=== PATIENT | female | born 1945 | race Caucasian/White ===

== ENCOUNTER 2016-06-04 12:48 | Inpatient (IN) | payer MEDICARE, BC ==
[2016-06-03 22:00] VITALS: BMI 32.2
[~2016-06-04] VITALS: Ht 157.5 cm; Wt 79.8 kg
[~2016-06-04 12:48] MED LIST: ALP2OP10 RIGHT EYE; BIMA2.5D RIGHT EYE; BROM3DRO LEFT EYE; CALC500T91 PO; CELE200C PO; DORZ10DR22 BOTH EYES; FENO145T19 PO; GABA-526 PO; METF-388 PO; MULT-542 PO; MURO1282 LEFT EYE; OMEG500C3 PO; OMEP20CA16 PO; OXYB10TA6 PO; RAMI5CAP46 PO; REPA2TAB8 PO; SITA100T8 PO
[2016-06-04 15:30] VITALS: BP 122/58; PULSE 89; RESP 18
[2016-06-04] MEDS ORDERED: ACETAMINOPHEN 325 MG TAB PO PRN ×2 (17:42→18:00)
[2016-06-04] MEDS ORDERED: GLUCAGON 1 MG INJ IM PRN (17:42)
[2016-06-04] MEDS ORDERED: BISACODYL 10 MG SUPP PR PRN (17:42)
[2016-06-04] MEDS ORDERED: GLUCOSE GEL 15 GRAM TUBE BUCCAL PRN (17:42)
[2016-06-04] MEDS ORDERED: MAGNESIUM HYDROXIDE 30ML CUP PO PRN ×2 (17:42→18:00)
[2016-06-04] MEDS ORDERED: morphine 2 MG INJ IV PRN (17:42)
[2016-06-04] MEDS ORDERED: DEXTROSE 50% 50 ML SYRINGE IV PRN ×2 (17:42)
[2016-06-04] MEDS ORDERED: GLUCOSE GEL 15 GRAM TUBE PO PRN ×2 (17:42)
[2016-06-04] MEDS ORDERED: ONDANSETRON 4 MG INJ IV PRN (17:42)
[2016-06-04] MEDS: CIPROFLOXACIN 500 MG TAB PO SCH (18:10)
[2016-06-04 20:00] VITALS: BP 123/58; PULSE 93; RESP 18
[2016-06-04] MEDS: SENNA TAB PO SCH (20:58)
[2016-06-04] MEDS: DOCUSATE SODIUM 100 MG CAP PO SCH (20:58)
[2016-06-04] MEDS: CALCIUM/VITAMIN D (500/200) TAB PO SCH (20:58)
[2016-06-04] MEDS: DORZOLAMIDE/TIMOLOL 10 ML OPH BOTH EYES SCH (20:58)
[2016-06-04] MEDS: GABAPENTIN 300 MG CAP PO SCH (20:58)
[2016-06-04] MEDS: INSULIN ASPART [NOVOLOG] 3 ML PEN SC SCH (20:58)
[2016-06-04] MEDS: BRIMONIDINE 0.2% 5 ML BTL RIGHT EYE SCH (20:58)
[2016-06-04] MEDS ORDERED: oxyCODONE (CR) 10 MG TAB [oxyCONTIN] PO PRN (23:00)
[2016-06-04] MEDS: HYDROmorphONE 1 MG/ML SYG IV PRN (23:30)
[2016-06-05 00:40] LABS: ADD UMIC YES; URINE BILIRUBIN (Dip) NEGATIVE (NEGATIVE); URINE BLOOD (Dip) TRACE (NEGATIVE); URINE COLOR LT. YELLOW (YELLOW); URINE GLUCOSE (Dip) NEGATIVE (NEGATIVE); URINE KETONES (Dip) NEGATIVE (NEGATIVE); URINE LEUKOCYTE ESTERASE (Dip) 2+ (NEGATIVE); URINE NITRITE (Dip) NEGATIVE (NEGATIVE); URINE TOTAL PROTEIN (Dip) NEGATIVE (NEGATIVE); URINE UROBILINOGEN (Dip) 1.0 E.U./dL (0.1-1.0)
[2016-06-05 01:52] LABS: BACTERIA,URINE FEW; SQUAMOUS EPITHELIAL CELL,UR FEW; URINE RBCS 0-2 /HPF (0)
[2016-06-05] MEDS: ACCUCHECK XX SCH (02:00)
[2016-06-05 02:13] VITALS: Ht 157.5 cm; Wt 79.8 kg
[2016-06-05] MEDS: CIPROFLOXACIN 500 MG TAB PO SCH ×2 (06:40→17:32)
[2016-06-05] MEDS: PANTOPRAZOLE (EC) 40 MG TAB PO SCH (06:40)
[2016-06-05 07:44] LABS: HEMATOCRIT 27.2 % (37.0-47.0); HEMOGLOBIN 8.9 g/dl (12.0-16.0); MEAN CORPUSCULAR HEMOGLOBIN 29.4 pg (29.0-33.0); MEAN CORPUSCULAR HGB CONC 32.8 g/dl (32.0-37.0); MEAN CORPUSCULAR VOLUME 89.3 fl (82.0-101.0); MEAN PLATELET VOLUME 10.6 fl (7.4-10.4); RED BLOOD COUNT 3.04 10^6/ul (4.20-5.40); UNCORRECTED WBC 6.8 10^3/ul (4.8-10.8); WHITE BLOOD COUNT 6.8 10^3/ul (4.8-10.8)
[2016-06-05 07:51] LABS: ALBUMIN 3.4 g/dl (3.3-4.9); POTASSIUM 4.2 mmol/L (3.5-5.1)
[2016-06-05 07:53] LABS: CREATININE 0.77 mg/dl (0.44-1.00)
[2016-06-05 07:54] LABS: ALBUMIN/GLOBULIN RATIO 0.94; BILIRUBIN,INDIRECT 0.6 mg/dl (0-1.1); BILIRUBIN,TOTAL 0.6 mg/dl (0.2-1.3)
[2016-06-05] MEDS: REPAGLINIDE 2 MG TAB PO SCH ×3 (07:57→17:00)
[2016-06-05] MEDS: metFORMIN 500 MG TAB PO SCH (07:58)
[2016-06-05 08:00] VITALS: BP 98/54; PULSE 86; RESP 18
[2016-06-05 08:00] LABS: CONDITION 1; LH ANALYZER COMMENTS 1
[2016-06-05 08:02] LABS: PLATELET COUNT 23 10^3/UL (140-440)
[2016-06-05] MEDS: INSULIN ASPART [NOVOLOG] 3 ML PEN SC SCH ×4 (08:04→20:10)
[2016-06-05] MEDS: morphine 2 MG INJ IV PRN ×2 (08:22→23:51)
[2016-06-05] MEDS: BROMFENAC SODIUM 1.7 ML OPH DROP LEFT EYE SCH (09:00)
[2016-06-05] MEDS: OXYBUTYNIN (XL) 5 MG TAB PO SCH (09:57)
[2016-06-05] MEDS: FLUCONAZOLE 100 MG TAB PO SCH (09:57)
[2016-06-05] MEDS: DOCUSATE SODIUM 100 MG CAP PO SCH ×2 (09:58→20:07)
[2016-06-05] MEDS: FENOFIBRATE 145 MG TAB PO SCH (09:58)
[2016-06-05] MEDS: LISINOPRIL 10 MG TAB PO SCH (09:58)
[2016-06-05] MEDS: CALCIUM/VITAMIN D (500/200) TAB PO SCH ×2 (09:58→20:07)
[2016-06-05] MEDS: GABAPENTIN 300 MG CAP PO SCH ×3 (09:58→20:07)
[2016-06-05] MEDS: LINAGLIPTIN 5 MG TABLET PO SCH (09:59)
[2016-06-05] MEDS: POLYETHYLENE GLYCOL 17 GM PACKET PO SCH (09:59)
[2016-06-05] MEDS: NYSTATIN/TRIAMCINOLONE 15 GM CR TOP SCH ×2 (10:01→20:09)
[2016-06-05] MEDS: BRIMONIDINE 0.2% 5 ML BTL RIGHT EYE SCH ×2 (10:01→20:07)
[2016-06-05] MEDS: DORZOLAMIDE/TIMOLOL 10 ML OPH BOTH EYES SCH ×2 (10:02→20:07)
[2016-06-05 11:09] LABS: LYMPHOCYTES # 1.2 10^3/ul (0.8-2.9); MONOCYTE # 0.7 10^3/ul (0.3-0.9); MYELOCYTES # 0.4; NEUTROPHIL # 3.5 10^3/ul (1.6-7.5); PLATELET ESTIMATE PLT APPEAR DECREASED
[2016-06-05 20:00] VITALS: BP 100/50; PULSE 86; RESP 18
[2016-06-05] MEDS: SENNA TAB PO SCH (20:07)
[2016-06-05] MEDS: INSULIN GLARGINE [LANtus] 3 ML PEN SC SCH (23:16)
--- NOTE | 2016-06-06 00:05 | HP ---
DATE OF ADMISSION: 06/04/2016 PHYSICAL MEDICINE & REHABILITATION HISTORY AND PHYSICA/ POST ADMISSION ASSESSMENT DATE OF VISIT: 06/05/2016 REHABILITATION IMPAIRMENT GROUP: Other orthopedic, with right comminuted patellar fracture and left spiral fracture of the proximal shaft of left humerus. CHIEF COMPLAINT: Impaired mobility, right lower extremity and left upper extremity pain. 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 Imaging done showed a spiral fracture of the proximal shaft of the left humerus, as well as a right comminuted fracture of the right patella. She was seen by orthopedic surgeon, Dr. Reed, who noted fractures were in acceptable alignment and recommended immobilization of the right lower extremity in a long leg brace, as well as immobilization of the left upper extremity in an HSS brace. He recommended weightbearing as tolerated to the bilateral lower extremities and nonweightbearing to the left upper extremity, with braces in place at all times. The patient's course was complicated by acute pain secondary to trauma and fractures, as well as anemia and thrombocytopenia, followed by hematology and did receive transfusions of packed red blood cells and platelets, as well as Epogen. She was also found to have UTI and started on antibiotics. The patient did work with physical and occupational therapies and was noted to have an overall significant decline in functional mobility and self-care ADLs. Currently the patient is requiring minimal assistance for feeding and grooming. She is maximal assistance for bathing, dressing and toileting. She is requiring minimal assistance for gait with a feliz-walker of 5 feet, requiring minimal assistance for bed transfers. Due to the patient's continued medical comorbidities and decline in functionality, she was thought to benefit from acute inpatient rehabilitation. PAST MEDICAL AND SURGICAL HISTORY: As stated in the history of present illness , including history of myelodysplastic syndrome, followed at [facility], with anemia, thrombocytopenia, history of diabetes mellitus type 2 and associated diabetic peripheral neuropathy, history of cataracts, glaucoma, hypertension, hyperlipidemia, overactive bladder, and GERD. Other surgeries have included laminectomy. FAMILY HISTORY: Significant for mother with a history of dementia, diabetes and hypertension. Father of leukemia in his 60s, and brother of colon cancer in his 50s. SOCIAL HISTORY: The patient has a remote smoking history 50 years ago. The patient was previously living with her siblings in a single-story home. Reports a few steps to enter the home and a few steps to enter the garage. She reports that her brother and sister will live with her on discharge. She reports that prior to hospitalization she was completely independent for all functional mobility and self-care ADLs. She was using a cane for ambulation outside of the home. No assistive device within the home. Please see history of present illness for current level of function. CURRENT MEDICATIONS ON ADMISSION: 1. Mycolog applications twice daily. 2. Morphine 2 mg IV every 2 hours as needed. 3. [place] 5/325 mg 1 to 2 tabs every 4 hours as needed for moderate to severe pain. 4. Senna 1 tab oral at bedtime. 5. Tylenol as needed. 6. Milk of Magnesia as needed. 7. Lactulose as needed. 8. Lisinopril 10 mg oral daily. 9. Alphagan eyedrops twice daily to the right eye. 10. Bromfenac 1 drop daily to the left eye. 11. Dorzolamide/Timolol, 1 drop to both eyes twice daily. 12. Zofran as needed. 13. Protonix 40 mg oral daily. 14. Ditropan 10 mg oral daily. 15. Gabapentin 600 mg oral 3 times daily. 16. Metformin 1000 mg oral daily with breakfast. 17. Prandin 2 mg oral before meals. 18. Tradjenta 5 mg oral daily. 19. Tricor 145 mg oral daily. 20. Calcium with vitamin D 1 tablet oral twice daily. 21. Dilaudid 0.5 mg IV every.3 hours as needed 22. MiraLax 17 grams oral daily. 23. Diflucan 100 mg oral daily until 06/10. 24. Epogen 10,000 units Tuesday, Tuesday and Tuesday. 25. Colace 100 mg oral twice daily. 26. Cipro 500 mg oral twice daily. 27. Insulin sliding scale as needed. ALLERGIES: NO KNOWN DRUG ALLERGIES. LABORATORIES AND IMAGING: WBC 6.8, hemoglobin 8.9, hematocrit 27.2, platelets 23. Sodium 137, potassium 4.2, BUN 29, creatinine 0.77, glucose 244, calcium 10. AST 49, ALT 42, alkaline phosphatase 74, albumin 3.4. UA on admission was clear, negative nitrites, has leukocyte esterase, 2 to 5 WBCs, few squamous epithelial cells, few bacteria. Urine culture is pending. REVIEW OF SYSTEMS: CONSTITUTIONAL: Denies chills. Noted to have had a low-grade temperature yesterday afternoon. EYES: Denies pain or discharge. No redness. EARS, NOSE AND THROAT: Denies changes in hearing, no difficulty swallowing. RESPIRATORY: Denies shortness of breath, no cough. CARDIOVASCULAR: Denies chest pain, no palpitations. GENITOURINARY: Denies dysuria, but reports increase in urinary frequency. No hematuria. She is on antibiotics for a UTI. GASTROINTESTINAL: Denies abdominal pain. No nausea or vomiting. Reports moving her bowels. NEUROLOGICAL: Denies any new focal weakness or new paresthesias. MUSCULOSKELETAL: Reports currently 1/10 pain in the left upper extremity and the right lower extremity. SKIN: Noted bruising in the upper and lower extremities as well as left side of her chest and abdomen. PSYCHIATRIC: Denies anxiety or depression. Review of systems is otherwise negative. PHYSICAL EXAMINATION: VITAL SIGNS: Blood pressure is 98/54, heart rate is 86, temperature is 98.7 Fahrenheit, respiratory rate 18, O2 saturation 95% on room air. GENERAL: The patient is awake, alert, no acute distress, well nourished, well developed. HEAD, EYES, EARS, NOSE, THROAT: Normocephalic, atraumatic. Mucous membranes moist. NECK: Supple. Nontender. RESPIRATORY: Diminished bibasilar breath sounds. No wheezing. CARDIOVASCULAR: Regular rate and rhythm. Audible S1, S2. ABDOMEN: Soft, nontender. Bowel sounds present. EXTREMITIES: The left calf is nontender and soft. There is no cyanosis. Right lower extremity immobilizer and left upper extremity HSS brace in place. SKIN: Bruising present in the upper and lower extremities, left side of her chest and abdomen. PSYCHIATRIC: Affect and mood are appropriate. NEUROLOGIC AND MUSCULOSKELETAL EXAMINATION: The patient is awake, alert, in no acute distress. She follows simple commands appropriately. She has good overall strength in the right upper extremity. She is able to move all fingers on the left. Right dorsiflexion and plantar flexion and left lower extremity with antigravity strength Further evaluation is limited due to orthopedic injuries. Sensation is intact to light touch, except decrease in the bilateral feet due to diabetic neuropathy. IMPRESSION: 1. Status post mechanical fall with a right comminuted patellar fracture and a spiral fracture of the proximal shaft of the left humerus, treated non- operatively 2. Impaired mobility, gait, and balance. 3. Impaired self-care ADLs. 4. Acute pain due to trauma and fractures 5. Myelodysplastic syndrome. 6. Anemia. 7. Thrombocytopenia. 8. Diabetes mellitus type 2, with diabetic neuropathy. 9. Hypertension. 10. Hyperlipidemia. 11. Overactive bladder. 12. GERD. 13. Urinary tract infection, present on admission. 14. Glaucoma PLAN: 1. The patient will be admitted for inpatient comprehensive interdisciplinary rehabilitation to address impairments in medical conditions listed above while assessing equipment needs and compensatory strategies with coordinated interdisciplinary services that will include physical and occupational therapies and close monitoring and treatment with 24-hour rehabilitation nursing. This interdisciplinary program will be performed under the direction of a delicatessen goods stock clerk. The patient will receive 3 hours daily of physical and occupational therapies for at least 5 out of the 7 days per week, with rehabilitation nursing and close supervision by a rehabilitation physician. 2. Based on the patient's complex medical issues, as previously detailed, the patient's rehabilitation services cannot be provided at a lesser level. 3. Begin physical therapy for bed mobility, transfers, wheelchair mobility, balance training, gait training with assistive devices. 4. Begin occupational therapies for activities of daily living, functional transfers, patient education, adaptive equipment evaluation. 5. Rehabilitation nursing to provide the patient education regarding current medications as they relate to medical illness, monitor blood sugars, monitor for signs or symptoms of hyper or hypoglycemia, monitor pain, monitor bowel and bladder programs and administer such programs, and continue to reinforce those activities with physical and occupational therapies. 6. Dr. Purvis to follow for management of medical comorbidities. 7. For her history of myelodysplastic syndrome with anemia and thrombocytopenia , she is being followed by hematology. A decline in platelets noted on labs this morning. Nursing has left a message for hematology for further recommendations. No signs or symptoms of bleeding at this time. Will continue to closely monitor. Continue to closely monitor hemoglobin and hematocrit as well, currently stable. 8. For history of hypertension, blood pressure noted to be low this morning, asymptomatic. Defer to general medicine regarding further adjustment of her blood pressure medications. 9. For acute pain due to trauma and fractures, pain currently appears to be controlled. Continue current pain regimen. Will adjust as needed as she mobilizes further with therapies. Continue conservative treatment of the spiral fracture of the proximal shaft of the left humerus and right comminuted fracture of the right patella, per orthopedic doctor, Dr. Reed, with immobilizers to the right lower extremity and left upper extremity at all times. She is weightbearing as tolerated to the bilateral lower extremities and nonweightbearing on the left upper extremity. Will follow up with Dr. Reed in regards to followup x-ray. 10. For overactive bladder, continue current management. Bladder training with nursing staff. Will also check a bladder scan. 11. For urinary tract infection, continue antibiotics per interanl medicine. 12. For diabetes mellitus type 2, continue current treatment, per internal medicine. Continue gabapentin for diabetic neuropathy. 13. For glaucoma, continue eye drops. REHABILITATION GOALS: To improve bed mobility, transfers, wheelchair mobility to a standby assistance level. Improve self-care ADLs at wheelchair level to at least minimal assistance level with adaptive equipment. ESTIMATED LENGTH OF STAY: Approximately 2 weeks. ANTICIPATED DISPOSITION: To home with siblings. Her case will be discussed at the weekly interdisciplinary conference. ADMISSION PROGNOSIS: At the current time this inpatient hospital rehabilitation stay is medically necessary to achieve important health and functional goals. The patient requires frequent physician visits, 24-hour rehabilitation nursing and a coordinated intensive rehabilitation program, as described above, to address complex medical, nursing and rehabilitation needs. The patient has a good prognosis for benefiting from this program and returning to home and community with assistance. REHABILITATION PHYSICIAN POST-ADMISSION ASSESSMENT REVIEW: I have had the opportunity to examine the patient within 24 hours of admission and have reviewed the preadmission assessment and finding consistent with my examination and evaluation of the patient. I confirmed that this patient is appropriate for admission and treatment in this inpatient rehabilitation hospital, needs intense interdisciplinary rehabilitation and is expected to achieve meaningful goals within a reasonable period of time that are consistent with the planned discharge disposition, as noted above. Dictated By: BRIGITTE PUENTE MD, RA/ROGE Conf#: [id number] DID#: [id number] MACO
[2016-06-06] MEDS: ACCUCHECK XX SCH (02:00)
[2016-06-06] MEDS: PANTOPRAZOLE (EC) 40 MG TAB PO SCH (06:57)
[2016-06-06] MEDS: CIPROFLOXACIN 500 MG TAB PO SCH ×2 (06:57→17:31)
[2016-06-06 07:27] LABS: HEMATOCRIT 24.8 % (37.0-47.0); HEMOGLOBIN 8.1 g/dl (12.0-16.0); MEAN CORPUSCULAR HEMOGLOBIN 29.4 pg (29.0-33.0); MEAN CORPUSCULAR HGB CONC 32.9 g/dl (32.0-37.0); MEAN CORPUSCULAR VOLUME 89.5 fl (82.0-101.0); MEAN PLATELET VOLUME 10.6 fl (7.4-10.4); RED BLOOD COUNT 2.77 10^6/ul (4.20-5.40); RED CELL DISTRIBUTION WIDTH 16.6 % (11.5-14.5); UNCORRECTED WBC 8.2 10^3/ul (4.8-10.8); WHITE BLOOD COUNT 8.2 10^3/ul (4.8-10.8)
[2016-06-06 07:38] LABS: CONDITION 1; LH ANALYZER COMMENTS 1; PLATELET COUNT 20 10^3/UL (140-440)
[2016-06-06 08:00] VITALS: BP 114/56; PULSE 76; RESP 18
[2016-06-06] MEDS: LISINOPRIL 10 MG TAB PO SCH (08:20)
[2016-06-06] MEDS: OXYBUTYNIN (XL) 5 MG TAB PO SCH (08:20)
[2016-06-06] MEDS: GABAPENTIN 300 MG CAP PO SCH ×3 (08:21→20:50)
[2016-06-06] MEDS: metFORMIN 500 MG TAB PO SCH (08:21)
[2016-06-06] MEDS: FLUCONAZOLE 100 MG TAB PO SCH (08:21)
[2016-06-06] MEDS: CALCIUM/VITAMIN D (500/200) TAB PO SCH ×2 (08:21→20:50)
[2016-06-06] MEDS: REPAGLINIDE 2 MG TAB PO SCH ×3 (08:21→17:26)
[2016-06-06] MEDS: DOCUSATE SODIUM 100 MG CAP PO SCH ×2 (08:21→20:50)
[2016-06-06] MEDS: LINAGLIPTIN 5 MG TABLET PO SCH (08:21)
[2016-06-06] MEDS: FENOFIBRATE 145 MG TAB PO SCH (08:22)
[2016-06-06] MEDS: DORZOLAMIDE/TIMOLOL 10 ML OPH BOTH EYES SCH ×2 (08:22→20:49)
[2016-06-06] MEDS: POLYETHYLENE GLYCOL 17 GM PACKET PO SCH (08:22)
[2016-06-06] MEDS: BROMFENAC SODIUM 1.7 ML OPH DROP LEFT EYE SCH (08:23)
[2016-06-06] MEDS: BRIMONIDINE 0.2% 5 ML BTL RIGHT EYE SCH ×2 (08:24→20:50)
[2016-06-06] MEDS: INSULIN ASPART [NOVOLOG] 3 ML PEN SC SCH ×4 (08:28→20:50)
[2016-06-06] MEDS: morphine 2 MG INJ IV PRN ×2 (08:55→15:10)
[2016-06-06 09:59] LABS: LYMPHOCYTES # 2.4 10^3/ul (0.8-2.9); MONOCYTE # 0.7 10^3/ul (0.3-0.9); MYELOCYTES # 0.2; NEUTROPHIL # 4.7 10^3/ul (1.6-7.5)
[2016-06-06 10:03] LABS: ANISOCYTOSIS 1+; HYPOCHROMASIA 1+; PLATELET ESTIMATE PLT APPEAR DECREASED; POIKILOCYTOSIS 1+; TARGET CELLS 1+
--- NOTE | 2016-06-06 12:19 | PN ---
Date/Time of Note Date/Time of Note DATE: 06/06/16 TIME: 12:12 Assessment/Plan VTE Prophylaxis VTE Prophylaxis Intervention: other (per internal medicine/hematology) Lines/Catheters Urinary Cath still in place: No Assessment/Plan Assessment/Plan 1. Status post mechanical fall with a right comminuted patellar fracture and a spiral fracture of the proximal shaft of the left humerus, treated non- operatively, with Impaired mobility, gait, balance and self care ADLs. Continue PT/OT. NWB LUE, WBAT RLE with immobilizers in place. Max to total assistance for bed mobility and transfers. 2. Acute pain due to trauma and fractures. Pain controlled, continue prn norco and morphine. 3. Myelodysplastic syndrome with anemia and thrombocytopenia. Plts and hemoglobin/hematocrit downtrending. Continue to monitor. Management per hematology. 4. Diabetes mellitus type 2, with diabetic neuropathy. Continue to monitor blood sugars. Blood sugar control per internal medicine. Neuropathy controlled with gabapentin. 5. Hypertension. Bp controlled, continue current treatment. 6. Hyperlipidemia. 7. Overactive bladder. Continue oxybutynin. Bladder program with nursing staff. 8. GERD. 9. UTI, present on admission. On antibiotics per internal medicine. 10. Constipation. Continue bowel regimen. 11. Glaucoma. Continue eye drops. Subjective 24 Hr Interval Summary Free Text/Dictation Rehab progress note Subjective: Reports mild pain currently LUE and RLE. Reports moving bowels yesterday. ROS: Denies chest pain, no shortness of breath, no abdominal pain, no vomiting, no chills, no headache or dizziness, no new paresthesias. Exam/Review of Systems Vital Signs Vitals Vital Signs Date Time Temp Pulse Resp B/P Pulse Ox O2 Delivery O2 Flow Rate FiO2 06/06/16 08:00 98.0 76 18 114/56 94 Room Air Intake and Output 06/05/16 06/05/16 06/06/16 15:00 23:00 07:00 Intake Total 360 ml 460 ml 500 ml Balance 360 ml 460 ml 500 ml Exam General: Awake, alert, no acute distress CV: Regular rate, s1s2 Lungs: Symmetrical air entry bilaterally, no wheezing Abdomen soft, nontender, +bowel sounds Extremities: LUE and RLE with immobilizers in place. No cyanosis Neuro: No new focal changes. Able to moves all fingers on left. Active R DF/PF. No new sensory changes. Results Result Diagram: 06/06/16 0628 06/05/16 0647 Results 24 hrs Laboratory Tests Test 06/05/16 16:50 06/05/16 20:03 06/06/16 01:26 06/06/16 06:28 Bedside Glucose 139 196 127 Anisocytosis 1+ Band Neutrophils % 3.0 Blood Morphology Comment Hematocrit 24.8 L Hemoglobin 8.1 L Hypochromasia 1+ Lymphocytes # 2.4 Lymphocytes % 29.0 Mean Corpuscular Hemoglobin 29.4 Mean Corpuscular Hemoglobin Concent 32.9 Mean Corpuscular Volume 89.5 Mean Platelet Volume 10.6 H Monocytes # 0.7 Monocytes % 9.0 Myelocytes # 0.2 Myelocytes % 2.0 H Neutrophils # 4.7 Neutrophils % 57.0 Nucleated Red Blood Cells # Nucleated Red Blood Cells % 14.0 H Platelet Count 20 *L Platelet Estimate PLT APPEAR DECREASED Red Blood Count 2.77 L Red Cell Distribution Width 16.6 H Target Cells 1+ White Blood Count 8.2 # Test 06/06/16 07:34 06/06/16 11:32 Bedside Glucose 163 185 Medications Medications Current Medications Senna (Senokot) 1 tab HS PO Last administered on 06/05/16at 20:07; Admin Dose 1 TAB; Start 06/04/16 at 21:00 Acetaminophen (Tylenol Tab) 650 mg Q4H PRN PO PAIN; Start 06/04/16 at 18:00 Magnesium Hydroxide (Milk Of Mag) 30 ml BID PRN PO CONSTIPATION; Start at 18:00 Lactulose (Enulose) 20 gm DAILY PRN PO CONSTIPATION; Start 06/04/16 at 18:00 Lisinopril (Zestril) 10 mg DAILY PO Last administered on 06/06/16at 08:20; Admin Dose 10 MG; Start 06/04/16 at 17:42 Brimonidine Tartrate (Alphagan 0.2%) 1 drop BID RIGHT EYE Last administered on 06/06/16at 08:24; Admin Dose 1 DROP; Start 06/04/16 at 17:42 Bromfenac Sodium (Bromday) 1 drop DAILY LEFT EYE Last administered on at 08:23; Admin Dose 1 DROP; Start 06/04/16 at 17:42 Dorzolamide/ Timolol (Cosopt) 1 drop BID BOTH EYES Last administered on 08:22; Admin Dose 1 DROP; Start 06/04/16 at 17:42 Acetaminophen (Tylenol Tab) 650 mg Q6H PRN PO PAIN AND OR ELEVATED TEMP; Start 06/04/16 at 17:42 Ondansetron HCl (Zofran Inj) 4 mg Q4H PRN IV NAUSEA AND/OR VOMITING; Start at 17:42 Magnesium Hydroxide (Milk Of Mag) 30 ml BID PRN PO CONSTIPATION; Start at 17:42 Pantoprazole (Protonix Tab) 40 mg DAILY@06 PO Last administered on 06/06/16 06:57; Admin Dose 40 MG; Start 06/04/16 at 17:42 Oxybutynin Chloride (Ditropan Xl) 10 mg DAILY PO Last administered on 08:20; Admin Dose 10 MG; Start 06/04/16 at 17:42 Gabapentin (Neurontin) 600 mg TID PO Last administered on 06/06/16 08:21; Admin Dose 600 MG; Start 06/04/16 at 17:42 Linagliptin (Tradjenta) 5 mg DAILY PO Last administered on 06/06/16 08:21; Admin Dose 5 MG; Start 06/04/16 at 17:42 Fenofibrate (Tricor) 145 mg DAILY PO Last administered on 06/06/16 08:22; Admin Dose 145 MG; Start 06/04/16 at 17:42 Calcium/Vitamin D (Oyster Shell/ Vit-D (500/200)) 1 tab BID PO Last administered on 06/06/16 08:21; Admin Dose 1 TAB; Start 06/04/16 at 17:42 Hydromorphone HCl (Dilaudid) 0.5 mg Q3H PRN IV PAIN Last administered on 23:30; Admin Dose 0.5 MG; Start 06/04/16 at 17:42 Polyethylene Glycol (Miralax) 17 gm DAILY PO Last administered on 06/06/16 08 :22; Admin Dose 17 GM; Start 06/04/16 at 17:42 Miscellaneous Information 1 ea NOTE XX ; Start 06/04/16 at 17:42 Glucose (Glutose) 15 gm Q15M PRN PO DECREASED GLUCOSE; Start 06/04/16 at 17:42 Glucose (Glutose) 22.5 gm Q15M PRN PO DECREASED GLUCOSE; Start 06/04/16 at 17: 42 Dextrose (D50w Syringe) 25 ml Q15M PRN IV DECREASED GLUCOSE; Start 06/04/16 at 17:42 Dextrose (D50w Syringe) 50 ml Q15M PRN IV DECREASED GLUCOSE; Start 06/04/16 at 17:42 Glucagon (Glucagen) 1 mg Q15M PRN IM DECREASED GLUCOSE; Start 06/04/16 at 17: 42 Glucose (Glutose) 15 gm Q15M PRN BUCCAL DECREASED GLUCOSE; Start 06/04/16 at 17:42 Fluconazole (Diflucan) 100 mg DAILY PO Last administered on 06/06/16at 08:21; Admin Dose 100 MG; Start 06/04/16 at 17:42; Stop 06/10/16 at 08:59 Epoetin Raul (Epogen (Esrd)) 10,000 units MoWeFr@17 SC ; Start 06/04/16 at 17: 42 Bisacodyl (Dulcolax Supp) 10 mg DAILY PRN [place] CONSTIPATION; Start 06/04/16 at 17:42 Docusate Sodium (Colace) 100 mg BID PO Last administered on 06/06/16at 08:21; Admin Dose 100 MG; Start 06/04/16 at 17:42 Ciprofloxacin (Cipro) 500 mg BID@06,18 PO Last administered on 06/06/16at 06:57 ; Admin Dose 500 MG; Start 06/04/16 at 17:42; Stop 06/09/16 at 19:00 Diagnostic Test (Pha) (Accucheck) 1 ea 02 XX ; Start 06/04/16 at 17:42 Acetaminophen/ Hydrocodone Bitart ([place] (5/325)) 1 tab Q4H PRN PO moderate pain; Start 06/04/16 at 22:00 Acetaminophen/ Hydrocodone Bitart ([place] (5/325)) 2 tab Q4H PRN PO severe pain ; Start 06/04/16 at 22:00 Morphine Sulfate (morphine) 2 mg Q2H PRN IV SEVERE PAIN Last administered on at 08:55; Admin Dose 2 MG; Start 06/05/16 at 03:36 Nystatin/ Triamcinolone Acetonide (Mycolog Cr) 1 applic BID TOP Last administered on 06/05/16at 10:01; Admin Dose 1 APPLIC; Start 06/05/16 at 09:00 ; Stop 06/11/16 at 22:00 Influenza Virus Vaccine (Fluzone) 0.5 ml ONCE ONCE IM* ; Start 06/07/16 at 09: 00; Stop 06/07/16 at 09:01 Insulin Glargine (Lantus) 12 unit HS SC ; Start 06/05/16 at 23:30 BRIGITTE PUENTE Jun 06, 2016 12:19
[2016-06-06] MEDS: NYSTATIN/TRIAMCINOLONE 15 GM CR TOP SCH ×2 (17:27→20:50)
[2016-06-06 20:00] VITALS: BP 105/62; PULSE 91; RESP 20
[2016-06-06] MEDS: SENNA TAB PO SCH (20:50)
[2016-06-06] MEDS: INSULIN GLARGINE [LANtus] 3 ML PEN SC SCH (21:01)
[2016-06-07] MEDS: ACCUCHECK XX SCH (02:00)
[2016-06-07] MEDS: HYDROCODONE/APAP (5/325) TAB PO PRN ×2 (04:24→20:47)
[2016-06-07] MEDS: CIPROFLOXACIN 500 MG TAB PO SCH ×2 (06:23→18:23)
[2016-06-07] MEDS: PANTOPRAZOLE (EC) 40 MG TAB PO SCH (06:23)
[2016-06-07] MEDS: INSULIN ASPART [NOVOLOG] 3 ML PEN SC SCH ×4 (07:35→21:00)
[2016-06-07 08:00] VITALS: BP 103/55; PULSE 74; RESP 16
--- NOTE | 2016-06-07 08:41 | RADRPT ---
PROCEDURE: XR Left Humerus. CLINICAL INDICATION: Left arm pain. TECHNIQUE: AP and lateral views of the left humerus were performed. COMPARISON: 06/01/2016. FINDINGS: As seen previously, there is an acute oblique fracture of the midshaft of the humerus with mild angu lation apex medial. There is no other fracture and there is no dislocation para There is diffuse soft tissue swelling. Articular surfaces are intact. There is no lytic or blastic lesion. There is no radiopaque foreign body. IMPRESSION: 1. Oblique acute fracture of the midshaft of the left humerus with mild angulation apex medial. 2. Otherwise unremarkable study. RPTAT: QQ .Yimi Cornell MD, MD Date Time Electronically viewed and signed by .Yimi Cornell MD, on 06/07/2016 08:41 .R/
[2016-06-07] MEDS: CALCIUM/VITAMIN D (500/200) TAB PO SCH ×2 (08:49→20:30)
[2016-06-07] MEDS: LINAGLIPTIN 5 MG TABLET PO SCH (08:49)
[2016-06-07] MEDS: metFORMIN 500 MG TAB PO SCH (08:49)
[2016-06-07] MEDS: DOCUSATE SODIUM 100 MG CAP PO SCH ×2 (08:49→20:30)
[2016-06-07] MEDS: LISINOPRIL 10 MG TAB PO SCH (08:49)
[2016-06-07] MEDS: OXYBUTYNIN (XL) 5 MG TAB PO SCH (08:49)
[2016-06-07] MEDS: FLUCONAZOLE 100 MG TAB PO SCH (08:49)
[2016-06-07] MEDS: GABAPENTIN 300 MG CAP PO SCH ×3 (08:49→20:33)
[2016-06-07] MEDS: REPAGLINIDE 2 MG TAB PO SCH ×3 (08:49→18:23)
[2016-06-07] MEDS: FENOFIBRATE 145 MG TAB PO SCH (08:49)
[2016-06-07] MEDS: BRIMONIDINE 0.2% 5 ML BTL RIGHT EYE SCH ×2 (08:50→20:31)
[2016-06-07] MEDS: BROMFENAC SODIUM 1.7 ML OPH DROP LEFT EYE SCH (08:50)
[2016-06-07] MEDS: POLYETHYLENE GLYCOL 17 GM PACKET PO SCH (08:50)
[2016-06-07] MEDS: DORZOLAMIDE/TIMOLOL 10 ML OPH BOTH EYES SCH ×2 (08:51→20:30)
[2016-06-07] MEDS: NYSTATIN/TRIAMCINOLONE 15 GM CR TOP SCH ×2 (08:51→20:34)
[2016-06-07] MEDS ORDERED: INFLUENZA VIRUS VACCINE 0.5 ML SYG IM* ONE (09:00)
--- NOTE | 2016-06-07 10:51 | PN ---
Date/Time of Note Date/Time of Note DATE: 06/07/16 TIME: 10:47 Assessment/Plan VTE Prophylaxis VTE Prophylaxis Intervention: other (per internal medicine/hematology) Lines/Catheters Urinary Cath still in place: No Assessment/Plan Assessment/Plan 1. Status post mechanical fall with a right comminuted patellar fracture and a spiral fracture of the proximal shaft of the left humerus, treated non- operatively, with Impaired mobility, gait, balance and self care ADLs. Continue PT/OT. NWB LUE, WBAT RLE with immobilizers in place. Max assistance for lower body dressing, min assist for grooming. 2. Acute pain due to trauma and fractures. Pain controlled, continue prn norco and morphine. 3. Myelodysplastic syndrome with anemia and thrombocytopenia. Management per hematology. Plts and hemoglobin/hematocrit downtrending in last labs, monitor. 4. Diabetes mellitus type 2, with diabetic neuropathy. Blood sugar control per internal medicine, internal medicine adjusting regimen. Neuropathy controlled with gabapentin. 5. Hypertension. BP controlled, continue current treatment. 6. Hyperlipidemia. 7. Overactive bladder with urinary incontinence. Continue oxybutynin. Bladder program with nursing staff. PVR yesterday per nursing staff 60cc. 8. GERD. Continue PPI. 9. UTI, present on admission. On antibiotics per internal medicine. 10. Constipation. Continue bowel regimen. 11. Glaucoma. Continue eye drops. Subjective 24 Hr Interval Summary Free Text/Dictation Rehab progress note Subjective: Reports mild pain currently LUE/RLE at rest, pain worse when working with therapies. ROS: Reports urinary frequency with incontinence, no dysuria, no chills, no abdominal pain, no nausea or vomiting, no chest pain or shortness of breath. Exam/Review of Systems Vital Signs Vitals Vital Signs Date Time Temp Pulse Resp B/P Pulse Ox O2 Delivery O2 Flow Rate FiO2 06/07/16 08:00 98.6 74 16 103/55 96 Room Air Intake and Output 06/06/16 06/06/16 06/07/16 15:00 23:00 07:00 Intake Total 240 ml 400 ml Output Total 400 ml Balance -160 ml 400 ml Exam General: Awake, alert, no acute distress CV: Regular rate, s1s2 Lungs: Clear to auscultation, no wheezing Abdomen soft, nontender, +bowel sounds Extremities: LUE and RLE with immobilizers in place. No cyanosis. No distal edema BLE. Neuro: Able to moves all fingers on left. Active R DF/PF. Results Result Diagram: 06/06/16 0628 06/05/16 0647 Results 24 hrs Laboratory Tests Test 06/06/16 11:32 06/06/16 17:00 06/06/16 20:49 06/07/16 08:05 Bedside Glucose 185 141 153 108 Medications Medications Current Medications Senna (Senokot) 1 tab HS PO Last administered on 06/06/16at 20:50; Admin Dose 1 TAB; Start 06/04/16 at 21:00 Acetaminophen (Tylenol Tab) 650 mg Q4H PRN PO PAIN; Start 06/04/16 at 18:00 Magnesium Hydroxide (Milk Of Mag) 30 ml BID PRN PO CONSTIPATION; Start at 18:00 Lactulose (Enulose) 20 gm DAILY PRN PO CONSTIPATION; Start 06/04/16 at 18:00 Lisinopril (Zestril) 10 mg DAILY PO Last administered on 06/07/16at 08:49; Admin Dose 10 MG; Start 06/04/16 at 17:42 Brimonidine Tartrate (Alphagan 0.2%) 1 drop BID RIGHT EYE Last administered on 06/07/16 08:50; Admin Dose 1 DROP; Start 06/04/16 at 17:42 Bromfenac Sodium (Bromday) 1 drop DAILY LEFT EYE Last administered on 08:50; Admin Dose 1 DROP; Start 06/04/16 at 17:42 Dorzolamide/ Timolol (Cosopt) 1 drop BID BOTH EYES Last administered on at 08:51; Admin Dose 1 DROP; Start 06/04/16 at 17:42 Acetaminophen (Tylenol Tab) 650 mg Q6H PRN PO PAIN AND OR ELEVATED TEMP; Start 06/04/16 at 17:42 Ondansetron HCl (Zofran Inj) 4 mg Q4H PRN IV NAUSEA AND/OR VOMITING; Start at 17:42 Pantoprazole (Protonix Tab) 40 mg DAILY@06 PO Last administered on 06/07/16at 06:23; Admin Dose 40 MG; Start 06/04/16 at 17:42 Oxybutynin Chloride (Ditropan Xl) 10 mg DAILY PO Last administered on 08:49; Admin Dose 10 MG; Start 06/04/16 at 17:42 Gabapentin (Neurontin) 600 mg TID PO Last administered on 06/07/16 08:49; Admin Dose 600 MG; Start 06/04/16 at 17:42 Linagliptin (Tradjenta) 5 mg DAILY PO Last administered on 06/07/16 08:49; Admin Dose 5 MG; Start 06/04/16 at 17:42 Fenofibrate (Tricor) 145 mg DAILY PO Last administered on 06/07/16 08:49; Admin Dose 145 MG; Start 06/04/16 at 17:42 Calcium/Vitamin D (Oyster Shell/ Vit-D (500/200)) 1 tab BID PO Last administered on 06/07/16 08:49; Admin Dose 1 TAB; Start 06/04/16 at 17:42 Hydromorphone HCl (Dilaudid) 0.5 mg Q3H PRN IV PAIN Last administered on 23:30; Admin Dose 0.5 MG; Start 06/04/16 at 17:42 Polyethylene Glycol (Miralax) 17 gm DAILY PO Last administered on 06/07/16 08 :50; Admin Dose 17 GM; Start 06/04/16 at 17:42 Miscellaneous Information 1 ea NOTE XX ; Start 06/04/16 at 17:42 Glucose (Glutose) 15 gm Q15M PRN PO DECREASED GLUCOSE; Start 06/04/16 at 17:42 Glucose (Glutose) 22.5 gm Q15M PRN PO DECREASED GLUCOSE; Start 06/04/16 at 17: 42 Dextrose (D50w Syringe) 25 ml Q15M PRN IV DECREASED GLUCOSE; Start 06/04/16 at 17:42 Dextrose (D50w Syringe) 50 ml Q15M PRN IV DECREASED GLUCOSE; Start 06/04/16 at 17:42 Glucagon (Glucagen) 1 mg Q15M PRN IM DECREASED GLUCOSE; Start 06/04/16 at 17: 42 Glucose (Glutose) 15 gm Q15M PRN BUCCAL DECREASED GLUCOSE; Start 06/04/16 at 17:42 Fluconazole (Diflucan) 100 mg DAILY PO Last administered on 06/07/16 08:49; Admin Dose 100 MG; Start 06/04/16 at 17:42; Stop 06/10/16 at 08:59 Epoetin Raul (Epogen (Esrd)) 10,000 units MoWeFr@17 SC ; Start 06/04/16 at 17: 42 Bisacodyl (Dulcolax Supp) 10 mg DAILY PRN [place] CONSTIPATION; Start 06/04/16 at 17:42 Docusate Sodium (Colace) 100 mg BID PO Last administered on 06/07/16at 08:49; Admin Dose 100 MG; Start 06/04/16 at 17:42 Ciprofloxacin (Cipro) 500 mg BID@06,18 PO Last administered on 06/07/16at 06:23 ; Admin Dose 500 MG; Start 06/04/16 at 17:42; Stop 06/09/16 at 19:00 Diagnostic Test (Pha) (Accucheck) 1 ea 02 XX ; Start 06/04/16 at 17:42 Acetaminophen/ Hydrocodone Bitart ([place] (5/325)) 1 tab Q4H PRN PO moderate pain Last administered on 06/07/16at 04:24; Admin Dose 1 TAB; Start 06/04/16 at 22:00 Acetaminophen/ Hydrocodone Bitart ([place] (5/325)) 2 tab Q4H PRN PO severe pain ; Start 06/04/16 at 22:00 Morphine Sulfate (morphine) 2 mg Q2H PRN IV SEVERE PAIN Last administered on at 15:10; Admin Dose 2 MG; Start 06/05/16 at 03:36 Nystatin/ Triamcinolone Acetonide (Mycolog Cr) 1 applic BID TOP Last administered on 06/07/16at 08:51; Admin Dose 1 APPLIC; Start 06/05/16 at 09:00 ; Stop 06/11/16 at 22:00 Insulin Glargine (Lantus) 12 unit HS SC Last administered on 06/06/16at 21:01; Admin Dose 12 UNIT; Start 06/05/16 at 23:30 BRIGITTE PUENTE Jun 07, 2016 10:51
[2016-06-07] MEDS: EPOETIN 10000 UNITS/1 ML INJ (ESRD) SC SCH (18:24)
[2016-06-07] MEDS: LACTULOSE 30ML CUP PO PRN (18:38)
[2016-06-07 19:30] VITALS: BP 109/52; PULSE 93; RESP 17
[2016-06-07] MEDS: SENNA TAB PO SCH (20:30)
[2016-06-07] MEDS: INSULIN GLARGINE [LANtus] 3 ML PEN SC SCH (20:51)
[2016-06-08] MEDS: ACCUCHECK XX SCH (02:00)
[2016-06-08] MEDS: PANTOPRAZOLE (EC) 40 MG TAB PO SCH (06:31)
[2016-06-08] MEDS: CIPROFLOXACIN 500 MG TAB PO SCH ×2 (06:31→17:14)
[2016-06-08] MEDS: HYDROCODONE/APAP (5/325) TAB PO PRN ×2 (06:32→21:18)
[2016-06-08 07:35] LABS: CREATININE 1.08 mg/dl (0.44-1.00); HEMATOCRIT 24.8 % (37.0-47.0); HEMOGLOBIN 8.3 g/dl (12.0-16.0); MEAN CORPUSCULAR HEMOGLOBIN 29.9 pg (29.0-33.0); MEAN CORPUSCULAR HGB CONC 33.5 g/dl (32.0-37.0); MEAN CORPUSCULAR VOLUME 89.2 fl (82.0-101.0); RED BLOOD COUNT 2.77 10^6/ul (4.20-5.40); RED CELL DISTRIBUTION WIDTH 17.1 % (11.5-14.5); UNCORRECTED WBC 6.1 10^3/ul (4.8-10.8); WHITE BLOOD COUNT 6.1 10^3/ul (4.8-10.8)
[2016-06-08 07:36] LABS: CALCIUM 10.7 mg/dl (8.4-10.2)
[2016-06-08 07:40] LABS: CREATININE 1.18 mg/dl (0.44-1.00)
[2016-06-08 07:46] LABS: CONDITION 1; LH ANALYZER COMMENTS 1; MEAN PLATELET VOLUME 10.1 fl (7.4-10.4)
[2016-06-08 07:47] LABS: PLATELET COUNT 19 10^3/UL (140-440)
[2016-06-08] MEDS: DOCUSATE SODIUM 100 MG CAP PO SCH ×2 (08:24→21:06)
[2016-06-08] MEDS: CALCIUM/VITAMIN D (500/200) TAB PO SCH ×2 (08:29→21:06)
[2016-06-08 08:30] VITALS: BP 99/53; PULSE 80; RESP 18
[2016-06-08] MEDS: metFORMIN 500 MG TAB PO SCH (08:30)
[2016-06-08] MEDS: FENOFIBRATE 145 MG TAB PO SCH (08:30)
[2016-06-08] MEDS: LINAGLIPTIN 5 MG TABLET PO SCH (08:30)
[2016-06-08] MEDS: GABAPENTIN 300 MG CAP PO SCH ×3 (08:30→21:06)
[2016-06-08] MEDS: OXYBUTYNIN (XL) 5 MG TAB PO SCH (08:31)
[2016-06-08] MEDS: BRIMONIDINE 0.2% 5 ML BTL RIGHT EYE SCH ×2 (08:31→21:06)
[2016-06-08] MEDS: FLUCONAZOLE 100 MG TAB PO SCH (08:32)
[2016-06-08] MEDS: REPAGLINIDE 2 MG TAB PO SCH ×3 (08:32→17:14)
[2016-06-08] MEDS: BROMFENAC SODIUM 1.7 ML OPH DROP LEFT EYE SCH (08:34)
[2016-06-08] MEDS: INSULIN ASPART [NOVOLOG] 3 ML PEN SC SCH ×4 (08:35→21:00)
[2016-06-08] MEDS: NYSTATIN/TRIAMCINOLONE 15 GM CR TOP SCH ×2 (08:37→21:07)
[2016-06-08] MEDS: POLYETHYLENE GLYCOL 17 GM PACKET PO SCH (08:41)
[2016-06-08] MEDS: LISINOPRIL 10 MG TAB PO SCH (09:00)
[2016-06-08 10:53] LABS: LYMPHOCYTES # 1.9 10^3/ul (0.8-2.9); NEUTROPHIL # 3.1 10^3/ul (1.6-7.5)
[2016-06-08 10:54] LABS: PLATELET ESTIMATE PLT APPEAR DECREASED
[2016-06-08] MEDS: DORZOLAMIDE/TIMOLOL 10 ML OPH BOTH EYES SCH ×2 (11:33→21:06)
--- NOTE | 2016-06-08 11:59 | CONS ---
Date/Time of Note Date/Time of Note DATE: 06/08/16 TIME: 11:56 Consult Date/Type/Reason Admit Date/Time Jun 04, 2016 at 15:34 Initial Consult Date Subjective Comfortable Objective mod transfer Vital Signs Date Time Temp Pulse Resp B/P Pulse Ox O2 Delivery O2 Flow Rate FiO2 06/08/16 08:30 98.3 80 18 99/53 96 Room Air Intake and Output 06/07/16 06/07/16 06/08/16 15:00 23:00 07:00 Intake Total 480 ml 690 ml 150 ml Output Total 600 ml 800 ml Balance -120 ml -110 ml 150 ml Results/Medications Result Diagram: 06/08/16 0645 06/08/16 0645 Results 24 hrs Laboratory Tests Test 06/07/16 16:44 06/07/16 20:16 06/08/16 06:45 06/08/16 07:44 Bedside Glucose 104 168 166 Anion Gap 16 Band Neutrophils % 2.0 Blood Morphology Comment Blood Urea Nitrogen 52 H Calcium Level 10.7 H Carbon Dioxide Level 25 Chloride Level 102 Creatinine 1.08 H Glucose Level 129 Hematocrit 24.8 L Hemoglobin 8.3 L Lymphocytes # 1.9 Lymphocytes % 31.0 Mean Corpuscular Hemoglobin 29.9 Mean Corpuscular Hemoglobin Concent 33.5 Mean Corpuscular Volume 89.2 Mean Platelet Volume 10.1 Monocytes # 1.0 H Monocytes % 17.0 H Neutrophils # 3.1 Neutrophils % 50.0 Nucleated Red Blood Cells % 14.0 H Platelet Count 19 *L Platelet Estimate PLT APPEAR DECREASED Potassium Level 5.0 Red Blood Count 2.77 L Red Cell Distribution Width 17.1 H Sodium Level 138 White Blood Count 6.1 # Medications Current Medications Senna (Senokot) 1 tab HS PO Last administered on 06/07/16at 20:30; Admin Dose 1 TAB; Start 06/04/16 at 21:00 Acetaminophen (Tylenol Tab) 650 mg Q4H PRN PO PAIN; Start 06/04/16 at 18:00 Magnesium Hydroxide (Milk Of Mag) 30 ml BID PRN PO CONSTIPATION; Start at 18:00 Lactulose (Enulose) 20 gm DAILY PRN PO CONSTIPATION Last administered on at 18:38; Admin Dose 20 GM; Start 06/04/16 at 18:00 Lisinopril (Zestril) 10 mg DAILY PO Last administered on 06/07/16 08:49; Admin Dose 10 MG; Start 06/04/16 at 17:42 Brimonidine Tartrate (Alphagan 0.2%) 1 drop BID RIGHT EYE Last administered on 06/08/16 08:31; Admin Dose 1 DROP; Start 06/04/16 at 17:42 Bromfenac Sodium (Bromday) 1 drop DAILY LEFT EYE Last administered on 08:34; Admin Dose 1 DROP; Start 06/04/16 at 17:42 Dorzolamide/ Timolol (Cosopt) 1 drop BID BOTH EYES Last administered on 11:33; Admin Dose 1 DROP; Start 06/04/16 at 17:42 Acetaminophen (Tylenol Tab) 650 mg Q6H PRN PO PAIN AND OR ELEVATED TEMP; Start 06/04/16 at 17:42 Ondansetron HCl (Zofran Inj) 4 mg Q4H PRN IV NAUSEA AND/OR VOMITING; Start at 17:42 Pantoprazole (Protonix Tab) 40 mg DAILY@06 PO Last administered on 06/08/16 06:31; Admin Dose 40 MG; Start 06/04/16 at 17:42 Oxybutynin Chloride (Ditropan Xl) 10 mg DAILY PO Last administered on 08:31; Admin Dose 10 MG; Start 06/04/16 at 17:42 Gabapentin (Neurontin) 600 mg TID PO Last administered on 06/08/16 08:30; Admin Dose 600 MG; Start 06/04/16 at 17:42 Linagliptin (Tradjenta) 5 mg DAILY PO Last administered on 06/08/16 08:30; Admin Dose 5 MG; Start 06/04/16 at 17:42 Fenofibrate (Tricor) 145 mg DAILY PO Last administered on 06/08/16 08:30; Admin Dose 145 MG; Start 06/04/16 at 17:42 Calcium/Vitamin D (Oyster Shell/ Vit-D (500/200)) 1 tab BID PO Last administered on 06/08/16 08:29; Admin Dose 1 TAB; Start 06/04/16 at 17:42 Hydromorphone HCl (Dilaudid) 0.5 mg Q3H PRN IV PAIN Last administered on at 23:30; Admin Dose 0.5 MG; Start 06/04/16 at 17:42 Polyethylene Glycol (Miralax) 17 gm DAILY PO Last administered on 06/07/16at 08 :50; Admin Dose 17 GM; Start 06/04/16 at 17:42 Miscellaneous Information 1 ea NOTE XX ; Start 06/04/16 at 17:42 Glucose (Glutose) 15 gm Q15M PRN PO DECREASED GLUCOSE; Start 06/04/16 at 17:42 Glucose (Glutose) 22.5 gm Q15M PRN PO DECREASED GLUCOSE; Start 06/04/16 at 17: 42 Dextrose (D50w Syringe) 25 ml Q15M PRN IV DECREASED GLUCOSE; Start 06/04/16 at 17:42 Dextrose (D50w Syringe) 50 ml Q15M PRN IV DECREASED GLUCOSE; Start 06/04/16 at 17:42 Glucagon (Glucagen) 1 mg Q15M PRN IM DECREASED GLUCOSE; Start 06/04/16 at 17: 42 Glucose (Glutose) 15 gm Q15M PRN BUCCAL DECREASED GLUCOSE; Start 06/04/16 at 17:42 Fluconazole (Diflucan) 100 mg DAILY PO Last administered on 06/08/16at 08:32; Admin Dose 100 MG; Start 06/04/16 at 17:42; Stop 06/10/16 at 08:59 Epoetin Raul (Epogen (Esrd)) 10,000 units MoWeFr@17 SC Last administered on at 18:24; Admin Dose 10,000 UNITS; Start 06/04/16 at 17:42 Bisacodyl (Dulcolax Supp) [address] [place] CONSTIPATION; Start 06/04/16 at 17:42 Docusate Sodium (Colace) 100 mg BID PO Last administered on 06/07/16at 20:30; Admin Dose 100 MG; Start 06/04/16 at 17:42 Ciprofloxacin (Cipro) 500 mg BID@06,18 PO Last administered on 06/08/16at 06:31 ; Admin Dose 500 MG; Start 06/04/16 at 17:42; Stop 06/09/16 at 19:00 Diagnostic Test (Pha) (Accucheck) 1 ea 02 XX ; Start 06/04/16 at 17:42 Acetaminophen/ Hydrocodone Bitart ([place] (5/325)) 1 tab Q4H PRN PO moderate pain Last administered on 06/08/16at 06:32; Admin Dose 1 TAB; Start 06/04/16 at 22:00 Acetaminophen/ Hydrocodone Bitart ([place] (5/325)) 2 tab Q4H PRN PO severe pain ; Start 06/04/16 at 22:00 Morphine Sulfate (morphine) 2 mg Q2H PRN IV SEVERE PAIN Last administered on at 15:10; Admin Dose 2 MG; Start 06/05/16 at 03:36 Nystatin/ Triamcinolone Acetonide (Mycolog Cr) 1 applic BID TOP Last administered on 06/08/16at 08:37; Admin Dose 1 APPLIC; Start 06/05/16 at 09:00 ; Stop 06/11/16 at 22:00 Insulin Glargine (Lantus) 12 unit HS SC Last administered on 06/07/16at 20:51; Admin Dose 12 UNIT; Start 06/05/16 at 23:30 Assessment/Plan Additional Assessment/Plan Rehab- MMT with a right comminuted patellar fracture and a spiral fracture of the proximal shaft of the left humerus, treated non-operatively, Continue interdisciplinary rehab Acute pain -adjust meds Myelodysplastic syndrome with anemia and thrombocytopenia. F/B per hematology. Diabetes mellitus type 2, with diabetic neuropathy. Blood sugar control per internal medicine, internal medicine adjusting regimen. Neuropathy controlled with gabapentin. Hypertension. BP controlled, continue current treatment. Hyperlipidemia. Overactive bladder with urinary incontinence. Continue oxybutynin. GERD. Continue PPI. UTI, present on admission. On antibiotics per internal medicine. Glaucoma. Continue eye drops. KRISTAL WOOD MD Jun 08, 2016 11:59
[2016-06-08 15:37] LABS: PROTEIN, TOTAL 6.1 g/dL (6.1-8.1)
[2016-06-08 19:30] VITALS: BP 123/56; PULSE 86; RESP 17
[2016-06-08] MEDS: SENNA TAB PO SCH (21:06)
[2016-06-08] MEDS: INSULIN GLARGINE [LANtus] 3 ML PEN SC SCH (21:16)
[2016-06-09] MEDS: HYDROCODONE/APAP (5/325) TAB PO PRN ×3 (01:53→17:11)
[2016-06-09] MEDS: ACCUCHECK XX SCH (02:00)
[2016-06-09] MEDS: CIPROFLOXACIN 500 MG TAB PO SCH ×2 (06:40→17:31)
[2016-06-09] MEDS: PANTOPRAZOLE (EC) 40 MG TAB PO SCH (06:40)
[2016-06-09 07:30] VITALS: BP 120/57; PULSE 86; RESP 20
[2016-06-09] MEDS: INSULIN ASPART [NOVOLOG] 3 ML PEN SC SCH ×4 (07:32→21:00)
[2016-06-09] MEDS: REPAGLINIDE 2 MG TAB PO SCH ×3 (07:43→17:11)
[2016-06-09] MEDS: metFORMIN 500 MG TAB PO SCH (07:44)
[2016-06-09] MEDS: POLYETHYLENE GLYCOL 17 GM PACKET PO SCH (08:42)
[2016-06-09] MEDS: DORZOLAMIDE/TIMOLOL 10 ML OPH BOTH EYES SCH ×2 (08:43→20:51)
[2016-06-09] MEDS: BRIMONIDINE 0.2% 5 ML BTL RIGHT EYE SCH ×2 (08:43→20:51)
[2016-06-09] MEDS: BROMFENAC SODIUM 1.7 ML OPH DROP LEFT EYE SCH (08:44)
[2016-06-09] MEDS: FLUCONAZOLE 100 MG TAB PO SCH (08:46)
[2016-06-09] MEDS: OXYBUTYNIN (XL) 5 MG TAB PO SCH (08:46)
[2016-06-09] MEDS: GABAPENTIN 300 MG CAP PO SCH ×3 (08:46→20:49)
[2016-06-09] MEDS: FENOFIBRATE 145 MG TAB PO SCH (08:46)
[2016-06-09] MEDS: LINAGLIPTIN 5 MG TABLET PO SCH (08:46)
[2016-06-09] MEDS: DOCUSATE SODIUM 100 MG CAP PO SCH ×2 (08:46→20:50)
[2016-06-09] MEDS: NYSTATIN/TRIAMCINOLONE 15 GM CR TOP SCH ×2 (08:47→21:02)
[2016-06-09] MEDS: CALCIUM/VITAMIN D (500/200) TAB PO SCH ×2 (08:49→20:50)
--- NOTE | 2016-06-09 12:34 | CONS ---
Date/Time of Note Date/Time of Note DATE: 06/09/16 TIME: 12:34 Consult Date/Type/Reason Admit Date/Time Jun 04, 2016 at 15:34 Subjective Progressing Objective Vital Signs Date Time Temp Pulse Resp B/P Pulse Ox O2 Delivery O2 Flow Rate FiO2 06/09/16 07:30 98.4 86 20 120/57 98 Room Air Intake and Output 06/08/16 06/08/16 06/09/16 15:00 23:00 07:00 Intake Total 750 ml 200 ml Output Total 800 ml Balance -50 ml 200 ml . INTERDISCIPLINARY TEAM CONFERENCE BOWEL- Cont BLADDER-Cont SKIN- intact OT- DRESSING-max BATHING-max TOILETING-max PT- BED MOBILITY-max TRANSFERS-max AMBULATION-max 50 feet A/P- Interdisciplinary team conference held today. Please see interdisciplinary sheet. Working toward d.[email or web address] on 06/18 with post discharge follow up of physical therapy, occupational therapy. Results/Medications Result Diagram: 06/08/16 0645 06/08/16 0645 Results 24 hrs Laboratory Tests Test 06/08/16 17:42 06/08/16 20:12 06/09/16 07:31 06/09/16 12:01 Bedside Glucose 137 161 130 143 Medications Current Medications Senna (Senokot) 1 tab HS PO Last administered on 06/08/16at 21:06; Admin Dose 1 TAB; Start 06/04/16 at 21:00 Acetaminophen (Tylenol Tab) 650 mg Q4H PRN PO PAIN; Start 06/04/16 at 18:00 Magnesium Hydroxide (Milk Of Mag) 30 ml BID PRN PO CONSTIPATION; Start at 18:00 Lactulose (Enulose) 20 gm DAILY PRN PO CONSTIPATION Last administered on at 18:38; Admin Dose 20 GM; Start 06/04/16 at 18:00 Brimonidine Tartrate (Alphagan 0.2%) 1 drop BID RIGHT EYE Last administered on 06/09/16at 08:43; Admin Dose 1 DROP; Start 06/04/16 at 17:42 Bromfenac Sodium (Bromday) 1 drop DAILY LEFT EYE Last administered on at 08:44; Admin Dose 1 DROP; Start 06/04/16 at 17:42 Dorzolamide/ Timolol (Cosopt) 1 drop BID BOTH EYES Last administered on 08:43; Admin Dose 1 DROP; Start 06/04/16 at 17:42 Acetaminophen (Tylenol Tab) 650 mg Q6H PRN PO PAIN AND OR ELEVATED TEMP; Start 06/04/16 at 17:42 Ondansetron HCl (Zofran Inj) 4 mg Q4H PRN IV NAUSEA AND/OR VOMITING; Start at 17:42 Pantoprazole (Protonix Tab) 40 mg DAILY@06 PO Last administered on 06/09/16at 06:40; Admin Dose 40 MG; Start 06/04/16 at 17:42 Oxybutynin Chloride (Ditropan Xl) 10 mg DAILY PO Last administered on 08:46; Admin Dose 10 MG; Start 06/04/16 at 17:42 Gabapentin (Neurontin) 600 mg TID PO Last administered on 06/09/16at 12:10; Admin Dose 600 MG; Start 06/04/16 at 17:42 Linagliptin (Tradjenta) 5 mg DAILY PO Last administered on 06/09/16 08:46; Admin Dose 5 MG; Start 06/04/16 at 17:42 Fenofibrate (Tricor) 145 mg DAILY PO Last administered on 06/09/16 08:46; Admin Dose 145 MG; Start 06/04/16 at 17:42 Calcium/Vitamin D (Oyster Shell/ Vit-D (500/200)) 1 tab BID PO Last administered on 06/09/16at 08:49; Admin Dose 1 TAB; Start 06/04/16 at 17:42 Hydromorphone HCl (Dilaudid) 0.5 mg Q3H PRN IV PAIN Last administered on at 23:30; Admin Dose 0.5 MG; Start 06/04/16 at 17:42 Polyethylene Glycol (Miralax) 17 gm DAILY PO Last administered on 06/09/16 08 :42; Admin Dose 17 GM; Start 06/04/16 at 17:42 Miscellaneous Information 1 ea NOTE XX ; Start 06/04/16 at 17:42 Glucose (Glutose) 15 gm Q15M PRN PO DECREASED GLUCOSE; Start 06/04/16 at 17:42 Glucose (Glutose) 22.5 gm Q15M PRN PO DECREASED GLUCOSE; Start 06/04/16 at 17: 42 Dextrose (D50w Syringe) 25 ml Q15M PRN IV DECREASED GLUCOSE; Start 06/04/16 at 17:42 Dextrose (D50w Syringe) 50 ml Q15M PRN IV DECREASED GLUCOSE; Start 06/04/16 at 17:42 Glucagon (Glucagen) 1 mg Q15M PRN IM DECREASED GLUCOSE; Start 06/04/16 at 17: 42 Glucose (Glutose) 15 gm Q15M PRN BUCCAL DECREASED GLUCOSE; Start 06/04/16 at 17:42 Fluconazole (Diflucan) 100 mg DAILY PO Last administered on 06/09/16at 08:46; Admin Dose 100 MG; Start 06/04/16 at 17:42; Stop 06/10/16 at 08:59 Epoetin Raul (Epogen (Esrd)) 10,000 units MoWeFr@17 SC Last administered on at 18:24; Admin Dose 10,000 UNITS; Start 06/04/16 at 17:42 Bisacodyl (Dulcolax Supp) 10 mg DAILY PRN [place] CONSTIPATION; Start 06/04/16 at 17:42 Docusate Sodium (Colace) 100 mg BID PO Last administered on 06/09/16at 08:46; Admin Dose 100 MG; Start 06/04/16 at 17:42 Ciprofloxacin (Cipro) 500 mg BID@06,18 PO Last administered on 06/09/16at 06:40 ; Admin Dose 500 MG; Start 06/04/16 at 17:42; Stop 06/09/16 at 19:00 Diagnostic Test (Pha) (Accucheck) 1 ea 02 XX ; Start 06/04/16 at 17:42 Acetaminophen/ Hydrocodone Bitart ([place] (5/325)) 1 tab Q4H PRN PO moderate pain Last administered on 06/09/16at 07:43; Admin Dose 1 TAB; Start 06/04/16 at 22:00 Acetaminophen/ Hydrocodone Bitart ([place] (5/325)) 2 tab Q4H PRN PO severe pain ; Start 06/04/16 at 22:00 Morphine Sulfate (morphine) 2 mg Q2H PRN IV SEVERE PAIN Last administered on at 15:10; Admin Dose 2 MG; Start 06/05/16 at 03:36 Nystatin/ Triamcinolone Acetonide (Mycolog Cr) 1 applic BID TOP Last administered on 06/09/16at 08:47; Admin Dose 1 APPLIC; Start 06/05/16 at 09:00 ; Stop 06/11/16 at 22:00 Insulin Glargine (Lantus) 12 unit HS SC Last administered on 06/08/16at 21:16; Admin Dose 12 UNIT; Start 06/05/16 at 23:30 KRISTAL WOOD MD Jun 09, 2016 12:34
--- NOTE | 2016-06-09 15:29 | CONS ---
Date/Time of Note Date/Time of Note DATE: 06/09/16 TIME: 15:29 Assessment/Plan Assessment/Plan Chief Complaint/Hosp Course 78 year old woman with a history of hypoproliferative MDS, previously with platelets in the 40-50s for 5-7 years, however recently platelets have been declining to the 20s and Hgb decreased as well, now consistent with intermediate risk MDS. She has been seen by myself and Dr. Juan Do at [facility] [[email or web address]] and is being considered for a clinical trial at [facility] [[email or web address] Patient now admitted for fracture of left humerus and left patella s/p fall at home. Pt has since received 2 units of PRBC's and 2 units of platelets. -Can consider epo to increase hemoglobin, however acutely will transfuse pRBCs or platelet if needed prior to surgery. Will transfuse if Hgb < 8 or plt < 10 -Appreciate orthopedic recs to immobilize the right lower extremity and left upper extremity in an H.S.S. brace. -Continue physical therapy -once patient is discharged she will start therapy for her MDS in our office with Azacitidine Problems: Consultation Date/Type/Reason Admit Date/Time Jun 04, 2016 at 15:34 Type of Consultation: Hematology/Oncology Reason for Consultation MDS 24 HR Interval Summary Free Text/Dictation Patient feels tired but otherwise has no complaints. Exam/Review of Systems Vital Signs Vitals Vital Signs Date Time Temp Pulse Resp B/P Pulse Ox O2 Delivery O2 Flow Rate FiO2 06/09/16 07:30 98.4 86 20 120/57 98 Room Air Intake and Output 06/08/16 06/08/16 06/09/16 15:00 23:00 07:00 Intake Total 750 ml 200 ml Output Total 800 ml Balance -50 ml 200 ml Exam Constitutional: alert, oriented Psych: no complaints Head: normocephalic Eyes: nl conjunctiva Neck: non-tender, supple Respiratory: clear to auscultation Cardiovascular: regular rate and rhythm Gastrointestinal: non-tender Musculoskeletal: other (LUE in brace) Results Result Diagram: 06/08/16 0645 06/08/16 0645 Results 24 hrs Laboratory Tests Test 06/08/16 17:42 06/08/16 20:12 06/09/16 07:31 06/09/16 12:01 Bedside Glucose 137 161 130 143 Medications Medications Current Medications Senna (Senokot) 1 tab HS PO Last administered on 06/08/16 21:06; Admin Dose 1 TAB; Start 06/04/16 at 21:00 Acetaminophen (Tylenol Tab) 650 mg Q4H PRN PO PAIN; Start 06/04/16 at 18:00 Magnesium Hydroxide (Milk Of Mag) 30 ml BID PRN PO CONSTIPATION; Start at 18:00 Lactulose (Enulose) 20 gm DAILY PRN PO CONSTIPATION Last administered on at 18:38; Admin Dose 20 GM; Start 06/04/16 at 18:00 Brimonidine Tartrate ([place]ph[place] 0.2%) 1 drop BID RIGHT EYE Last administered on 06/09/16 08:43; Admin Dose 1 DROP; Start 06/04/16 at 17:42 Bromfenac Sodium (Bromday) 1 drop DAILY LEFT EYE Last administered on 08:44; Admin Dose 1 DROP; Start 06/04/16 at 17:42 Dorzolamide/ Timolol (Cosopt) 1 drop BID BOTH EYES Last administered on 08:43; Admin Dose 1 DROP; Start 06/04/16 at 17:42 Acetaminophen (Tylenol Tab) 650 mg Q6H PRN PO PAIN AND OR ELEVATED TEMP; Start 06/04/16 at 17:42 Ondansetron HCl (Zofran Inj) 4 mg Q4H PRN IV NAUSEA AND/OR VOMITING; Start at 17:42 Pantoprazole (Protonix Tab) 40 mg DAILY@06 PO Last administered on 06/09/16 06:40; Admin Dose 40 MG; Start 06/04/16 at 17:42 Oxybutynin Chloride (Ditropan Xl) 10 mg DAILY PO Last administered on 08:46; Admin Dose 10 MG; Start 06/04/16 at 17:42 Gabapentin (Neurontin) 600 mg TID PO Last administered on 06/09/16 12:10; Admin Dose 600 MG; Start 06/04/16 at 17:42 Linagliptin (Tradjenta) 5 mg DAILY PO Last administered on 06/09/16 08:46; Admin Dose 5 MG; Start 06/04/16 at 17:42 Fenofibrate (Tricor) 145 mg DAILY PO Last administered on 06/09/16 08:46; Admin Dose 145 MG; Start 06/04/16 at 17:42 Calcium/Vitamin D (Oyster Shell/ Vit-D (500/200)) 1 tab BID PO Last administered on 06/09/16at 08:49; Admin Dose 1 TAB; Start 06/04/16 at 17:42 Hydromorphone HCl (Dilaudid) 0.5 mg Q3H PRN IV PAIN Last administered on at 23:30; Admin Dose 0.5 MG; Start 06/04/16 at 17:42 Polyethylene Glycol (Miralax) 17 gm DAILY PO Last administered on 06/09/16at 08 :42; Admin Dose 17 GM; Start 06/04/16 at 17:42 Miscellaneous Information 1 ea NOTE XX ; Start 06/04/16 at 17:42 Glucose (Glutose) 15 gm Q15M PRN PO DECREASED GLUCOSE; Start 06/04/16 at 17:42 Glucose (Glutose) 22.5 gm Q15M PRN PO DECREASED GLUCOSE; Start 06/04/16 at 17: 42 Dextrose (D50w Syringe) 25 ml Q15M PRN IV DECREASED GLUCOSE; Start 06/04/16 at 17:42 Dextrose (D50w Syringe) 50 ml Q15M PRN IV DECREASED GLUCOSE; Start 06/04/16 at 17:42 Glucagon (Glucagen) 1 mg Q15M PRN IM DECREASED GLUCOSE; Start 06/04/16 at 17: 42 Glucose (Glutose) 15 gm Q15M PRN BUCCAL DECREASED GLUCOSE; Start 06/04/16 at 17:42 Fluconazole (Diflucan) 100 mg DAILY PO Last administered on 06/09/16at 08:46; Admin Dose 100 MG; Start 06/04/16 at 17:42; Stop 06/10/16 at 08:59 Epoetin Raul (Epogen (Esrd)) 10,000 units MoWeFr@17 SC Last administered on at 18:24; Admin Dose 10,000 UNITS; Start 06/04/16 at 17:42 Bisacodyl (Dulcolax Supp) 10 mg DAILY PRN [place] CONSTIPATION; Start 06/04/16 at 17:42 Docusate Sodium (Colace) 100 mg BID PO Last administered on 06/09/16at 08:46; Admin Dose 100 MG; Start 06/04/16 at 17:42 Ciprofloxacin (Cipro) 500 mg BID@06,18 PO Last administered on 06/09/16at 06:40 ; Admin Dose 500 MG; Start 06/04/16 at 17:42; Stop 06/09/16 at 19:00 Diagnostic Test (Pha) (Accucheck) 1 ea 02 XX ; Start 06/04/16 at 17:42 Acetaminophen/ Hydrocodone Bitart ([place] (5/325)) 1 tab Q4H PRN PO moderate pain Last administered on 06/09/16at 07:43; Admin Dose 1 TAB; Start 06/04/16 at 22:00 Acetaminophen/ Hydrocodone Bitart ([place] (5/325)) 2 tab Q4H PRN PO severe pain ; Start 06/04/16 at 22:00 Morphine Sulfate (morphine) 2 mg Q2H PRN IV SEVERE PAIN Last administered on at 15:10; Admin Dose 2 MG; Start 06/05/16 at 03:36 Nystatin/ Triamcinolone Acetonide (Mycolog Cr) 1 applic BID TOP Last administered on 06/09/16at 08:47; Admin Dose 1 APPLIC; Start 06/05/16 at 09:00 ; Stop 06/11/16 at 22:00 Insulin Glargine (Lantus) 12 unit HS SC Last administered on 06/08/16at 21:16; Admin Dose 12 UNIT; Start 06/05/16 at 23:30 JANETH WAITE MD Jun 09, 2016 15:29
[2016-06-09] MEDS: EPOETIN 10000 UNITS/1 ML INJ (ESRD) SC SCH (17:15)
[2016-06-09] MEDS: LACTULOSE 30ML CUP PO PRN (17:39)
[2016-06-09 18:13] LABS: ALBUMIN 2.8 g/dL (3.8-4.8)
[2016-06-09 20:05] VITALS: BP 115/58; PULSE 82; RESP 18
[2016-06-09] MEDS: SENNA TAB PO SCH (20:50)
[2016-06-09] MEDS: INSULIN GLARGINE [LANtus] 3 ML PEN SC SCH (20:58)
[2016-06-10] VITALS (8 sets, daily range): BP systolic 116–157; BP diastolic 57–67; PULSE 80–90; RESP 18–20
[2016-06-10] MEDS: ACCUCHECK XX SCH (02:00)
[2016-06-10] MEDS: PANTOPRAZOLE (EC) 40 MG TAB PO SCH (06:43)
[2016-06-10 06:44] LABS: POTASSIUM 4.1 mmol/L (3.5-5.1)
[2016-06-10 06:46] LABS: CREATININE 0.97 mg/dl (0.44-1.00)
[2016-06-10 06:46] LABS: HEMATOCRIT 24.2 % (37.0-47.0); MEAN CORPUSCULAR HEMOGLOBIN 29.6 pg (29.0-33.0); MEAN CORPUSCULAR HGB CONC 33.2 g/dl (32.0-37.0); RED BLOOD COUNT 2.71 10^6/ul (4.20-5.40); RED CELL DISTRIBUTION WIDTH 16.6 % (11.5-14.5); UNCORRECTED WBC 6.9 10^3/ul (4.8-10.8); WHITE BLOOD COUNT 6.9 10^3/ul (4.8-10.8)
[2016-06-10 06:47] LABS: CALCIUM 10.4 mg/dl (8.4-10.2)
[2016-06-10 07:00] LABS: MEAN PLATELET VOLUME 9.7 fl (7.4-10.4); PLATELET COUNT 17 10^3/UL (140-440)
[2016-06-10 07:01] LABS: CONDITION 1; LH ANALYZER COMMENTS 1
[2016-06-10] MEDS: HYDROCODONE/APAP (5/325) TAB PO PRN ×2 (07:37→21:04)
[2016-06-10] MEDS: REPAGLINIDE 2 MG TAB PO SCH ×3 (07:37→17:19)
[2016-06-10] MEDS: DORZOLAMIDE/TIMOLOL 10 ML OPH BOTH EYES SCH ×2 (08:33→21:34)
[2016-06-10] MEDS: BRIMONIDINE 0.2% 5 ML BTL RIGHT EYE SCH ×2 (08:33→21:34)
[2016-06-10] MEDS: GABAPENTIN 300 MG CAP PO SCH ×3 (08:34→21:04)
[2016-06-10] MEDS: LINAGLIPTIN 5 MG TABLET PO SCH (08:34)
[2016-06-10] MEDS: CALCIUM/VITAMIN D (500/200) TAB PO SCH ×2 (08:34→21:04)
[2016-06-10] MEDS: FENOFIBRATE 145 MG TAB PO SCH (08:34)
[2016-06-10] MEDS: metFORMIN 500 MG TAB PO SCH (08:34)
[2016-06-10] MEDS: DOCUSATE SODIUM 100 MG CAP PO SCH ×2 (08:34→21:03)
[2016-06-10] MEDS: OXYBUTYNIN (XL) 5 MG TAB PO SCH (08:34)
[2016-06-10] MEDS: BROMFENAC SODIUM 1.7 ML OPH DROP LEFT EYE SCH (08:35)
[2016-06-10] MEDS: INSULIN ASPART [NOVOLOG] 3 ML PEN SC SCH ×4 (08:37→21:00)
[2016-06-10] MEDS: NYSTATIN/TRIAMCINOLONE 15 GM CR TOP SCH ×2 (09:00→21:37)
[2016-06-10] MEDS: POLYETHYLENE GLYCOL 17 GM PACKET PO SCH (09:00)
[2016-06-10 09:18] LABS: BASOPHIL # 0.1 10^3/ul (0.0-0.1); LYMPHOCYTES # 3.5 10^3/ul (0.8-2.9); MONOCYTE # 0.2 10^3/ul (0.3-0.9); MYELOCYTES # 0.1; PLATELET ESTIMATE PLT APPEAR DECREASED; POLYCHROMASIA OCCASIONAL
--- NOTE | 2016-06-10 12:35 | CONS ---
Date/Time of Note Date/Time of Note DATE: 06/10/16 TIME: 12:34 Consult Date/Type/Reason Admit Date/Time Jun 04, 2016 at 15:34 Type of Consultation: Hematology/Oncology Subjective no new complaints Objective mod assist Vital Signs Date Time Temp Pulse Resp B/P Pulse Ox O2 Delivery O2 Flow Rate FiO2 06/10/16 08:16 98.2 84 20 116/57 96 Room Air Intake and Output 06/09/16 06/09/16 06/10/16 14:59 22:59 06:59 Intake Total 240 ml Output Total 650 ml Balance -410 ml Results/Medications Result Diagram: 06/10/16 0608 06/10/16 0603 Results 24 hrs Laboratory Tests Test 06/09/16 16:52 06/09/16 20:14 06/10/16 06:03 06/10/16 06:08 Bedside Glucose 119 133 Anion Gap 15 Blood Urea Nitrogen 27 #H Calcium Level 10.4 H Carbon Dioxide Level 28 Chloride Level 101 Creatinine 0.97 Glucose Level 114 Potassium Level 4.1 Sodium Level 140 Basophils # 0.1 Basophils % 2.0 Blood Morphology Comment Hematocrit 24.2 L Hemoglobin 8.0 L Lymphocytes # 3.5 H Lymphocytes % 50.0 Mean Corpuscular Hemoglobin 29.6 Mean Corpuscular Hemoglobin Concent 33.2 Mean Corpuscular Volume 89.0 Mean Platelet Volume 9.7 Monocytes # 0.2 L Monocytes % 3.0 Myelocytes # 0.1 Myelocytes % 2.0 H Neutrophils # 3.0 Neutrophils % 43.0 Platelet Count 17 *L Platelet Estimate PLT APPEAR DECREASED Polychromasia OCCASIONAL Red Blood Count 2.71 L Red Cell Distribution Width 16.6 H White Blood Count 6.9 Test 06/10/16 07:35 06/10/16 11:58 Bedside Glucose 207 128 Medications Current Medications Senna (Senokot) 1 tab HS PO Last administered on 06/09/16at 20:50; Admin Dose 1 TAB; Start 06/04/16 at 21:00 Acetaminophen (Tylenol Tab) 650 mg Q4H PRN PO PAIN; Start 06/04/16 at 18:00 Magnesium Hydroxide (Milk Of Mag) 30 ml BID PRN PO CONSTIPATION; Start at 18:00 Lactulose (Enulose) 20 gm DAILY PRN PO CONSTIPATION Last administered on at 17:39; Admin Dose 20 GM; Start 06/04/16 at 18:00 Brimonidine Tartrate (Alphagan 0.2%) 1 drop BID RIGHT EYE Last administered on 06/10/16 08:33; Admin Dose 1 DROP; Start 06/04/16 at 17:42 Bromfenac Sodium (Bromday) 1 drop DAILY LEFT EYE Last administered on 08:35; Admin Dose 1 DROP; Start 06/04/16 at 17:42 Dorzolamide/ Timolol (Cosopt) 1 drop BID BOTH EYES Last administered on 08:33; Admin Dose 1 DROP; Start 06/04/16 at 17:42 Acetaminophen (Tylenol Tab) 650 mg Q6H PRN PO PAIN AND OR ELEVATED TEMP; Start 06/04/16 at 17:42 Ondansetron HCl (Zofran Inj) 4 mg Q4H PRN IV NAUSEA AND/OR VOMITING; Start at 17:42 Pantoprazole (Protonix Tab) 40 mg DAILY@06 PO Last administered on 06/10/16 06:43; Admin Dose 40 MG; Start 06/04/16 at 17:42 Oxybutynin Chloride (Ditropan Xl) 10 mg DAILY PO Last administered on 08:34; Admin Dose 10 MG; Start 06/04/16 at 17:42 Gabapentin (Neurontin) 600 mg TID PO Last administered on 06/10/16 12:30; Admin Dose 600 MG; Start 06/04/16 at 17:42 Linagliptin (Tradjenta) 5 mg DAILY PO Last administered on 06/10/16 08:34; Admin Dose 5 MG; Start 06/04/16 at 17:42 Fenofibrate (Tricor) 145 mg DAILY PO Last administered on 06/10/16 08:34; Admin Dose 145 MG; Start 06/04/16 at 17:42 Calcium/Vitamin D (Oyster Shell/ Vit-D (500/200)) 1 tab BID PO Last administered on 06/10/16 08:34; Admin Dose 1 TAB; Start 06/04/16 at 17:42 Hydromorphone HCl (Dilaudid) 0.5 mg Q3H PRN IV PAIN Last administered on 12/23/ 16at 23:30; Admin Dose 0.5 MG; Start 06/04/16 at 17:42 Polyethylene Glycol (Miralax) 17 gm DAILY PO Last administered on 06/09/16at 08 :42; Admin Dose 17 GM; Start 06/04/16 at 17:42 Miscellaneous Information 1 ea NOTE XX ; Start 06/04/16 at 17:42 Glucose (Glutose) 15 gm Q15M PRN PO DECREASED GLUCOSE; Start 06/04/16 at 17:42 Glucose (Glutose) 22.5 gm Q15M PRN PO DECREASED GLUCOSE; Start 06/04/16 at 17: 42 Dextrose (D50w Syringe) 25 ml Q15M PRN IV DECREASED GLUCOSE; Start 06/04/16 at 17:42 Dextrose (D50w Syringe) 50 ml Q15M PRN IV DECREASED GLUCOSE; Start 06/04/16 at 17:42 Glucagon (Glucagen) 1 mg Q15M PRN IM DECREASED GLUCOSE; Start 06/04/16 at 17: 42 Glucose (Glutose) 15 gm Q15M PRN BUCCAL DECREASED GLUCOSE; Start 06/04/16 at 17:42 Epoetin Raul (Epogen (Esrd)) 10,000 units MoWeFr@17 SC Last administered on at 17:15; Admin Dose 10,000 UNITS; Start 06/04/16 at 17:42 Bisacodyl (Dulcolax Supp) 10 mg DAILY PRN [place] CONSTIPATION Last administered on 06/10/16at 06:44; Admin Dose 10 MG; Start 06/04/16 at 17:42 Docusate Sodium (Colace) 100 mg BID PO Last administered on 06/10/16at 08:34; Admin Dose 100 MG; Start 06/04/16 at 17:42 Diagnostic Test (Pha) (Accucheck) 1 ea 02 XX ; Start 06/04/16 at 17:42 Acetaminophen/ Hydrocodone Bitart ([place] (5/325)) 1 tab Q4H PRN PO moderate pain Last administered on 06/09/16at 17:11; Admin Dose 1 TAB; Start 06/04/16 at 22:00 Acetaminophen/ Hydrocodone Bitart ([place] (5/325)) 2 tab Q4H PRN PO severe pain Last administered on 06/10/16at 07:37; Admin Dose 2 TAB; Start 06/04/16 at 22: 00 Morphine Sulfate (morphine) 2 mg Q2H PRN IV SEVERE PAIN Last administered on at 15:10; Admin Dose 2 MG; Start 06/05/16 at 03:36 Nystatin/ Triamcinolone Acetonide (Mycolog Cr) 1 applic BID TOP Last administered on 06/09/16at 21:02; Admin Dose 1 APPLIC; Start 06/05/16 at 09:00 ; Stop 06/11/16 at 22:00 Insulin Glargine (Lantus) 12 unit HS SC Last administered on 06/09/16at 20:58; Admin Dose 12 UNIT; Start 06/05/16 at 23:30 Assessment/Plan Additional Assessment/Plan Rehab- MMT with a right comminuted patellar fracture and a spiral fracture of the proximal shaft of the left humerus, treated non-operatively, Continue rehab program Acute pain -under good control Myelodysplastic syndrome with anemia and thrombocytopenia. F/B per hematology.; transfusion scheduled for today Diabetes mellitus type 2, with diabetic neuropathy. Blood sugar control per internal medicine, internal medicine adjusting regimen. Neuropathy controlled with gabapentin. Hypertension. BP controlled, continue current treatment. Hyperlipidemia. Overactive bladder with urinary incontinence. Continue oxybutynin. GERD. Continue PPI. UTI, present on admission. On antibiotics per internal medicine. Glaucoma. Continue eye drops. KRISTAL WOOD MD Jun 10, 2016 12:35
--- NOTE | 2016-06-10 12:57 | CONS ---
Date/Time of Note Date/Time of Note DATE: 06/10/16 TIME: 12:56 Assessment/Plan Assessment/Plan Chief Complaint/Hosp Course 78 year old woman with a history of hypoproliferative MDS, previously with platelets in the 40-50s for 5-7 years, however recently platelets have been declining to the 20s and Hgb decreased as well, now consistent with intermediate risk MDS. She has been seen by myself and Dr. Juan Do at [facility] and is being considered for a clinical trial at [facility]. Patient now admitted for fracture of left humerus and left patella s/p fall at home. Pt has since received 2 units of PRBC's and 2 units of platelets. -Can consider epo to increase hemoglobin, however acutely will transfuse pRBCs or platelet if needed prior to surgery. Will transfuse if Hgb < 8 or plt < 10. Will give 1 unit pRBCs today for Hgb 8.0 given patient reports symptomatic anemia. -Appreciate orthopedic recs to immobilize the right lower extremity and left upper extremity in an H.S.S. brace. -Continue physical therapy -once patient is discharged she will start therapy for her MDS in our office with Azacitidine Problems: Consultation Date/Type/Reason Admit Date/Time Jun 04, 2016 at 15:34 Type of Consultation: Hematology/Oncology 24 HR Interval Summary Free Text/Dictation Patient feels fatigued but per nurse, is doing well with PT and walking with a quad cane. Exam/Review of Systems Vital Signs Vitals Vital Signs Date Time Temp Pulse Resp B/P Pulse Ox O2 Delivery O2 Flow Rate FiO2 06/10/16 08:16 98.2 84 20 116/57 96 Room Air Intake and Output 06/09/16 06/09/16 06/10/16 14:59 22:59 06:59 Intake Total 240 ml Output Total 650 ml Balance -410 ml Exam Constitutional: alert, oriented Psych: no complaints Head: normocephalic Eyes: nl conjunctiva Neck: non-tender, supple Respiratory: clear to auscultation Cardiovascular: regular rate and rhythm Gastrointestinal: non-tender Musculoskeletal: other (LUE in brace) Results Result Diagram: 06/10/16 0608 06/10/16 0603 Results 24 hrs Laboratory Tests Test 06/09/16 16:52 06/09/16 20:14 06/10/16 06:03 06/10/16 06:08 Bedside Glucose 119 133 Anion Gap 15 Blood Urea Nitrogen 27 #H Calcium Level 10.4 H Carbon Dioxide Level 28 Chloride Level 101 Creatinine 0.97 Glucose Level 114 Potassium Level 4.1 Sodium Level 140 Basophils # 0.1 Basophils % 2.0 Blood Morphology Comment Hematocrit 24.2 L Hemoglobin 8.0 L Lymphocytes # 3.5 H Lymphocytes % 50.0 Mean Corpuscular Hemoglobin 29.6 Mean Corpuscular Hemoglobin Concent 33.2 Mean Corpuscular Volume 89.0 Mean Platelet Volume 9.7 Monocytes # 0.2 L Monocytes % 3.0 Myelocytes # 0.1 Myelocytes % 2.0 H Neutrophils # 3.0 Neutrophils % 43.0 Platelet Count 17 *L Platelet Estimate PLT APPEAR DECREASED Polychromasia OCCASIONAL Red Blood Count 2.71 L Red Cell Distribution Width 16.6 H White Blood Count 6.9 Test 06/10/16 07:35 06/10/16 11:58 Bedside Glucose 207 128 Medications Medications Current Medications Senna (Senokot) 1 tab HS PO Last administered on 06/09/16at 20:50; Admin Dose 1 TAB; Start 06/04/16 at 21:00 Acetaminophen (Tylenol Tab) 650 mg Q4H PRN PO PAIN; Start 06/04/16 at 18:00 Magnesium Hydroxide (Milk Of Mag) 30 ml BID PRN PO CONSTIPATION; Start at 18:00 Lactulose (Enulose) 20 gm DAILY PRN PO CONSTIPATION Last administered on at 17:39; Admin Dose 20 GM; Start 06/04/16 at 18:00 Brimonidine Tartrate (Alphagan 0.2%) 1 drop BID RIGHT EYE Last administered on 06/10/16 08:33; Admin Dose 1 DROP; Start 06/04/16 at 17:42 Bromfenac Sodium (Bromday) 1 drop DAILY LEFT EYE Last administered on 08:35; Admin Dose 1 DROP; Start 06/04/16 at 17:42 Dorzolamide/ Timolol (Cosopt) 1 drop BID BOTH EYES Last administered on 08:33; Admin Dose 1 DROP; Start 06/04/16 at 17:42 Acetaminophen (Tylenol Tab) 650 mg Q6H PRN PO PAIN AND OR ELEVATED TEMP; Start 06/04/16 at 17:42 Ondansetron HCl (Zofran Inj) 4 mg Q4H PRN IV NAUSEA AND/OR VOMITING; Start at 17:42 Pantoprazole (Protonix Tab) 40 mg DAILY@06 PO Last administered on 06/10/16at 06:43; Admin Dose 40 MG; Start 06/04/16 at 17:42 Oxybutynin Chloride (Ditropan Xl) 10 mg DAILY PO Last administered on at 08:34; Admin Dose 10 MG; Start 06/04/16 at 17:42 Gabapentin (Neurontin) 600 mg TID PO Last administered on 06/10/16at 12:30; Admin Dose 600 MG; Start 06/04/16 at 17:42 Linagliptin (Tradjenta) 5 mg DAILY PO Last administered on 06/10/16 08:34; Admin Dose 5 MG; Start 06/04/16 at 17:42 Fenofibrate (Tricor) 145 mg DAILY PO Last administered on 06/10/16at 08:34; Admin Dose 145 MG; Start 06/04/16 at 17:42 Calcium/Vitamin D (Oyster Shell/ Vit-D (500/200)) 1 tab BID PO Last administered on 06/10/16at 08:34; Admin Dose 1 TAB; Start 06/04/16 at 17:42 Hydromorphone HCl (Dilaudid) 0.5 mg Q3H PRN IV PAIN Last administered on at 23:30; Admin Dose 0.5 MG; Start 06/04/16 at 17:42 Polyethylene Glycol (Miralax) 17 gm DAILY PO Last administered on 06/09/16at 08 :42; Admin Dose 17 GM; Start 06/04/16 at 17:42 Miscellaneous Information 1 ea NOTE XX ; Start 06/04/16 at 17:42 Glucose (Glutose) 15 gm Q15M PRN PO DECREASED GLUCOSE; Start 06/04/16 at 17:42 Glucose (Glutose) 22.5 gm Q15M PRN PO DECREASED GLUCOSE; Start 06/04/16 at 17: 42 Dextrose (D50w Syringe) 25 ml Q15M PRN IV DECREASED GLUCOSE; Start 06/04/16 at 17:42 Dextrose (D50w Syringe) 50 ml Q15M PRN IV DECREASED GLUCOSE; Start 06/04/16 at 17:42 Glucagon (Glucagen) 1 mg Q15M PRN IM DECREASED GLUCOSE; Start 06/04/16 at 17: 42 Glucose (Glutose) 15 gm Q15M PRN BUCCAL DECREASED GLUCOSE; Start 06/04/16 at 17:42 Epoetin Raul (Epogen (Esrd)) 10,000 units MoWeFr@17 SC Last administered on at 17:15; Admin Dose 10,000 UNITS; Start 06/04/16 at 17:42 Bisacodyl (Dulcolax Supp) 10 mg DAILY PRN [place] CONSTIPATION Last administered on 06/10/16 06:44; Admin Dose 10 MG; Start 06/04/16 at 17:42 Docusate Sodium (Colace) 100 mg BID PO Last administered on 06/10/16 08:34; Admin Dose 100 MG; Start 06/04/16 at 17:42 Diagnostic Test (Pha) (Accucheck) 1 ea 02 XX ; Start 06/04/16 at 17:42 Acetaminophen/ Hydrocodone Bitart ([place] (5/325)) 1 tab Q4H PRN PO moderate pain Last administered on 06/09/16at 17:11; Admin Dose 1 TAB; Start 06/04/16 at 22:00 Acetaminophen/ Hydrocodone Bitart ([place] (5/325)) 2 tab Q4H PRN PO severe pain Last administered on 06/10/16 07:37; Admin Dose 2 TAB; Start 06/04/16 at 22: 00 Morphine Sulfate (morphine) 2 mg Q2H PRN IV SEVERE PAIN Last administered on at 15:10; Admin Dose 2 MG; Start 06/05/16 at 03:36 Nystatin/ Triamcinolone Acetonide (Mycolog Cr) 1 applic BID TOP Last administered on 06/09/16 21:02; Admin Dose 1 APPLIC; Start 06/05/16 at 09:00 ; Stop 06/11/16 at 22:00 Insulin Glargine (Lantus) 12 unit HS SC Last administered on 06/09/16at 20:58; Admin Dose 12 UNIT; Start 06/05/16 at 23:30 JANETH WAITE MD Jun 10, 2016 12:57
[2016-06-10] MEDS: SENNA TAB PO SCH (21:03)
[2016-06-10] MEDS: INSULIN GLARGINE [LANtus] 3 ML PEN SC SCH (21:37)
[2016-06-11] MEDS: ACCUCHECK XX SCH (02:00)
[2016-06-11] MEDS: PANTOPRAZOLE (EC) 40 MG TAB PO SCH (06:32)
[2016-06-11 07:17] LABS: HEMATOCRIT 28.4 % (37.0-47.0); HEMOGLOBIN 9.2 g/dl (12.0-16.0); MEAN CORPUSCULAR HEMOGLOBIN 28.7 pg (29.0-33.0); MEAN CORPUSCULAR HGB CONC 32.3 g/dl (32.0-37.0); MEAN CORPUSCULAR VOLUME 88.9 fl (82.0-101.0); RED CELL DISTRIBUTION WIDTH 17.1 % (11.5-14.5); UNCORRECTED WBC 7.9 10^3/ul (4.8-10.8); WHITE BLOOD COUNT 7.9 10^3/ul (4.8-10.8)
[2016-06-11 07:26] LABS: CONDITION 1; LH ANALYZER COMMENTS 1; MEAN PLATELET VOLUME 9.9 fl (7.4-10.4)
[2016-06-11 07:27] LABS: PLATELET COUNT 23 10^3/UL (140-440)
[2016-06-11 07:30] VITALS: BP 115/57; PULSE 70; RESP 18
[2016-06-11] MEDS: INSULIN ASPART [NOVOLOG] 3 ML PEN SC SCH ×4 (07:35→21:00)
[2016-06-11 08:58] LABS: CALCIUM 10.5 mg/dl (8.4-10.2)
[2016-06-11] MEDS: metFORMIN 500 MG TAB PO SCH (09:01)
[2016-06-11] MEDS: REPAGLINIDE 2 MG TAB PO SCH ×3 (09:01→17:29)
[2016-06-11] MEDS: HYDROmorphONE 1 MG/ML SYG IV PRN (09:03)
[2016-06-11] MEDS: CALCIUM/VITAMIN D (500/200) TAB PO SCH ×2 (09:04→21:10)
[2016-06-11] MEDS: GABAPENTIN 300 MG CAP PO SCH ×3 (09:04→21:09)
[2016-06-11] MEDS: OXYBUTYNIN (XL) 5 MG TAB PO SCH (09:04)
[2016-06-11] MEDS: BRIMONIDINE 0.2% 5 ML BTL RIGHT EYE SCH ×2 (09:04→21:09)
[2016-06-11] MEDS: LINAGLIPTIN 5 MG TABLET PO SCH (09:04)
[2016-06-11] MEDS: DORZOLAMIDE/TIMOLOL 10 ML OPH BOTH EYES SCH ×2 (09:04→21:09)
[2016-06-11] MEDS: POLYETHYLENE GLYCOL 17 GM PACKET PO SCH (09:16)
[2016-06-11] MEDS: DOCUSATE SODIUM 100 MG CAP PO SCH ×2 (09:17→21:10)
[2016-06-11] MEDS: BROMFENAC SODIUM 1.7 ML OPH DROP LEFT EYE SCH (09:18)
[2016-06-11] MEDS: NYSTATIN/TRIAMCINOLONE 15 GM CR TOP SCH ×2 (09:19→21:16)
[2016-06-11] MEDS: FENOFIBRATE 145 MG TAB PO SCH (09:27)
[2016-06-11 10:07] LABS: MONOCYTE # 0.6 10^3/ul (0.3-0.9); MYELOCYTES # 0.5; NEUTROPHIL # 3.9 10^3/ul (1.6-7.5); POLYCHROMASIA 1+
[2016-06-11 10:08] LABS: PLATELET ESTIMATE PLT APPEAR DECREASED
--- NOTE | 2016-06-11 11:35 | CONS ---
Date/Time of Note Date/Time of Note DATE: 06/11/16 TIME: 11:34 Consult Date/Type/Reason Admit Date/Time Jun 04, 2016 at 15:34 Type of Consultation: Hematology/Oncology Subjective no new complaints. Wants to taper off pain meds Objective mod assist Vital Signs Date Time Temp Pulse Resp B/P Pulse Ox O2 Delivery O2 Flow Rate FiO2 06/11/16 07:30 98.5 70 18 115/57 95 Room Air Intake and Output 06/10/16 06/10/16 06/11/16 14:59 22:59 06:59 Intake Total 240 ml 660 ml Output Total 400 ml 1000 ml Balance -160 ml -340 ml Results/Medications Result Diagram: 06/11/16 0650 06/10/16 0603 Results 24 hrs Laboratory Tests Test 06/10/16 11:58 06/10/16 17:01 06/10/16 20:42 06/11/16 06:50 Bedside Glucose 128 106 150 Band Neutrophils % 10.0 H Blood Morphology Comment Calcium Level 10.5 H Hematocrit 28.4 L Hemoglobin 9.2 L Lymphocytes # 2.0 Lymphocytes % 25.0 Mean Corpuscular Hemoglobin 28.7 L Mean Corpuscular Hemoglobin Concent 32.3 Mean Corpuscular Volume 88.9 Mean Platelet Volume 9.9 Metamyelocytes # 0.2 Metamyelocytes % 2.0 H Monocytes # 0.6 Monocytes % 8.0 Myelocytes # 0.5 Myelocytes % 6.0 H Neutrophils # 3.9 Neutrophils % 49.0 Parathyroid Hormone (Intact) Platelet Count 23 #*L Platelet Estimate PLT APPEAR DECREASED Polychromasia 1+ Red Blood Count 3.20 L Red Cell Distribution Width 17.1 H White Blood Count 7.9 Test 06/11/16 07:29 Bedside Glucose 133 Medications Current Medications Senna (Senokot) 1 tab HS PO Last administered on 06/10/16at 21:03; Admin Dose 1 TAB; Start 06/04/16 at 21:00 Acetaminophen (Tylenol Tab) 650 mg Q4H PRN PO PAIN; Start 06/04/16 at 18:00 Magnesium Hydroxide (Milk Of Mag) 30 ml BID PRN PO CONSTIPATION; Start at 18:00 Lactulose (Enulose) 20 gm DAILY PRN PO CONSTIPATION Last administered on at 17:39; Admin Dose 20 GM; Start 06/04/16 at 18:00 Brimonidine Tartrate (Alphagan 0.2%) 1 drop BID RIGHT EYE Last administered on 06/11/16 09:04; Admin Dose 1 DROP; Start 06/04/16 at 17:42 Bromfenac Sodium (Bromday) 1 drop DAILY LEFT EYE Last administered on 09:18; Admin Dose 1 DROP; Start 06/04/16 at 17:42 Dorzolamide/ Timolol (Cosopt) 1 drop BID BOTH EYES Last administered on 09:04; Admin Dose 1 DROP; Start 06/04/16 at 17:42 Acetaminophen (Tylenol Tab) 650 mg Q6H PRN PO PAIN AND OR ELEVATED TEMP Last administered on 06/10/16 18:48; Admin Dose 650 MG; Start 06/04/16 at 17:42 Ondansetron HCl (Zofran Inj) 4 mg Q4H PRN IV NAUSEA AND/OR VOMITING; Start at 17:42 Pantoprazole (Protonix Tab) 40 mg DAILY@06 PO Last administered on 06/11/16 06:32; Admin Dose 40 MG; Start 06/04/16 at 17:42 Oxybutynin Chloride (Ditropan Xl) 10 mg DAILY PO Last administered on 09:04; Admin Dose 10 MG; Start 06/04/16 at 17:42 Gabapentin (Neurontin) 600 mg TID PO Last administered on 06/11/16 09:04; Admin Dose 600 MG; Start 06/04/16 at 17:42 Linagliptin (Tradjenta) 5 mg DAILY PO Last administered on 06/11/16 09:04; Admin Dose 5 MG; Start 06/04/16 at 17:42 Fenofibrate (Tricor) 145 mg DAILY PO Last administered on 06/11/16 09:27; Admin Dose 145 MG; Start 06/04/16 at 17:42 Calcium/Vitamin D (Oyster Shell/ Vit-D (500/200)) 1 tab BID PO Last administered on 06/11/16 09:04; Admin Dose 1 TAB; Start 06/04/16 at 17:42 Polyethylene Glycol (Miralax) 17 gm DAILY PO Last administered on 12/30/16at 09 :16; Admin Dose 17 GM; Start 06/04/16 at 17:42 Miscellaneous Information 1 ea NOTE XX ; Start 06/04/16 at 17:42 Glucose (Glutose) 15 gm Q15M PRN PO DECREASED GLUCOSE; Start 06/04/16 at 17:42 Glucose (Glutose) 22.5 gm Q15M PRN PO DECREASED GLUCOSE; Start 06/04/16 at 17: 42 Dextrose (D50w Syringe) 25 ml Q15M PRN IV DECREASED GLUCOSE; Start 06/04/16 at 17:42 Dextrose (D50w Syringe) 50 ml Q15M PRN IV DECREASED GLUCOSE; Start 06/04/16 at 17:42 Glucagon (Glucagen) 1 mg Q15M PRN IM DECREASED GLUCOSE; Start 06/04/16 at 17: 42 Glucose (Glutose) 15 gm Q15M PRN BUCCAL DECREASED GLUCOSE; Start 06/04/16 at 17:42 Epoetin Raul (Epogen (Esrd)) 10,000 units MoWeFr@17 SC Last administered on at 17:15; Admin Dose 10,000 UNITS; Start 06/04/16 at 17:42 Bisacodyl (Dulcolax Supp) 10 mg DAILY PRN [place] CONSTIPATION Last administered on 06/10/16at 06:44; Admin Dose 10 MG; Start 06/04/16 at 17:42 Docusate Sodium (Colace) 100 mg BID PO Last administered on 06/11/16at 09:17; Admin Dose 100 MG; Start 06/04/16 at 17:42 Diagnostic Test (Pha) (Accucheck) 1 ea 02 XX ; Start 06/04/16 at 17:42 Acetaminophen/ Hydrocodone Bitart ([place] (5/325)) 1 tab Q4H PRN PO moderate pain Last administered on 06/10/16at 21:04; Admin Dose 1 TAB; Start 06/04/16 at 22:00 Acetaminophen/ Hydrocodone Bitart ([place] (5/325)) 2 tab Q4H PRN PO severe pain Last administered on 06/10/16at 07:37; Admin Dose 2 TAB; Start 06/04/16 at 22: 00 Nystatin/ Triamcinolone Acetonide (Mycolog Cr) 1 applic BID TOP Last administered on 12/30/16at 09:19; Admin Dose 1 APPLIC; Start 06/05/16 at 09:00 ; Stop 06/11/16 at 22:00 Insulin Glargine (Lantus) 12 unit HS SC Last administered on 06/10/16at 21:37; Admin Dose 12 UNIT; Start 06/05/16 at 23:30 Assessment/Plan Additional Assessment/Plan Rehab- [facility] with a right comminuted patellar fracture and a spiral fracture of the proximal shaft of the left humerus, treated non-operatively, Continue rehab activities Acute pain -under good control, tapering meds per patient request Myelodysplastic syndrome with anemia and thrombocytopenia. F/B per hematology. Diabetes mellitus type 2, with diabetic neuropathy. Blood sugar control per internal medicine, internal medicine adjusting regimen. Neuropathy controlled with gabapentin. Hypertension. BP controlled, continue current treatment. Hyperlipidemia. Overactive bladder with urinary incontinence. Continue oxybutynin. GERD. Continue PPI. s/p UTI, present on admission Glaucoma. Continue eye drops. KRISTAL WOOD MD Jun 11, 2016 11:35
--- NOTE | 2016-06-11 13:21 | CONS ---
Date/Time of Note Date/Time of Note DATE: 06/11/16 TIME: 13:20 Assessment/Plan Assessment/Plan Chief Complaint/Hosp Course 78 year old woman with a history of hypoproliferative MDS, previously with platelets in the 40-50s for 5-7 years, however recently platelets have been declining to the 20s and Hgb decreased as well, now consistent with intermediate risk MDS. She has been seen by myself and Dr. Juan Do at [facility] and is being considered for a clinical trial at [facility]. Patient now admitted for fracture of left humerus and left patella s/p fall at home. Pt has since received 2 units of PRBC's and 2 units of platelets. -Can consider epo to increase hemoglobin, however acutely will transfuse pRBCs or platelet if needed prior to surgery. Will transfuse if Hgb < 8 or plt < 10. s/p 1 unit pRBCs 06/10/16 for Hgb 8.0 given patient reports symptomatic anemia, now improved to Hgb 9.2. Continue to monitor. Epo level sent, if < 500 then would potentially benefit from erythropoeitin. -Appreciate orthopedic recs to immobilize the right lower extremity and left upper extremity in an H.S.S. brace. -Continue physical therapy -once patient is discharged she will start therapy for her MDS in our office with Azacitidine Problems: Consultation Date/Type/Reason Admit Date/Time Jun 04, 2016 at 15:34 Type of Consultation: Hematology/Oncology 24 HR Interval Summary Free Text/Dictation Patient denies fevers or chills, states that she is unsure whether she has more energy than yesterday. Exam/Review of Systems Vital Signs Vitals Vital Signs Date Time Temp Pulse Resp B/P Pulse Ox O2 Delivery O2 Flow Rate FiO2 06/11/16 07:30 98.5 70 18 115/57 95 Room Air Intake and Output 06/10/16 06/10/16 06/11/16 15:00 23:00 07:00 Intake Total 240 ml 300 ml 360 ml Output Total 400 ml 1000 ml Balance -160 ml 300 ml -640 ml Exam Constitutional: alert, oriented Psych: no complaints Head: normocephalic Eyes: nl conjunctiva Neck: non-tender, supple Respiratory: clear to auscultation Cardiovascular: regular rate and rhythm Gastrointestinal: non-tender Musculoskeletal: other (LUE in brace) Results Result Diagram: 06/11/16 0650 06/10/16 0603 Results 24 hrs Laboratory Tests Test 06/10/16 17:01 06/10/16 20:42 06/11/16 06:50 06/11/16 07:29 Bedside Glucose 106 150 133 Band Neutrophils % 10.0 H Blood Morphology Comment Calcium Level 10.5 H Hematocrit 28.4 L Hemoglobin 9.2 L Lymphocytes # 2.0 Lymphocytes % 25.0 Mean Corpuscular Hemoglobin 28.7 L Mean Corpuscular Hemoglobin Concent 32.3 Mean Corpuscular Volume 88.9 Mean Platelet Volume 9.9 Metamyelocytes # 0.2 Metamyelocytes % 2.0 H Monocytes # 0.6 Monocytes % 8.0 Myelocytes # 0.5 Myelocytes % 6.0 H Neutrophils # 3.9 Neutrophils % 49.0 Parathyroid Hormone (Intact) Platelet Count 23 #*L Platelet Estimate PLT APPEAR DECREASED Polychromasia 1+ Red Blood Count 3.20 L Red Cell Distribution Width 17.1 H White Blood Count 7.9 Test 06/11/16 11:58 Bedside Glucose 148 Medications Medications Current Medications Senna (Senokot) 1 tab HS PO Last administered on 06/10/16at 21:03; Admin Dose 1 TAB; Start 06/04/16 at 21:00 Acetaminophen (Tylenol Tab) 650 mg Q4H PRN PO PAIN; Start 06/04/16 at 18:00 Magnesium Hydroxide (Milk Of Mag) 30 ml BID PRN PO CONSTIPATION; Start at 18:00 Lactulose (Enulose) 20 gm DAILY PRN PO CONSTIPATION Last administered on at 17:39; Admin Dose 20 GM; Start 06/04/16 at 18:00 Brimonidine Tartrate (Alphagan 0.2%) 1 drop BID RIGHT EYE Last administered on 06/11/16 09:04; Admin Dose 1 DROP; Start 06/04/16 at 17:42 Bromfenac Sodium (Bromday) 1 drop DAILY LEFT EYE Last administered on 09:18; Admin Dose 1 DROP; Start 06/04/16 at 17:42 Dorzolamide/ Timolol (Cosopt) 1 drop BID BOTH EYES Last administered on 09:04; Admin Dose 1 DROP; Start 06/04/16 at 17:42 Acetaminophen (Tylenol Tab) 650 mg Q6H PRN PO PAIN AND OR ELEVATED TEMP Last administered on 06/10/16at 18:48; Admin Dose 650 MG; Start 06/04/16 at 17:42 Ondansetron HCl (Zofran Inj) 4 mg Q4H PRN IV NAUSEA AND/OR VOMITING; Start at 17:42 Pantoprazole (Protonix Tab) 40 mg DAILY@06 PO Last administered on 06/11/16at 06:32; Admin Dose 40 MG; Start 06/04/16 at 17:42 Oxybutynin Chloride (Ditropan Xl) 10 mg DAILY PO Last administered on 09:04; Admin Dose 10 MG; Start 06/04/16 at 17:42 Gabapentin (Neurontin) 600 mg TID PO Last administered on 06/11/16at 12:11; Admin Dose 600 MG; Start 06/04/16 at 17:42 Linagliptin (Tradjenta) 5 mg DAILY PO Last administered on 06/11/16at 09:04; Admin Dose 5 MG; Start 06/04/16 at 17:42 Fenofibrate (Tricor) 145 mg DAILY PO Last administered on 06/11/16at 09:27; Admin Dose 145 MG; Start 06/04/16 at 17:42 Calcium/Vitamin D (Oyster Shell/ Vit-D (500/200)) 1 tab BID PO Last administered on 06/11/16at 09:04; Admin Dose 1 TAB; Start 06/04/16 at 17:42 Polyethylene Glycol (Miralax) 17 gm DAILY PO Last administered on 06/11/16at 09 :16; Admin Dose 17 GM; Start 06/04/16 at 17:42 Miscellaneous Information 1 ea NOTE XX ; Start 06/04/16 at 17:42 Glucose (Glutose) 15 gm Q15M PRN PO DECREASED GLUCOSE; Start 06/04/16 at 17:42 Glucose (Glutose) 22.5 gm Q15M PRN PO DECREASED GLUCOSE; Start 06/04/16 at 17: 42 Dextrose (D50w Syringe) 25 ml Q15M PRN IV DECREASED GLUCOSE; Start 06/04/16 at 17:42 Dextrose (D50w Syringe) 50 ml Q15M PRN IV DECREASED GLUCOSE; Start 06/04/16 at 17:42 Glucagon (Glucagen) 1 mg Q15M PRN IM DECREASED GLUCOSE; Start 06/04/16 at 17: 42 Glucose (Glutose) 15 gm Q15M PRN BUCCAL DECREASED GLUCOSE; Start 06/04/16 at 17:42 Epoetin Raul (Epogen (Esrd)) 10,000 units MoWeFr@17 SC Last administered on at 17:15; Admin Dose 10,000 UNITS; Start 06/04/16 at 17:42 Bisacodyl (Dulcolax Supp) 10 mg DAILY PRN [place] CONSTIPATION Last administered on 06/10/16 06:44; Admin Dose 10 MG; Start 06/04/16 at 17:42 Docusate Sodium (Colace) 100 mg BID PO Last administered on 06/11/16 09:17; Admin Dose 100 MG; Start 06/04/16 at 17:42 Diagnostic Test (Pha) (Accucheck) 1 ea 02 XX ; Start 06/04/16 at 17:42 Acetaminophen/ Hydrocodone Bitart ([place] (5/325)) 1 tab Q4H PRN PO moderate pain Last administered on 06/10/16at 21:04; Admin Dose 1 TAB; Start 06/04/16 at 22:00 Acetaminophen/ Hydrocodone Bitart ([place] (5/325)) 2 tab Q4H PRN PO severe pain Last administered on 06/10/16at 07:37; Admin Dose 2 TAB; Start 06/04/16 at 22: 00 Nystatin/ Triamcinolone Acetonide (Mycolog Cr) 1 applic BID TOP Last administered on 06/11/16at 09:19; Admin Dose 1 APPLIC; Start 06/05/16 at 09:00 ; Stop 06/11/16 at 22:00 Insulin Glargine (Lantus) 12 unit HS SC Last administered on 06/10/16at 21:37; Admin Dose 12 UNIT; Start 06/05/16 at 23:30 JANETH WAITE MD Jun 11, 2016 13:21
[2016-06-11] MEDS: EPOETIN 10000 UNITS/1 ML INJ (ESRD) SC SCH (17:32)
[2016-06-11 20:00] VITALS: BP 141/62; PULSE 85; RESP 16
[2016-06-11] MEDS: SENNA TAB PO SCH (21:09)
[2016-06-11] MEDS: HYDROCODONE/APAP (5/325) TAB PO PRN (21:09)
[2016-06-11] MEDS: INSULIN GLARGINE [LANtus] 3 ML PEN SC SCH (21:13)
[2016-06-12] MEDS: HYDROCODONE/APAP (5/325) TAB PO PRN (01:36)
[2016-06-12] MEDS: ACCUCHECK XX SCH (02:00)
[2016-06-12] MEDS ORDERED: ACETAMINOPHEN 325 MG TAB PO PRN (04:08)
[2016-06-12] MEDS: PANTOPRAZOLE (EC) 40 MG TAB PO SCH (06:59)
[2016-06-12] MEDS: INSULIN ASPART [NOVOLOG] 3 ML PEN SC SCH ×4 (07:35→21:00)
[2016-06-12 08:00] VITALS: BP 110/56; PULSE 67; RESP 18
[2016-06-12] MEDS: REPAGLINIDE 2 MG TAB PO SCH ×3 (08:52→17:38)
[2016-06-12] MEDS: metFORMIN 500 MG TAB PO SCH (08:53)
[2016-06-12 08:55] LABS: CREATININE 0.78 mg/dl (0.44-1.00)
[2016-06-12] MEDS: BROMFENAC SODIUM 1.7 ML OPH DROP LEFT EYE SCH (09:00)
[2016-06-12] MEDS: CALCIUM/VITAMIN D (500/200) TAB PO SCH ×2 (09:36→20:27)
[2016-06-12] MEDS: LINAGLIPTIN 5 MG TABLET PO SCH (09:36)
[2016-06-12] MEDS: DOCUSATE SODIUM 100 MG CAP PO SCH ×2 (09:36→20:28)
[2016-06-12] MEDS: FENOFIBRATE 145 MG TAB PO SCH (09:37)
[2016-06-12] MEDS: traMADol 50 MG TAB PO PRN ×4 (09:37→20:28)
[2016-06-12] MEDS: GABAPENTIN 300 MG CAP PO SCH ×3 (09:37→20:27)
[2016-06-12] MEDS: OXYBUTYNIN (XL) 5 MG TAB PO SCH (09:38)
[2016-06-12] MEDS: DORZOLAMIDE/TIMOLOL 10 ML OPH BOTH EYES SCH ×2 (09:39→20:33)
[2016-06-12] MEDS: BRIMONIDINE 0.2% 5 ML BTL RIGHT EYE SCH ×2 (09:39→20:43)
[2016-06-12] MEDS: POLYETHYLENE GLYCOL 17 GM PACKET PO SCH (11:07)
--- NOTE | 2016-06-12 11:53 | CONS ---
Date/Time of Note Date/Time of Note DATE: 06/12/16 TIME: 11:52 Consult Date/Type/Reason Admit Date/Time Jun 04, 2016 at 15:34 Type of Consultation: Hematology/Oncology Subjective No new complaints Objective mod assist 100 feet Vital Signs Date Time Temp Pulse Resp B/P Pulse Ox O2 Delivery O2 Flow Rate FiO2 06/12/16 08:00 98.3 67 18 110/56 97 Room Air Intake and Output 06/11/16 06/11/16 06/12/16 14:59 22:59 06:59 Intake Total 360 ml Balance 360 ml Results/Medications Result Diagram: 06/11/16 0650 06/12/16 0733 Results 24 hrs Laboratory Tests Test 06/11/16 11:58 06/11/16 17:18 06/11/16 21:06 06/12/16 07:33 Bedside Glucose 148 93 112 Blood Urea Nitrogen 19 Creatinine 0.78 Test 06/12/16 07:37 Bedside Glucose 119 Medications Current Medications Senna (Senokot) 1 tab HS PO Last administered on 06/11/16at 21:09; Admin Dose 1 TAB; Start 06/04/16 at 21:00 Magnesium Hydroxide (Milk Of Mag) 30 ml BID PRN PO CONSTIPATION; Start at 18:00 Lactulose (Enulose) 20 gm DAILY PRN PO CONSTIPATION Last administered on at 17:39; Admin Dose 20 GM; Start 06/04/16 at 18:00 Brimonidine Tartrate (Alphagan 0.2%) 1 drop BID RIGHT EYE Last administered on 06/12/16at 09:39; Admin Dose 1 DROP; Start 06/04/16 at 17:42 Bromfenac Sodium (Bromday) 1 drop DAILY LEFT EYE Last administered on 09:00; Admin Dose 1 DROP; Start 06/04/16 at 17:42 Dorzolamide/ Timolol (Cosopt) 1 drop BID BOTH EYES Last administered on 09:39; Admin Dose 1 DROP; Start 06/04/16 at 17:42 Acetaminophen (Tylenol Tab) 650 mg Q6H PRN PO PAIN AND OR ELEVATED TEMP Last administered on 06/10/16 18:48; Admin Dose 650 MG; Start 06/04/16 at 17:42 Ondansetron HCl (Zofran Inj) 4 mg Q4H PRN IV NAUSEA AND/OR VOMITING; Start at 17:42 Pantoprazole (Protonix Tab) 40 mg DAILY@06 PO Last administered on 06/12/16at 06:59; Admin Dose 40 MG; Start 06/04/16 at 17:42 Oxybutynin Chloride (Ditropan Xl) 10 mg DAILY PO Last administered on at 09:38; Admin Dose 10 MG; Start 06/04/16 at 17:42 Gabapentin (Neurontin) 600 mg TID PO Last administered on 06/12/16at 09:37; Admin Dose 600 MG; Start 06/04/16 at 17:42 Linagliptin (Tradjenta) 5 mg DAILY PO Last administered on 06/12/16at 09:36; Admin Dose 5 MG; Start 06/04/16 at 17:42 Fenofibrate (Tricor) 145 mg DAILY PO Last administered on 06/12/16at 09:37; Admin Dose 145 MG; Start 06/04/16 at 17:42 Calcium/Vitamin D (Oyster Shell/ Vit-D (500/200)) 1 tab BID PO Last administered on 06/12/16at 09:36; Admin Dose 1 TAB; Start 06/04/16 at 17:42 Polyethylene Glycol (Miralax) 17 gm DAILY PO Last administered on 06/12/16at 11 :07; Admin Dose 17 GM; Start 06/04/16 at 17:42 Miscellaneous Information 1 ea NOTE XX ; Start 06/04/16 at 17:42 Glucose (Glutose) 15 gm Q15M PRN PO DECREASED GLUCOSE; Start 06/04/16 at 17:42 Glucose (Glutose) 22.5 gm Q15M PRN PO DECREASED GLUCOSE; Start 06/04/16 at 17: 42 Dextrose (D50w Syringe) 25 ml Q15M PRN IV DECREASED GLUCOSE; Start 06/04/16 at 17:42 Dextrose (D50w Syringe) 50 ml Q15M PRN IV DECREASED GLUCOSE; Start 06/04/16 at 17:42 Glucagon (Glucagen) 1 mg Q15M PRN IM DECREASED GLUCOSE; Start 06/04/16 at 17: 42 Glucose (Glutose) 15 gm Q15M PRN BUCCAL DECREASED GLUCOSE; Start 06/04/16 at 17:42 Epoetin Raul (Epogen (Esrd)) 10,000 units MoWeFr@17 SC Last administered on at 17:32; Admin Dose 10,000 UNITS; Start 06/04/16 at 17:42 Bisacodyl (Dulcolax Supp) 10 mg DAILY PRN [place] CONSTIPATION Last administered on 06/10/16at 06:44; Admin Dose 10 MG; Start 06/04/16 at 17:42 Docusate Sodium (Colace) 100 mg BID PO Last administered on 06/12/16at 09:36; Admin Dose 100 MG; Start 06/04/16 at 17:42 Diagnostic Test (Pha) (Accucheck) 1 ea 02 XX ; Start 06/04/16 at 17:42 Acetaminophen/ Hydrocodone Bitart ([place] (5/325)) 1 tab Q4H PRN PO moderate pain Last administered on 06/12/16at 01:36; Admin Dose 1 TAB; Start 06/04/16 at 22:00 Acetaminophen/ Hydrocodone Bitart ([place] (5/325)) 2 tab Q4H PRN PO severe pain Last administered on 06/10/16at 07:37; Admin Dose 2 TAB; Start 06/04/16 at 22: 00 Insulin Glargine (Lantus) 12 unit HS SC Last administered on 06/11/16at 21:13; Admin Dose 12 UNIT; Start 06/05/16 at 23:30 Tramadol HCl (Ultram) 50 mg Q4H PRN PO MILD PAIN LEVEL 1-3 Last administered on 06/12/16at 11:04; Admin Dose 50 MG; Start 06/12/16 at 04:07 Acetaminophen (Tylenol Tab) 650 mg Q4H PRN PO MILD PAIN LEVEL 1-3; Start 06/12 at 04:08 Assessment/Plan Additional Assessment/Plan Rehab- MMT with a right comminuted patellar fracture and a spiral fracture of the proximal shaft of the left humerus, treated non-operatively, Continue treatment plan Acute pain -meds adjusted Myelodysplastic syndrome with anemia and thrombocytopenia. F/B per hematology. Diabetes mellitus type 2, with diabetic neuropathy. Blood sugar control per internal medicine, internal medicine adjusting regimen. Neuropathy controlled with gabapentin. Hypertension. BP controlled, continue current treatment. Hyperlipidemia. Overactive bladder with urinary incontinence. Continue oxybutynin. GERD. Continue PPI. s/p UTI, present on admission Glaucoma. Continue eye drops. KRISTAL WOOD MD Jun 12, 2016 11:53
[2016-06-12 20:05] VITALS: BP 137/64; PULSE 89; RESP 19
[2016-06-12] MEDS: SENNA TAB PO SCH (20:28)
[2016-06-12] MEDS: INSULIN GLARGINE [LANtus] 3 ML PEN SC SCH (20:30)
[2016-06-13] MEDS: ACCUCHECK XX SCH (02:00)
[2016-06-13] MEDS: traMADol 50 MG TAB PO PRN ×4 (03:37→20:46)
[2016-06-13] MEDS: PANTOPRAZOLE (EC) 40 MG TAB PO SCH (05:53)
[2016-06-13] MEDS: INSULIN ASPART [NOVOLOG] 3 ML PEN SC SCH ×4 (07:35→21:00)
[2016-06-13 08:00] VITALS: BP 113/53; PULSE 68; RESP 18
[2016-06-13 08:01] VITALS: BP 113/53; RESP 18
[2016-06-13] MEDS: metFORMIN 500 MG TAB PO SCH (08:36)
[2016-06-13] MEDS: OXYBUTYNIN (XL) 5 MG TAB PO SCH (08:38)
[2016-06-13] MEDS: POLYETHYLENE GLYCOL 17 GM PACKET PO SCH (08:38)
[2016-06-13] MEDS: DOCUSATE SODIUM 100 MG CAP PO SCH ×2 (08:39→20:47)
[2016-06-13] MEDS: GABAPENTIN 300 MG CAP PO SCH ×3 (08:39→20:46)
[2016-06-13] MEDS: FENOFIBRATE 145 MG TAB PO SCH (08:39)
[2016-06-13] MEDS: CALCIUM/VITAMIN D (500/200) TAB PO SCH ×2 (08:39→20:47)
[2016-06-13] MEDS: LINAGLIPTIN 5 MG TABLET PO SCH (08:39)
[2016-06-13] MEDS: BROMFENAC SODIUM 1.7 ML OPH DROP LEFT EYE SCH (08:40)
[2016-06-13] MEDS: DORZOLAMIDE/TIMOLOL 10 ML OPH BOTH EYES SCH ×2 (08:40→20:46)
[2016-06-13] MEDS: BRIMONIDINE 0.2% 5 ML BTL RIGHT EYE SCH ×2 (08:40→20:47)
[2016-06-13] MEDS: REPAGLINIDE 2 MG TAB PO SCH ×4 (08:42→17:49)
[2016-06-13 10:56] LABS: HEMATOCRIT 29.5 % (37.0-47.0); HEMOGLOBIN 9.5 g/dl (12.0-16.0); MEAN CORPUSCULAR HEMOGLOBIN 28.7 pg (29.0-33.0); MEAN CORPUSCULAR HGB CONC 32.1 g/dl (32.0-37.0); MEAN CORPUSCULAR VOLUME 89.4 fl (82.0-101.0); RED BLOOD COUNT 3.29 10^6/ul (4.20-5.40); RED CELL DISTRIBUTION WIDTH 17.3 % (11.5-14.5); UNCORRECTED WBC 9.3 10^3/ul (4.8-10.8); WHITE BLOOD COUNT 9.3 10^3/ul (4.8-10.8)
[2016-06-13 11:04] LABS: CONDITION 1; LH ANALYZER COMMENTS 1; MEAN PLATELET VOLUME 9.9 fl (7.4-10.4); PLATELET COUNT 27 10^3/UL (140-440)
[2016-06-13 12:25] LABS: ANISOCYTOSIS 1+; BASOPHIL # 0.1 10^3/ul (0.0-0.1); HYPOCHROMASIA 1+; LYMPHOCYTES # 2.1 10^3/ul (0.8-2.9); MONOCYTE # 0.7 10^3/ul (0.3-0.9); MYELOCYTES # 0.1; NEUTROPHIL # 4.9 10^3/ul (1.6-7.5); PLATELET ESTIMATE PLT APPEAR DECREASED
[2016-06-13 20:14] VITALS: BP 123/81; RESP 18
[2016-06-13] MEDS: SENNA TAB PO SCH (20:47)
[2016-06-13] MEDS: INSULIN GLARGINE [LANtus] 3 ML PEN SC SCH (20:50)
[2016-06-14] MEDS: ACCUCHECK XX SCH (02:00)
[2016-06-14] MEDS: PANTOPRAZOLE (EC) 40 MG TAB PO SCH (05:47)
[2016-06-14] MEDS: INSULIN ASPART [NOVOLOG] 3 ML PEN SC SCH ×4 (07:35→21:00)
[2016-06-14] MEDS: traMADol 50 MG TAB PO PRN ×2 (08:27→23:32)
[2016-06-14] MEDS: REPAGLINIDE 2 MG TAB PO SCH ×2 (08:27→12:38)
[2016-06-14] MEDS: LINAGLIPTIN 5 MG TABLET PO SCH (08:27)
[2016-06-14] MEDS: metFORMIN 500 MG TAB PO SCH (08:27)
[2016-06-14] MEDS: DOCUSATE SODIUM 100 MG CAP PO SCH ×2 (08:27→21:28)
[2016-06-14] MEDS: CALCIUM/VITAMIN D (500/200) TAB PO SCH ×2 (08:27→21:29)
[2016-06-14] MEDS: FENOFIBRATE 145 MG TAB PO SCH (08:27)
[2016-06-14] MEDS: OXYBUTYNIN (XL) 5 MG TAB PO SCH (08:28)
[2016-06-14] MEDS: BROMFENAC SODIUM 1.7 ML OPH DROP LEFT EYE SCH (08:28)
[2016-06-14] MEDS: GABAPENTIN 300 MG CAP PO SCH ×3 (08:28→21:29)
[2016-06-14] MEDS: DORZOLAMIDE/TIMOLOL 10 ML OPH BOTH EYES SCH ×2 (08:28→21:28)
[2016-06-14] MEDS: POLYETHYLENE GLYCOL 17 GM PACKET PO SCH (08:28)
[2016-06-14] MEDS: BRIMONIDINE 0.2% 5 ML BTL RIGHT EYE SCH ×2 (08:28→21:29)
[2016-06-14 08:50] VITALS: BP 155/69; RESP 16
--- NOTE | 2016-06-14 11:31 | CONS ---
Date/Time of Note Date/Time of Note DATE: 06/14/16 TIME: 11:30 Consult Date/Type/Reason Admit Date/Time Jun 04, 2016 at 15:34 Type of Consultation: Hematology/Oncology Subjective Still with pain Objective mod transfer Amb 150 feet Vital Signs Date Time Temp Pulse Resp B/P Pulse Ox O2 Delivery O2 Flow Rate FiO2 06/14/16 08:50 98.1 73 16 155/69 99 06/13/16 08:00 Room Air Intake and Output 06/13/16 06/13/16 06/14/16 14:59 22:59 06:59 Intake Total 720 ml 840 ml 880 ml Output Total 200 ml 350 ml Balance 520 ml 490 ml 880 ml Results/Medications Result Diagram: 06/13/16 0900 06/12/16 0733 Results 24 hrs Laboratory Tests Test 06/13/16 11:49 06/13/16 17:02 06/13/16 20:40 06/14/16 07:24 Bedside Glucose 98 73 129 115 Medications Current Medications Senna (Senokot) 1 tab HS PO Last administered on 06/13/16 20:47; Admin Dose 1 TAB; Start 06/04/16 at 21:00 Magnesium Hydroxide (Milk Of Mag) 30 ml BID PRN PO CONSTIPATION; Start at 18:00 Lactulose (Enulose) 20 gm DAILY PRN PO CONSTIPATION Last administered on at 17:39; Admin Dose 20 GM; Start 06/04/16 at 18:00 Brimonidine Tartrate (Alphagan 0.2%) 1 drop BID RIGHT EYE Last administered on 06/14/16 08:28; Admin Dose 1 DROP; Start 06/04/16 at 17:42 Bromfenac Sodium (Bromday) 1 drop DAILY LEFT EYE Last administered on 06/14/16 08:28; Admin Dose 1 DROP; Start 06/04/16 at 17:42 Dorzolamide/ Timolol (Cosopt) 1 drop BID BOTH EYES Last administered on 08:28; Admin Dose 1 DROP; Start 06/04/16 at 17:42 Acetaminophen (Tylenol Tab) 650 mg Q6H PRN PO PAIN AND OR ELEVATED TEMP Last administered on 06/10/16at 18:48; Admin Dose 650 MG; Start 06/04/16 at 17:42 Ondansetron HCl (Zofran Inj) 4 mg Q4H PRN IV NAUSEA AND/OR VOMITING; Start at 17:42 Pantoprazole (Protonix Tab) 40 mg DAILY@06 PO Last administered on 06/14/16 05: 47; Admin Dose 40 MG; Start 06/04/16 at 17:42 Oxybutynin Chloride (Ditropan Xl) 10 mg DAILY PO Last administered on 06/14/16 08:28; Admin Dose 10 MG; Start 06/04/16 at 17:42 Gabapentin (Neurontin) 600 mg TID PO Last administered on 06/14/16 08:28; Admin Dose 600 MG; Start 06/04/16 at 17:42 Linagliptin (Tradjenta) 5 mg DAILY PO Last administered on 06/14/16 08:27; Admin Dose 5 MG; Start 06/04/16 at 17:42 Fenofibrate (Tricor) 145 mg DAILY PO Last administered on 06/14/16 08:27; Admin Dose 145 MG; Start 06/04/16 at 17:42 Calcium/Vitamin D (Oyster Shell/ Vit-D (500/200)) 1 tab BID PO Last administered on 06/14/16 08:27; Admin Dose 1 TAB; Start 06/04/16 at 17:42 Polyethylene Glycol (Miralax) 17 gm DAILY PO Last administered on 06/14/16 08: 28; Admin Dose 17 GM; Start 06/04/16 at 17:42 Miscellaneous Information 1 ea NOTE XX ; Start 06/04/16 at 17:42 Glucose (Glutose) 15 gm Q15M PRN PO DECREASED GLUCOSE; Start 06/04/16 at 17:42 Glucose (Glutose) 22.5 gm Q15M PRN PO DECREASED GLUCOSE; Start 06/04/16 at 17: 42 Dextrose (D50w Syringe) 25 ml Q15M PRN IV DECREASED GLUCOSE; Start 06/04/16 at 17:42 Dextrose (D50w Syringe) 50 ml Q15M PRN IV DECREASED GLUCOSE; Start 06/04/16 at 17:42 Glucagon (Glucagen) 1 mg Q15M PRN IM DECREASED GLUCOSE; Start 06/04/16 at 17: 42 Glucose (Glutose) 15 gm Q15M PRN BUCCAL DECREASED GLUCOSE; Start 06/04/16 at 17:42 Epoetin Raul (Epogen (Esrd)) 10,000 units MoWeFr@17 SC Last administered on at 17:32; Admin Dose 10,000 UNITS; Start 06/04/16 at 17:42 Bisacodyl (Dulcolax Supp) 10 mg DAILY PRN [place] CONSTIPATION Last administered on 06/10/16at 06:44; Admin Dose 10 MG; Start 06/04/16 at 17:42 Docusate Sodium (Colace) 100 mg BID PO Last administered on 06/14/16 08:27; Admin Dose 100 MG; Start 06/04/16 at 17:42 Diagnostic Test (Pha) (Accucheck) 1 ea 02 XX ; Start 06/04/16 at 17:42 Acetaminophen/ Hydrocodone Bitart ([place] (5/325)) 1 tab Q4H PRN PO moderate pain Last administered on 06/12/16at 01:36; Admin Dose 1 TAB; Start 06/04/16 at 22:00 Acetaminophen/ Hydrocodone Bitart ([place] (5/325)) 2 tab Q4H PRN PO severe pain Last administered on 06/10/16at 07:37; Admin Dose 2 TAB; Start 06/04/16 at 22: 00 Insulin Glargine (Lantus) 12 unit HS SC Last administered on 06/13/16 20:50; Admin Dose 12 UNIT; Start 06/05/16 at 23:30 Tramadol HCl (Ultram) 50 mg Q4H PRN PO MILD PAIN LEVEL 1-3 Last administered on 06/14/16 08:27; Admin Dose 50 MG; Start 06/12/16 at 04:07 Acetaminophen (Tylenol Tab) 650 mg Q4H PRN PO MILD PAIN LEVEL 1-3; Start 06/12 at 04:08 Assessment/Plan Additional Assessment/Plan Rehab- MMT with a right comminuted patellar fracture and a spiral fracture of the proximal shaft of the left humerus, treated non-operatively, Continue rehab activities Acute pain -meds adjusted Myelodysplastic syndrome with anemia and thrombocytopenia. F/B per hematology. Diabetes mellitus type 2, with diabetic neuropathy Neuropathy controlled with gabapentin. Hypertension. BP controlled, continue current treatment. Hyperlipidemia. Overactive bladder with urinary incontinence. Continue oxybutynin. GERD. Continue PPI. s/p UTI, present on admission Glaucoma. Continue eye drops. KRISTAL WOOD MD Jun 14, 2016 11:31
[2016-06-14] MEDS: EPOETIN 10000 UNITS/1 ML INJ (ESRD) SC SCH (17:43)
[2016-06-14] MEDS: REPAGLINIDE 1 MG TAB PO SCH (18:27)
[2016-06-14 19:30] VITALS: BP 134/81; RESP 17
[2016-06-14] MEDS: SENNA TAB PO SCH (21:29)
[2016-06-14] MEDS: INSULIN GLARGINE [LANtus] 3 ML PEN SC SCH (21:43)
[2016-06-15] MEDS: ACCUCHECK XX SCH (01:38)
[2016-06-15] MEDS: PANTOPRAZOLE (EC) 40 MG TAB PO SCH (06:57)
[2016-06-15] MEDS ORDERED: REPAGLINIDE 1 MG TAB PO SCH (07:05)
[2016-06-15 07:30] VITALS: BP 114/58; RESP 18
[2016-06-15] MEDS: REPAGLINIDE 1 MG TAB PO SCH ×3 (07:30→17:24)
[2016-06-15] MEDS: traMADol 50 MG TAB PO PRN ×2 (07:30→19:45)
[2016-06-15] MEDS: INSULIN ASPART [NOVOLOG] 3 ML PEN SC SCH ×4 (07:35→21:00)
[2016-06-15] MEDS: DORZOLAMIDE/TIMOLOL 10 ML OPH BOTH EYES SCH ×2 (08:21→21:20)
[2016-06-15] MEDS: BRIMONIDINE 0.2% 5 ML BTL RIGHT EYE SCH ×2 (08:21→21:22)
[2016-06-15] MEDS: FENOFIBRATE 145 MG TAB PO SCH (08:22)
[2016-06-15] MEDS: OXYBUTYNIN (XL) 5 MG TAB PO SCH (08:22)
[2016-06-15] MEDS: POLYETHYLENE GLYCOL 17 GM PACKET PO SCH (08:22)
[2016-06-15] MEDS: DOCUSATE SODIUM 100 MG CAP PO SCH ×2 (08:22→21:20)
[2016-06-15] MEDS: GABAPENTIN 300 MG CAP PO SCH ×3 (08:22→21:21)
[2016-06-15] MEDS: metFORMIN 500 MG TAB PO SCH (08:23)
[2016-06-15] MEDS: LINAGLIPTIN 5 MG TABLET PO SCH (08:23)
[2016-06-15] MEDS: BROMFENAC SODIUM 1.7 ML OPH DROP LEFT EYE SCH (08:23)
[2016-06-15] MEDS: CALCIUM/VITAMIN D (500/200) TAB PO SCH ×2 (08:23→21:21)
--- NOTE | 2016-06-15 11:12 | CONS ---
Date/Time of Note Date/Time of Note DATE: 06/15/16 TIME: 11:12 Consult Date/Type/Reason Admit Date/Time Jun 04, 2016 at 15:34 Type of Consultation: Hematology/Oncology Subjective Tired Objective Vital Signs Date Time Temp Pulse Resp B/P Pulse Ox O2 Delivery O2 Flow Rate FiO2 06/14/16 19:30 98.7 81 17 134/81 95 06/13/16 08:00 Room Air Intake and Output 06/14/16 06/14/16 06/15/16 14:59 22:59 06:59 Intake Total 240 ml 240 ml 300 ml Output Total 200 ml 400 ml Balance 40 ml -160 ml 300 ml INTERDISCIPLINARY TEAM CONFERENCE BOWEL- Cont BLADDER-Cont SKIN- intact OT- DRESSING-min/max BATHING-min/max TOILETING-mod PT- BED MOBILITY-cga TRANSFERS-cga AMBULATION-cga A/P- Interdisciplinary team conference held today. Please see interdisciplinary sheet. Working toward d.c. on 06/22 with post discharge follow up of physical therapy, occupational therapy. Results/Medications Result Diagram: 06/13/16 0900 06/12/16 0733 Results 24 hrs Laboratory Tests Test 06/14/16 12:05 06/14/16 16:38 06/14/16 21:27 06/15/16 07:19 Bedside Glucose 166 84 120 104 Medications Current Medications Senna (Senokot) 1 tab HS PO Last administered on 06/14/16 21:29; Admin Dose 1 TAB; Start 06/04/16 at 21:00 Magnesium Hydroxide (Milk Of Mag) 30 ml BID PRN PO CONSTIPATION; Start at 18:00 Lactulose (Enulose) 20 gm DAILY PRN PO CONSTIPATION Last administered on at 17:39; Admin Dose 20 GM; Start 06/04/16 at 18:00 Brimonidine Tartrate ([place]ph[place] 0.2%) 1 drop BID RIGHT EYE Last administered on 06/15/16 08:21; Admin Dose 1 DROP; Start 06/04/16 at 17:42 Bromfenac Sodium (Bromday) 1 drop DAILY LEFT EYE Last administered on 06/15/16 08:23; Admin Dose 1 DROP; Start 06/04/16 at 17:42 Dorzolamide/ Timolol (Cosopt) 1 drop BID BOTH EYES Last administered on 08:21; Admin Dose 1 DROP; Start 06/04/16 at 17:42 Acetaminophen (Tylenol Tab) 650 mg Q6H PRN PO PAIN AND OR ELEVATED TEMP Last administered on 06/10/16at 18:48; Admin Dose 650 MG; Start 06/04/16 at 17:42 Ondansetron HCl (Zofran Inj) 4 mg Q4H PRN IV NAUSEA AND/OR VOMITING; Start at 17:42 Pantoprazole (Protonix Tab) 40 mg DAILY@06 PO Last administered on 06/15/16 06: 57; Admin Dose 40 MG; Start 06/04/16 at 17:42 Oxybutynin Chloride (Ditropan Xl) 10 mg DAILY PO Last administered on 06/15/16 08:22; Admin Dose 10 MG; Start 06/04/16 at 17:42 Gabapentin (Neurontin) 600 mg TID PO Last administered on 06/15/16 08:22; Admin Dose 600 MG; Start 06/04/16 at 17:42 Linagliptin (Tradjenta) 5 mg DAILY PO Last administered on 06/15/16 08:23; Admin Dose 5 MG; Start 06/04/16 at 17:42 Fenofibrate (Tricor) 145 mg DAILY PO Last administered on 06/15/16 08:22; Admin Dose 145 MG; Start 06/04/16 at 17:42 Calcium/Vitamin D (Oyster Shell/ Vit-D (500/200)) 1 tab BID PO Last administered on 06/15/16 08:23; Admin Dose 1 TAB; Start 06/04/16 at 17:42 Polyethylene Glycol (Miralax) 17 gm DAILY PO Last administered on 06/15/16 08: 22; Admin Dose 17 GM; Start 06/04/16 at 17:42 Miscellaneous Information 1 ea NOTE XX ; Start 06/04/16 at 17:42 Glucose (Glutose) 15 gm Q15M PRN PO DECREASED GLUCOSE; Start 06/04/16 at 17:42 Glucose (Glutose) 22.5 gm Q15M PRN PO DECREASED GLUCOSE; Start 06/04/16 at 17: 42 Dextrose (D50w Syringe) 25 ml Q15M PRN IV DECREASED GLUCOSE; Start 06/04/16 at 17:42 Dextrose (D50w Syringe) 50 ml Q15M PRN IV DECREASED GLUCOSE; Start 06/04/16 at 17:42 Glucagon (Glucagen) 1 mg Q15M PRN IM DECREASED GLUCOSE; Start 06/04/16 at 17: 42 Glucose (Glutose) 15 gm Q15M PRN BUCCAL DECREASED GLUCOSE; Start 06/04/16 at 17:42 Epoetin Raul (Epogen (Esrd)) 10,000 units MoWeFr@17 SC Last administered on 06/14 17:43; Admin Dose 10,000 UNITS; Start 06/04/16 at 17:42 Bisacodyl (Dulcolax Supp) 10 mg DAILY PRN [place] CONSTIPATION Last administered on 06/10/16 06:44; Admin Dose 10 MG; Start 06/04/16 at 17:42 Docusate Sodium (Colace) 100 mg BID PO Last administered on 06/15/16 08:22; Admin Dose 100 MG; Start 06/04/16 at 17:42 Diagnostic Test (Pha) (Accucheck) 1 ea 02 XX ; Start 06/04/16 at 17:42 Acetaminophen/ Hydrocodone Bitart ([place] (5/325)) 1 tab Q4H PRN PO moderate pain Last administered on 06/12/16at 01:36; Admin Dose 1 TAB; Start 06/04/16 at 22:00 Acetaminophen/ Hydrocodone Bitart ([place] (5/325)) 2 tab Q4H PRN PO severe pain Last administered on 06/10/16 07:37; Admin Dose 2 TAB; Start 06/04/16 at 22: 00 Insulin Glargine (Lantus) 12 unit HS SC Last administered on 06/14/16 21:43; Admin Dose 12 UNIT; Start 06/05/16 at 23:30 Tramadol HCl (Ultram) 50 mg Q4H PRN PO MILD PAIN LEVEL 1-3 Last administered on 06/15/16 07:30; Admin Dose 50 MG; Start 06/12/16 at 04:07 Acetaminophen (Tylenol Tab) 650 mg Q4H PRN PO MILD PAIN LEVEL 1-3; Start 06/12 at 04:08 KRISTAL WOOD MD Jun 15, 2016 11:12
[2016-06-15] MEDS: HYDROCODONE/APAP (5/325) TAB PO PRN ×2 (12:06→22:04)
--- NOTE | 2016-06-15 15:46 | CONS ---
Date/Time of Note Date/Time of Note DATE: 06/15/16 TIME: 15:43 Assessment/Plan Assessment/Plan Chief Complaint/Hosp Course 78 year old woman with a history of hypoproliferative MDS, previously with platelets in the 40-50s for 5-7 years, however recently platelets have been declining to the 20s and Hgb decreased as well, now consistent with intermediate risk MDS. She has been seen by myself and Dr. Juan Do at [facility] and is being considered for a clinical trial at [facility]. Patient now admitted for fracture of left humerus and left patella s/p fall at home. Pt has since received 2 units of PRBC's and 2 units of platelets. -continue Epogen. pt currently on Epo 10,000 units TIW. Will transfuse if Hgb < 8 or plt < 10. s/p 1 unit pRBCs 06/10/16 for Hgb 8.0 given patient reports symptomatic anemia, now improved to Hgb 9.2. -Appreciate orthopedic recs to immobilize the right lower extremity and left upper extremity in an H.S.S. brace. -Continue physical therapy -once patient is discharged she will start therapy for her MDS in our office with Azacitidine Approximately 40 min were spent at patient's bedside and in coordination of her care Problems: Consultation Date/Type/Reason Admit Date/Time Jun 04, 2016 at 15:34 Initial Consult Date Jun Type of Consultation: Hematology/Oncology Reason for Consultation myelodysplastic syndrome Referring Provider: SUKHI RUBIO MD- 24 HR Interval Summary Free Text/Dictation pt continues to work with physical therapy. s/o pain in right arm. received 1 unit of blood transfusion 2 days ago Exam/Review of Systems Vital Signs Vitals Vital Signs Date Time Temp Pulse Resp B/P Pulse Ox O2 Delivery O2 Flow Rate FiO2 06/15/16 07:30 98.6 94 18 114/58 96 06/13/16 08:00 Room Air Intake and Output 06/14/16 06/14/16 06/15/16 15:00 23:00 07:00 Intake Total 240 ml 240 ml 300 ml Output Total 200 ml 400 ml Balance 40 ml -160 ml 300 ml Exam Constitutional: alert, oriented Head: atraumatic, normocephalic Eyes: nl conjunctiva ENMT: nl external ears & nose Neck: non-tender, supple Respiratory: clear to auscultation, normal air movement Cardiovascular: nl pulses, regular rate and rhythm Gastrointestinal: soft Musculoskeletal: muscle weakness, other (brace on right arm and left knee) Extremities: normal pulses Neurological: LOOM FIXER APPRENTICE II-XII intact Results Result Diagram: 06/13/16 0900 06/12/16 0733 Results 24 hrs Laboratory Tests Test 06/14/16 16:38 06/14/16 21:27 06/15/16 07:19 06/15/16 12:01 Bedside Glucose 84 120 104 160 Medications Medications Current Medications Senna (Senokot) 1 tab HS PO Last administered on 06/14/16 21:29; Admin Dose 1 TAB; Start 06/04/16 at 21:00 Magnesium Hydroxide (Milk Of Mag) 30 ml BID PRN PO CONSTIPATION; Start at 18:00 Lactulose (Enulose) 20 gm DAILY PRN PO CONSTIPATION Last administered on at 17:39; Admin Dose 20 GM; Start 06/04/16 at 18:00 Brimonidine Tartrate (Alphagan 0.2%) 1 drop BID RIGHT EYE Last administered on 06/15/16 08:21; Admin Dose 1 DROP; Start 06/04/16 at 17:42 Bromfenac Sodium (Bromday) 1 drop DAILY LEFT EYE Last administered on 06/15/16 08:23; Admin Dose 1 DROP; Start 06/04/16 at 17:42 Dorzolamide/ Timolol (Cosopt) 1 drop BID BOTH EYES Last administered on 08:21; Admin Dose 1 DROP; Start 06/04/16 at 17:42 Acetaminophen (Tylenol Tab) 650 mg Q6H PRN PO PAIN AND OR ELEVATED TEMP Last administered on 06/10/16at 18:48; Admin Dose 650 MG; Start 06/04/16 at 17:42 Ondansetron HCl (Zofran Inj) 4 mg Q4H PRN IV NAUSEA AND/OR VOMITING; Start at 17:42 Pantoprazole (Protonix Tab) 40 mg DAILY@06 PO Last administered on 06/15/16 06: 57; Admin Dose 40 MG; Start 06/04/16 at 17:42 Oxybutynin Chloride (Ditropan Xl) 10 mg DAILY PO Last administered on 06/15/16 08:22; Admin Dose 10 MG; Start 06/04/16 at 17:42 Gabapentin (Neurontin) 600 mg TID PO Last administered on 06/15/16 12:06; Admin Dose 600 MG; Start 06/04/16 at 17:42 Linagliptin (Tradjenta) 5 mg DAILY PO Last administered on 06/15/16 08:23; Admin Dose 5 MG; Start 06/04/16 at 17:42 Fenofibrate (Tricor) 145 mg DAILY PO Last administered on 06/15/16 08:22; Admin Dose 145 MG; Start 06/04/16 at 17:42 Calcium/Vitamin D (Oyster Shell/ Vit-D (500/200)) 1 tab BID PO Last administered on 06/15/16 08:23; Admin Dose 1 TAB; Start 06/04/16 at 17:42 Polyethylene Glycol (Miralax) 17 gm DAILY PO Last administered on 06/15/16 08: 22; Admin Dose 17 GM; Start 06/04/16 at 17:42 Miscellaneous Information 1 ea NOTE XX ; Start 06/04/16 at 17:42 Glucose (Glutose) 15 gm Q15M PRN PO DECREASED GLUCOSE; Start 06/04/16 at 17:42 Glucose (Glutose) 22.5 gm Q15M PRN PO DECREASED GLUCOSE; Start 06/04/16 at 17: 42 Dextrose (D50w Syringe) 25 ml Q15M PRN IV DECREASED GLUCOSE; Start 06/04/16 at 17:42 Dextrose (D50w Syringe) 50 ml Q15M PRN IV DECREASED GLUCOSE; Start 06/04/16 at 17:42 Glucagon (Glucagen) 1 mg Q15M PRN IM DECREASED GLUCOSE; Start 06/04/16 at 17: 42 Glucose (Glutose) 15 gm Q15M PRN BUCCAL DECREASED GLUCOSE; Start 06/04/16 at 17:42 Epoetin Raul (Epogen (Esrd)) 10,000 units MoWeFr@17 SC Last administered on 06/14 17:43; Admin Dose 10,000 UNITS; Start 06/04/16 at 17:42 Bisacodyl (Dulcolax Supp) 10 mg DAILY PRN [place] CONSTIPATION Last administered on 06/10/16at 06:44; Admin Dose 10 MG; Start 06/04/16 at 17:42 Docusate Sodium (Colace) 100 mg BID PO Last administered on 06/15/16 08:22; Admin Dose 100 MG; Start 06/04/16 at 17:42 Diagnostic Test (Pha) (Accucheck) 1 ea 02 XX ; Start 06/04/16 at 17:42 Acetaminophen/ Hydrocodone Bitart ([place] (5/325)) 1 tab Q4H PRN PO moderate pain Last administered on 06/15/16 12:06; Admin Dose 1 TAB; Start 06/04/16 at 22:00 Acetaminophen/ Hydrocodone Bitart ([place] (5/325)) 2 tab Q4H PRN PO severe pain Last administered on 06/10/16at 07:37; Admin Dose 2 TAB; Start 06/04/16 at 22: 00 Insulin Glargine (Lantus) 12 unit HS SC Last administered on 06/14/16 21:43; Admin Dose 12 UNIT; Start 06/05/16 at 23:30 Tramadol HCl (Ultram) 50 mg Q4H PRN PO MILD PAIN LEVEL 1-3 Last administered on 06/15/16 07:30; Admin Dose 50 MG; Start 06/12/16 at 04:07 Acetaminophen (Tylenol Tab) 650 mg Q4H PRN PO MILD PAIN LEVEL 1-3; Start 06/12 at 04:08 ALBERTO JOSEPH M.D. Jun 15, 2016 15:45
[2016-06-15 20:00] VITALS: BP_SYST 122; BP_SYST 126; BP_DIAS 61; BP_DIAS 64; PULSE 80; RESP 18; RESP 19
[2016-06-15 20:07] VITALS: BP 126/61; RESP 19
[2016-06-15] MEDS: SENNA TAB PO SCH ×2 (21:00→22:03)
[2016-06-15] MEDS: INSULIN GLARGINE [LANtus] 3 ML PEN SC SCH (21:25)
[2016-06-16] MEDS: ACCUCHECK XX SCH (02:00)
[2016-06-16 04:17] LABS: ADD UMIC YES; URINE BILIRUBIN (Dip) NEGATIVE (NEGATIVE); URINE BLOOD (Dip) NEGATIVE (NEGATIVE); URINE COLOR LT. YELLOW (YELLOW); URINE GLUCOSE (Dip) NEGATIVE (NEGATIVE); URINE KETONES (Dip) NEGATIVE (NEGATIVE); URINE LEUKOCYTE ESTERASE (Dip) 1+ (NEGATIVE); URINE NITRITE (Dip) NEGATIVE (NEGATIVE); URINE TOTAL PROTEIN (Dip) NEGATIVE (NEGATIVE); URINE UROBILINOGEN (Dip) 0.2 E.U./dL (0.1-1.0)
[2016-06-16 05:06] LABS: SQUAMOUS EPITHELIAL CELL,UR FEW; URINE RBCS 0-2 /HPF (0)
[2016-06-16] MEDS: PANTOPRAZOLE (EC) 40 MG TAB PO SCH (06:41)
[2016-06-16] MEDS: traMADol 50 MG TAB PO PRN ×3 (06:41→19:45)
[2016-06-16 07:08] LABS: HEMATOCRIT 27.4 % (37.0-47.0); HEMOGLOBIN 8.9 g/dl (12.0-16.0); MEAN CORPUSCULAR HEMOGLOBIN 29.2 pg (29.0-33.0); MEAN CORPUSCULAR HGB CONC 32.5 g/dl (32.0-37.0); MEAN CORPUSCULAR VOLUME 89.8 fl (82.0-101.0); RED BLOOD COUNT 3.05 10^6/ul (4.20-5.40); RED CELL DISTRIBUTION WIDTH 17.2 % (11.5-14.5); UNCORRECTED WBC 7.9 10^3/ul (4.8-10.8); WHITE BLOOD COUNT 7.9 10^3/ul (4.8-10.8)
[2016-06-16 07:18] LABS: CONDITION 1; LH ANALYZER COMMENTS 1; MEAN PLATELET VOLUME 8.9 fl (7.4-10.4)
[2016-06-16 07:19] LABS: PLATELET COUNT 16 10^3/UL (140-440)
[2016-06-16 07:21] LABS: POTASSIUM 4.1 mmol/L (3.5-5.1)
[2016-06-16 07:23] LABS: CREATININE 0.87 mg/dl (0.44-1.00)
[2016-06-16 07:24] LABS: CALCIUM 10.2 mg/dl (8.4-10.2)
[2016-06-16 07:30] VITALS: BP 127/58; RESP 18
[2016-06-16] MEDS: INSULIN ASPART [NOVOLOG] 3 ML PEN SC SCH ×4 (07:35→21:00)
[2016-06-16 08:09] VITALS: BP 127/58; PULSE 74; RESP 18
[2016-06-16] MEDS: REPAGLINIDE 1 MG TAB PO SCH ×3 (08:24→17:05)
[2016-06-16] MEDS: metFORMIN 500 MG TAB PO SCH (08:28)
[2016-06-16] MEDS: CALCIUM/VITAMIN D (500/200) TAB PO SCH ×2 (08:29→20:49)
[2016-06-16] MEDS: FENOFIBRATE 145 MG TAB PO SCH (08:29)
[2016-06-16] MEDS: GABAPENTIN 300 MG CAP PO SCH ×3 (08:29→20:49)
[2016-06-16] MEDS: DOCUSATE SODIUM 100 MG CAP PO SCH ×2 (08:30→20:49)
[2016-06-16] MEDS: OXYBUTYNIN (XL) 5 MG TAB PO SCH (08:30)
[2016-06-16] MEDS: LINAGLIPTIN 5 MG TABLET PO SCH (08:30)
[2016-06-16] MEDS: POLYETHYLENE GLYCOL 17 GM PACKET PO SCH (08:31)
[2016-06-16] MEDS: BRIMONIDINE 0.2% 5 ML BTL RIGHT EYE SCH ×2 (08:33→20:50)
[2016-06-16] MEDS: DORZOLAMIDE/TIMOLOL 10 ML OPH BOTH EYES SCH ×2 (08:34→20:50)
[2016-06-16] MEDS: BROMFENAC SODIUM 1.7 ML OPH DROP LEFT EYE SCH (08:35)
[2016-06-16 10:23] LABS: ANISOCYTOSIS 1+; LYMPHOCYTES # 2.2 10^3/ul (0.8-2.9); MONOCYTE # 1.2 10^3/ul (0.3-0.9); NEUTROPHIL # 3.9 10^3/ul (1.6-7.5); PLATELET ESTIMATE PLT APPEAR DECREASED; POLYCHROMASIA OCCASIONAL
--- NOTE | 2016-06-16 11:18 | CONS ---
Date/Time of Note Date/Time of Note DATE: 06/16/16 TIME: 11:16 Consult Date/Type/Reason Admit Date/Time Jun 04, 2016 at 15:34 Type of Consultation: Hematology/Oncology Ordering Provider: SUKHI RUBIO MD- Subjective reporting difficulties with social situation, but reports family will be able to assist upon dc Objective cga transfer and ambulation Vital Signs Date Time Temp Pulse Resp B/P Pulse Ox O2 Delivery O2 Flow Rate FiO2 06/16/16 08:09 97.9 74 18 127/58 96 Room Air Intake and Output 06/15/16 06/15/16 06/16/16 15:00 23:00 07:00 Intake Total 360 ml 1050 ml Output Total 700 ml Balance 360 ml 350 ml Results/Medications Result Diagram: 06/16/16 0609 06/16/16 0609 Results 24 hrs Laboratory Tests Test 06/15/16 12:01 06/15/16 16:43 06/15/16 20:27 06/16/16 03:55 Bedside Glucose 160 79 163 Urine Bilirubin NEGATIVE Urine Clarity CLEAR Urine Color LT. YELLOW Urine Glucose NEGATIVE Urine Hemoglobin NEGATIVE Urine Ketones NEGATIVE Urine Leukocyte Esterase 1+ H Urine Microscopic RBC 0-2 Urine Microscopic WBC 5-10 Urine Nitrite NEGATIVE Urine Specific [place] <=1.005 L Urine Squamous Epithelial Cells FEW Urine Total Protein NEGATIVE Urine Urobilinogen 0.2 E.U./dL Urine pH 6.0 Test 06/16/16 06:09 06/16/16 07:31 Anion Gap 15 Anisocytosis 1+ Band Neutrophils % 8.0 H Blood Morphology Comment Blood Urea Nitrogen 21 H Calcium Level 10.2 Carbon Dioxide Level 28 Chloride Level 102 Creatinine 0.87 Differential Comment MANUAL DIFF Glucose Level 115 Hematocrit 27.4 L Hemoglobin 8.9 L Lymphocytes # 2.2 Lymphocytes % 28.0 Mean Corpuscular Hemoglobin 29.2 Mean Corpuscular Hemoglobin Concent 32.5 Mean Corpuscular Volume 89.8 Mean Platelet Volume 8.9 Monocytes # 1.2 H Monocytes % 15.0 H Neutrophils # 3.9 Neutrophils % 49.0 Nucleated Red Blood Cells % 11.0 H Platelet Count 16 #*L Platelet Estimate PLT APPEAR DECREASED Polychromasia OCCASIONAL Potassium Level 4.1 Red Blood Count 3.05 L Red Cell Distribution Width 17.2 H Sodium Level 141 White Blood Count 7.9 Bedside Glucose 122 Medications Current Medications Senna (Senokot) 1 tab HS PO Last administered on 06/15/16 22:03; Admin Dose 1 TAB; Start 06/04/16 at 21:00 Magnesium Hydroxide (Milk Of Mag) 30 ml BID PRN PO CONSTIPATION; Start at 18:00 Lactulose (Enulose) 20 gm DAILY PRN PO CONSTIPATION Last administered on at 17:39; Admin Dose 20 GM; Start 06/04/16 at 18:00 Brimonidine Tartrate (Alphagan 0.2%) 1 drop BID RIGHT EYE Last administered on 06/16/16 08:33; Admin Dose 1 DROP; Start 06/04/16 at 17:42 Bromfenac Sodium (Bromday) 1 drop DAILY LEFT EYE Last administered on 06/16/16 08:35; Admin Dose 1 DROP; Start 06/04/16 at 17:42 Dorzolamide/ Timolol (Cosopt) 1 drop BID BOTH EYES Last administered on 08:34; Admin Dose 1 DROP; Start 06/04/16 at 17:42 Acetaminophen (Tylenol Tab) 650 mg Q6H PRN PO PAIN AND OR ELEVATED TEMP Last administered on 06/10/16at 18:48; Admin Dose 650 MG; Start 06/04/16 at 17:42 Ondansetron HCl (Zofran Inj) 4 mg Q4H PRN IV NAUSEA AND/OR VOMITING; Start at 17:42 Pantoprazole (Protonix Tab) 40 mg DAILY@06 PO Last administered on 06/16/16 06: 41; Admin Dose 40 MG; Start 06/04/16 at 17:42 Oxybutynin Chloride (Ditropan Xl) 10 mg DAILY PO Last administered on 06/16/16 08:30; Admin Dose 10 MG; Start 06/04/16 at 17:42 Gabapentin (Neurontin) 600 mg TID PO Last administered on 06/16/16 08:29; Admin Dose 600 MG; Start 06/04/16 at 17:42 Linagliptin (Tradjenta) 5 mg DAILY PO Last administered on 06/16/16 08:30; Admin Dose 5 MG; Start 06/04/16 at 17:42 Fenofibrate (Tricor) 145 mg DAILY PO Last administered on 06/16/16 08:29; Admin Dose 145 MG; Start 06/04/16 at 17:42 Calcium/Vitamin D (Oyster Shell/ Vit-D (500/200)) 1 tab BID PO Last administered on 06/16/16 08:29; Admin Dose 1 TAB; Start 06/04/16 at 17:42 Polyethylene Glycol (Miralax) 17 gm DAILY PO Last administered on 06/16/16 08: 31; Admin Dose 17 GM; Start 06/04/16 at 17:42 Miscellaneous Information 1 ea NOTE XX ; Start 06/04/16 at 17:42 Glucose (Glutose) 15 gm Q15M PRN PO DECREASED GLUCOSE; Start 06/04/16 at 17:42 Glucose (Glutose) 22.5 gm Q15M PRN PO DECREASED GLUCOSE; Start 06/04/16 at 17: 42 Dextrose (D50w Syringe) 25 ml Q15M PRN IV DECREASED GLUCOSE; Start 06/04/16 at 17:42 Dextrose (D50w Syringe) 50 ml Q15M PRN IV DECREASED GLUCOSE; Start 06/04/16 at 17:42 Glucagon (Glucagen) 1 mg Q15M PRN IM DECREASED GLUCOSE; Start 06/04/16 at 17: 42 Glucose (Glutose) 15 gm Q15M PRN BUCCAL DECREASED GLUCOSE; Start 06/04/16 at 17:42 Epoetin Raul (Epogen (Esrd)) 10,000 units MoWeFr@17 SC Last administered on 06/14 17:43; Admin Dose 10,000 UNITS; Start 06/04/16 at 17:42 Bisacodyl (Dulcolax Supp) 10 mg DAILY PRN [place] CONSTIPATION Last administered on 06/10/16at 06:44; Admin Dose 10 MG; Start 06/04/16 at 17:42 Docusate Sodium (Colace) 100 mg BID PO Last administered on 06/16/16 08:30; Admin Dose 100 MG; Start 06/04/16 at 17:42 Diagnostic Test (Pha) (Accucheck) 1 ea 02 XX ; Start 06/04/16 at 17:42 Acetaminophen/ Hydrocodone Bitart ([place] (5/325)) 1 tab Q4H PRN PO moderate pain Last administered on 06/15/16 22:04; Admin Dose 1 TAB; Start 06/04/16 at 22:00 Acetaminophen/ Hydrocodone Bitart ([place] (5/325)) 2 tab Q4H PRN PO severe pain Last administered on 06/10/16at 07:37; Admin Dose 2 TAB; Start 06/04/16 at 22: 00 Insulin Glargine (Lantus) 12 unit HS SC Last administered on 06/15/16 21:25; Admin Dose 12 UNIT; Start 06/05/16 at 23:30 Tramadol HCl (Ultram) 50 mg Q4H PRN PO MILD PAIN LEVEL 1-3 Last administered on 06/16/16 06:41; Admin Dose 50 MG; Start 06/12/16 at 04:07 Acetaminophen (Tylenol Tab) 650 mg Q4H PRN PO MILD PAIN LEVEL 1-3; Start 06/12 at 04:08 Assessment/Plan Additional Assessment/Plan Rehab- MMT with a right comminuted patellar fracture and a spiral fracture of the proximal shaft of the left humerus, treated non-operatively, Continue treatment plan Acute pain -patient taking less medications currently Myelodysplastic syndrome with anemia and thrombocytopenia. F/B per hematology. Diabetes mellitus type 2, with diabetic neuropathy Neuropathy controlled with gabapentin. Hypertension. BP controlled, continue current treatment. Hyperlipidemia. Overactive bladder with urinary incontinence. Continue oxybutynin. GERD. Continue PPI. s/p UTI, present on admission Glaucoma. Continue eye drops. KRISTAL WOOD MD Jun 16, 2016 11:18
--- NOTE | 2016-06-16 13:07 | CONS ---
Date/Time of Note Date/Time of Note DATE: 06/16/16 TIME: 13:03 Assessment/Plan Assessment/Plan Chief Complaint/Hosp Course 78 year old woman with a history of hypoproliferative MDS, previously with platelets in the 40-50s for 5-7 years, however recently platelets have been declining to the 20s and Hgb decreased as well, now consistent with intermediate risk MDS. She has been seen by myself and Dr. Juan Do at [facility] and is being considered for a clinical trial at [facility]. Patient now admitted for fracture of left humerus and left patella s/p fall at home. Pt has since received 2 units of PRBC's and 2 units of platelets. -continue Epogen. pt currently on Epo 10,000 units TIW. Will transfuse if Hgb < 8 or plt < 10. s/p 1 unit pRBCs 06/10/16 for Hgb 8.0 given patient reports symptomatic anemia. hg 8.9 and platelets are 16. will no transfuse today -Appreciate orthopedic recs to immobilize the right lower extremity and left upper extremity in an H.S.S. brace. -Continue physical therapy -once patient is discharged she will start therapy for her MDS in our office with Azacitidine Approximately 40 min were spent at patient's bedside and in coordination of her care Problems: Consultation Date/Type/Reason Admit Date/Time Jun 04, 2016 at 15:34 Initial Consult Date Jun Type of Consultation: Hematology/Oncology Reason for Consultation myelodysplastic syndrome Referring Provider: SUKHI RUBIO MD- 24 HR Interval Summary Free Text/Dictation pt continues to work with physical therapy. platelets dropped to 16 but there is no evidence of bleeding Exam/Review of Systems Vital Signs Vitals Vital Signs Date Time Temp Pulse Resp B/P Pulse Ox O2 Delivery O2 Flow Rate FiO2 06/16/16 08:09 97.9 74 18 127/58 96 Room Air Intake and Output 06/15/16 06/15/16 06/16/16 15:00 23:00 07:00 Intake Total 360 ml 1050 ml Output Total 700 ml Balance 360 ml 350 ml Exam Constitutional: alert, oriented Psych: anxiety Head: normocephalic Eyes: nl conjunctiva ENMT: nl external ears & nose Neck: non-tender, supple Respiratory: clear to auscultation, normal air movement Cardiovascular: regular rate and rhythm Gastrointestinal: soft Genitourinary - Female: nl adnexae Musculoskeletal: nl extremities to inspection, other (left arm and right patella in brace) Results Result Diagram: 06/16/16 0609 06/16/16 0609 Results 24 hrs Laboratory Tests Test 06/15/16 16:43 06/15/16 20:27 06/16/16 03:55 06/16/16 06:09 Bedside Glucose 79 163 Urine Bilirubin NEGATIVE Urine Clarity CLEAR Urine Color LT. YELLOW Urine Glucose NEGATIVE Urine Hemoglobin NEGATIVE Urine Ketones NEGATIVE Urine Leukocyte Esterase 1+ H Urine Microscopic RBC 0-2 Urine Microscopic WBC 5-10 Urine Nitrite NEGATIVE Urine Specific [place] <=1.005 L Urine Squamous Epithelial Cells FEW Urine Total Protein NEGATIVE Urine Urobilinogen 0.2 E.U./dL Urine pH 6.0 Anion Gap 15 Anisocytosis 1+ Band Neutrophils % 8.0 H Blood Morphology Comment Blood Urea Nitrogen 21 H Calcium Level 10.2 Carbon Dioxide Level 28 Chloride Level 102 Creatinine 0.87 Differential Comment MANUAL DIFF Glucose Level 115 Hematocrit 27.4 L Hemoglobin 8.9 L Lymphocytes # 2.2 Lymphocytes % 28.0 Mean Corpuscular Hemoglobin 29.2 Mean Corpuscular Hemoglobin Concent 32.5 Mean Corpuscular Volume 89.8 Mean Platelet Volume 8.9 Monocytes # 1.2 H Monocytes % 15.0 H Neutrophils # 3.9 Neutrophils % 49.0 Nucleated Red Blood Cells % 11.0 H Platelet Count 16 #*L Platelet Estimate PLT APPEAR DECREASED Polychromasia OCCASIONAL Potassium Level 4.1 Red Blood Count 3.05 L Red Cell Distribution Width 17.2 H Sodium Level 141 White Blood Count 7.9 Test 06/16/16 07:31 06/16/16 12:02 Bedside Glucose 122 117 Medications Medications Current Medications Senna (Senokot) 1 tab HS PO Last administered on 06/15/16t 22:03; Admin Dose 1 TAB; Start 06/04/16 at 21:00 Magnesium Hydroxide (Milk Of Mag) 30 ml BID PRN PO CONSTIPATION; Start at 18:00 Lactulose (Enulose) 20 gm DAILY PRN PO CONSTIPATION Last administered on at 17:39; Admin Dose 20 GM; Start 06/04/16 at 18:00 Brimonidine Tartrate (Alphagan 0.2%) 1 drop BID RIGHT EYE Last administered on 06/16/16 08:33; Admin Dose 1 DROP; Start 06/04/16 at 17:42 Bromfenac Sodium (Bromday) 1 drop DAILY LEFT EYE Last administered on 06/16/16 08:35; Admin Dose 1 DROP; Start 06/04/16 at 17:42 Dorzolamide/ Timolol (Cosopt) 1 drop BID BOTH EYES Last administered on 08:34; Admin Dose 1 DROP; Start 06/04/16 at 17:42 Acetaminophen (Tylenol Tab) 650 mg Q6H PRN PO PAIN AND OR ELEVATED TEMP Last administered on 06/10/16at 18:48; Admin Dose 650 MG; Start 06/04/16 at 17:42 Ondansetron HCl (Zofran Inj) 4 mg Q4H PRN IV NAUSEA AND/OR VOMITING; Start at 17:42 Pantoprazole (Protonix Tab) 40 mg DAILY@06 PO Last administered on 06/16/16 06: 41; Admin Dose 40 MG; Start 06/04/16 at 17:42 Oxybutynin Chloride (Ditropan Xl) 10 mg DAILY PO Last administered on 06/16/16 08:30; Admin Dose 10 MG; Start 06/04/16 at 17:42 Gabapentin (Neurontin) 600 mg TID PO Last administered on 06/16/16 12:11; Admin Dose 600 MG; Start 06/04/16 at 17:42 Linagliptin (Tradjenta) 5 mg DAILY PO Last administered on 06/16/16 08:30; Admin Dose 5 MG; Start 06/04/16 at 17:42 Fenofibrate (Tricor) 145 mg DAILY PO Last administered on 06/16/16 08:29; Admin Dose 145 MG; Start 06/04/16 at 17:42 Calcium/Vitamin D (Oyster Shell/ Vit-D (500/200)) 1 tab BID PO Last administered on 06/16/16 08:29; Admin Dose 1 TAB; Start 06/04/16 at 17:42 Polyethylene Glycol (Miralax) 17 gm DAILY PO Last administered on 06/16/16 08: 31; Admin Dose 17 GM; Start 06/04/16 at 17:42 Miscellaneous Information 1 ea NOTE XX ; Start 06/04/16 at 17:42 Glucose (Glutose) 15 gm Q15M PRN PO DECREASED GLUCOSE; Start 06/04/16 at 17:42 Glucose (Glutose) 22.5 gm Q15M PRN PO DECREASED GLUCOSE; Start 06/04/16 at 17: 42 Dextrose (D50w Syringe) 25 ml Q15M PRN IV DECREASED GLUCOSE; Start 06/04/16 at 17:42 Dextrose (D50w Syringe) 50 ml Q15M PRN IV DECREASED GLUCOSE; Start 06/04/16 at 17:42 Glucagon (Glucagen) 1 mg Q15M PRN IM DECREASED GLUCOSE; Start 06/04/16 at 17: 42 Glucose (Glutose) 15 gm Q15M PRN BUCCAL DECREASED GLUCOSE; Start 06/04/16 at 17:42 Epoetin Raul (Epogen (Esrd)) 10,000 units MoWeFr@17 SC Last administered on 06/14 17:43; Admin Dose 10,000 UNITS; Start 06/04/16 at 17:42 Bisacodyl (Dulcolax Supp) 10 mg DAILY PRN [place] CONSTIPATION Last administered on 06/10/16at 06:44; Admin Dose 10 MG; Start 06/04/16 at 17:42 Docusate Sodium (Colace) 100 mg BID PO Last administered on 06/16/16 08:30; Admin Dose 100 MG; Start 06/04/16 at 17:42 Diagnostic Test (Pha) (Accucheck) 1 ea 02 XX ; Start 06/04/16 at 17:42 Acetaminophen/ Hydrocodone Bitart ([place] (5/325)) 1 tab Q4H PRN PO moderate pain Last administered on 06/15/16 22:04; Admin Dose 1 TAB; Start 06/04/16 at 22:00 Acetaminophen/ Hydrocodone Bitart ([place] (5/325)) 2 tab Q4H PRN PO severe pain Last administered on 06/10/16at 07:37; Admin Dose 2 TAB; Start 06/04/16 at 22: 00 Insulin Glargine (Lantus) 12 unit HS SC Last administered on 06/15/16 21:25; Admin Dose 12 UNIT; Start 06/05/16 at 23:30 Tramadol HCl (Ultram) 50 mg Q4H PRN PO MILD PAIN LEVEL 1-3 Last administered on 06/16/16 06:41; Admin Dose 50 MG; Start 06/12/16 at 04:07 Acetaminophen (Tylenol Tab) 650 mg Q4H PRN PO MILD PAIN LEVEL 1-3; Start 06/12 at 04:08 ALBERTO JOSEPH M.D. Jun 16, 2016 13:06
[2016-06-16] MEDS: EPOETIN 10000 UNITS/1 ML INJ (ESRD) SC SCH (17:08)
--- NOTE | 2016-06-16 19:41 | CONS ---
DATE OF ADMISSION: 06/04/2016 DATE OF CONSULTATION: 06/16/2016 TYPE OF CONSULTATION: Psychological. REFERRING PHYSICIAN: Prosper Banks MD CONSULTING PSYCHOLOGIST: Darwin Jones, PhD REASON FOR CONSULTATION: This consultation was requested by Dr. Whitney Banks in order to evaluate the cognitive and emotional functioning of this patient related to her present medical condition. HISTORY OF PRESENT ILLNESS: The patient is a 71-year-old female. She has a past medical history that has multiple medical problems. The patient had a fall after tripping inside her home and had significant injuries to her left arm and shoulder. The patient was cleared medically and sent to the acute rehabilitation unit for interdisciplinary rehabilitation. The patient is very motivated to get better and return home. The patient has numerous stressors outside affecting her. The patient presently has been evicted from her mother' s home where they were going to live. The patient has to deal with this and work on all the problems that are surrounding. The patient still has her own home and is prepared to move back into that eventually. The patient does want to return home and does want to return to her previous level of functioning. The patient is motivated to get better. FAMILY/SOCIAL HISTORY: The patient lives with her brother and sister. The patient is presently living in her mother's home which they have been evicted from. The patient does have to leave that home and return to her home and move all her mother's belongings back into her home as well as with her brother and sister. The patient is very stressed about this. MEDICATIONS: The patient is currently not on any psychotropic medications. SUBSTANCE USE: The patient reports that she does not smoke. The patient denies any use of alcohol or other drugs. MENTAL STATUS EXAMINATION: APPEARANCE: The patient was seen sitting in her wheelchair. She is of average height and slightly overweight. The patient has suarez hair, wears glasses. The patient is right-handed. BEHAVIOR: The patient was cooperative during the consultation. The patient did attempt to answer all questions presented to her by the interviewer. MOOD AND AFFECT: The patient's mood appears to be slightly depressed. The patient's affect does appear to be slightly anxious. PERCEPTION: The patient reports no hallucinations or delusions. The patient was alert to person, place, situation and time. MEMORY AND COGNITION: The patient's memory and cognition are basically intact. She had no difficulty recalling recent or remote events. The patient was able to say the name of the hospital. The patient was able to say who the distribution center administrator is, who the governor of the state is, and who the mayor of the city is. The patient was able to spell "world" backwards. Overall, the patient's cognitive functioning appears to be fine. INTELLIGENCE: Intelligence appears to fall in the average range. INSIGHT: Good. THOUGHT CONTENT: The patient is concerned about her present medical condition. The patient is still quite depressed and tearful about the issue about being evicted. The patient also is frustrated about her present medical condition. The patient is motivated to get better so that she can get out of the hospital and deal with all the issues she has to outside the hospital setting. DISCUSSION: The patient can likely benefit from some cognitive/behavioral psychotherapy while she is on the unit. Psychotherapy would help focus on her underlying level of frustration and depression about what was happening to her in regard to her eviction as well as her medical problems. 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 Thank you very much, Dr. Whitney Banks, for referring this individual. Please do not hesitate to call if you have additional questions. Dictated By: DARWIN JONES PHD CRISTI/ROGE Conf#: [id number] DID#: [id number] MTDD
[2016-06-16 20:33] VITALS: BP 131/60; RESP 16
[2016-06-16] MEDS: SENNA TAB PO SCH (20:49)
[2016-06-16] MEDS: INSULIN GLARGINE [LANtus] 3 ML PEN SC SCH (20:52)
[2016-06-17] MEDS: ACCUCHECK XX SCH (02:00)
[2016-06-17] MEDS: PANTOPRAZOLE (EC) 40 MG TAB PO SCH (06:03)
[2016-06-17 07:30] VITALS: BP 128/58; RESP 18
[2016-06-17 08:00] VITALS: BP 128/58; PULSE 70; RESP 16
[2016-06-17] MEDS: FENOFIBRATE 145 MG TAB PO SCH (08:27)
[2016-06-17] MEDS: OXYBUTYNIN (XL) 5 MG TAB PO SCH (08:27)
[2016-06-17] MEDS: CALCIUM/VITAMIN D (500/200) TAB PO SCH ×2 (08:28→21:00)
[2016-06-17] MEDS: LINAGLIPTIN 5 MG TABLET PO SCH (08:28)
[2016-06-17] MEDS: DOCUSATE SODIUM 100 MG CAP PO SCH ×2 (08:28→21:00)
[2016-06-17] MEDS: GABAPENTIN 300 MG CAP PO SCH ×3 (08:28→21:00)
[2016-06-17] MEDS: POLYETHYLENE GLYCOL 17 GM PACKET PO SCH (08:28)
[2016-06-17] MEDS: metFORMIN 500 MG TAB PO SCH (08:28)
[2016-06-17] MEDS: REPAGLINIDE 1 MG TAB PO SCH ×3 (08:28→17:51)
[2016-06-17] MEDS: BROMFENAC SODIUM 1.7 ML OPH DROP LEFT EYE SCH (08:29)
[2016-06-17] MEDS: DORZOLAMIDE/TIMOLOL 10 ML OPH BOTH EYES SCH ×2 (08:29→21:02)
[2016-06-17] MEDS: BRIMONIDINE 0.2% 5 ML BTL RIGHT EYE SCH ×2 (08:29→20:59)
[2016-06-17] MEDS: INSULIN ASPART [NOVOLOG] 3 ML PEN SC SCH ×4 (08:32→21:00)
--- NOTE | 2016-06-17 12:14 | CONS ---
Date/Time of Note Date/Time of Note DATE: 06/17/16 TIME: 12:13 Consult Date/Type/Reason Admit Date/Time Jun 04, 2016 at 15:34 Type of Consultation: Hematology/Oncology Ordering Provider: SUKHI RUBIO MD- Subjective No new complaints Objective pulm-cta amb 150 feet Vital Signs Date Time Temp Pulse Resp B/P Pulse Ox O2 Delivery O2 Flow Rate FiO2 06/17/16 07:30 98.6 70 18 128/58 96 06/16/16 08:09 Room Air Intake and Output 06/16/16 06/16/16 06/17/16 15:00 23:00 07:00 Intake Total 720 ml 360 ml 300 ml Output Total 300 ml 600 ml 1300 ml Balance 420 ml -240 ml -1000 ml Results/Medications Result Diagram: 06/16/16 0609 06/16/16 0609 Results 24 hrs Laboratory Tests Test 06/16/16 16:40 06/16/16 20:02 06/17/16 07:26 06/17/16 07:59 Bedside Glucose 114 140 146 Lab Scanned Report REFERENCE LAB Medications Current Medications Senna (Senokot) 1 tab HS PO Last administered on 06/16/16 20:49; Admin Dose 1 TAB; Start 06/04/16 at 21:00 Magnesium Hydroxide (Milk Of Mag) 30 ml BID PRN PO CONSTIPATION; Start at 18:00 Lactulose (Enulose) 20 gm DAILY PRN PO CONSTIPATION Last administered on at 17:39; Admin Dose 20 GM; Start 06/04/16 at 18:00 Brimonidine Tartrate (Alphagan 0.2%) 1 drop BID RIGHT EYE Last administered on 06/17/16 08:29; Admin Dose 1 DROP; Start 06/04/16 at 17:42 Bromfenac Sodium (Bromday) 1 drop DAILY LEFT EYE Last administered on 06/17/16 08:29; Admin Dose 1 DROP; Start 06/04/16 at 17:42 Dorzolamide/ Timolol (Cosopt) 1 drop BID BOTH EYES Last administered on 08:29; Admin Dose 1 DROP; Start 06/04/16 at 17:42 Acetaminophen (Tylenol Tab) 650 mg Q6H PRN PO PAIN AND OR ELEVATED TEMP Last administered on 06/10/16at 18:48; Admin Dose 650 MG; Start 06/04/16 at 17:42 Ondansetron HCl (Zofran Inj) 4 mg Q4H PRN IV NAUSEA AND/OR VOMITING; Start at 17:42 Pantoprazole (Protonix Tab) 40 mg DAILY@06 PO Last administered on 06/17/16 06: 03; Admin Dose 40 MG; Start 06/04/16 at 17:42 Oxybutynin Chloride (Ditropan Xl) 10 mg DAILY PO Last administered on 06/17/16 08:27; Admin Dose 10 MG; Start 06/04/16 at 17:42 Gabapentin (Neurontin) 600 mg TID PO Last administered on 06/17/16 08:28; Admin Dose 600 MG; Start 06/04/16 at 17:42 Linagliptin (Tradjenta) 5 mg DAILY PO Last administered on 06/17/16 08:28; Admin Dose 5 MG; Start 06/04/16 at 17:42 Fenofibrate (Tricor) 145 mg DAILY PO Last administered on 06/17/16 08:27; Admin Dose 145 MG; Start 06/04/16 at 17:42 Calcium/Vitamin D (Oyster Shell/ Vit-D (500/200)) 1 tab BID PO Last administered on 06/17/16 08:28; Admin Dose 1 TAB; Start 06/04/16 at 17:42 Polyethylene Glycol (Miralax) 17 gm DAILY PO Last administered on 06/17/16 08: 28; Admin Dose 17 GM; Start 06/04/16 at 17:42 Miscellaneous Information 1 ea NOTE XX ; Start 06/04/16 at 17:42 Glucose (Glutose) 15 gm Q15M PRN PO DECREASED GLUCOSE; Start 06/04/16 at 17:42 Glucose (Glutose) 22.5 gm Q15M PRN PO DECREASED GLUCOSE; Start 06/04/16 at 17: 42 Dextrose (D50w Syringe) 25 ml Q15M PRN IV DECREASED GLUCOSE; Start 06/04/16 at 17:42 Dextrose (D50w Syringe) 50 ml Q15M PRN IV DECREASED GLUCOSE; Start 06/04/16 at 17:42 Glucagon (Glucagen) 1 mg Q15M PRN IM DECREASED GLUCOSE; Start 06/04/16 at 17: 42 Glucose (Glutose) 15 gm Q15M PRN BUCCAL DECREASED GLUCOSE; Start 06/04/16 at 17:42 Epoetin Raul (Epogen (Esrd)) 10,000 units MoWeFr@17 SC Last administered on 06/16 17:08; Admin Dose 10,000 UNITS; Start 06/04/16 at 17:42 Bisacodyl (Dulcolax Supp) 10 mg DAILY PRN [place] CONSTIPATION Last administered on 06/10/16at 06:44; Admin Dose 10 MG; Start 06/04/16 at 17:42 Docusate Sodium (Colace) 100 mg BID PO Last administered on 06/17/16 08:28; Admin Dose 100 MG; Start 06/04/16 at 17:42 Diagnostic Test (Pha) (Accucheck) 1 ea 02 XX ; Start 06/04/16 at 17:42 Acetaminophen/ Hydrocodone Bitart ([place] (5/325)) 1 tab Q4H PRN PO moderate pain Last administered on 06/15/16 22:04; Admin Dose 1 TAB; Start 06/04/16 at 22:00 Acetaminophen/ Hydrocodone Bitart ([place] (5/325)) 2 tab Q4H PRN PO severe pain Last administered on 06/10/16at 07:37; Admin Dose 2 TAB; Start 06/04/16 at 22: 00 Insulin Glargine (Lantus) 12 unit HS SC Last administered on 06/16/16 20:52; Admin Dose 12 UNIT; Start 06/05/16 at 23:30 Tramadol HCl (Ultram) 50 mg Q4H PRN PO MILD PAIN LEVEL 1-3 Last administered on 06/16/16 19:45; Admin Dose 50 MG; Start 06/12/16 at 04:07 Acetaminophen (Tylenol Tab) 650 mg Q4H PRN PO MILD PAIN LEVEL 1-3; Start 06/12 at 04:08 Assessment/Plan Additional Assessment/Plan Rehab- MMT with a right comminuted patellar fracture and a spiral fracture of the proximal shaft of the left humerus, treated non-operatively, Steady gains with rehab Acute pain -under good control Myelodysplastic syndrome with anemia and thrombocytopenia. F/B per hematology. Diabetes mellitus type 2, with diabetic neuropathy Neuropathy controlled with gabapentin. Hypertension. BP controlled, continue current treatment. Hyperlipidemia. Overactive bladder with urinary incontinence. Continue oxybutynin. GERD. Continue PPI. s/p UTI Glaucoma. Continue eye drops. KRISTAL WOOD MD Jun 17, 2016 12:14
[2016-06-17] MEDS: traMADol 50 MG TAB PO PRN ×2 (12:31→21:05)
[2016-06-17 20:01] VITALS: BP 131/60; RESP 18
[2016-06-17] MEDS: SENNA TAB PO SCH (21:00)
[2016-06-17] MEDS: INSULIN GLARGINE [LANtus] 3 ML PEN SC SCH (21:12)
[2016-06-18] MEDS: ACCUCHECK XX SCH (02:00)
[2016-06-18] MEDS: traMADol 50 MG TAB PO PRN ×3 (02:12→21:25)
[2016-06-18] MEDS: PANTOPRAZOLE (EC) 40 MG TAB PO SCH (06:16)
[2016-06-18 07:09] LABS: HEMATOCRIT 26.3 % (37.0-47.0); HEMOGLOBIN 8.6 g/dl (12.0-16.0); MEAN CORPUSCULAR HEMOGLOBIN 29.2 pg (29.0-33.0); MEAN CORPUSCULAR HGB CONC 32.7 g/dl (32.0-37.0); MEAN CORPUSCULAR VOLUME 89.3 fl (82.0-101.0); RED BLOOD COUNT 2.95 10^6/ul (4.20-5.40); RED CELL DISTRIBUTION WIDTH 17.4 % (11.5-14.5); UNCORRECTED WBC 6.5 10^3/ul (4.8-10.8); WHITE BLOOD COUNT 6.5 10^3/ul (4.8-10.8)
[2016-06-18 07:33] LABS: CONDITION 1; LH ANALYZER COMMENTS 1; MEAN PLATELET VOLUME 9.2 fl (7.4-10.4); PLATELET COUNT 14 10^3/UL (140-440)
[2016-06-18 07:38] VITALS: BP 100/49; RESP 18
[2016-06-18 08:00] VITALS: BP 137/65; PULSE 71; RESP 18
[2016-06-18] MEDS: REPAGLINIDE 1 MG TAB PO SCH ×3 (08:03→17:28)
[2016-06-18] MEDS: metFORMIN 500 MG TAB PO SCH (08:03)
[2016-06-18] MEDS: INSULIN ASPART [NOVOLOG] 3 ML PEN SC SCH ×4 (08:06→21:00)
[2016-06-18] MEDS: OXYBUTYNIN (XL) 5 MG TAB PO SCH (08:40)
[2016-06-18] MEDS: FENOFIBRATE 145 MG TAB PO SCH (08:40)
[2016-06-18] MEDS: DORZOLAMIDE/TIMOLOL 10 ML OPH BOTH EYES SCH ×2 (08:41→21:18)
[2016-06-18] MEDS: GABAPENTIN 300 MG CAP PO SCH ×3 (08:41→21:19)
[2016-06-18] MEDS: DOCUSATE SODIUM 100 MG CAP PO SCH ×2 (08:41→21:18)
[2016-06-18] MEDS: POLYETHYLENE GLYCOL 17 GM PACKET PO SCH (08:41)
[2016-06-18] MEDS: BROMFENAC SODIUM 1.7 ML OPH DROP LEFT EYE SCH (08:41)
[2016-06-18] MEDS: LINAGLIPTIN 5 MG TABLET PO SCH (08:41)
[2016-06-18] MEDS: CALCIUM/VITAMIN D (500/200) TAB PO SCH ×2 (08:41→21:18)
[2016-06-18] MEDS: BRIMONIDINE 0.2% 5 ML BTL RIGHT EYE SCH ×2 (08:41→21:19)
[2016-06-18 09:38] LABS: LYMPHOCYTES # 1.5 10^3/ul (0.8-2.9); MONOCYTE # 0.8 10^3/ul (0.3-0.9); MYELOCYTES # 0.1; NEUTROPHIL # 3.2 10^3/ul (1.6-7.5)
[2016-06-18 09:39] LABS: PLATELET ESTIMATE PLT APPEAR DECREASED
--- NOTE | 2016-06-18 13:02 | CONS ---
Date/Time of Note Date/Time of Note DATE: 06/18/16 TIME: 13:00 Consult Date/Type/Reason Admit Date/Time Jun 04, 2016 at 15:34 Type of Consultation: Hematology/Oncology Ordering Provider: SUKHI RUBIO MD- Subjective Patient seen with therapy Objective min assist ambulation Vital Signs Date Time Temp Pulse Resp B/P Pulse Ox O2 Delivery O2 Flow Rate FiO2 06/18/16 07:38 97.8 71 18 100/49 96 06/17/16 08:00 Room Air Intake and Output 06/17/16 06/17/16 06/18/16 15:00 23:00 07:00 Intake Total 240 ml 340 ml Output Total 500 ml 400 ml Balance -260 ml -60 ml Results/Medications Result Diagram: 06/18/16 0615 06/16/16 0609 Results 24 hrs Laboratory Tests Test 06/17/16 17:12 06/17/16 21:09 06/18/16 06:15 06/18/16 07:38 Bedside Glucose 91 118 142 Band Neutrophils % 12.0 H Blood Morphology Comment Hematocrit 26.3 L Hemoglobin 8.6 L Lymphocytes # 1.5 Lymphocytes % 23.0 Mean Corpuscular Hemoglobin 29.2 Mean Corpuscular Hemoglobin Concent 32.7 Mean Corpuscular Volume 89.3 Mean Platelet Volume 9.2 Metamyelocytes # 0.1 Metamyelocytes % 2.0 H Monocytes # 0.8 Monocytes % 13.0 H Myelocytes # 0.1 Myelocytes % 1.0 H Neutrophils # 3.2 Neutrophils % 49.0 Platelet Count 14 *L Platelet Estimate PLT APPEAR DECREASED Red Blood Count 2.95 L Red Cell Distribution Width 17.4 H White Blood Count 6.5 Test 06/18/16 12:21 Bedside Glucose 88 Medications Current Medications Senna (Senokot) 1 tab HS PO Last administered on 06/17/16t 21:00; Admin Dose 1 TAB; Start 06/04/16 at 21:00 Magnesium Hydroxide (Milk Of Mag) 30 ml BID PRN PO CONSTIPATION; Start at 18:00 Lactulose (Enulose) 20 gm DAILY PRN PO CONSTIPATION Last administered on at 17:39; Admin Dose 20 GM; Start 06/04/16 at 18:00 Brimonidine Tartrate (Alphagan 0.2%) 1 drop BID RIGHT EYE Last administered on 06/18/16 08:41; Admin Dose 1 DROP; Start 06/04/16 at 17:42 Bromfenac Sodium (Bromday) 1 drop DAILY LEFT EYE Last administered on 06/18/16 08:41; Admin Dose 1 DROP; Start 06/04/16 at 17:42 Dorzolamide/ Timolol (Cosopt) 1 drop BID BOTH EYES Last administered on 08:41; Admin Dose 1 DROP; Start 06/04/16 at 17:42 Acetaminophen (Tylenol Tab) 650 mg Q6H PRN PO PAIN AND OR ELEVATED TEMP Last administered on 06/10/16at 18:48; Admin Dose 650 MG; Start 06/04/16 at 17:42 Ondansetron HCl (Zofran Inj) 4 mg Q4H PRN IV NAUSEA AND/OR VOMITING Last administered on 06/18/16 11:20; Admin Dose 4 MG; Start 06/04/16 at 17:42 Pantoprazole (Protonix Tab) 40 mg DAILY@06 PO Last administered on 06/18/16 06: 16; Admin Dose 40 MG; Start 06/04/16 at 17:42 Oxybutynin Chloride (Ditropan Xl) 10 mg DAILY PO Last administered on 06/18/16 08:40; Admin Dose 10 MG; Start 06/04/16 at 17:42 Gabapentin (Neurontin) 600 mg TID PO Last administered on 06/18/16 12:43; Admin Dose 600 MG; Start 06/04/16 at 17:42 Linagliptin (Tradjenta) 5 mg DAILY PO Last administered on 06/18/16 08:41; Admin Dose 5 MG; Start 06/04/16 at 17:42 Fenofibrate (Tricor) 145 mg DAILY PO Last administered on 06/18/16 08:40; Admin Dose 145 MG; Start 06/04/16 at 17:42 Calcium/Vitamin D (Oyster Shell/ Vit-D (500/200)) 1 tab BID PO Last administered on 06/18/16 08:41; Admin Dose 1 TAB; Start 06/04/16 at 17:42 Polyethylene Glycol (Miralax) 17 gm DAILY PO Last administered on 06/18/16 08: 41; Admin Dose 17 GM; Start 06/04/16 at 17:42 Miscellaneous Information 1 ea NOTE XX ; Start 06/04/16 at 17:42 Glucose (Glutose) 15 gm Q15M PRN PO DECREASED GLUCOSE; Start 06/04/16 at 17:42 Glucose (Glutose) 22.5 gm Q15M PRN PO DECREASED GLUCOSE; Start 06/04/16 at 17: 42 Dextrose (D50w Syringe) 25 ml Q15M PRN IV DECREASED GLUCOSE; Start 06/04/16 at 17:42 Dextrose (D50w Syringe) 50 ml Q15M PRN IV DECREASED GLUCOSE; Start 06/04/16 at 17:42 Glucagon (Glucagen) 1 mg Q15M PRN IM DECREASED GLUCOSE; Start 06/04/16 at 17: 42 Glucose (Glutose) 15 gm Q15M PRN BUCCAL DECREASED GLUCOSE; Start 06/04/16 at 17:42 Epoetin Raul (Epogen (Esrd)) 10,000 units MoWeFr@17 SC Last administered on 06/16 17:08; Admin Dose 10,000 UNITS; Start 06/04/16 at 17:42 Bisacodyl (Dulcolax Supp) 10 mg DAILY PRN [place] CONSTIPATION Last administered on 06/10/16at 06:44; Admin Dose 10 MG; Start 06/04/16 at 17:42 Docusate Sodium (Colace) 100 mg BID PO Last administered on 06/18/16 08:41; Admin Dose 100 MG; Start 06/04/16 at 17:42 Diagnostic Test (Pha) (Accucheck) 1 ea 02 XX ; Start 06/04/16 at 17:42 Acetaminophen/ Hydrocodone Bitart ([place] (5/325)) 1 tab Q4H PRN PO moderate pain Last administered on 06/15/16 22:04; Admin Dose 1 TAB; Start 06/04/16 at 22:00 Acetaminophen/ Hydrocodone Bitart ([place] (5/325)) 2 tab Q4H PRN PO severe pain Last administered on 06/10/16at 07:37; Admin Dose 2 TAB; Start 06/04/16 at 22: 00 Insulin Glargine (Lantus) 12 unit HS SC Last administered on 06/17/16 21:12; Admin Dose 12 UNIT; Start 06/05/16 at 23:30 Tramadol HCl (Ultram) 50 mg Q4H PRN PO MILD PAIN LEVEL 1-3 Last administered on 06/18/16 06:21; Admin Dose 50 MG; Start 06/12/16 at 04:07 Acetaminophen (Tylenol Tab) 650 mg Q4H PRN PO MILD PAIN LEVEL 1-3; Start 06/12 at 04:08 Assessment/Plan Additional Assessment/Plan Rehab- MMT with a right comminuted patellar fracture and a spiral fracture of the proximal shaft of the left humerus, treated non-operatively, Overall improving Acute pain -continue current regime Myelodysplastic syndrome with anemia and thrombocytopenia. F/B per hematology. Diabetes mellitus type 2, with diabetic neuropathy Neuropathy controlled with gabapentin. Hypertension. BP controlled, continue current treatment. Hyperlipidemia. Overactive bladder with urinary incontinence. Continue oxybutynin. GERD. Continue PPI. s/p UTI, present on admission Glaucoma. Continue eye drops. KRISTAL WOOD MD Jun 18, 2016 13:02
--- NOTE | 2016-06-18 14:14 | CONS ---
Date/Time of Note Date/Time of Note DATE: 06/18/16 TIME: 14:12 Assessment/Plan Assessment/Plan Chief Complaint/Hosp Course 78 year old woman with a history of hypoproliferative MDS, previously with platelets in the 40-50s for 5-7 years, however recently platelets have been declining to the 20s and Hgb decreased as well, now consistent with intermediate risk MDS. She has been seen by myself and Dr. Juan Do at [facility] and is being considered for a clinical trial at [facility]. Patient now admitted for fracture of left humerus and left patella s/p fall at home. Pt has since received 2 units of PRBC's and 2 units of platelets. -continue Epogen. pt currently on Epo 10,000 units TIW. Will transfuse if Hgb < 8 or plt < 10. hg 8.6 and platelets are 14. will no transfuse today -Appreciate orthopedic recs to immobilize the right lower extremity and left upper extremity in an H.S.S. brace. -Continue physical therapy -once patient is discharged she will start therapy for her MDS in our office with Azacitidine Approximately 40 min were spent at patient's bedside and in coordination of her care Problems: Consultation Date/Type/Reason Admit Date/Time Jun 04, 2016 at 15:34 Initial Consult Date Jun Type of Consultation: Hematology/Oncology Reason for Consultation myelodysplastic syndrome Referring Provider: SUKHI RUBIO MD- 24 HR Interval Summary Free Text/Dictation no acute overnight events. no bleeding. pt continues to work with physical therapy Exam/Review of Systems Vital Signs Vitals Vital Signs Date Time Temp Pulse Resp B/P Pulse Ox O2 Delivery O2 Flow Rate FiO2 06/18/16 08:00 97.8 71 18 137/65 96 Room Air Intake and Output 06/17/16 06/17/16 06/18/16 15:00 23:00 07:00 Intake Total 240 ml 340 ml Output Total 500 ml 400 ml Balance -260 ml -60 ml Exam Constitutional: alert, oriented Head: atraumatic, normocephalic Eyes: nl conjunctiva ENMT: nl external ears & nose Neck: non-tender, supple Respiratory: clear to auscultation, normal air movement Cardiovascular: nl pulses, regular rate and rhythm Gastrointestinal: soft Genitourinary - Female: nl adnexae Musculoskeletal: nl extremities to inspection, other (left arm in brace, right knee in brace) Results Result Diagram: 06/18/16 0615 06/16/16 0609 Results 24 hrs Laboratory Tests Test 06/17/16 17:12 06/17/16 21:09 06/18/16 06:15 06/18/16 07:38 Bedside Glucose 91 118 142 Band Neutrophils % 12.0 H Blood Morphology Comment Hematocrit 26.3 L Hemoglobin 8.6 L Lymphocytes # 1.5 Lymphocytes % 23.0 Mean Corpuscular Hemoglobin 29.2 Mean Corpuscular Hemoglobin Concent 32.7 Mean Corpuscular Volume 89.3 Mean Platelet Volume 9.2 Metamyelocytes # 0.1 Metamyelocytes % 2.0 H Monocytes # 0.8 Monocytes % 13.0 H Myelocytes # 0.1 Myelocytes % 1.0 H Neutrophils # 3.2 Neutrophils % 49.0 Platelet Count 14 *L Platelet Estimate PLT APPEAR DECREASED Red Blood Count 2.95 L Red Cell Distribution Width 17.4 H White Blood Count 6.5 Test 06/18/16 12:21 Bedside Glucose 88 Medications Medications Current Medications Senna (Senokot) 1 tab HS PO Last administered on 06/17/16 21:00; Admin Dose 1 TAB; Start 06/04/16 at 21:00 Magnesium Hydroxide (Milk Of Mag) 30 ml BID PRN PO CONSTIPATION; Start at 18:00 Lactulose (Enulose) 20 gm DAILY PRN PO CONSTIPATION Last administered on at 17:39; Admin Dose 20 GM; Start 06/04/16 at 18:00 Brimonidine Tartrate (Alphagan 0.2%) 1 drop BID RIGHT EYE Last administered on 06/18/16 08:41; Admin Dose 1 DROP; Start 06/04/16 at 17:42 Bromfenac Sodium (Bromday) 1 drop DAILY LEFT EYE Last administered on 06/18/16 08:41; Admin Dose 1 DROP; Start 06/04/16 at 17:42 Dorzolamide/ Timolol (Cosopt) 1 drop BID BOTH EYES Last administered on 08:41; Admin Dose 1 DROP; Start 06/04/16 at 17:42 Acetaminophen (Tylenol Tab) 650 mg Q6H PRN PO PAIN AND OR ELEVATED TEMP Last administered on 06/10/16at 18:48; Admin Dose 650 MG; Start 06/04/16 at 17:42 Ondansetron HCl (Zofran Inj) 4 mg Q4H PRN IV NAUSEA AND/OR VOMITING Last administered on 06/18/16 11:20; Admin Dose 4 MG; Start 06/04/16 at 17:42 Pantoprazole (Protonix Tab) 40 mg DAILY@06 PO Last administered on 06/18/16 06: 16; Admin Dose 40 MG; Start 06/04/16 at 17:42 Oxybutynin Chloride (Ditropan Xl) 10 mg DAILY PO Last administered on 06/18/16 08:40; Admin Dose 10 MG; Start 06/04/16 at 17:42 Gabapentin (Neurontin) 600 mg TID PO Last administered on 06/18/16 12:43; Admin Dose 600 MG; Start 06/04/16 at 17:42 Linagliptin (Tradjenta) 5 mg DAILY PO Last administered on 06/18/16 08:41; Admin Dose 5 MG; Start 06/04/16 at 17:42 Fenofibrate (Tricor) 145 mg DAILY PO Last administered on 06/18/16 08:40; Admin Dose 145 MG; Start 06/04/16 at 17:42 Calcium/Vitamin D (Oyster Shell/ Vit-D (500/200)) 1 tab BID PO Last administered on 06/18/16 08:41; Admin Dose 1 TAB; Start 06/04/16 at 17:42 Polyethylene Glycol (Miralax) 17 gm DAILY PO Last administered on 06/18/16 08: 41; Admin Dose 17 GM; Start 06/04/16 at 17:42 Miscellaneous Information 1 ea NOTE XX ; Start 06/04/16 at 17:42 Glucose (Glutose) 15 gm Q15M PRN PO DECREASED GLUCOSE; Start 06/04/16 at 17:42 Glucose (Glutose) 22.5 gm Q15M PRN PO DECREASED GLUCOSE; Start 06/04/16 at 17: 42 Dextrose (D50w Syringe) 25 ml Q15M PRN IV DECREASED GLUCOSE; Start 06/04/16 at 17:42 Dextrose (D50w Syringe) 50 ml Q15M PRN IV DECREASED GLUCOSE; Start 06/04/16 at 17:42 Glucagon (Glucagen) 1 mg Q15M PRN IM DECREASED GLUCOSE; Start 06/04/16 at 17: 42 Glucose (Glutose) 15 gm Q15M PRN BUCCAL DECREASED GLUCOSE; Start 06/04/16 at 17:42 Epoetin Raul (Epogen (Esrd)) 10,000 units MoWeFr@17 SC Last administered on 06/16 17:08; Admin Dose 10,000 UNITS; Start 06/04/16 at 17:42 Bisacodyl (Dulcolax Supp) 10 mg DAILY PRN [place] CONSTIPATION Last administered on 06/10/16at 06:44; Admin Dose 10 MG; Start 06/04/16 at 17:42 Docusate Sodium (Colace) 100 mg BID PO Last administered on 06/18/16 08:41; Admin Dose 100 MG; Start 06/04/16 at 17:42 Diagnostic Test (Pha) (Accucheck) 1 ea 02 XX ; Start 06/04/16 at 17:42 Acetaminophen/ Hydrocodone Bitart ([place] (5/325)) 1 tab Q4H PRN PO moderate pain Last administered on 06/15/16 22:04; Admin Dose 1 TAB; Start 06/04/16 at 22:00 Acetaminophen/ Hydrocodone Bitart ([place] (5/325)) 2 tab Q4H PRN PO severe pain Last administered on 06/10/16at 07:37; Admin Dose 2 TAB; Start 06/04/16 at 22: 00 Insulin Glargine (Lantus) 12 unit HS SC Last administered on 06/17/16 21:12; Admin Dose 12 UNIT; Start 06/05/16 at 23:30 Tramadol HCl (Ultram) 50 mg Q4H PRN PO MILD PAIN LEVEL 1-3 Last administered on 06/18/16 06:21; Admin Dose 50 MG; Start 06/12/16 at 04:07 Acetaminophen (Tylenol Tab) 650 mg Q4H PRN PO MILD PAIN LEVEL 1-3; Start 06/12 at 04:08 ALBERTO JOSEPH M.D. Jun 18, 2016 14:14
[2016-06-18] MEDS: EPOETIN 10000 UNITS/1 ML INJ (ESRD) SC SCH (17:30)
[2016-06-18 20:00] VITALS: BP 124/64; PULSE 88; RESP 18
[2016-06-18] MEDS: SENNA TAB PO SCH (21:18)
[2016-06-18] MEDS: INSULIN GLARGINE [LANtus] 3 ML PEN SC SCH (21:22)
[2016-06-18 21:35] VITALS: BP 128/64; RESP 18
[2016-06-19] MEDS: ACCUCHECK XX SCH (02:00)
[2016-06-19] MEDS: traMADol 50 MG TAB PO PRN (02:57)
[2016-06-19] MEDS: PANTOPRAZOLE (EC) 40 MG TAB PO SCH (06:41)
[2016-06-19 07:20] VITALS: BP 110/55; RESP 16
[2016-06-19] MEDS: INSULIN ASPART [NOVOLOG] 3 ML PEN SC SCH ×4 (07:35→20:42)
[2016-06-19 07:40] LABS: HEMATOCRIT 26.1 % (37.0-47.0); HEMOGLOBIN 8.6 g/dl (12.0-16.0); MEAN CORPUSCULAR HEMOGLOBIN 29.4 pg (29.0-33.0); MEAN CORPUSCULAR HGB CONC 32.9 g/dl (32.0-37.0); MEAN CORPUSCULAR VOLUME 89.5 fl (82.0-101.0); MEAN PLATELET VOLUME 9.4 fl (7.4-10.4); RED BLOOD COUNT 2.91 10^6/ul (4.20-5.40); RED CELL DISTRIBUTION WIDTH 17.8 % (11.5-14.5); UNCORRECTED WBC 6.4 10^3/ul (4.8-10.8); WHITE BLOOD COUNT 6.4 10^3/ul (4.8-10.8)
[2016-06-19 07:42] LABS: CONDITION 1; LH ANALYZER COMMENTS 1
[2016-06-19 07:44] LABS: PLATELET COUNT 13 10^3/UL (140-440)
[2016-06-19 08:00] LABS: POTASSIUM 4.2 mmol/L (3.5-5.1)
[2016-06-19 08:02] LABS: CREATININE 0.75 mg/dl (0.44-1.00)
[2016-06-19 08:03] LABS: CALCIUM 10.1 mg/dl (8.4-10.2)
[2016-06-19] MEDS: CALCIUM/VITAMIN D (500/200) TAB PO SCH ×2 (08:25→20:33)
[2016-06-19] MEDS: metFORMIN 500 MG TAB PO SCH (08:25)
[2016-06-19] MEDS: FENOFIBRATE 145 MG TAB PO SCH (08:25)
[2016-06-19] MEDS: POLYETHYLENE GLYCOL 17 GM PACKET PO SCH (08:25)
[2016-06-19] MEDS: GABAPENTIN 300 MG CAP PO SCH ×3 (08:25→20:34)
[2016-06-19] MEDS: OXYBUTYNIN (XL) 5 MG TAB PO SCH (08:25)
[2016-06-19] MEDS: REPAGLINIDE 1 MG TAB PO SCH ×3 (08:25→17:21)
[2016-06-19] MEDS: LINAGLIPTIN 5 MG TABLET PO SCH (08:25)
[2016-06-19] MEDS: DOCUSATE SODIUM 100 MG CAP PO SCH ×2 (08:25→20:33)
[2016-06-19] MEDS: DORZOLAMIDE/TIMOLOL 10 ML OPH BOTH EYES SCH ×2 (08:26→20:34)
[2016-06-19] MEDS: BROMFENAC SODIUM 1.7 ML OPH DROP LEFT EYE SCH (08:26)
[2016-06-19] MEDS: BRIMONIDINE 0.2% 5 ML BTL RIGHT EYE SCH ×2 (08:26→20:39)
[2016-06-19 11:48] LABS: MONOCYTE # 0.4 10^3/ul (0.3-0.9); MYELOCYTES # 0.1; PLATELET ESTIMATE PLT APPEAR DECREASED
--- NOTE | 2016-06-19 12:29 | PN ---
Date/Time of Note Date/Time of Note DATE: 06/19/16 TIME: 12:24 Assessment/Plan VTE Prophylaxis VTE Prophylaxis Intervention: contraindicated Lines/Catheters IV Catheter Type (from Nrs): Saline Lock Urinary Cath still in place: No Assessment/Plan Assessment/Plan 1. Right comminuted patellar fracture and a spiral fracture of the proximal shaft of the left humerus s/p fall, treated non-operatively, with Impaired mobility, gait, and self care ADLs. Continue PT/OT. NWB LUE, WBAT RLE with immobilizers in place. Dynamic standing balance fair, gait advancing. Transfers stand by to contact guard assist. 2. Acute pain due to trauma and fractures. Pain controlled, continue current regimen. 3. Myelodysplastic syndrome with anemia and thrombocytopenia. Continue to monitor hemoglobin/hematocrit and plts, hematology managing. 4. Diabetes mellitus type 2, with diabetic neuropathy. Blood sugars controlled. Neuropathy controlled with gabapentin. 5. Hypertension. BP controlled, continue current treatment. 6. Hyperlipidemia. 7. Overactive bladder with urinary incontinence. Continue oxybutynin. 8. GERD. Continue PPI. 9. Constipation. Continue bowel regimen. 10. Glaucoma. Continue eye drops. Subjective 24 Hr Interval Summary Free Text/Dictation Rehab progress note Subjective: Reports pain controlled in left upper and right lower extremities. ROS: Denies headache, no dizziness, no chills, no abdominal pain, no shortness, no chest pain, no constipation, no new paresthesias. Exam/Review of Systems Vital Signs Vitals Vital Signs Date Time Temp Pulse Resp B/P Pulse Ox O2 Delivery O2 Flow Rate FiO2 06/19/16 07:20 98.7 16 110/55 92 06/18/16 21:35 87 06/18/16 20:00 Room Air Intake and Output 06/18/16 06/18/16 06/19/16 14:59 22:59 06:59 Intake Total 720 ml 360 ml 590 ml Output Total 300 ml 1850 ml Balance 720 ml 60 ml -1260 ml Exam General: Awake, alert, in no acute distress CV: Regular rate, s1s2 Lungs: Clear to auscultation, no wheezing. Abdomen soft, nontender, bowel sounds present Extremities without cyanosis, RLE and LUE immobilizers in place Neuro: No new focal changes. Follow simple commands. Results Result Diagram: 06/19/16 0636 06/19/16 0636 Results 24 hrs Laboratory Tests Test 06/18/16 17:11 06/18/16 20:56 06/19/16 06:36 06/19/16 07:48 Bedside Glucose 81 130 110 Anion Gap 16 Band Neutrophils % 14.0 H Blood Morphology Comment Blood Urea Nitrogen 20 Calcium Level 10.1 Carbon Dioxide Level 28 Chloride Level 102 Creatinine 0.75 Differential Comment MANUAL DIFF Glucose Level 111 Hematocrit 26.1 L Hemoglobin 8.6 L Lymphocytes # 2.0 Lymphocytes % 31.0 Mean Corpuscular Hemoglobin 29.4 Mean Corpuscular Hemoglobin Concent 32.9 Mean Corpuscular Volume 89.5 Mean Platelet Volume 9.4 Metamyelocytes # 0.1 Metamyelocytes % 1.0 H Monocytes # 0.4 Monocytes % 6.0 Myelocytes # 0.1 Myelocytes % 1.0 H Neutrophils # 3.0 Neutrophils % 47.0 Nucleated Red Blood Cells % 25.0 H Platelet Count 13 *L Platelet Estimate PLT APPEAR DECREASED Potassium Level 4.2 Red Blood Count 2.91 L Red Cell Distribution Width 17.8 H Sodium Level 142 White Blood Count 6.4 Test 06/19/16 11:39 Bedside Glucose 149 Medications Medications Current Medications Senna (Senokot) 1 tab HS PO Last administered on 06/18/16 21:18; Admin Dose 1 TAB; Start 06/04/16 at 21:00 Magnesium Hydroxide (Milk Of Mag) 30 ml BID PRN PO CONSTIPATION; Start at 18:00 Lactulose (Enulose) 20 gm DAILY PRN PO CONSTIPATION Last administered on at 17:39; Admin Dose 20 GM; Start 06/04/16 at 18:00 Brimonidine Tartrate (Alphagan 0.2%) 1 drop BID RIGHT EYE Last administered on 06/19/16 08:26; Admin Dose 1 DROP; Start 06/04/16 at 17:42 Bromfenac Sodium (Bromday) 1 drop DAILY LEFT EYE Last administered on 06/19/16 08:26; Admin Dose 1 DROP; Start 06/04/16 at 17:42 Dorzolamide/ Timolol (Cosopt) 1 drop BID BOTH EYES Last administered on 08:26; Admin Dose 1 DROP; Start 06/04/16 at 17:42 Acetaminophen (Tylenol Tab) 650 mg Q6H PRN PO PAIN AND OR ELEVATED TEMP Last administered on 06/10/16at 18:48; Admin Dose 650 MG; Start 06/04/16 at 17:42 Ondansetron HCl (Zofran Inj) 4 mg Q4H PRN IV NAUSEA AND/OR VOMITING Last administered on 06/18/16 11:20; Admin Dose 4 MG; Start 06/04/16 at 17:42 Pantoprazole (Protonix Tab) 40 mg DAILY@06 PO Last administered on 06/19/16 06: 41; Admin Dose 40 MG; Start 06/04/16 at 17:42 Oxybutynin Chloride (Ditropan Xl) 10 mg DAILY PO Last administered on 06/19/16 08:25; Admin Dose 10 MG; Start 06/04/16 at 17:42 Gabapentin (Neurontin) 600 mg TID PO Last administered on 06/19/16 12:10; Admin Dose 600 MG; Start 06/04/16 at 17:42 Linagliptin (Tradjenta) 5 mg DAILY PO Last administered on 06/19/16 08:25; Admin Dose 5 MG; Start 06/04/16 at 17:42 Fenofibrate (Tricor) 145 mg DAILY PO Last administered on 06/19/16 08:25; Admin Dose 145 MG; Start 06/04/16 at 17:42 Calcium/Vitamin D (Oyster Shell/ Vit-D (500/200)) 1 tab BID PO Last administered on 06/19/16 08:25; Admin Dose 1 TAB; Start 06/04/16 at 17:42 Polyethylene Glycol (Miralax) 17 gm DAILY PO Last administered on 06/19/16 08: 25; Admin Dose 17 GM; Start 06/04/16 at 17:42 Miscellaneous Information 1 ea NOTE XX ; Start 06/04/16 at 17:42 Glucose (Glutose) 15 gm Q15M PRN PO DECREASED GLUCOSE; Start 06/04/16 at 17:42 Glucose (Glutose) 22.5 gm Q15M PRN PO DECREASED GLUCOSE; Start 06/04/16 at 17: 42 Dextrose (D50w Syringe) 25 ml Q15M PRN IV DECREASED GLUCOSE; Start 06/04/16 at 17:42 Dextrose (D50w Syringe) 50 ml Q15M PRN IV DECREASED GLUCOSE; Start 06/04/16 at 17:42 Glucagon (Glucagen) 1 mg Q15M PRN IM DECREASED GLUCOSE; Start 06/04/16 at 17: 42 Glucose (Glutose) 15 gm Q15M PRN BUCCAL DECREASED GLUCOSE; Start 06/04/16 at 17:42 Epoetin Raul (Epogen (Esrd)) 10,000 units MoWeFr@17 SC Last administered on 06/18 17:30; Admin Dose 10,000 UNITS; Start 06/04/16 at 17:42 Bisacodyl (Dulcolax Supp) 10 mg DAILY PRN [place] CONSTIPATION Last administered on 06/10/16at 06:44; Admin Dose 10 MG; Start 06/04/16 at 17:42 Docusate Sodium (Colace) 100 mg BID PO Last administered on 06/19/16 08:25; Admin Dose 100 MG; Start 06/04/16 at 17:42 Diagnostic Test (Pha) (Accucheck) 1 ea 02 XX ; Start 06/04/16 at 17:42 Acetaminophen/ Hydrocodone Bitart ([place] (5/325)) 1 tab Q4H PRN PO moderate pain Last administered on 06/15/16 22:04; Admin Dose 1 TAB; Start 06/04/16 at 22:00 Acetaminophen/ Hydrocodone Bitart ([place] (5/325)) 2 tab Q4H PRN PO severe pain Last administered on 06/10/16at 07:37; Admin Dose 2 TAB; Start 06/04/16 at 22: 00 Insulin Glargine (Lantus) 12 unit HS SC Last administered on 06/18/16 21:22; Admin Dose 12 UNIT; Start 06/05/16 at 23:30 Tramadol HCl (Ultram) 50 mg Q4H PRN PO MILD PAIN LEVEL 1-3 Last administered on 06/19/16 02:57; Admin Dose 50 MG; Start 06/12/16 at 04:07 Acetaminophen (Tylenol Tab) 650 mg Q4H PRN PO MILD PAIN LEVEL 1-3; Start 06/12 at 04:08 BRIGITTE PUENTE Jun 19, 2016 12:29
[2016-06-19] MEDS: HYDROCODONE/APAP (5/325) TAB PO PRN (17:28)
[2016-06-19 20:00] VITALS: BP 132/58; PULSE 64; RESP 18
[2016-06-19] MEDS: SENNA TAB PO SCH (20:33)
[2016-06-19] MEDS: INSULIN GLARGINE [LANtus] 3 ML PEN SC SCH (20:41)
--- NOTE | 2016-06-19 20:51 | PN ---
Date/Time of Note Date/Time of Note DATE: 06/19/16 TIME: 20:49 Assessment/Plan VTE Prophylaxis VTE Prophylaxis Intervention: other Lines/Catheters IV [facility] Type (from [facility]): Saline Lock Urinary Cath still in place: No Assessment/Plan Chief Complaint/Hosp Course 1) right leg and left shoulder fracture - PT - ortho following Problems: Subjective 24 Hr Interval Summary Free Text/Dictation complain of left shoulder feeling cold, some pain in right leg Exam/Review of Systems Vital Signs Vitals Vital Signs Date Time Temp Pulse Resp B/P Pulse Ox O2 Delivery O2 Flow Rate FiO2 06/19/16 07:20 98.7 16 110/55 92 06/18/16 21:35 87 06/18/16 20:00 Room Air Intake and Output 06/18/16 06/18/16 06/19/16 15:00 23:00 07:00 Intake Total 720 ml 360 ml 590 ml Output Total 300 ml 1850 ml Balance 720 ml 60 ml -1260 ml Exam Constitutional: well developed Head: atraumatic, normocephalic Neck: supple Respiratory: clear to auscultation Cardiovascular: regular rate and rhythm Gastrointestinal: non-tender, soft Extremities: normal pulses Results Result Diagram: 06/19/16 0636 06/19/16 0636 Results 24 hrs Laboratory Tests Test 06/18/16 20:56 06/19/16 06:36 06/19/16 07:48 06/19/16 11:39 Bedside Glucose 130 110 149 Anion Gap 16 Band Neutrophils % 14.0 H Blood Morphology Comment Blood Urea Nitrogen 20 Calcium Level 10.1 Carbon Dioxide Level 28 Chloride Level 102 Creatinine 0.75 Differential Comment MANUAL DIFF Glucose Level 111 Hematocrit 26.1 L Hemoglobin 8.6 L Lymphocytes # 2.0 Lymphocytes % 31.0 Mean Corpuscular Hemoglobin 29.4 Mean Corpuscular Hemoglobin Concent 32.9 Mean Corpuscular Volume 89.5 Mean Platelet Volume 9.4 Metamyelocytes # 0.1 Metamyelocytes % 1.0 H Monocytes # 0.4 Monocytes % 6.0 Myelocytes # 0.1 Myelocytes % 1.0 H Neutrophils # 3.0 Neutrophils % 47.0 Nucleated Red Blood Cells % 25.0 H Platelet Count 13 *L Platelet Estimate PLT APPEAR DECREASED Potassium Level 4.2 Red Blood Count 2.91 L Red Cell Distribution Width 17.8 H Sodium Level 142 White Blood Count 6.4 Test 06/19/16 17:20 06/19/16 20:30 Bedside Glucose 124 186 Medications Medications Current Medications Senna (Senokot) 1 tab HS PO Last administered on 06/19/16 20:33; Admin Dose 1 TAB; Start 06/04/16 at 21:00 Magnesium Hydroxide (Milk Of Mag) 30 ml BID PRN PO CONSTIPATION; Start at 18:00 Lactulose (Enulose) 20 gm DAILY PRN PO CONSTIPATION Last administered on at 17:39; Admin Dose 20 GM; Start 06/04/16 at 18:00 Brimonidine Tartrate (Alphagan 0.2%) 1 drop BID RIGHT EYE Last administered on 06/19/16 20:39; Admin Dose 1 DROP; Start 06/04/16 at 17:42 Bromfenac Sodium (Bromday) 1 drop DAILY LEFT EYE Last administered on 06/19/16 08:26; Admin Dose 1 DROP; Start 06/04/16 at 17:42 Dorzolamide/ Timolol (Cosopt) 1 drop BID BOTH EYES Last administered on 20:34; Admin Dose 1 DROP; Start 06/04/16 at 17:42 Acetaminophen (Tylenol Tab) 650 mg Q6H PRN PO PAIN AND OR ELEVATED TEMP Last administered on 06/10/16 18:48; Admin Dose 650 MG; Start 06/04/16 at 17:42 Ondansetron HCl (Zofran Inj) 4 mg Q4H PRN IV NAUSEA AND/OR VOMITING Last administered on 06/18/16 11:20; Admin Dose 4 MG; Start 06/04/16 at 17:42 Pantoprazole (Protonix Tab) 40 mg DAILY@06 PO Last administered on 06/19/16 06: 41; Admin Dose 40 MG; Start 06/04/16 at 17:42 Oxybutynin Chloride (Ditropan Xl) 10 mg DAILY PO Last administered on 06/19/16 08:25; Admin Dose 10 MG; Start 06/04/16 at 17:42 Gabapentin (Neurontin) 600 mg TID PO Last administered on 06/19/16 20:34; Admin Dose 600 MG; Start 06/04/16 at 17:42 Linagliptin (Tradjenta) 5 mg DAILY PO Last administered on 06/19/16 08:25; Admin Dose 5 MG; Start 06/04/16 at 17:42 Fenofibrate (Tricor) 145 mg DAILY PO Last administered on 06/19/16 08:25; Admin Dose 145 MG; Start 06/04/16 at 17:42 Calcium/Vitamin D (Oyster Shell/ Vit-D (500/200)) 1 tab BID PO Last administered on 06/19/16 20:33; Admin Dose 1 TAB; Start 06/04/16 at 17:42 Polyethylene Glycol (Miralax) 17 gm DAILY PO Last administered on 06/19/16 08: 25; Admin Dose 17 GM; Start 06/04/16 at 17:42 Miscellaneous Information 1 ea NOTE XX ; Start 06/04/16 at 17:42 Glucose (Glutose) 15 gm Q15M PRN PO DECREASED GLUCOSE; Start 06/04/16 at 17:42 Glucose (Glutose) 22.5 gm Q15M PRN PO DECREASED GLUCOSE; Start 06/04/16 at 17: 42 Dextrose (D50w Syringe) 25 ml Q15M PRN IV DECREASED GLUCOSE; Start 06/04/16 at 17:42 Dextrose (D50w Syringe) 50 ml Q15M PRN IV DECREASED GLUCOSE; Start 06/04/16 at 17:42 Glucagon (Glucagen) 1 mg Q15M PRN IM DECREASED GLUCOSE; Start 06/04/16 at 17: 42 Glucose (Glutose) 15 gm Q15M PRN BUCCAL DECREASED GLUCOSE; Start 06/04/16 at 17:42 Epoetin Raul (Epogen (Esrd)) 10,000 units MoWeFr@17 SC Last administered on 06/18 17:30; Admin Dose 10,000 UNITS; Start 06/04/16 at 17:42 Bisacodyl (Dulcolax Supp) 10 mg DAILY PRN [place] CONSTIPATION Last administered on 06/10/16at 06:44; Admin Dose 10 MG; Start 06/04/16 at 17:42 Docusate Sodium (Colace) 100 mg BID PO Last administered on 06/19/16 20:33; Admin Dose 100 MG; Start 06/04/16 at 17:42 Diagnostic Test (Pha) (Accucheck) 1 ea 02 XX ; Start 06/04/16 at 17:42 Acetaminophen/ Hydrocodone Bitart ([place] (5/325)) 1 tab Q4H PRN PO moderate pain Last administered on 06/15/16 22:04; Admin Dose 1 TAB; Start 06/04/16 at 22:00 Acetaminophen/ Hydrocodone Bitart ([place] (5/325)) 2 tab Q4H PRN PO severe pain Last administered on 06/19/16 17:28; Admin Dose 2 TAB; Start 06/04/16 at 22:00 Insulin Glargine (Lantus) 12 unit HS SC Last administered on 06/19/16 20:41; Admin Dose 12 UNIT; Start 06/05/16 at 23:30 Tramadol HCl (Ultram) 50 mg Q4H PRN PO MILD PAIN LEVEL 1-3 Last administered on 06/19/16 02:57; Admin Dose 50 MG; Start 06/12/16 at 04:07 Acetaminophen (Tylenol Tab) 650 mg Q4H PRN PO MILD PAIN LEVEL 1-3; Start 06/12 at 04:08 JOSS HO Jun 19, 2016 20:50
[2016-06-20] MEDS: traMADol 50 MG TAB PO PRN (01:12)
[2016-06-20] MEDS: HYDROCODONE/APAP (5/325) TAB PO PRN ×2 (01:13→22:58)
[2016-06-20] MEDS: ACCUCHECK XX SCH (02:24)
[2016-06-20] MEDS: PANTOPRAZOLE (EC) 40 MG TAB PO SCH (06:15)
[2016-06-20 07:30] VITALS: BP 147/60; RESP 18
[2016-06-20] MEDS: INSULIN ASPART [NOVOLOG] 3 ML PEN SC SCH ×4 (07:35→20:59)
[2016-06-20 08:00] VITALS: BP 147/60; PULSE 78; RESP 20
[2016-06-20] MEDS: BRIMONIDINE 0.2% 5 ML BTL RIGHT EYE SCH ×2 (08:17→20:45)
[2016-06-20] MEDS: DORZOLAMIDE/TIMOLOL 10 ML OPH BOTH EYES SCH ×2 (08:19→20:45)
[2016-06-20] MEDS: OXYBUTYNIN (XL) 5 MG TAB PO SCH (08:20)
[2016-06-20] MEDS: LINAGLIPTIN 5 MG TABLET PO SCH (08:20)
[2016-06-20] MEDS: REPAGLINIDE 1 MG TAB PO SCH ×3 (08:21→16:57)
[2016-06-20] MEDS: POLYETHYLENE GLYCOL 17 GM PACKET PO SCH (08:21)
[2016-06-20] MEDS: FENOFIBRATE 145 MG TAB PO SCH (08:21)
[2016-06-20] MEDS: DOCUSATE SODIUM 100 MG CAP PO SCH ×2 (08:21→20:45)
[2016-06-20] MEDS: CALCIUM/VITAMIN D (500/200) TAB PO SCH ×2 (08:21→20:45)
[2016-06-20] MEDS: metFORMIN 500 MG TAB PO SCH (08:21)
[2016-06-20] MEDS: GABAPENTIN 300 MG CAP PO SCH ×3 (08:21→20:45)
[2016-06-20] MEDS: BROMFENAC SODIUM 1.7 ML OPH DROP LEFT EYE SCH (08:44)
--- NOTE | 2016-06-20 11:55 | PN ---
Date/Time of Note Date/Time of Note DATE: 06/20/16 TIME: 11:51 Assessment/Plan VTE Prophylaxis VTE Prophylaxis Intervention: contraindicated Lines/Catheters IV Catheter Type (from Nrs): Saline Lock Urinary Cath still in place: No Assessment/Plan Assessment/Plan 1. Right comminuted patellar fracture and a spiral fracture of the proximal shaft of the left humerus s/p fall, treated non-operatively, with impaired mobility, gait, and self care ADLs. Treated nonsurgically per ortho. Continue PT /OT. Currently mod assist for upper and lower body dressing and bathing. 2. Acute pain due to trauma and fractures. Pain controlled, continue current regimen. 3. Myelodysplastic syndrome with anemia and thrombocytopenia. Continue to monitor CBC. Hematology following. 4. Diabetes mellitus type 2, with diabetic neuropathy. Blood sugars controlled. Neuropathy controlled with gabapentin. 5. Hypertension. BP controlled, continue current treatment. 6. Hyperlipidemia. 7. Overactive bladder with urinary incontinence. Continue oxybutynin. Continue bladder program. 8. GERD. Continue PPI. 9. Constipation. Moving bowels. Continue bowel regimen. 10. Glaucoma. Continue eye drops. Subjective 24 Hr Interval Summary Free Text/Dictation Rehab progress note Subjective: Reports adequate relief of right lower extremity and left upper extremities with current medications. Does not like to take norco because of constipation. ROS: Denies chills, no chest pain, no shortness of breath, no abdominal pain, no nausea, no vomiting, reports bowel movement yesterday. Exam/Review of Systems Vital Signs Vitals Vital Signs Date Time Temp Pulse Resp B/P Pulse Ox O2 Delivery O2 Flow Rate FiO2 06/20/16 08:00 98.4 78 20 147/60 96 Room Air Intake and Output 06/19/16 06/19/16 06/20/16 15:00 23:00 07:00 Intake Total 600 ml 360 ml Output Total 400 ml 1200 ml Balance 200 ml -840 ml Exam General: Awake, alert, in no acute distress CV: Regular rate, s1s2 Lungs: Clear to auscultation, no crackles or wheezing. Abdomen soft, nontender, bowel sounds present Extremities without new swelling, no cyanosis, RLE and LUE immobilizers in place Neuro: Moves all fingers on the left. No new sensory changes. Results Result Diagram: 06/19/16 0636 06/19/16 0636 Results 24 hrs Laboratory Tests Test 06/19/16 17:20 06/19/16 20:30 06/20/16 01:14 06/20/16 07:18 Bedside Glucose 124 186 130 124 Test 06/20/16 11:34 Bedside Glucose 175 Medications Medications Current Medications Senna (Senokot) 1 tab HS PO Last administered on 06/19/16 20:33; Admin Dose 1 TAB; Start 06/04/16 at 21:00 Magnesium Hydroxide (Milk Of Mag) 30 ml BID PRN PO CONSTIPATION; Start at 18:00 Lactulose (Enulose) 20 gm DAILY PRN PO CONSTIPATION Last administered on 17:39; Admin Dose 20 GM; Start 06/04/16 at 18:00 Brimonidine Tartrate (Alphagan 0.2%) 1 drop BID RIGHT EYE Last administered on 06/20/16 08:17; Admin Dose 1 DROP; Start 06/04/16 at 17:42 Bromfenac Sodium (Bromday) 1 drop DAILY LEFT EYE Last administered on 06/20/16 08:44; Admin Dose 1 DROP; Start 06/04/16 at 17:42 Dorzolamide/ Timolol (Cosopt) 1 drop BID BOTH EYES Last administered on 08:19; Admin Dose 1 DROP; Start 06/04/16 at 17:42 Acetaminophen (Tylenol Tab) 650 mg Q6H PRN PO PAIN AND OR ELEVATED TEMP Last administered on 06/10/16at 18:48; Admin Dose 650 MG; Start 06/04/16 at 17:42 Ondansetron HCl (Zofran Inj) 4 mg Q4H PRN IV NAUSEA AND/OR VOMITING Last administered on 06/18/16 11:20; Admin Dose 4 MG; Start 06/04/16 at 17:42 Pantoprazole (Protonix Tab) 40 mg DAILY@06 PO Last administered on 06/20/16 06: 15; Admin Dose 40 MG; Start 06/04/16 at 17:42 Oxybutynin Chloride (Ditropan Xl) 10 mg DAILY PO Last administered on 06/20/16 08:20; Admin Dose 10 MG; Start 06/04/16 at 17:42 Gabapentin (Neurontin) 600 mg TID PO Last administered on 06/20/16 08:21; Admin Dose 600 MG; Start 06/04/16 at 17:42 Linagliptin (Tradjenta) 5 mg DAILY PO Last administered on 06/20/16 08:20; Admin Dose 5 MG; Start 06/04/16 at 17:42 Fenofibrate (Tricor) 145 mg DAILY PO Last administered on 06/20/16 08:21; Admin Dose 145 MG; Start 06/04/16 at 17:42 Calcium/Vitamin D (Oyster Shell/ Vit-D (500/200)) 1 tab BID PO Last administered on 06/20/16 08:21; Admin Dose 1 TAB; Start 06/04/16 at 17:42 Polyethylene Glycol (Miralax) 17 gm DAILY PO Last administered on 06/20/16 08: 21; Admin Dose 17 GM; Start 06/04/16 at 17:42 Miscellaneous Information 1 ea NOTE XX ; Start 06/04/16 at 17:42 Glucose (Glutose) 15 gm Q15M PRN PO DECREASED GLUCOSE; Start 06/04/16 at 17:42 Glucose (Glutose) 22.5 gm Q15M PRN PO DECREASED GLUCOSE; Start 06/04/16 at 17: 42 Dextrose (D50w Syringe) 25 ml Q15M PRN IV DECREASED GLUCOSE; Start 06/04/16 at 17:42 Dextrose (D50w Syringe) 50 ml Q15M PRN IV DECREASED GLUCOSE; Start 06/04/16 at 17:42 Glucagon (Glucagen) 1 mg Q15M PRN IM DECREASED GLUCOSE; Start 06/04/16 at 17: 42 Glucose (Glutose) 15 gm Q15M PRN BUCCAL DECREASED GLUCOSE; Start 06/04/16 at 17:42 Epoetin Raul (Epogen (Esrd)) 10,000 units MoWeFr@17 SC Last administered on 06/18 17:30; Admin Dose 10,000 UNITS; Start 06/04/16 at 17:42 Bisacodyl (Dulcolax Supp) 10 mg DAILY PRN [place] CONSTIPATION Last administered on 06/10/16at 06:44; Admin Dose 10 MG; Start 06/04/16 at 17:42 Docusate Sodium (Colace) 100 mg BID PO Last administered on 06/20/16 08:21; Admin Dose 100 MG; Start 06/04/16 at 17:42 Diagnostic Test (Pha) (Accucheck) 1 ea 02 XX Last administered on 06/20/16 02: 24; Admin Dose 1 EA; Start 06/04/16 at 17:42 Acetaminophen/ Hydrocodone Bitart ([place] (5/325)) 1 tab Q4H PRN PO moderate pain Last administered on 06/20/16 01:13; Admin Dose 1 TAB; Start 06/04/16 at 22:00 Acetaminophen/ Hydrocodone Bitart ([place] (5/325)) 2 tab Q4H PRN PO severe pain Last administered on 06/19/16 17:28; Admin Dose 2 TAB; Start 06/04/16 at 22:00 Insulin Glargine (Lantus) 12 unit HS SC Last administered on 06/19/16 20:41; Admin Dose 12 UNIT; Start 06/05/16 at 23:30 Tramadol HCl (Ultram) 50 mg Q4H PRN PO MILD PAIN LEVEL 1-3 Last administered on 06/19/16 02:57; Admin Dose 50 MG; Start 06/12/16 at 04:07 Acetaminophen (Tylenol Tab) 650 mg Q4H PRN PO MILD PAIN LEVEL 1-3; Start 06/12 at 04:08 BRIGITTE PUENTE Jun 20, 2016 11:55
[2016-06-20] MEDS: LACTULOSE 30ML CUP PO PRN (12:20)
--- NOTE | 2016-06-20 12:22 | PN ---
Date/Time of Note Date/Time of Note DATE: 06/20/16 TIME: 12:21 Assessment/Plan VTE Prophylaxis VTE Prophylaxis Intervention: other Lines/Catheters IV [facility] Type [facility]from [facility]): Saline Lock Urinary Cath still in place: No Assessment/Plan Chief Complaint/Hosp Course 1) right leg and left shoulder fracture - PT - ortho following Problems: Subjective 24 Hr Interval Summary Free Text/Dictation Patient up in wheelchair, has no complaints Exam/Review of Systems Vital Signs Vitals Vital Signs Date Time Temp Pulse Resp B/P Pulse Ox O2 Delivery O2 Flow Rate FiO2 06/20/16 08:00 98.4 78 20 147/60 96 Room Air Intake and Output 06/19/16 06/19/16 06/20/16 15:00 23:00 07:00 Intake Total 600 ml 360 ml Output Total 400 ml 1200 ml Balance 200 ml -840 ml Exam Constitutional: well developed Head: atraumatic, normocephalic Neck: supple Respiratory: clear to auscultation Cardiovascular: regular rate and rhythm Gastrointestinal: non-tender, soft Results Result Diagram: 06/19/16 0636 06/19/16 0636 Results 24 hrs Laboratory Tests Test 06/19/16 17:20 06/19/16 20:30 06/20/16 01:14 06/20/16 07:18 Bedside Glucose 124 186 130 124 Test 06/20/16 11:34 Bedside Glucose 175 Medications Medications Current Medications Senna (Senokot) 1 tab HS PO Last administered on 06/19/16 20:33; Admin Dose 1 TAB; Start 06/04/16 at 21:00 Magnesium Hydroxide (Milk Of Mag) 30 ml BID PRN PO CONSTIPATION; Start at 18:00 Lactulose (Enulose) 20 gm DAILY PRN PO CONSTIPATION Last administered on at 17:39; Admin Dose 20 GM; Start 06/04/16 at 18:00 Brimonidine Tartrate (Alphagan 0.2%) 1 drop BID RIGHT EYE Last administered on 06/20/16 08:17; Admin Dose 1 DROP; Start 06/04/16 at 17:42 Bromfenac Sodium (Bromday) 1 drop DAILY LEFT EYE Last administered on 06/20/16 08:44; Admin Dose 1 DROP; Start 06/04/16 at 17:42 Dorzolamide/ Timolol (Cosopt) 1 drop BID BOTH EYES Last administered on 08:19; Admin Dose 1 DROP; Start 06/04/16 at 17:42 Acetaminophen (Tylenol Tab) 650 mg Q6H PRN PO PAIN AND OR ELEVATED TEMP Last administered on 06/10/16at 18:48; Admin Dose 650 MG; Start 06/04/16 at 17:42 Ondansetron HCl (Zofran Inj) 4 mg Q4H PRN IV NAUSEA AND/OR VOMITING Last administered on 06/18/16 11:20; Admin Dose 4 MG; Start 06/04/16 at 17:42 Pantoprazole (Protonix Tab) 40 mg DAILY@06 PO Last administered on 06/20/16 06: 15; Admin Dose 40 MG; Start 06/04/16 at 17:42 Oxybutynin Chloride (Ditropan Xl) 10 mg DAILY PO Last administered on 06/20/16 08:20; Admin Dose 10 MG; Start 06/04/16 at 17:42 Gabapentin (Neurontin) 600 mg TID PO Last administered on 06/20/16 12:15; Admin Dose 600 MG; Start 06/04/16 at 17:42 Linagliptin (Tradjenta) 5 mg DAILY PO Last administered on 06/20/16 08:20; Admin Dose 5 MG; Start 06/04/16 at 17:42 Fenofibrate (Tricor) 145 mg DAILY PO Last administered on 06/20/16 08:21; Admin Dose 145 MG; Start 06/04/16 at 17:42 Calcium/Vitamin D (Oyster Shell/ Vit-D (500/200)) 1 tab BID PO Last administered on 06/20/16 08:21; Admin Dose 1 TAB; Start 06/04/16 at 17:42 Polyethylene Glycol (Miralax) 17 gm DAILY PO Last administered on 06/20/16 08: 21; Admin Dose 17 GM; Start 06/04/16 at 17:42 Miscellaneous Information 1 ea NOTE XX ; Start 06/04/16 at 17:42 Glucose (Glutose) 15 gm Q15M PRN PO DECREASED GLUCOSE; Start 06/04/16 at 17:42 Glucose (Glutose) 22.5 gm Q15M PRN PO DECREASED GLUCOSE; Start 06/04/16 at 17: 42 Dextrose (D50w Syringe) 25 ml Q15M PRN IV DECREASED GLUCOSE; Start 06/04/16 at 17:42 Dextrose (D50w Syringe) 50 ml Q15M PRN IV DECREASED GLUCOSE; Start 06/04/16 at 17:42 Glucagon (Glucagen) 1 mg Q15M PRN IM DECREASED GLUCOSE; Start 06/04/16 at 17: 42 Glucose (Glutose) 15 gm Q15M PRN BUCCAL DECREASED GLUCOSE; Start 06/04/16 at 17:42 Epoetin Raul (Epogen (Esrd)) 10,000 units MoWeFr@17 SC Last administered on 06/18 17:30; Admin Dose 10,000 UNITS; Start 06/04/16 at 17:42 Bisacodyl (Dulcolax Supp) 10 mg DAILY PRN [place] CONSTIPATION Last administered on 06/10/16at 06:44; Admin Dose 10 MG; Start 06/04/16 at 17:42 Docusate Sodium (Colace) 100 mg BID PO Last administered on 06/20/16 08:21; Admin Dose 100 MG; Start 06/04/16 at 17:42 Diagnostic Test (Pha) (Accucheck) 1 ea 02 XX Last administered on 06/20/16 02: 24; Admin Dose 1 EA; Start 06/04/16 at 17:42 Acetaminophen/ Hydrocodone Bitart ([place] (5/325)) 1 tab Q4H PRN PO moderate pain Last administered on 06/20/16 01:13; Admin Dose 1 TAB; Start 06/04/16 at 22:00 Acetaminophen/ Hydrocodone Bitart ([place] (5/325)) 2 tab Q4H PRN PO severe pain Last administered on 06/19/16 17:28; Admin Dose 2 TAB; Start 06/04/16 at 22:00 Insulin Glargine (Lantus) 12 unit HS SC Last administered on 06/19/16 20:41; Admin Dose 12 UNIT; Start 06/05/16 at 23:30 Tramadol HCl (Ultram) 50 mg Q4H PRN PO MILD PAIN LEVEL 1-3 Last administered on 06/19/16 02:57; Admin Dose 50 MG; Start 06/12/16 at 04:07 Acetaminophen (Tylenol Tab) 650 mg Q4H PRN PO MILD PAIN LEVEL 1-3; Start 06/12 at 04:08 JOSS HO Jun 20, 2016 12:21
[2016-06-20 20:20] VITALS: BP 137/62; RESP 18
[2016-06-20] MEDS: SENNA TAB PO SCH (20:45)
[2016-06-20] MEDS: INSULIN GLARGINE [LANtus] 3 ML PEN SC SCH (20:56)
[2016-06-21] MEDS: ACCUCHECK XX SCH (02:00)
[2016-06-21] MEDS: PANTOPRAZOLE (EC) 40 MG TAB PO SCH (06:23)
[2016-06-21 07:30] VITALS: BP 142/69; RESP 18
[2016-06-21] MEDS: REPAGLINIDE 1 MG TAB PO SCH ×3 (07:32→17:34)
[2016-06-21] MEDS: metFORMIN 500 MG TAB PO SCH (07:32)
[2016-06-21] MEDS: GABAPENTIN 300 MG CAP PO SCH ×3 (07:33→23:20)
[2016-06-21] MEDS: INSULIN ASPART [NOVOLOG] 3 ML PEN SC SCH ×4 (07:52→20:40)
[2016-06-21] MEDS: DOCUSATE SODIUM 100 MG CAP PO SCH ×2 (08:45→20:26)
[2016-06-21] MEDS: OXYBUTYNIN (XL) 5 MG TAB PO SCH (08:45)
[2016-06-21] MEDS: FENOFIBRATE 145 MG TAB PO SCH (08:45)
[2016-06-21] MEDS: LINAGLIPTIN 5 MG TABLET PO SCH (08:45)
[2016-06-21] MEDS: CALCIUM/VITAMIN D (500/200) TAB PO SCH ×2 (08:45→20:26)
[2016-06-21] MEDS: DORZOLAMIDE/TIMOLOL 10 ML OPH BOTH EYES SCH ×2 (08:46→20:31)
[2016-06-21] MEDS: BRIMONIDINE 0.2% 5 ML BTL RIGHT EYE SCH ×2 (08:48→20:44)
[2016-06-21] MEDS: POLYETHYLENE GLYCOL 17 GM PACKET PO SCH (08:48)
[2016-06-21] MEDS: BROMFENAC SODIUM 1.7 ML OPH DROP LEFT EYE SCH (09:00)
[2016-06-21] MEDS: HYDROCODONE/APAP (5/325) TAB PO PRN (10:44)
--- NOTE | 2016-06-21 13:08 | CONS ---
Date/Time of Note Date/Time of Note DATE: 06/21/16 TIME: 13:08 Consult Date/Type/Reason Admit Date/Time Jun 04, 2016 at 15:34 Type of Consultation: Hematology/Oncology Ordering Provider: SUKHI RUBIO MD- Subjective Comfortable Objective Vital Signs Date Time Temp Pulse Resp B/P Pulse Ox O2 Delivery O2 Flow Rate FiO2 06/21/16 07:30 98.6 74 18 142/69 95 06/20/16 08:00 Room Air Intake and Output 06/20/16 06/20/16 06/21/16 15:00 23:00 07:00 Intake Total 450 ml 1870 ml 360 ml Output Total 500 ml 550 ml Balance -50 ml 1320 ml 360 ml INTERDISCIPLINARY TEAM CONFERENCE BOWEL- Cont BLADDER-Cont SKIN- intact OT- DRESSING-sba/min BATHING-sba/min TOILETING-sba/min PT- BED MOBILITY-sba/cga TRANSFERS-sba/cga AMBULATION-sba 150 feet A/P- Interdisciplinary team conference held today. Please see interdisciplinary sheet. Working toward d.c. on 06/22 with family and post discharge follow up of physical therapy, occupational therapy. Results/Medications Result Diagram: 06/19/16 0636 06/19/16 0636 Results 24 hrs Laboratory Tests Test 06/20/16 16:46 06/20/16 20:12 06/21/16 07:29 06/21/16 11:56 Bedside Glucose 106 172 147 119 Medications Current Medications Senna (Senokot) 1 tab HS PO Last administered on 06/20/16 20:45; Admin Dose 1 TAB; Start 06/04/16 at 21:00 Magnesium Hydroxide (Milk Of Mag) 30 ml BID PRN PO CONSTIPATION; Start at 18:00 Lactulose (Enulose) 20 gm DAILY PRN PO CONSTIPATION Last administered on 12:20; Admin Dose 20 GM; Start 06/04/16 at 18:00 Brimonidine Tartrate (Alphagan 0.2%) 1 drop BID RIGHT EYE Last administered on 06/21/16 08:48; Admin Dose 1 DROP; Start 06/04/16 at 17:42 Bromfenac Sodium (Bromday) 1 drop DAILY LEFT EYE Last administered on 06/21/16 09:00; Admin Dose 1 DROP; Start 06/04/16 at 17:42 Dorzolamide/ Timolol (Cosopt) 1 drop BID BOTH EYES Last administered on 08:46; Admin Dose 1 DROP; Start 06/04/16 at 17:42 Acetaminophen (Tylenol Tab) 650 mg Q6H PRN PO PAIN AND OR ELEVATED TEMP Last administered on 06/10/16at 18:48; Admin Dose 650 MG; Start 06/04/16 at 17:42 Ondansetron HCl (Zofran Inj) 4 mg Q4H PRN IV NAUSEA AND/OR VOMITING Last administered on 06/18/16 11:20; Admin Dose 4 MG; Start 06/04/16 at 17:42 Pantoprazole (Protonix Tab) 40 mg DAILY@06 PO Last administered on 06/21/16 06: 23; Admin Dose 40 MG; Start 06/04/16 at 17:42 Oxybutynin Chloride (Ditropan Xl) 10 mg DAILY PO Last administered on 06/21/16 08:45; Admin Dose 10 MG; Start 06/04/16 at 17:42 Gabapentin (Neurontin) 600 mg TID PO Last administered on 06/21/16 07:33; Admin Dose 600 MG; Start 06/04/16 at 17:42 Linagliptin (Tradjenta) 5 mg DAILY PO Last administered on 06/21/16 08:45; Admin Dose 5 MG; Start 06/04/16 at 17:42 Fenofibrate (Tricor) 145 mg DAILY PO Last administered on 06/21/16 08:45; Admin Dose 145 MG; Start 06/04/16 at 17:42 Calcium/Vitamin D (Oyster Shell/ Vit-D (500/200)) 1 tab BID PO Last administered on 06/21/16 08:45; Admin Dose 1 TAB; Start 06/04/16 at 17:42 Polyethylene Glycol (Miralax) 17 gm DAILY PO Last administered on 06/21/16 08: 48; Admin Dose 17 GM; Start 06/04/16 at 17:42 Miscellaneous Information 1 ea NOTE XX ; Start 06/04/16 at 17:42 Glucose (Glutose) 15 gm Q15M PRN PO DECREASED GLUCOSE; Start 06/04/16 at 17:42 Glucose (Glutose) 22.5 gm Q15M PRN PO DECREASED GLUCOSE; Start 06/04/16 at 17: 42 Dextrose (D50w Syringe) 25 ml Q15M PRN IV DECREASED GLUCOSE; Start 06/04/16 at 17:42 Dextrose (D50w Syringe) 50 ml Q15M PRN IV DECREASED GLUCOSE; Start 06/04/16 at 17:42 Glucagon (Glucagen) 1 mg Q15M PRN IM DECREASED GLUCOSE; Start 06/04/16 at 17: 42 Glucose (Glutose) 15 gm Q15M PRN BUCCAL DECREASED GLUCOSE; Start 06/04/16 at 17:42 Epoetin Raul (Epogen (Esrd)) 10,000 units MoWeFr@17 SC Last administered on 06/18 17:30; Admin Dose 10,000 UNITS; Start 06/04/16 at 17:42 Bisacodyl (Dulcolax Supp) 10 mg DAILY PRN MD CONSTIPATION Last administered on 06/10/16at 06:44; Admin Dose 10 MG; Start 06/04/16 at 17:42 Docusate Sodium (Colace) 100 mg BID PO Last administered on 06/21/16 08:45; Admin Dose 100 MG; Start 06/04/16 at 17:42 Diagnostic Test (Pha) (Accucheck) 1 ea 02 XX Last administered on 06/20/16 02: 24; Admin Dose 1 EA; Start 06/04/16 at 17:42 Acetaminophen/ Hydrocodone Bitart ([place] (5/325)) 1 tab Q4H PRN PO moderate pain Last administered on 06/20/16 22:58; Admin Dose 1 TAB; Start 06/04/16 at 22:00 Acetaminophen/ Hydrocodone Bitart ([place] (5/325)) 2 tab Q4H PRN PO severe pain Last administered on 06/21/16 10:44; Admin Dose 2 TAB; Start 06/04/16 at 22:00 Insulin Glargine (Lantus) 12 unit HS SC Last administered on 06/20/16 20:56; Admin Dose 12 UNIT; Start 06/05/16 at 23:30 Tramadol HCl (Ultram) 50 mg Q4H PRN PO MILD PAIN LEVEL 1-3 Last administered on 06/19/16 02:57; Admin Dose 50 MG; Start 06/12/16 at 04:07 Acetaminophen (Tylenol Tab) 650 mg Q4H PRN PO MILD PAIN LEVEL 1-3; Start 06/12 at 04:08 KRISTAL WOOD MD Jun 21, 2016 13:08
--- NOTE | 2016-06-21 16:14 | RADRPT ---
PROCEDURE: XR Left Humerus. CLINICAL INDICATION: Trauma. Left arm pain. TECHNIQUE: AP and lateral views of the left humerus were performed. COMPARISON: 06/07/2016. FINDINGS: There is a healing oblique fracture of the midshaft of the humerus with anatomic alignment. There i s no other fracture and there is no dislocation. The soft tissues are normal. Articular surfaces are intact. There is no lytic or blastic lesion. There is no radiopaque foreign body. IMPRESSION: 1. Healing oblique fracture of the midshaft of the humerus with anatomic alignment. RPTAT: QQ .Yimi Cornell MD, Date Time Electronically viewed and signed by .Yimi Cornell MD, on 06/21/2016 16:14 .R/
[2016-06-21] MEDS: traMADol 50 MG TAB PO PRN (17:33)
[2016-06-21] MEDS: EPOETIN 10000 UNITS/1 ML INJ (ESRD) SC SCH (17:47)
[2016-06-21 20:13] VITALS: BP 134/60; RESP 17
[2016-06-21] MEDS: SENNA TAB PO SCH (20:25)
[2016-06-21] MEDS: INSULIN GLARGINE [LANtus] 3 ML PEN SC SCH (20:43)
[2016-06-21] MEDS ORDERED: VALACYCLOVIR 500 MG TAB PO SCH (23:30)
[2016-06-21] MEDS: DOCOSANOL 2 GM CREAM TOP SCH (23:43)
[2016-06-22] MEDS: ACCUCHECK XX SCH (02:43)
[2016-06-22] MEDS: PANTOPRAZOLE (EC) 40 MG TAB PO SCH (05:37)
[2016-06-22] MEDS: INSULIN ASPART [NOVOLOG] 3 ML PEN SC SCH ×2 (07:35→12:00)
[2016-06-22 07:37] VITALS: BP 135/60; RESP 18
[2016-06-22 07:49] LABS: CREATININE 0.81 mg/dl (0.44-1.00)
[2016-06-22] MEDS: DOCOSANOL 2 GM CREAM TOP SCH ×2 (08:20→12:33)
[2016-06-22] MEDS: DORZOLAMIDE/TIMOLOL 10 ML OPH BOTH EYES SCH (08:20)
[2016-06-22] MEDS: POLYETHYLENE GLYCOL 17 GM PACKET PO SCH (08:20)
[2016-06-22] MEDS: BRIMONIDINE 0.2% 5 ML BTL RIGHT EYE SCH (08:20)
[2016-06-22] MEDS: REPAGLINIDE 1 MG TAB PO SCH ×2 (08:21→12:33)
[2016-06-22] MEDS: OXYBUTYNIN (XL) 5 MG TAB PO SCH (08:21)
[2016-06-22] MEDS: LINAGLIPTIN 5 MG TABLET PO SCH (08:21)
[2016-06-22] MEDS: GABAPENTIN 300 MG CAP PO SCH ×2 (08:21→12:34)
[2016-06-22] MEDS: HYDROCODONE/APAP (5/325) TAB PO PRN (08:22)
[2016-06-22] MEDS: FENOFIBRATE 145 MG TAB PO SCH (08:22)
[2016-06-22] MEDS: DOCUSATE SODIUM 100 MG CAP PO SCH (08:22)
[2016-06-22] MEDS: CALCIUM/VITAMIN D (500/200) TAB PO SCH (08:22)
[2016-06-22] MEDS: metFORMIN 500 MG TAB PO SCH (08:22)
[2016-06-22] MEDS: BROMFENAC SODIUM 1.7 ML OPH DROP LEFT EYE SCH (08:23)
== END 2016-06-22 15:00 | disposition home health service (06) | DRG 560 ==
LOC: VRC 15:34
PROVIDERS: ADMIT Physical Medicine & Rehabilitation; ATTEND Internal Medicine
PROC: 30233N1 Transfusion of Nonautologous Red Blood Cells into Peripheral Vein, Percutaneous Approach (ICD-10-PCS; principal; 2016-06-10)
DX: S82.041D Displaced comminuted fracture of right patella, subsequent encounter for closed fracture with routine healing (principal); N39.0 Urinary tract infection, site not specified; D69.59 Other secondary thrombocytopenia; E11.40 Type 2 diabetes mellitus with diabetic neuropathy, unspecified; E11.39 Type 2 diabetes mellitus with other diabetic ophthalmic complication; S42.352A Displaced comminuted fracture of shaft of humerus, left arm, initial encounter for closed fracture; S42.342D Displaced spiral fracture of shaft of humerus, left arm, subsequent encounter for fracture with routine healing; D63.8 Anemia in other chronic diseases classified elsewhere; Z87.891 Personal history of nicotine dependence; I10 Essential (primary) hypertension; N32.81 Overactive bladder; K21.9 Gastro-esophageal reflux disease without esophagitis; Z74.09 Other reduced mobility; H40.9 Unspecified glaucoma; K59.00 Constipation, unspecified; D46.Z Other myelodysplastic syndromes; F06.31 Mood disorder due to known physiological condition with depressive features; W18.09XD Striking against other object with subsequent fall, subsequent encounter
CPT/HCPCS: 36430; 73060; 80048; 80053; 81001; 81003; 82310; 82565; 82668; 82962; 83970; 84155; 84165; 84520; 85025; 86850; 86900; 86901; 86920; 87081; 87086; 90686; 95852; 97001; 97003; 97110; 97112; 97116; 97150; 97530; 97535; 97542; J0886; J1170; J1815; J2270; J2405; P9016

== ENCOUNTER 2016-07-05 10:18 | Observation (INO) | END 2016-07-07 13:55 | disposition home or self-care (01) | DX: R04.0 Epistaxis (principal); D69.6 Thrombocytopenia, unspecified; D64.9 Anemia, unspecified; D46.9 Myelodysplastic syndrome, unspecified; E11.9 Type 2 diabetes mellitus without complications; I10 Essential (primary) hypertension; K21.9 Gastro-esophageal reflux disease without esophagitis; E78.5 Hyperlipidemia, unspecified; Z79.84 Long term (current) use of oral hypoglycemic drugs; H40.9 Unspecified glaucoma; N32.81 Overactive bladder | CPT/HCPCS: 36430; 80048; 80053; 80061; 82962; 84443; 85025; 85610; 85730; 86644; 86850; 86900; 86901; 86920; 86945; 87086; 96374; 99285; G0378; J1815; J2405; P9016; P9035 ==

== ENCOUNTER 2016-07-16 14:56 | Inpatient (IN) | payer MEDICARE, BC ==
[~2016-07-16] VITALS: Ht 154.9 cm; Wt 76.0 kg
[~2016-07-16 14:56] MED LIST changes: -METF-388 PO; +METF1000 PO
[2016-07-16] MEDS ORDERED: SOD CHLORIDE 0.9% 500 ML IV STA (16:47)
[2016-07-16] MEDS ORDERED: FAMOTIDINE 20 MG INJ INJ STA (16:47)
[2016-07-16 17:23] LABS: UNCORRECTED WBC 6.2 10^3/ul (4.8-10.8); WHITE BLOOD COUNT 6.2 10^3/ul (4.8-10.8)
[2016-07-16 17:27] LABS: HEMATOCRIT 24.6 % (37.0-47.0); HEMOGLOBIN 8.1 g/dl (12.0-16.0); MEAN CORPUSCULAR HEMOGLOBIN 30.1 pg (29.0-33.0); MEAN CORPUSCULAR HGB CONC 32.9 g/dl (32.0-37.0); MEAN CORPUSCULAR VOLUME 91.5 fl (82.0-101.0); MEAN PLATELET VOLUME 9.9 fl (7.4-10.4); RED BLOOD COUNT 2.69 10^6/ul (4.20-5.40); RED CELL DISTRIBUTION WIDTH 18.8 % (11.5-14.5)
[2016-07-16 17:29] LABS: ALBUMIN 4.1 g/dl (3.3-4.9); CHLORIDE 106 mmol/L (97-110); INR 1.06; POTASSIUM 4.3 mmol/L (3.5-5.1); PROTIME 13.8 Sec (12.2-14.2); PT RATIO 1.1; SODIUM 145 mmol/L (135-144)
[2016-07-16 17:30] LABS: PARTIAL THROMBOPLASTIN TIME 28.4 Sec (25.0-35.0)
[2016-07-16 17:31] LABS: ANION GAP 15 (8-16); BILIRUBIN,INDIRECT 0.6 mg/dl (0-1.1); BILIRUBIN,TOTAL 0.6 mg/dl (0.2-1.3); CARBON DIOXIDE 28 mmol/L (21-31); CREATININE 0.73 mg/dl (0.44-1.00)
[2016-07-16 17:32] LABS: ALANINE AMINOTRANSFERASE 24 IU/L (13-69); ALKALINE PHOSPHATASE 132 IU/L (42-121); ASPARTATE AMINO TRANSFERASE 37 IU/L (15-46); BLOOD UREA NITROGEN 20 mg/dl (7-20); CALCIUM 10.5 mg/dl (8.4-10.2); CONDITION 1; GLUCOSE 85 mg/dl (70-220); LH ANALYZER COMMENTS 1; PLATELET COUNT 9 10^3/UL (140-440); SUSPECT 1; TOTAL PROTEIN 7.5 g/dl (6.1-8.1)
[2016-07-16 17:47] LABS: TROPONIN-I < 0.012 ng/ml (0.00-0.12)
[2016-07-16] MEDS: ONDANSETRON 4 MG INJ IV STA ×2 (17:59→18:13)
[2016-07-16] MEDS ORDERED: SOD CHLORIDE 0.9% 250 ML IV ONE (18:17)
[2016-07-16 19:00] VITALS: TEMP 97.9
[2016-07-16] MEDS ORDERED: ONDANSETRON 4 MG INJ IV PRN (19:00)
[2016-07-16] MEDS ORDERED: ACETAMINOPHEN 325 MG TAB PO PRN (19:00)
[2016-07-16 19:08] LABS: LYMPHOCYTES # 1.4 10^3/ul (0.8-2.9); MONOCYTE # 0.2 10^3/ul (0.3-0.9); NEUTROPHIL # 4.3 10^3/ul (1.6-7.5)
[2016-07-16 19:10] LABS: HYPOCHROMASIA 1+; OVALOCYTES FEW; PLATELET ESTIMATE PLT APPEAR DECREASED
--- NOTE | 2016-07-16 19:37 | ERA ---
ER Documentation Chief Complaint Date/Time DATE: 07/16/16 TIME: 19:31 Chief Complaint low plts sent by dr higgins. low hgb as well. needs transfusion, no bleeding HPI This 71-year-old female was sent in by Dr. Mcneil for low platelets. She also has locally hemoglobin was in need of transfusion. The patient herself feels somewhat lightheaded and has nausea on and off. She has a history of myelodysplastic syndrome and that is the reason for her continuously dropping platelets and hemoglobin. She has no current GI bleeding and believes that she is constipated. Denies any chest pain or shortness of breath. ROS All systems reviewed and are negative except as per history of present illness. Medications Home Meds Reported Medications Calcium Carbonate ([id number]) 500 Mg Tablet, 500 MG PO BID, TAB 05/28/16 Multivitamin* (Daily Value*) 1 Each Tablet, 1 TAB PO DAILY, TAB 05/28/16 [place]-3 Fatty Acids (Fish Oil) 500 Mg Capsule, 500 MG PO BID, CAP 05/28/16 Bromfenac Sodium (Prolensa) 3 Ml Drops, 1 DROP LEFT EYE EVERY OTHER DAY, BOTTLE 05/28/16 Sodium Chloride* (Cachorro-128*) 2%-15ml Dropper Opht, 1 DROP LEFT EYE QID, EA 04/16/16 Bimatoprost* (Lumigan*) 0.01%-2.5 Ml Opht Drops, 1 DROP RIGHT EYE HS, EA 04/16/16 Brimonidine Tartrate* (Alphagan*) 0.2%-10 Ml Opht Drops, 1 DROP RIGHT EYE BID, BOTTLE 04/16/16 Dorzolamide-Timolol* (Cosopt*) 2%-0.5% - 10 Ml Soln, 1 DROP BOTH EYES BID, BOTTLE 04/16/16 Ramipril (Ramipril) 5 Mg Capsule, 5 MG PO DAILY, CAP 04/16/16 Celecoxib* (Celebrex*) 200 Mg Capsule, 200 MG PO DAILY, CAP 04/16/16 Fenofibrate Nanocrystallized* (Fenofibrate*) 145 Mg Tablet, 145 MG PO DAILY, TAB 04/16/16 Omeprazole* (Omeprazole*) 20 Mg Capsule., 20 MG PO DAILY, #30 CAP 04/16/16 Oxybutynin Chloride* (Ditropan* XL) 10 Mg Tab.er.24, 10 MG PO DAILY, TAB.SA 04/16/16 Repaglinide* (Repaglinide*) 2 Mg Tablet, 2 MG PO AC BREAKFAST DINNER, TAB 04/16/16 Metformin Hcl* (Metformin Hcl*) 1,000 Mg Tablet, 1000 MG PO WITH BREAKFAST DINNE , #30 TAB 04/16/16 Sitagliptin* (Januvia*) 100 Mg Tablet, 100 MG PO DAILY, #30 TAB 04/16/16 Gabapentin* (Gabapentin*) 600 Mg Tablet, 600 MG PO TID, #90 TAB 04/16/16 Allergies Allergies: Coded Allergies: No Known Allergy (Verified , 05/28/16) PMhx/Soc History of Surgery: Yes Anesthesia Reaction: No Hx Neurological Disorder: No Hx Respiratory Disorders: No Hx Cardiac Disorders: Yes Hx Psychiatric Problems: No Hx Alcohol Use: No Hx Substance Use: No Hx Tobacco Use: No Smoking Status: Unknown if ever smoked Physical Exam Vitals Vital Signs Date Time Temp Pulse Resp B/P Pulse Ox O2 Delivery O2 Flow Rate FiO2 07/16/16 19:00 97.9 91 20 132/65 100 Nasal Cannula 1.0 07/16/16 17:26 Nasal Cannula 1 07/16/16 17:00 98.0 91 18 137/62 100 Nasal Cannula 1.0 07/16/16 15:01 98.0 93 18 170/71 100 Physical Exam Const: [] No distress Head: Atraumatic Eyes: Normal Conjunctiva, no icterus, EOMI, SANDRA ENT: Normal External Ears, Nose and Mouth. Neck: Full range of motion..~ No meningismus. Resp: Clear to auscultation bilaterally Cardio: Regular rate and rhythm, no murmurs Abd: Soft, non tender, non distended. Normal bowel sounds Skin: No petechiae or rashes Back: No midline or flank tenderness Ext: No cyanosis, or edema Neur: Awake and alert Psych: Normal Mood and Affect Result Diagram: 07/16/16 1705 07/16/16 170 Results 24 hrs Laboratory Tests Test 07/16/16 17:05 Activated Partial Thromboplast Time 28.4Sec Alanine Aminotransferase (ALT/SGPT) 24IU/L Albumin 4.1g/dl Albumin/Globulin Ratio 1.20 Alkaline Phosphatase 132IU/L Anion Gap 15 Aspartate Amino Transf (AST/SGOT) 37IU/L Band Neutrophils % 4.0% Blood Morphology Comment Blood Urea Nitrogen 20mg/dl Calcium Level 10.5mg/dl Carbon Dioxide Level 28mmol/L Chloride Level 106mmol/L Creatinine 0.73mg/dl Direct Bilirubin 0.00mg/dl Globulin 3.40g/dl Glucose Level 85mg/dl Hematocrit 24.6% Hemoglobin 8.1g/dl Hypochromasia 1+ INR International Normalized Ratio 1.06 Indirect Bilirubin 0.6mg/dl Lymphocytes # 1.410^3/ul Lymphocytes % 23.0% Macrocytosis 1+ Mean Corpuscular Hemoglobin 30.1pg Mean Corpuscular Hemoglobin Concent 32.9g/dl Mean Corpuscular Volume 91.5fl Mean Platelet Volume 9.9fl Monocytes # 0.210^3/ul Monocytes % 3.0% Neutrophils # 4.310^3/ul Neutrophils % 70.0% Nucleated Red Blood Cells # 10^3/ul Nucleated Red Blood Cells % 3.0/100WBC Ovalocytes FEW Platelet Count 910^3/UL Platelet Estimate PLT APPEAR DECREASED Potassium Level 4.3mmol/L Prothrombin Time 13.8Sec Prothrombin Time Ratio 1.1 Red Blood Count 2.6910^6/ul Red Cell Distribution Width 18.8% Sodium Level 145mmol/L Total Bilirubin 0.6mg/dl Total Protein 7.5g/dl Troponin I < 0.012ng/ml White Blood Count 6.210^3/ul Current Medications Medications (Trade) Dose Ordered Sig/Gerard Route PRN Reason Start Time Stop Time Status Last Admin Dose Admin Sodium Chloride (NS) 500 ml @ 500 mls/hr Q1H STAT IV 07/16/16 16:47 07/16/16 17:46 DC 07/16/16 17:11 Famotidine (Pepcid Iv) 20 mg ONCE STAT INJ 07/16/16 16:47 07/16/16 16:48 DC 07/16/16 17:10 Ondansetron HCl 4 mg 4 mg ONCE STAT IV 07/16/16 17:50 07/16/16 17:52 DC Sodium Chloride (NS) 250 ml @ 0 mls/hr Q0M ONCE IV 07/16/16 18:17 07/16/16 18:19 DC Ondansetron HCl (Zofran Inj) 4 mg BRIDGE ORDER PRN IV NAUSEA AND/OR VOMITING 07/16/16 19:00 07/17/16 18:59 Acetaminophen (Tylenol Tab) 650 mg ER BRIDGE PRN PO MILD PAIN/FEVER 07/16/16 19:00 07/17/16 18:59 Procedures/MDM Severe thrombocytopenia and symptomatically anemic secondary to myelodysplastic syndrome. I spoke with the partner of Dr. Thompson and Dr. Jaimes who agrees to admit. Also spoke with the partner of Dr. Mcneil who recommends 1 unit of packed red blood cells as well as 1 of platelets. At this moment if patient has no significant bleeding. She was hydrated with some normal saline I'm going to transfuse the platelets and PRBCs a very carefully not to cause any fluid overload from he has moderate shift. She currently remains stable on the monitor. EMR review shows that she was recently admitted for multiple fractures secondary to a fall secondary to her symptomatic anemia. This point I'm going to place her on bedrest tissues transfused feeling better to prevent any further falls or trauma. Departure Diagnosis: Primary Impression: Severe thrombocytopenia Additional Impressions: Symptomatic anemia Myelodysplastic syndrome Condition: Serious NEALGIUSEPPE Jul 16, 2016 19:36
[2016-07-16 20:15] VITALS: BP 139/60; PULSE 88; RESP 18
[2016-07-16] MEDS ORDERED: BROMFENAC SODIUM XX SCH (21:00)
[2016-07-16] MEDS ORDERED: ZOLPIDEM 5 MG TAB PO PRN (22:00)
[2016-07-16] MEDS: FENOFIBRATE 145 MG TAB PO SCH (22:01)
[2016-07-16] MEDS: GABAPENTIN 300 MG CAP PO SCH (22:01)
[2016-07-16] MEDS ORDERED: GLUCOSE GEL 15 GRAM TUBE BUCCAL PRN (22:30)
[2016-07-16] MEDS: INSULIN ASPART [NOVOLOG] 3 ML PEN SC SCH (22:30)
[2016-07-16] MEDS ORDERED: DEXTROSE 50% 50 ML SYRINGE IV PRN ×2 (22:30)
[2016-07-16] MEDS ORDERED: GLUCOSE GEL 15 GRAM TUBE PO PRN ×2 (22:30)
[2016-07-16] MEDS ORDERED: GLUCAGON 1 MG INJ IM PRN (22:30)
[2016-07-16] MEDS: DORZOLAMIDE/TIMOLOL 10 ML OPH BOTH EYES SCH (22:45)
[2016-07-16] MEDS: OXYBUTYNIN (XL) 5 MG TAB PO SCH (22:45)
[2016-07-16] MEDS: BRIMONIDINE 0.2% 5 ML BTL RIGHT EYE SCH (22:45)
[2016-07-17] MEDS: SODIUM CHLORIDE 2% OPH 15 ML BTL LEFT EYE SCH ×5 (00:33→21:27)
[2016-07-17] MEDS: LATANOPROST 0.005% 2.5 ML OPH RIGHT EYE SCH ×2 (00:33→21:27)
[2016-07-17] MEDS: ACCUCHECK XX SCH (02:00)
[2016-07-17 05:53] LABS: POTASSIUM 3.7 mmol/L (3.5-5.1)
[2016-07-17 05:56] LABS: CREATININE 0.66 mg/dl (0.44-1.00)
[2016-07-17 05:57] LABS: CALCIUM 9.8 mg/dl (8.4-10.2)
[2016-07-17] MEDS: PANTOPRAZOLE (EC) 40 MG TAB PO SCH (06:34)
[2016-07-17 07:05] LABS: ADD UMIC YES; URINE BILIRUBIN (Dip) NEGATIVE (NEGATIVE); URINE BLOOD (Dip) NEGATIVE (NEGATIVE); URINE COLOR LT. YELLOW (YELLOW); URINE GLUCOSE (Dip) NEGATIVE (NEGATIVE); URINE KETONES (Dip) NEGATIVE (NEGATIVE); URINE LEUKOCYTE ESTERASE (Dip) 1+ (NEGATIVE); URINE NITRITE (Dip) NEGATIVE (NEGATIVE); URINE TOTAL PROTEIN (Dip) NEGATIVE (NEGATIVE); URINE UROBILINOGEN (Dip) 0.2 E.U./dL (0.1-1.0)
[2016-07-17 07:21] LABS: BACTERIA,URINE MANY; URINE RBCS 0-2 /HPF (0)
[2016-07-17 07:23] VITALS: BP 142/63; RESP 18
[2016-07-17] MEDS: INSULIN ASPART [NOVOLOG] 3 ML PEN SC SCH ×4 (07:50→21:00)
[2016-07-17] MEDS: metFORMIN 500 MG TAB PO SCH ×2 (08:51→17:31)
[2016-07-17] MEDS: BENAZEPRIL 20 MG TAB PO SCH (08:52)
[2016-07-17] MEDS: LINAGLIPTIN 5 MG TABLET PO SCH (08:53)
[2016-07-17] MEDS: FENOFIBRATE 145 MG TAB PO SCH (08:53)
[2016-07-17] MEDS: MULTIVITAMINS THERAPEUTIC TAB PO SCH (08:53)
[2016-07-17] MEDS: GABAPENTIN 300 MG CAP PO SCH ×4 (08:53→21:26)
[2016-07-17] MEDS: OXYBUTYNIN (XL) 5 MG TAB PO SCH (08:54)
[2016-07-17] MEDS: DORZOLAMIDE/TIMOLOL 10 ML OPH BOTH EYES SCH ×2 (08:55→21:27)
[2016-07-17] MEDS: BRIMONIDINE 0.2% 5 ML BTL RIGHT EYE SCH ×2 (08:55→21:27)
[2016-07-17 11:03] LABS: HEMATOCRIT 23.8 % (37.0-47.0); HEMOGLOBIN 7.5 g/dl (12.0-16.0); MEAN CORPUSCULAR HEMOGLOBIN 29.4 pg (29.0-33.0); MEAN CORPUSCULAR HGB CONC 31.5 g/dl (32.0-37.0); MEAN CORPUSCULAR VOLUME 93.3 fl (82.0-101.0); PLATELET COUNT 31 10^3/UL (140-440); RED BLOOD COUNT 2.55 10^6/ul (4.20-5.40); RED CELL DISTRIBUTION WIDTH 18.6 % (11.5-14.5); WHITE BLOOD COUNT 4.1 10^3/ul (4.8-10.8)
[2016-07-17 11:04] LABS: MEAN PLATELET VOLUME 11.1 fl (7.4-10.4)
--- NOTE | 2016-07-17 11:43 | HP ---
DATE OF ADMISSION: 07/16/2016 ADMISSION DIAGNOSIS: Myelodysplastic syndrome, anemia, thrombocytopenia. This is a patient who was sent over by her cloth tester due to platelets of approximately 10 and being anemic. Patient was f eeling fine and had no complaints at the time of being seen in the emergency room. Patient was then admitted and being transfused packed red blood cells and platelets. PAST MEDICAL HISTORY: Myelodysplastic syndrome, thrombocytopenia, in which the patient's average pl atelets is approximately 20 in the past year. On admission it was 9. Also with anemia, fracture of the humerus and right patella, hypertension, diabetes type 2, GERD, glaucoma, hyperlipidemia, overa ctive bladder syndrome. SOCIAL HISTORY: Alcohol denies, tobacco denies. MEDICATIONS: 1. Omeprazole 20 every day. 2. Januvia 100 every day. 3. Gabapentin 600 mg t.i.d. 4. Ramipril 5 mg every day. 5. Alphagan drops. 6. Cosopt drops. 7. Lumigan drops. 8. Metformin 1000 mg every day. 9. Celebrex 20 mg every day. 10. Digoxin 10 mg at bedtime. ALLERGIES: NO KNOWN DRUG ALLERGIES. REVIEW OF SYSTEMS: Noncontributory. PHYSICAL EXAMINATION: GENERAL: The patient is alert, oriented, no acute distress. VITAL SIGNS: Temperature 98.3, blood pressure 142/63, pulse is 77, respirations 18, pulse ox is 96% on room air. HEENT: Normocephalic, atraumatic. EYES: Pupils equal, round, react to light and accommodation. Anicteric. ENT clear. HEART: Regular rate and rhythm. CHEST: Symmetrical. ABDOMEN: Nontender, nondistended. No palpable masses. LABORATORY DATA: WBC of 6.2, hemoglobin 8.1, and platelets 9, creatinine 0.73, sodium 143, potassiu m 4.3. UA demonstrates 1+ leukocytes with greater than 50 WBCs. INR 1.1. ASSESSMENT AND PLAN: 1. Myelodysplastic syndrome with severe thrombocytopenia. Dr. Richardson was called from the ER to eval staceyte the patient that she sent over. Once Dr. Richardson says that the patient may go home, then she ma y be discharged. Unclear what treatment, if any, is going to be necessary on this admission. 2. Anemia. Currently, hemoglobin is at 8.1, being transfused packed red blood cells 3. Hypertension, currently stable. 4. Diabetes. Patient to continue with her oral medications and will cover with a sliding scale of Humalog. 5. Urinary tract infection. We will give the patient Cipro while she is here. Dictated By: TERESO ELIZABETH/ROGE Conf#: [id number] DID#: [id number]
[2016-07-17 11:45] LABS: ANISOCYTOSIS 2+; HYPOCHROMASIA 1+; LYMPHOCYTES # 1.8 10^3/ul (0.8-2.9); MONOCYTE # 0.3 10^3/ul (0.3-0.9); NEUTROPHIL # 1.9 10^3/ul (1.6-7.5); NUCLEATED RED BLOOD CELLS% 9.2 /100WBC (0.0-0.0); POIKILOCYTOSIS 1+
[2016-07-17 11:46] LABS: PLATELET ESTIMATE PLT APPEAR DECREASED
[2016-07-17] MEDS ORDERED: ACETAMINOPHEN 325 MG TAB PO PRN (12:00)
[2016-07-17] MEDS: CIPROFLOXACIN 250 MG TAB PO SCH ×2 (12:57→21:26)
[2016-07-17 19:00] VITALS: BP 119/58; RESP 18
[2016-07-18] MEDS: PANTOPRAZOLE (EC) 40 MG TAB PO SCH (06:00)
[2016-07-18] MEDS: ACCUCHECK XX SCH (06:07)
[2016-07-18 07:36] VITALS: BP 135/63; PULSE 75; RESP 16
[2016-07-18] MEDS: INSULIN ASPART [NOVOLOG] 3 ML PEN SC SCH ×2 (07:50→12:05)
[2016-07-18] MEDS ORDERED: [UNRECOGNIZED DRUG - REMARK] XX SCH (08:30)
[2016-07-18] MEDS: LINAGLIPTIN 5 MG TABLET PO SCH (08:54)
[2016-07-18] MEDS: GABAPENTIN 300 MG CAP PO SCH (08:56)
[2016-07-18] MEDS: MULTIVITAMINS THERAPEUTIC TAB PO SCH (08:56)
[2016-07-18] MEDS: OXYBUTYNIN (XL) 5 MG TAB PO SCH (08:58)
[2016-07-18] MEDS: FENOFIBRATE 145 MG TAB PO SCH (08:58)
[2016-07-18] MEDS: CIPROFLOXACIN 250 MG TAB PO SCH (09:00)
[2016-07-18] MEDS: BRIMONIDINE 0.2% 5 ML BTL RIGHT EYE SCH ×2 (09:02→11:44)
[2016-07-18] MEDS: DORZOLAMIDE/TIMOLOL 10 ML OPH BOTH EYES SCH (09:02)
[2016-07-18] MEDS: BENAZEPRIL 20 MG TAB PO SCH (09:02)
[2016-07-18] MEDS: SODIUM CHLORIDE 2% OPH 15 ML BTL LEFT EYE SCH ×2 (09:03→11:44)
[2016-07-18] MEDS: metFORMIN 500 MG TAB PO SCH (09:05)
[2016-07-18 11:08] LABS: HEMATOCRIT 28.2 % (37.0-47.0); HEMOGLOBIN 9.7 g/dl (12.0-16.0); MEAN CORPUSCULAR HEMOGLOBIN 30.6 pg (29.0-33.0); MEAN CORPUSCULAR HGB CONC 34.3 g/dl (32.0-37.0); MEAN CORPUSCULAR VOLUME 89.2 fl (82.0-101.0); MEAN PLATELET VOLUME 8.6 fl (7.4-10.4); RED BLOOD COUNT 3.16 10^6/ul (4.20-5.40); RED CELL DISTRIBUTION WIDTH 17.3 % (11.5-14.5); UNCORRECTED WBC 4.7 10^3/ul (4.8-10.8); WHITE BLOOD COUNT 4.7 10^3/ul (4.8-10.8)
[2016-07-18 11:15] LABS: CALCIUM 10.5 mg/dl (8.4-10.2); CONDITION 1; CREATININE 0.63 mg/dl (0.44-1.00); LH ANALYZER COMMENTS 1; SUSPECT 1
[2016-07-18 11:19] LABS: PLATELET COUNT 26 10^3/UL (140-440)
[2016-07-18 13:02] LABS: LYMPHOCYTES # 1.4 10^3/ul (0.8-2.9); MONOCYTE # 0.3 10^3/ul (0.3-0.9); NEUTROPHIL # 2.8 10^3/ul (1.6-7.5); PLATELET ESTIMATE PLT APPEAR DECREASED
--- NOTE | 2016-07-18 14:07 | PN ---
DATE: 07/18/2016 The patient feeling good. Would like to go home. Has no complaints, awaiting blood test results. PHYSICAL EXAMINATION: VITAL SIGNS: Temperature is 97.6, blood pressure 135/63, respirations 16, pulse is at 75. Laborato ry tests are pending. CARDIOVASCULAR: Regular rate and rhythm. LUNGS: Clear to auscultation bilaterally. ABDOMEN: Nontender. ASSESSMENT AND PLAN: 1. Myelodysplastic syndrome with severe thrombocytopenia. The patient, after being transfused 1 un it of packed red blood cells, the hemoglobin went down from an 8.1 to 7.5. She was then transfused a second unit of packed red blood cells yesterday. Her platelets did rise after being transfused. The platelets appear to have stabilized. Hematology did not see the patient while in the hospital a s long as the hemoglobin has gone up and the platelets have stayed relatively the same. The patient may be discharged home on her regular medications today. 2. Hypertension. Is currently stable. 3. Diabetes. She is ____ on her regular oral medications and a sliding scale of Humalog. The jens ent once discharged is to go back to regular medication. 4. Urinary tract infection. The patient was started on Cipro. My culture is still pending. She r eceived 1 day's worth of oral Cipro and if the patient does get discharged, will consider continuing with the Cipro for the next 2 days. Dictated By: TERESO ELIZABETH/ROGE Conf#: [id number] DID#: [id number]
== END 2016-07-18 14:02 | disposition home or self-care (01) | DRG 812 ==
LOC: E/R 16:54 → MS1 18:39
PROVIDERS: ADMIT Internal Medicine; ATTEND Internal Medicine
PROC: 6A550Z2 Pheresis of Platelets, Single (ICD-10-PCS; 2016-07-16)
PROC: 30233N1 Transfusion of Nonautologous Red Blood Cells into Peripheral Vein, Percutaneous Approach (ICD-10-PCS; 2016-07-16)
PROC: 30233N1 Transfusion of Nonautologous Red Blood Cells into Peripheral Vein, Percutaneous Approach (ICD-10-PCS; principal; 2016-07-17)
DX: D46.9 Myelodysplastic syndrome, unspecified (principal); D69.6 Thrombocytopenia, unspecified; N39.0 Urinary tract infection, site not specified; I10 Essential (primary) hypertension; E11.9 Type 2 diabetes mellitus without complications; B96.20 Unspecified Escherichia coli [E. coli] as the cause of diseases classified elsewhere; Z79.4 Long term (current) use of insulin
CPT/HCPCS: 36415; 36430; 80048; 80053; 81001; 81003; 82962; 84484; 85025; 85610; 85730; 86850; 86900; 86901; 86920; 87081; 87086; 93005; 96374; J1815; J2405; J7040; P9016; P9035

== ENCOUNTER 2016-12-17 07:42 | Inpatient (IN) | payer MEDICARE, BC ==
[~2016-12-17] VITALS: Ht 162.6 cm; Wt 67.0 kg
[~2016-12-17 07:42] MED LIST changes: -OMEG500C3 PO
[2016-12-17 08:30] LABS: ADD SCAN DIFF NO
[2016-12-17 08:32] LABS: ABNORMAL IP MESSAGE 1; MEAN CORPUSCULAR HEMOGLOBIN 30.2 pg (29.0-33.0); MEAN CORPUSCULAR HGB CONC 30.5 g/dl (32.0-37.0); NUCLEATED RED BLOOD CELLS # 2.1 10^3/ul (0.0-0.0); RED BLOOD COUNT 2.02 10^6/ul (4.20-5.40); RED CELL DISTRIBUTION WIDTH 20.5 % (11.5-14.5); WHITE BLOOD COUNT 28.2 10^3/ul (4.8-10.8)
[2016-12-17 08:41] LABS: HEMOGLOBIN 6.1 g/dl (12.0-16.0); PLATELET COUNT 13 10^3/UL (140-415)
[2016-12-17 08:51] LABS: INR 1.08; PT RATIO 1.1
[2016-12-17 08:52] LABS: PARTIAL THROMBOPLASTIN TIME 29.7 Sec (25.0-35.0)
[2016-12-17 08:55] LABS: ALANINE AMINOTRANSFERASE 27 IU/L (13-69); ALBUMIN 4.3 g/dl (3.3-4.9); ALBUMIN/GLOBULIN RATIO 1.22; ALKALINE PHOSPHATASE 114 IU/L (42-121); ANION GAP 19 (8-16); ASPARTATE AMINO TRANSFERASE 41 IU/L (15-46); BILIRUBIN,INDIRECT 0.5 mg/dl (0-1.1); BILIRUBIN,TOTAL 0.5 mg/dl (0.2-1.3); BLOOD UREA NITROGEN 19 mg/dl (7-20); CALCIUM 10.4 mg/dl (8.4-10.2); CARBON DIOXIDE 26 mmol/L (21-31); CHLORIDE 100 mmol/L (97-110); CREATININE 0.69 mg/dl (0.44-1.00); GLUCOSE 253 mg/dl (70-220); POTASSIUM 4.4 mmol/L (3.5-5.1); SODIUM 141 mmol/L (135-144); TOTAL PROTEIN 7.8 g/dl (6.1-8.1)
[2016-12-17 09:06] LABS: TROPONIN-I < 0.012 ng/ml (0.00-0.12)
[2016-12-17] MEDS ORDERED: SOD CHLORIDE 0.9% 500 ML IV ONE (09:30)
[2016-12-17 10:22] LABS: NUCLEATED RED BLOOD CELLS% 17.6 /100WBC (0.0-0.0)
[2016-12-17 10:23] LABS: LYMPHOCYTES # 1.4 10^3/ul (0.8-2.9); MONOCYTE # 3.7 10^3/ul (0.3-0.9); NEUTROPHIL # 20.3 10^3/ul (1.6-7.5); PLATELET ESTIMATE PLT APPEAR DECREASED
[2016-12-17] MEDS ORDERED: ACETAMINOPHEN 325 MG TAB PO PRN (10:30)
[2016-12-17] MEDS ORDERED: ONDANSETRON 4 MG INJ IV PRN (10:30)
[2016-12-17 10:47] LABS: ADD UMIC NO; UR ASCORBIC ACID NEGATIVE (NEGATIVE); UR BILIRUBIN (Dip) NEGATIVE (NEGATIVE); UR BLOOD (Dip) NEGATIVE (NEGATIVE); UR CLARITY CLEAR (CLEAR); UR COLOR YELLOW (YELLOW); UR GLUCOSE (Dip) 3+ mg/dL (NEGATIVE); UR KETONES (Dip) NEGATIVE (NEGATIVE); UR LEUKOCYTE ESTERASE (Dip) NEGATIVE Leu/ul (NEGATIVE); UR NITRITE (Dip) NEGATIVE (NEGATIVE); UR SPECIFIC GRAVITY (Dip) 1.015 (1.003-1.030); UR TOTAL PROTEIN (Dip) NEGATIVE (NEGATIVE); UR UROBILINOGEN (Dip) NEGATIVE (NEGATIVE)
[2016-12-17] MEDS ORDERED: SIMV40TA2 PO (12:25)
--- NOTE | 2016-12-17 14:02 | ERA ---
ER Documentation Chief Complaint Date/Time DATE: 12/17/16 TIME: 13:50 Chief Complaint SENT BY DR BOWMAN FOR EVAL OF LOW H&H. DENIES ANY RB HPI This 71-year-old female with a history of myelodysplastic syndrome comes for feeling very tired and weak. Doxorubicin obtained a low hemoglobin in his office as well. Patient received periodic transfusions as her bone marrow does not probably make the necessary cells. She also usually needs platelet transfusion as well. She has no current bleeding and no signs of GI bleeding. Denies any fever and chills. ROS All systems reviewed and are negative except as per history of present illness. Medications Home Meds Reported Medications Simvastatin* (Zocor*) 40 Mg Tablet, 40 MG PO QHS, #30 TAB 12/17/16 Calcium Carbonate ([id number]-157) 500 Mg Tablet, 500 MG PO BID, TAB 05/28/16 Multivitamin* (Daily Value*) 1 Each Tablet, 1 TAB PO DAILY, TAB 05/28/16 Bimatoprost* (Lumigan*) 0.01%-2.5 Ml Opht Drops, 1 DROP RIGHT EYE HS, EA 04/16/16 Brimonidine Tartrate* (Alphagan*) 0.2%-10 Ml Opht Drops, 1 DROP RIGHT EYE BID, BOTTLE 04/16/16 Dorzolamide-Timolol* (Cosopt*) 2%-0.5% - 10 Ml Soln, 1 DROP BOTH EYES BID, BOTTLE 04/16/16 Ramipril (Ramipril) 5 Mg Capsule, 5 MG PO DAILY, CAP 04/16/16 Celecoxib* (Celebrex*) 200 Mg Capsule, 200 MG PO DAILY, CAP 04/16/16 Fenofibrate Nanocrystallized* (Fenofibrate*) 145 Mg Tablet, 145 MG PO DAILY, TAB 04/16/16 Omeprazole* (Omeprazole*) 20 Mg Capsule.dr, 20 MG PO DAILY, #30 CAP 04/16/16 Oxybutynin Chloride* (Ditropan* XL) 10 Mg Tab.er.24, 10 MG PO DAILY, TAB.SA 04/16/16 Repaglinide* (Repaglinide*) 2 Mg Tablet, 2 MG PO AC BREAKFAST DINNER, TAB 04/16/16 Metformin Hcl* (Metformin Hcl*) 1,000 Mg Tablet, 1000 MG PO WITH BREAKFAST DINNE , #30 TAB 04/16/16 Sitagliptin* (Januvia*) 100 Mg Tablet, 100 MG PO DAILY, #30 TAB 04/16/16 Gabapentin* (Gabapentin*) 600 Mg Tablet, 600 MG PO TID, #90 TAB 04/16/16 Discontinued Reported Medications Bromfenac Sodium (Prolensa) 3 Ml Drops, 1 DROP LEFT EYE EVERY OTHER DAY, BOTTLE 05/28/16 Sodium Chloride* (Cachorro-128*) 2%-15ml Dropper Opht, 1 DROP LEFT EYE QID, EA 04/16/16 Allergies Allergies: Coded Allergies: No Known Allergy (Verified , 12/17/16) PMhx/Soc History of Surgery: Yes (LAMINECTOMY,LT EYE SURGERY,) Anesthesia Reaction: No Hx Neurological Disorder: No Hx Respiratory Disorders: No Hx Cardiac Disorders: Yes (HTN) Hx Psychiatric Problems: No Hx Miscellaneous Medical Probl: Yes (MDS) Hx Alcohol Use: No Hx Substance Use: No Hx Tobacco Use: No Smoking Status: Never smoker Physical Exam Vitals Vital Signs Date Time Temp Pulse Resp B/P Pulse Ox O2 Delivery O2 Flow Rate FiO2 12/17/16 13:40 98.6 77 17 123/65 100 Room Air 12/17/16 09:00 97.9 80 18 110/60 100 Room Air 12/17/16 08:22 Nasal Cannula 2 12/17/16 07:50 97.9 92 16 113/62 96 Physical Exam Const: [] Mild distress Head: Atraumatic Eyes: Normal Conjunctiva ENT: Normal External Ears, Nose and Mouth. Neck: Full range of motion..~ No meningismus. Resp: Clear to auscultation bilaterally Cardio: Regular rate and rhythm, no murmurs Abd: Soft, non tender, non distended. Normal bowel sounds Skin: No petechiae or rashes Back: No midline or flank tenderness Ext: No cyanosis, or edema Neur: Awake and alert and oriented 3, no focal deficits Psych: Normal Mood and Affect Result Diagram: 12/17/16 0810 12/17/16 0810 Results 24 hrs Laboratory Tests Test 12/17/16 08:10 12/17/16 10:10 White Blood Count 28.210^3/ul Red Blood Count 2.0210^6/ul Hemoglobin 6.1g/dl Hematocrit 20.0% Mean Corpuscular Volume 99.0fl Mean Corpuscular Hemoglobin 30.2pg Mean Corpuscular Hemoglobin Concent 30.5g/dl Red Cell Distribution Width 20.5% Platelet Count 1310^3/UL Mean Platelet Volume fl Neutrophils % 72.0% Lymphocytes % 5.0% Monocytes % 13.0% Eosinophils % % Basophils % % Nucleated Red Blood Cells % 17.6/100WBC Neutrophils # 20.310^3/ul Lymphocytes # 1.410^3/ul Monocytes # 3.710^3/ul Eosinophils # 10^3/ul Basophils # 10^3/ul Nucleated Red Blood Cells # 2.110^3/ul Platelet Estimate PLT APPEAR DECREASED Prothrombin Time 14.0Sec Prothrombin Time Ratio 1.1 INR International Normalized Ratio 1.08 Activated Partial Thromboplast Time 29.7Sec Sodium Level 141mmol/L Potassium Level 4.4mmol/L Chloride Level 100mmol/L Carbon Dioxide Level 26mmol/L Anion Gap 19 Blood Urea Nitrogen 19mg/dl Creatinine 0.69mg/dl Glucose Level 253mg/dl Calcium Level 10.4mg/dl Total Bilirubin 0.5mg/dl Direct Bilirubin 0.00mg/dl Indirect Bilirubin 0.5mg/dl Aspartate Amino Transf (AST/SGOT) 41IU/L Alanine Aminotransferase (ALT/SGPT) 27IU/L Alkaline Phosphatase 114IU/L Troponin I < 0.012ng/ml Total Protein 7.8g/dl Albumin 4.3g/dl Globulin 3.50g/dl Albumin/Globulin Ratio 1.22 Urine Color YELLOW Urine Clarity CLEAR Urine pH 5.0 Urine Specific [place] 1.015 Urine Ketones NEGATIVEmg/dL Urine Nitrite NEGATIVEmg/dL Urine Bilirubin NEGATIVEmg/dL Urine Urobilinogen NEGATIVEmg/dL Urine Leukocyte Esterase NEGATIVELeu/ul Urine Hemoglobin NEGATIVEmg/dL Urine Glucose 3+mg/dL Urine Total Protein NEGATIVEmg/dl Current Medications Medications (Trade) Dose Ordered Sig/Gerard Route PRN Reason Start Time Stop Time Status Last Admin Dose Admin Sodium Chloride (NS) 500 ml @ 500 mls/hr Q1H ONCE IV 12/17/16 09:30 12/17/16 10:29 DC 12/17/16 10:45 Ondansetron HCl (Zofran Inj) 4 mg BRIDGE ORDER PRN IV NAUSEA AND/OR VOMITING 12/17/16 10:30 12/18/16 10:29 Acetaminophen (Tylenol Tab) 650 mg ER BRIDGE PRN PO MILD PAIN/FEVER 12/17/16 10:30 12/18/16 10:29 Procedures/MDM Anemia and severe thrombocytopenia. Anemia is acutely symptomatic with generalized weakness and tiredness. Patient also had also has an uncharacteristic high white blood cell count that is quite high. She has no symptoms of diarrhea to suggest C. difficile and no other physical exam abnormalities to suggest acute infection. No UTI. She will need to be admitted for transfusion. He was given normal saline for treatment of her sugar. Transfusion of red blood cells and 3 units of platelets was started in the emergency room. No signs of acute active bleeding currently. No signs of cardiac ischemia. Will likely need a heme consult for the leukocytosis. I spoke with Dr. Noble ramirez who will be admitting the patient. EKG interpretation: Normal sinus rhythm rate of 85, normal axis, no ST or T- wave changes concerning for acute ischemia quality assurance monitor final interpretation: Normal sinus rhythm. Departure Diagnosis: Primary Impression: Symptomatic anemia Additional Impressions: Severe thrombocytopenia Leukocytosis Hyperglycemia due to type 2 diabetes mellitus Condition: Serious NEALRAMONAGIUSEPPE DO Dec 17, 2016 14:02
[2016-12-17 16:15] VITALS: TEMP 98.2
[2016-12-17 18:02] VITALS: BP 143/65; RESP 17
[2016-12-17 18:38] VITALS: Ht 162.6 cm; Wt 67.0 kg
[2016-12-17 20:00] VITALS: BP 123/58; RESP 20
[2016-12-18] VITALS (7 sets, daily range): BP systolic 103–157; BP diastolic 51–70; PULSE 93–99; RESP 18–19
[2016-12-18] MEDS ORDERED: DEXTROSE 50% 50 ML SYRINGE IV PRN ×2 (01:05)
[2016-12-18] MEDS ORDERED: GLUCOSE GEL 15 GRAM TUBE PO PRN ×2 (01:05)
[2016-12-18] MEDS ORDERED: GLUCAGON 1 MG INJ IM PRN (01:05)
[2016-12-18] MEDS ORDERED: GLUCOSE GEL 15 GRAM TUBE BUCCAL PRN (01:05)
[2016-12-18] MEDS ORDERED: NEOMYC/POLYMYX/BACIT 30 GM OINT TOP ONE (01:30)
[2016-12-18] MEDS: ACCU-CHEK XX SCH (02:00)
[2016-12-18] MEDS ORDERED: ACCU-CHEK XX SCH (02:00)
[2016-12-18] MEDS: PANTOPRAZOLE (EC) 40 MG TAB PO SCH (05:44)
[2016-12-18] MEDS: metFORMIN 500 MG TAB PO SCH ×2 (08:06→17:33)
[2016-12-18] MEDS: INSULIN ASPART [NOVOLOG] 3 ML PEN SC SCH ×4 (08:07→21:00)
[2016-12-18] MEDS: CELECOXIB 200 MG CAP PO SCH (08:22)
[2016-12-18] MEDS: MULTIVITAMINS THERAPEUTIC TAB PO SCH (08:22)
[2016-12-18] MEDS: REPAGLINIDE 2 MG TAB PO SCH ×2 (08:22→17:33)
[2016-12-18] MEDS: GABAPENTIN 300 MG CAP PO SCH ×3 (08:22→21:03)
[2016-12-18] MEDS: FENOFIBRATE 145 MG TAB PO SCH (08:22)
[2016-12-18] MEDS: BRIMONIDINE 0.2% 5 ML BTL RIGHT EYE SCH ×2 (08:23→21:04)
[2016-12-18] MEDS: LINAGLIPTIN 5 MG TABLET PO SCH (08:23)
[2016-12-18] MEDS: CALCIUM CARBONATE 1.25 GM TAB PO SCH ×2 (08:23→21:04)
[2016-12-18] MEDS: BENAZEPRIL 20 MG TAB PO SCH (08:23)
[2016-12-18] MEDS: OXYBUTYNIN (XL) 5 MG TAB PO SCH (08:23)
[2016-12-18] MEDS: DORZOLAMIDE/TIMOLOL 10 ML OPH BOTH EYES SCH ×2 (08:24→21:04)
[2016-12-18 09:35] LABS: ADD UMIC NO; UR ASCORBIC ACID NEGATIVE (NEGATIVE); UR BILIRUBIN (Dip) NEGATIVE (NEGATIVE); UR BLOOD (Dip) NEGATIVE (NEGATIVE); UR CLARITY CLEAR (CLEAR); UR COLOR STRAW (YELLOW); UR GLUCOSE (Dip) NEGATIVE (NEGATIVE); UR KETONES (Dip) NEGATIVE (NEGATIVE); UR LEUKOCYTE ESTERASE (Dip) NEGATIVE Leu/ul (NEGATIVE); UR NITRITE (Dip) NEGATIVE (NEGATIVE); UR SPECIFIC GRAVITY (Dip) 1.008 (1.003-1.030); UR TOTAL PROTEIN (Dip) NEGATIVE (NEGATIVE); UR UROBILINOGEN (Dip) NEGATIVE (NEGATIVE)
[2016-12-18 12:28] LABS: ADD SCAN DIFF NO
[2016-12-18 12:34] LABS: ABNORMAL IP MESSAGE 1; HEMATOCRIT 23.5 % (37.0-47.0); HEMOGLOBIN 7.6 g/dl (12.0-16.0); MEAN CORPUSCULAR HEMOGLOBIN 30.6 pg (29.0-33.0); MEAN CORPUSCULAR HGB CONC 32.3 g/dl (32.0-37.0); MEAN CORPUSCULAR VOLUME 94.8 fl (82.0-101.0); MEAN PLATELET VOLUME 9.4 fl (7.4-10.4); PLATELET COUNT 103 10^3/UL (140-415); RED BLOOD COUNT 2.48 10^6/ul (4.20-5.40); RED CELL DISTRIBUTION WIDTH 19.9 % (11.5-14.5)
[2016-12-18 12:59] LABS: ALBUMIN 4.3 g/dl (3.3-4.9); ALBUMIN/GLOBULIN RATIO 1.22; BILIRUBIN,INDIRECT 0.6 mg/dl (0-1.1); BILIRUBIN,TOTAL 0.6 mg/dl (0.2-1.3); CALCIUM 10.5 mg/dl (8.4-10.2); CREATININE 0.69 mg/dl (0.44-1.00); POTASSIUM 4.5 mmol/L (3.5-5.1); TOTAL PROTEIN 7.8 g/dl (6.1-8.1)
--- NOTE | 2016-12-18 14:02 | RADRPT ---
PROCEDURE: XR Chest. CLINICAL INDICATION: Shortness of breath. TECHNIQUE: Single frontal view. COMPARISON: 05/29/2016. FINDINGS: There is elevation of the right hemidiaphragm and mild right basilar atelectasis. The lungs are oth erwise clear. The heart size is normal. There is calcification in the aorta consistent with atherosclerosis. There is no pleural effusion. There is no pneumothorax. IMPRESSION: 1. Atherosclerosis. 2. Elevation of the right hemidiaphragm and mild right basilar atelectasis. 3. Otherwise unremarkable chest radiograph. 4. No change from 05/29/2016. RPTAT: QQ .Yimi Cornell MD, MD Date Time Electronically viewed and signed by .Yimi Cornell MD, MD on 12/18/2016 14:02 .R/
[2016-12-18 14:09] LABS: LYMPHOCYTES # 2.7 10^3/ul (0.8-2.9); MONOCYTE # 3.1 10^3/ul (0.3-0.9); MYELOCYTES # 0.3; NEUTROPHIL # 25.5 10^3/ul (1.6-7.5)
[2016-12-18] MEDS: ACETAMINOPHEN 325 MG TAB PO PRN ×2 (15:49→21:03)
[2016-12-18] MEDS: HYDROCODONE/APAP (10/325) TAB PO PRN ×2 (15:49→21:48)
[2016-12-18] MEDS: ATORVASTATIN 20 MG TAB PO SCH (21:03)
[2016-12-18] MEDS: LATANOPROST 0.005% 2.5 ML OPH RIGHT EYE SCH (21:36)
[2016-12-19] MEDS: ACCU-CHEK XX SCH (02:00)
[2016-12-19 02:15] VITALS: BP 117/64; RESP 17
[2016-12-19 02:41] LABS: ADD UMIC NO; UR ASCORBIC ACID NEGATIVE (NEGATIVE); UR BILIRUBIN (Dip) NEGATIVE (NEGATIVE); UR BLOOD (Dip) NEGATIVE (NEGATIVE); UR CLARITY CLEAR (CLEAR); UR COLOR YELLOW (YELLOW); UR GLUCOSE (Dip) NEGATIVE (NEGATIVE); UR KETONES (Dip) NEGATIVE (NEGATIVE); UR LEUKOCYTE ESTERASE (Dip) NEGATIVE Leu/ul (NEGATIVE); UR NITRITE (Dip) NEGATIVE (NEGATIVE); UR SPECIFIC GRAVITY (Dip) 1.012 (1.003-1.030); UR TOTAL PROTEIN (Dip) NEGATIVE (NEGATIVE); UR UROBILINOGEN (Dip) NEGATIVE (NEGATIVE)
[2016-12-19 05:21] LABS: ADD SCAN DIFF NO
[2016-12-19 05:32] LABS: ABNORMAL IP MESSAGE 1; HEMATOCRIT 24.8 % (37.0-47.0); HEMOGLOBIN 7.8 g/dl (12.0-16.0); MEAN CORPUSCULAR HEMOGLOBIN 29.8 pg (29.0-33.0); MEAN CORPUSCULAR HGB CONC 31.5 g/dl (32.0-37.0); MEAN CORPUSCULAR VOLUME 94.7 fl (82.0-101.0); MEAN PLATELET VOLUME 10.2 fl (7.4-10.4); PLATELET COUNT 69 10^3/UL (140-415); RED BLOOD COUNT 2.62 10^6/ul (4.20-5.40); RED CELL DISTRIBUTION WIDTH 19.4 % (11.5-14.5); WHITE BLOOD COUNT 39.8 10^3/ul (4.8-10.8)
[2016-12-19 05:53] LABS: CALCIUM 10.3 mg/dl (8.4-10.2); CREATININE 0.77 mg/dl (0.44-1.00); POTASSIUM 3.8 mmol/L (3.5-5.1)
[2016-12-19] MEDS: CIPROFLOXACIN 500 MG TAB PO SCH ×2 (05:56→19:48)
[2016-12-19] MEDS: PANTOPRAZOLE (EC) 40 MG TAB PO SCH (05:56)
[2016-12-19 05:57] VITALS: BP 154/65; PULSE 92
[2016-12-19] MEDS: INSULIN ASPART [NOVOLOG] 3 ML PEN SC SCH ×4 (08:00→20:48)
[2016-12-19 08:08] VITALS: BP 123/56; RESP 17
[2016-12-19 09:52] LABS: POST-TRANSFUSION BILIRUBIN 0.6 mg/dl; PRETRANSFUSION BILIRUBIN 0.3 mg/dl
[2016-12-19] MEDS: REPAGLINIDE 2 MG TAB PO SCH ×2 (09:52→19:48)
[2016-12-19] MEDS: metFORMIN 500 MG TAB PO SCH ×2 (09:53→19:48)
[2016-12-19] MEDS: BENAZEPRIL 20 MG TAB PO SCH (09:54)
[2016-12-19] MEDS: OXYBUTYNIN (XL) 5 MG TAB PO SCH (09:54)
[2016-12-19] MEDS: MULTIVITAMINS THERAPEUTIC TAB PO SCH (09:54)
[2016-12-19] MEDS: GABAPENTIN 300 MG CAP PO SCH ×3 (09:54→20:43)
[2016-12-19] MEDS: CELECOXIB 200 MG CAP PO SCH (09:54)
[2016-12-19] MEDS: CALCIUM CARBONATE 1.25 GM TAB PO SCH ×2 (09:54→20:44)
[2016-12-19] MEDS: LINAGLIPTIN 5 MG TABLET PO SCH (09:54)
[2016-12-19] MEDS: DORZOLAMIDE/TIMOLOL 10 ML OPH BOTH EYES SCH ×2 (09:54→20:42)
[2016-12-19] MEDS: FENOFIBRATE 145 MG TAB PO SCH (09:55)
[2016-12-19] MEDS: BRIMONIDINE 0.2% 5 ML BTL RIGHT EYE SCH ×2 (09:55→20:45)
[2016-12-19 10:00] LABS: MONOCYTE # 3.6 10^3/ul (0.3-0.9); NEUTROPHIL # 27.9 10^3/ul (1.6-7.5)
[2016-12-19 10:01] LABS: ANISOCYTOSIS 2+; HYPOCHROMASIA 2+
[2016-12-19 15:14] VITALS: BP 87/52; RESP 17
[2016-12-19 15:18] VITALS: BP 108/59; PULSE 82; RESP 18
[2016-12-19 20:23] VITALS: BP 123/58; RESP 18
[2016-12-19] MEDS: ATORVASTATIN 20 MG TAB PO SCH (20:44)
[2016-12-19] MEDS: LATANOPROST 0.005% 2.5 ML OPH RIGHT EYE SCH (20:45)
[2016-12-19 22:20] LABS: CREATINE KINASE 41 IU/L (23-200)
[2016-12-19 22:32] LABS: CK-MB 0.41 ng/ml (0.0-2.4); TROPONIN-I < 0.012 ng/ml (0.00-0.12)
[2016-12-20] MEDS: ACCU-CHEK XX SCH (01:57)
[2016-12-20 02:30] VITALS: BP 111/55; RESP 18
[2016-12-20] MEDS: HYDROCODONE/APAP (10/325) TAB PO PRN (02:52)
[2016-12-20] MEDS: CIPROFLOXACIN 500 MG TAB PO SCH ×2 (05:32→17:03)
[2016-12-20] MEDS: PANTOPRAZOLE (EC) 40 MG TAB PO SCH (05:32)
[2016-12-20 06:41] LABS: ABNORMAL IP MESSAGE 1; HEMATOCRIT 32.3 % (37.0-47.0); HEMOGLOBIN 10.2 g/dl (12.0-16.0); MEAN CORPUSCULAR HEMOGLOBIN 28.8 pg (29.0-33.0); MEAN CORPUSCULAR HGB CONC 31.6 g/dl (32.0-37.0); MEAN CORPUSCULAR VOLUME 91.2 fl (82.0-101.0); NUCLEATED RED BLOOD CELLS% 3.8 /100WBC (0.0-0.0); RED BLOOD COUNT 3.54 10^6/ul (4.20-5.40); RED CELL DISTRIBUTION WIDTH 19.9 % (11.5-14.5); WHITE BLOOD COUNT 25.3 10^3/ul (4.8-10.8)
[2016-12-20 06:44] LABS: PLATELET COUNT 48 10^3/UL (140-415)
[2016-12-20 06:45] LABS: ADD SCAN DIFF YES
[2016-12-20 06:48] LABS: CALCIUM 10.5 mg/dl (8.4-10.2); CREATININE 1.05 mg/dl (0.44-1.00); POTASSIUM 4.3 mmol/L (3.5-5.1)
[2016-12-20 07:45] VITALS: BP 138/63; RESP 16
[2016-12-20] MEDS: INSULIN ASPART [NOVOLOG] 3 ML PEN SC SCH ×3 (07:47→17:06)
[2016-12-20] MEDS: metFORMIN 500 MG TAB PO SCH ×2 (08:34→17:04)
[2016-12-20] MEDS: CALCIUM CARBONATE 1.25 GM TAB PO SCH (08:34)
[2016-12-20] MEDS: MULTIVITAMINS THERAPEUTIC TAB PO SCH (08:34)
[2016-12-20] MEDS: GABAPENTIN 300 MG CAP PO SCH ×2 (08:34→13:23)
[2016-12-20] MEDS: LINAGLIPTIN 5 MG TABLET PO SCH (08:34)
[2016-12-20] MEDS: DORZOLAMIDE/TIMOLOL 10 ML OPH BOTH EYES SCH (08:34)
[2016-12-20] MEDS: OXYBUTYNIN (XL) 5 MG TAB PO SCH (08:35)
[2016-12-20] MEDS: FENOFIBRATE 145 MG TAB PO SCH (08:35)
[2016-12-20] MEDS: BRIMONIDINE 0.2% 5 ML BTL RIGHT EYE SCH (08:35)
[2016-12-20] MEDS: CELECOXIB 200 MG CAP PO SCH (08:35)
[2016-12-20] MEDS: BENAZEPRIL 20 MG TAB PO SCH (08:35)
[2016-12-20] MEDS: REPAGLINIDE 2 MG TAB PO SCH ×2 (08:35→17:03)
[2016-12-20 11:04] LABS: MONOCYTE # 1.3 10^3/ul (0.3-0.9); NEUTROPHIL # 16.7 10^3/ul (1.6-7.5)
--- NOTE | 2016-12-20 13:45 | RADRPT ---
Vent Rate: 76 bpm RR Interval: 0 msec MA Interval: 144 msec QRS Duration: 88 msec QT Interval: 386 msec QTC Interval: 434 msec P-R-T [place]: 37 - 8 - 26 degrees Normal sinus rhythm Normal ECG Electronically Signed By: Donnie Vazquez [id number]
[2016-12-20 14:35] VITALS: BP 130/70; RESP 16
[2016-12-20 14:36] LABS: MICROALBUMIN 0.7 mg/dL
--- NOTE | 2016-12-20 15:18 | CONS ---
Date/Time of Note Date/Time of Note DATE: 12/20/16 TIME: 15:08 Assessment/Plan Assessment/Plan Chief Complaint/Hosp Course 71 yo with high grade MDS admitted with leukocytosis, anemia and thrombocytopenia. Pt's leukocytosis has improved with antibiotics. Pt will have a baseline leukocytosis as a result of her High grade MDS -ok for discharge from heme standpoint -should continue a full course of antibiotics as an out patient in case of underlying infection -pt will restart her Vidaza tomorrow in our office -no more transfusions are needed at this time approximately 40 min were spent at patient's bed side and in coordination of her care Problems: (1) Myelodysplasia (myelodysplastic syndrome) Status: Chronic (2) Severe thrombocytopenia Status: Chronic (3) Symptomatic anemia Status: Chronic (4) Leukocytosis Status: Chronic Consultation Date/Type/Reason Admit Date/Time Dec 17, 2016 at 10:25 Date of Consultation: Dec 20, 2016 Type of Consultation: Hematology Reason for Consultation high grade myelodysplastic syndrome Referring Provider: JESSICA BOWMAN MD Hx of Present Illness 71 yo with high grade MDS currently being treated with a hypomethylating agent, Vidaza. Pt completed her 4th cycle on 11/05 and was supposed to start her 5th cycle. Due to insurance reasons her dose was delayed. As an out patient she was found to be severely anemic with a hg < 7. She was sent to the ER for blood and platelet transfusion. She has since received 4 units of PRBCs and 3 units of platelets. After her last blood transfusion she spiked a mild temperature. Since 12/19 she has been on ciprofloxacin BID with resolution of her fever. Constitutional: no complaints Eyes: no complaints ENT: no complaints Respiratory: no complaints Cardiovascular: no complaints Gastrointestinal: no complaints Genitourinary: no complaints Musculoskeletal: no complaints Skin: no complaints Past Medical History Diabetes Hyperlipidemia Family History Significant Family History: no pertinent family hx Social History Alcohol Use: none Smoking Status: Former smoker Drug Use: none Exam/Review of Systems Vital Signs Vitals Vital Signs Date Time Temp Pulse Resp B/P Pulse Ox O2 Delivery O2 Flow Rate FiO2 12/20/16 14:35 98.3 77 16 130/70 96 12/18/16 15:50 Room Air 12/17/16 08:22 2 Intake and Output 12/19/16 12/19/16 12/20/16 15:00 23:00 07:00 Intake Total 620 ml 1060 ml Balance 620 ml 1060 ml Exam Constitutional: alert, frail, oriented Psych: anxiety, depression Head: normocephalic Eyes: nl conjunctiva ENMT: nl external ears & nose Neck: non-tender, supple Respiratory: clear to auscultation, normal air movement Cardiovascular: nl pulses, regular rate and rhythm Gastrointestinal: soft Musculoskeletal: nl extremities to inspection, nl gait and stance Results Result Diagram: 12/20/16 0505 12/20/16 0505 Results 24 hrs Laboratory Tests Test 12/19/16 17:04 12/19/16 20:47 12/19/16 21:45 12/20/16 05:05 Bedside Glucose 121 154 Creatine Kinase 41 Creatine Kinase Index 1.0 Creatinine Kinase MB (Mass) 0.41 Troponin I < 0.012 White Blood Count 25.3 #H Red Blood Count 3.54 #L Hemoglobin 10.2 #L Hematocrit 32.3 #L Mean Corpuscular Volume 91.2 Mean Corpuscular Hemoglobin 28.8 L Mean Corpuscular Hemoglobin Concent 31.6 L Red Cell Distribution Width 19.9 H Platelet Count 48 #L Mean Platelet Volume Neutrophils % 66.0 Lymphocytes % 12.0 L Monocytes % 5.0 Eosinophils % Basophils % Nucleated Red Blood Cells % 3.8 H Neutrophils # 16.7 H Lymphocytes # 3.0 H Monocytes # 1.3 H Eosinophils # Basophils # Nucleated Red Blood Cells # 1.0 H Sodium Level 137 Potassium Level 4.3 Chloride Level 104 Carbon Dioxide Level 26 Anion Gap 11 Blood Urea Nitrogen 23 H Creatinine 1.05 H Glucose Level 118 Calcium Level 10.5 H Test 12/20/16 06:07 12/20/16 07:47 12/20/16 12:02 Lab Scanned Report BLOOD TRANSFUSION Bedside Glucose 71 112 Medications Medications Current Medications Latanoprost (Xalatan) 1 drop HS RIGHT EYE Last administered on 12/19/16 20:45; Admin Dose 1 DROP; Start 12/18/16 at 21:00 Brimonidine Tartrate (Alphagan 0.2%) 1 drop BID RIGHT EYE Last administered on 12/20/16 08:35; Admin Dose 1 DROP; Start 12/18/16 at 09:00 Calcium Carbonate (Oyster Shell Calcium) 1.25 gm BID PO Last administered on 08:34; Admin Dose 1.25 GM; Start 12/18/16 at 09:00 Celecoxib (Celebrex) 200 mg DAILY PO Last administered on 12/20/16 08:35; Admin Dose 200 MG; Start 12/18/16 at 09:00 Dorzolamide/ Timolol (Cosopt) 1 drop BID BOTH EYES Last administered on 08:34; Admin Dose 1 DROP; Start 12/18/16 at 09:00 Fenofibrate (Tricor) 145 mg DAILY PO Last administered on 12/20/16 08:35; Admin Dose 145 MG; Start 12/18/16 at 09:00 Gabapentin (Neurontin) 600 mg TID PO Last administered on 12/20/16 13:23; Admin Dose 600 MG; Start 12/18/16 at 09:00 Multivitamins Therapeutic (Theragran) 1 tab DAILY PO Last administered on 08:34; Admin Dose 1 TAB; Start 12/18/16 at 09:00 Oxybutynin Chloride (Ditropan Xl) 10 mg DAILY PO Last administered on 08:35; Admin Dose 10 MG; Start 12/18/16 at 09:00 Pantoprazole (Protonix Tab) 40 mg DAILY@06 PO Last administered on 12/20/16 05 :32; Admin Dose 40 MG; Start 12/18/16 at 06:00 Benazepril HCl (Lotensin) 20 mg DAILY PO Last administered on 12/20/16 08:35; Admin Dose 20 MG; Start 12/18/16 at 09:00 Atorvastatin Calcium (Lipitor) 20 mg DAILY@21 PO Last administered on 12/19/16 20:44; Admin Dose 20 MG; Start 12/18/16 at 21:00 Linagliptin (Tradjenta) 5 mg DAILY PO Last administered on 12/20/16 08:34; Admin Dose 5 MG; Start 12/18/16 at 09:00 Diagnostic Test (Pha) (Accu-Chek) 1 ea 02 XX ; Start 12/18/16 at 02:00 Miscellaneous Information 1 ea NOTE XX ; Start 12/18/16 at 01:05 Glucose (Glutose) 15 gm Q15M PRN PO DECREASED GLUCOSE; Start 12/18/16 at 01:05 Glucose (Glutose) 22.5 gm Q15M PRN PO DECREASED GLUCOSE; Start 12/18/16 at 01:05 Dextrose (D50w Syringe) 25 ml Q15M PRN IV DECREASED GLUCOSE; Start 12/18/16 at 01:05 Dextrose (D50w Syringe) 50 ml Q15M PRN IV DECREASED GLUCOSE; Start 12/18/16 at 01:05 Glucagon (Glucagen) 1 mg Q15M PRN IM DECREASED GLUCOSE; Start 12/18/16 at 01:05 Glucose (Glutose) 15 gm Q15M PRN BUCCAL DECREASED GLUCOSE; Start 12/18/16 at 01: 05 Acetaminophen (Tylenol Tab) 650 mg Q4H PRN PO PAIN AND OR ELEVATED TEMP Last administered on 12/18/16 21:03; Admin Dose 650 MG; Start 12/18/16 at 16:00 Acetaminophen/ Hydrocodone Bitart ([place] (10/325)) 1 tab Q4H PRN PO PAIN Last administered on 12/20/16 02:52; Admin Dose 1 TAB; Start 12/18/16 at 16:00 Ciprofloxacin (Cipro) 500 mg BID@ PO Last administered on 12/20/16 05:32 ; Admin Dose 500 MG; Start 12/19/16 at 06:00 ALBERTO JOSEPH M.D. Dec 20, 2016 15:18
[2016-12-20] MEDS ORDERED: CIPR500T4 PO (16:02)
== END 2016-12-20 18:19 | disposition home or self-care (01) | DRG 812 ==
LOC: E/R 07:42 → PP2 10:25
PROC: 30233N1 Transfusion of Nonautologous Red Blood Cells into Peripheral Vein, Percutaneous Approach (ICD-10-PCS; principal; 2016-12-17)
PROC: 30233R1 Transfusion of Nonautologous Platelets into Peripheral Vein, Percutaneous Approach (ICD-10-PCS; 2016-12-17)
DX: D46.9 Myelodysplastic syndrome, unspecified (principal); E11.65 Type 2 diabetes mellitus with hyperglycemia; D69.6 Thrombocytopenia, unspecified; I10 Essential (primary) hypertension; E78.5 Hyperlipidemia, unspecified
CPT/HCPCS: 36415; 36430; 71010; 80048; 80053; 81003; 82043; 82550; 82553; 82962; 83036; 84484; 85025; 85610; 85730; 86078; 86644; 86850; 86900; 86901; 86920; 87040; 87070; 87086; 87102; 93005; J1815; J7040; P9016; P9035; P9612

== ENCOUNTER 2016-12-31 07:17 | Inpatient (IN) | payer MEDICARE, BC ==
[~2016-12-31] VITALS: Ht 154.9 cm; Wt 71.0 kg
[~2016-12-31 07:17] MED LIST changes: -BROM3DRO LEFT EYE; +CIPR500T4 PO; -MURO1282 LEFT EYE; +SIMV40TA2 PO
[2016-12-31] MEDS ORDERED: SOD CHLORIDE 0.9% 500 ML IV STA (07:58)
[2016-12-31 08:51] LABS: ADD SCAN DIFF NO
[2016-12-31 09:01] LABS: ABNORMAL IP MESSAGE 1; BASOPHIL # 0.1 10^3/ul (0.0-0.1); BASOPHILS % 0.3 % (0.0-2.0); HEMATOCRIT 27.5 % (37.0-47.0); HEMOGLOBIN 8.7 g/dl (12.0-16.0); LYMPHOCYTES # 1.8 10^3/ul (0.8-2.9); MEAN CORPUSCULAR HEMOGLOBIN 29.3 pg (29.0-33.0); MEAN CORPUSCULAR HGB CONC 31.6 g/dl (32.0-37.0); MEAN CORPUSCULAR VOLUME 92.6 fl (82.0-101.0); MONOCYTE # 0.6 10^3/ul (0.3-0.9); MONOCYTES % 4.1 % (0.0-11.0); NEUTROPHIL # 11.2 10^3/ul (1.6-7.5); NEUTROPHILS % 75.5 % (39.0-77.0); NUCLEATED RED BLOOD CELLS # 0.1 10^3/ul (0.0-0.0); RED BLOOD COUNT 2.97 10^6/ul (4.20-5.40); RED CELL DISTRIBUTION WIDTH 17.4 % (11.5-14.5); WHITE BLOOD COUNT 14.9 10^3/ul (4.8-10.8)
[2016-12-31 09:02] LABS: PLATELET COUNT 71 10^3/UL (140-415)
[2016-12-31 09:09] LABS: INR 0.91; PROTIME 12.3 Sec (12.2-14.2)
[2016-12-31 09:12] LABS: PARTIAL THROMBOPLASTIN TIME 22.3 Sec (25.0-35.0)
[2016-12-31 09:24] LABS: ALANINE AMINOTRANSFERASE 25 IU/L (13-69); ALBUMIN 4.1 g/dl (3.3-4.9); ALBUMIN/GLOBULIN RATIO 0.87; ALKALINE PHOSPHATASE 78 IU/L (42-121); ANION GAP 19 (8-16); ASPARTATE AMINO TRANSFERASE 63 IU/L (15-46); BILIRUBIN,INDIRECT 0.4 mg/dl (0-1.1); BILIRUBIN,TOTAL 0.4 mg/dl (0.2-1.3); BLOOD UREA NITROGEN 23 mg/dl (7-20); CALCIUM 10.4 mg/dl (8.4-10.2); CARBON DIOXIDE 26 mmol/L (21-31); CHLORIDE 104 mmol/L (97-110); CREATININE 0.83 mg/dl (0.44-1.00); GLUCOSE 258 mg/dl (70-220); POTASSIUM 4.8 mmol/L (3.5-5.1); SODIUM 144 mmol/L (135-144); TOTAL PROTEIN 8.8 g/dl (6.1-8.1)
[2016-12-31 09:47] LABS: TROPONIN-I < 0.012 ng/ml (0.00-0.12)
[2016-12-31 11:38] LABS: ABNORMAL IP MESSAGE 1; HEMATOCRIT 25.2 % (37.0-47.0); HEMOGLOBIN 7.9 g/dl (12.0-16.0); MEAN CORPUSCULAR HEMOGLOBIN 28.9 pg (29.0-33.0); MEAN CORPUSCULAR HGB CONC 31.3 g/dl (32.0-37.0); MEAN CORPUSCULAR VOLUME 92.3 fl (82.0-101.0); NUCLEATED RED BLOOD CELLS% 0.8 /100WBC (0.0-0.0); RED BLOOD COUNT 2.73 10^6/ul (4.20-5.40); RED CELL DISTRIBUTION WIDTH 17.3 % (11.5-14.5); WHITE BLOOD COUNT 14.5 10^3/ul (4.8-10.8)
[2016-12-31 11:40] LABS: POSITIVE DIFF @See below
[2016-12-31 11:43] LABS: PLATELET COUNT 5 10^3/UL (140-415)
[2016-12-31 11:47] VITALS: TEMP 98.2
[2016-12-31] MEDS ORDERED: SOD CHLORIDE 0.9% 250 ML IV ONE (12:57)
[2016-12-31] MEDS ORDERED: ONDANSETRON 4 MG INJ IV PRN (13:00)
[2016-12-31] MEDS ORDERED: ACETAMINOPHEN 325 MG TAB PO PRN ×2 (13:00→15:30)
--- NOTE | 2016-12-31 14:27 | ERA ---
ER Documentation Chief Complaint Date/Time DATE: 12/31/16 TIME: 14:23 Chief Complaint ABNORMAL LAB WORK SENT BY MD HENDRIX 71-year-old female was sent in for low platelets of 7. She has myelodysplastic syndrome frequently requires transfusion of platelets and packed red blood cells because she has trouble making them. She has had no bleeding and she is asymptomatic. ROS All systems reviewed and are negative except as per history of present illness. Medications Home Meds Reported Medications Ciprofloxacin Hcl* (Ciprofloxacin Hcl*) 500 Mg Tablet, 500 MG PO BID, #10 TAB 12/20/16 Simvastatin* (Zocor*) 40 Mg Tablet, 40 MG PO QHS, #30 TAB 12/17/16 Calcium Carbonate ([id number]) 500 Mg Tablet, 500 MG PO BID, TAB 05/28/16 Multivitamin* (Daily Value*) 1 Each Tablet, 1 TAB PO DAILY, TAB 05/28/16 Bimatoprost* (Lumigan*) 0.01%-2.5 Ml Opht Drops, 1 DROP RIGHT EYE HS, EA 04/16/16 Brimonidine Tartrate* (Alphagan*) 0.2%-10 Ml Opht Drops, 1 DROP RIGHT EYE BID, BOTTLE 04/16/16 Dorzolamide-Timolol* (Cosopt*) 2%-0.5% - 10 Ml Soln, 1 DROP BOTH EYES BID, BOTTLE 04/16/16 Ramipril (Ramipril) 5 Mg Capsule, 5 MG PO DAILY, CAP 04/16/16 Celecoxib* (Celebrex*) 200 Mg Capsule, 200 MG PO DAILY, CAP 04/16/16 Fenofibrate Nanocrystallized* (Fenofibrate*) 145 Mg Tablet, 145 MG PO DAILY, TAB 04/16/16 Omeprazole* (Omeprazole*) 20 Mg Capsule.dr, 20 MG PO DAILY, #30 CAP 04/16/16 Oxybutynin Chloride* (Ditropan* XL) 10 Mg Tab.er.24, 10 MG PO DAILY, TAB.SA 04/16/16 Repaglinide* (Repaglinide*) 2 Mg Tablet, 2 MG PO AC BREAKFAST DINNER, TAB 04/16/16 Metformin Hcl* (Metformin Hcl*) 1,000 Mg Tablet, 1000 MG PO WITH BREAKFAST DINNE , #30 TAB 11/4/16 Sitagliptin* (Januvia*) 100 Mg Tablet, 100 MG PO DAILY, #30 TAB 04/16/16 Gabapentin* (Gabapentin*) 600 Mg Tablet, 600 MG PO TID, #90 TAB 04/16/16 Allergies Allergies: Coded Allergies: No Known Allergy (Verified , 12/31/16) PMhx/Soc History of Surgery: Yes (LAMINECTOMY 2008, LEFT EYE SURGERY) Anesthesia Reaction: No Hx Neurological Disorder: Yes ("BACK PROBLEMS") Hx Respiratory Disorders: No Hx Cardiac Disorders: Yes (HTN) Hx Psychiatric Problems: No Hx Miscellaneous Medical Probl: No Hx Alcohol Use: No Hx Substance Use: No Hx Tobacco Use: No Smoking Status: Never smoker Physical Exam Vitals Vital Signs Date Time Temp Pulse Resp B/P Pulse Ox O2 Delivery O2 Flow Rate FiO2 12/31/16 11:47 98.2 82 18 136/66 99 12/31/16 09:47 98.2 88 18 142/64 99 12/31/16 07:22 98.1 83 18 146/68 99 Physical Exam Const: [] No distress Head: Atraumatic Eyes: Normal Conjunctiva ENT: Normal External Ears, Nose and Mouth. Neck: Full range of motion..~ No meningismus. Resp: Clear to auscultation bilaterally Cardio: Regular rate and rhythm, no murmurs Abd: Soft, non tender, non distended. Normal bowel sounds Skin: No petechiae or rashes Ext: No cyanosis, or edema Neur: Awake and alert and oriented 3, no focal deficit Psych: Normal Mood and Affect Result Diagram: 12/31/16 1105 12/31/16 0815 Results 24 hrs Laboratory Tests Test 12/31/16 08:15 12/31/16 11:05 White Blood Count 14.910^3/ul 14.510^3/ul Red Blood Count 2.9710^6/ul 2.7310^6/ul Hemoglobin 8.7g/dl 7.9g/dl Hematocrit 27.5% 25.2% Mean Corpuscular Volume 92.6fl 92.3fl Mean Corpuscular Hemoglobin 29.3pg 28.9pg Mean Corpuscular Hemoglobin Concent 31.6g/dl 31.3g/dl Red Cell Distribution Width 17.4% 17.3% Platelet Count 7110^3/UL 510^3/UL Mean Platelet Volume fl fl Neutrophils % 75.5% % Lymphocytes % 12.0% % Monocytes % 4.1% % Eosinophils % 0.0% % Basophils % 0.3% % Neutrophils # 11.210^3/ul 10^3/ul Lymphocytes # 1.810^3/ul 10^3/ul Monocytes # 0.610^3/ul 10^3/ul Eosinophils # 0.010^3/ul 10^3/ul Basophils # 0.110^3/ul 10^3/ul Nucleated Red Blood Cells # 0.110^3/ul 10^3/ul Prothrombin Time 12.3Sec Prothrombin Time Ratio 1.0 INR International Normalized Ratio 0.91 Activated Partial Thromboplast Time 22.3Sec Sodium Level 144mmol/L Potassium Level 4.8mmol/L Chloride Level 104mmol/L Carbon Dioxide Level 26mmol/L Anion Gap 19 Blood Urea Nitrogen 23mg/dl Creatinine 0.83mg/dl Glucose Level 258mg/dl Calcium Level 10.4mg/dl Total Bilirubin 0.4mg/dl Direct Bilirubin 0.00mg/dl Indirect Bilirubin 0.4mg/dl Aspartate Amino Transf (AST/SGOT) 63IU/L Alanine Aminotransferase (ALT/SGPT) 25IU/L Alkaline Phosphatase 78IU/L Troponin I < 0.012ng/ml Total Protein 8.8g/dl Albumin 4.1g/dl Globulin 4.70g/dl Albumin/Globulin Ratio 0.87 Nucleated Red Blood Cells % 0.8/100WBC Current Medications Medications (Trade) Dose Ordered Sig/Gerard Route PRN Reason Start Time Stop Time Status Last Admin Dose Admin Sodium Chloride (NS) 500 ml @ 500 mls/hr Q1H STAT IV 12/31/16 07:58 12/31/16 08:57 DC 12/31/16 08:55 Ondansetron HCl (Zofran Inj) 4 mg BRIDGE ORDER PRN IV NAUSEA AND/OR VOMITING 12/31/16 13:00 01/01/17 12:59 Acetaminophen 650 mg 650 mg ER BRIDGE PRN PO MILD PAIN/FEVER 12/31/16 13:00 01/01/17 12:59 Sodium Chloride (NS) 250 ml @ 0 mls/hr Q0M ONCE IV 12/31/16 12:57 12/31/16 13:01 DC 12/31/16 13:00 Procedures/MDM Severe thrombocytopenia . Patient does not properly make platelets of blood cells and her condition only worsens with time. No current bleeding which she needs to be admitted for transfusion of platelets. Also transfusing packed red blood cells she will require this. Initially her platelet level was read as 71. I suspect that this was a lab error because the platelets were less when she was last discharged. He does not have a way to increase her level of platelets without transfusion. Repeat labs showed true critical value. Also has leukocytosis but this is decreased from her previous admission. She has no signs of infection. Spoke with Dr. Purvis who is admitting Departure Diagnosis: Primary Impression: Severe thrombocytopenia Additional Impressions: Anemia Myelodysplastic disease Hyperglycemia GIUSEPPE DE JESUS DO Dec 31, 2016 14:27
[2016-12-31 14:55] LABS: ANISOCYTOSIS 2+ (0-0); BASOPHILS % (M) 1 % (0-2); ERYTHROBLAST% (NRBC) (M) 1 % (0-0); METAMYELOCYTES %M 1 % (0-0); MONOCYTES % (M) 2 % (0-11); PLATELET ESTIMATE DECREASED; POIKILOCYTOSIS 2+ (0-0); POLYCHROMASIA 3+ (0-0)
[2016-12-31 15:00] VITALS: BP 144/62; RESP 16
[2016-12-31] MEDS ORDERED: ZOLPIDEM 5 MG TAB PO PRN (15:30)
[2016-12-31] MEDS ORDERED: MAGNESIUM HYDROXIDE 30ML CUP PO PRN (16:00)
[2016-12-31] MEDS ORDERED: GLUCAGON 1 MG INJ IM PRN (16:00)
[2016-12-31] MEDS ORDERED: DEXTROSE 50% 50 ML SYRINGE IV PRN ×2 (16:00)
[2016-12-31] MEDS ORDERED: GLUCOSE GEL 15 GRAM TUBE PO PRN ×2 (16:00)
[2016-12-31] MEDS ORDERED: ACCUCHECK 2 AM XX SCH (16:00)
[2016-12-31] MEDS ORDERED: GLUCOSE GEL 15 GRAM TUBE BUCCAL PRN (16:00)
[2016-12-31] MEDS: CELECOXIB 200 MG CAP PO SCH (17:00)
[2016-12-31 17:11] VITALS: Ht 154.9 cm; Wt 71.0 kg
[2016-12-31] MEDS: metFORMIN 500 MG TAB PO SCH (17:35)
[2016-12-31] MEDS: GABAPENTIN 300 MG CAP PO SCH ×2 (17:35→22:20)
[2016-12-31] MEDS ORDERED: INSULIN ASP PROT/ASPART (70/30) PEN SC SCH (17:45)
[2016-12-31] MEDS: REPAGLINIDE 2 MG TAB PO SCH (17:45)
[2016-12-31] MEDS: Insulin NOVOLOG SS MILD Algorithm (SS with meals and bedtime) SC SCH ×2 (17:52→20:48)
[2016-12-31] MEDS: BENAZEPRIL 20 MG TAB PO SCH (18:04)
[2016-12-31 18:31] VITALS: BP 145/68; RESP 16
[2016-12-31] MEDS ORDERED: traMADol-APAP 37.5-325 1 TAB PO ONE (19:00)
[2016-12-31 19:30] VITALS: BP 172/74; RESP 18
[2016-12-31 20:43] VITALS: BP 152/67; PULSE 73; RESP 18
[2016-12-31] MEDS: CALCIUM CARBONATE 1.25 GM TAB PO SCH (20:50)
[2016-12-31] MEDS: DORZOLAMIDE/TIMOLOL 10 ML OPH BOTH EYES SCH (20:50)
[2016-12-31] MEDS: BRIMONIDINE 0.2% 5 ML BTL RIGHT EYE SCH (20:50)
[2016-12-31] MEDS ORDERED: BIMATOPROST 0.01% 2.5 ML BTL RIGHT EYE SCH (21:00)
[2016-12-31] MEDS ORDERED: LATANOPROST 0.005% 2.5 ML OPH RIGHT EYE SCH (21:00)
[2016-12-31] MEDS ORDERED: GABAPENTIN 300 MG CAP PO SCH (21:00)
[2016-12-31] MEDS ORDERED: ATORVASTATIN 20 MG TAB PO SCH (21:00)
[2016-12-31] MEDS ORDERED: NON-FORMULARY/PATIENT OWN MED (Simvastatin* (Zocor*) 40 MG) PO SCH (21:00)
[2016-12-31 23:25] LABS: ABNORMAL IP MESSAGE 1; BASOPHILS % 0.3 % (0.0-2.0); HEMATOCRIT 29.5 % (37.0-47.0); HEMOGLOBIN 9.6 g/dl (12.0-16.0); LYMPHOCYTES # 1.9 10^3/ul (0.8-2.9); LYMPHOCYTES % 12.9 % (15.0-51.0); MEAN CORPUSCULAR HEMOGLOBIN 29.4 pg (29.0-33.0); MEAN CORPUSCULAR HGB CONC 32.5 g/dl (32.0-37.0); MEAN CORPUSCULAR VOLUME 90.2 fl (82.0-101.0); MEAN PLATELET VOLUME 10.3 fl (7.4-10.4); MONOCYTE # 0.8 10^3/ul (0.3-0.9); MONOCYTES % 5.5 % (0.0-11.0); NEUTROPHIL # 10.9 10^3/ul (1.6-7.5); NEUTROPHILS % 72.7 % (39.0-77.0); NUCLEATED RED BLOOD CELLS # 0.1 10^3/ul (0.0-0.0); NUCLEATED RED BLOOD CELLS% 0.9 /100WBC (0.0-0.0); PLATELET COUNT 39 10^3/UL (140-415); RED BLOOD COUNT 3.27 10^6/ul (4.20-5.40); RED CELL DISTRIBUTION WIDTH 16.6 % (11.5-14.5)
[2016-12-31 23:30] LABS: POSITIVE DIFF @See below
[2016-12-31 23:48] LABS: ALBUMIN 3.7 g/dl (3.3-4.9); ALBUMIN/GLOBULIN RATIO 0.94; BILIRUBIN,INDIRECT 0.3 mg/dl (0-1.1); BILIRUBIN,TOTAL 0.3 mg/dl (0.2-1.3); CALCIUM 10.2 mg/dl (8.4-10.2); CHOL/HDL RATIO 2.8 RATIO; CREATININE 0.81 mg/dl (0.44-1.00); POTASSIUM 3.9 mmol/L (3.5-5.1); TOTAL PROTEIN 7.6 g/dl (6.1-8.1)
[2017-01-01 00:18] LABS: THYROID STIMULATING HORMONE 0.833 MIU/L (0.465-4.680)
[2017-01-01] MEDS ORDERED: PANTOPRAZOLE (EC) 40 MG TAB PO SCH (06:00)
[2017-01-01 06:18] LABS: ADD UMIC YES; UR ASCORBIC ACID NEGATIVE (NEGATIVE); UR BILIRUBIN (Dip) NEGATIVE (NEGATIVE); UR BLOOD (Dip) 1+ mg/dL (NEGATIVE); UR CLARITY CLEAR (CLEAR); UR COLOR STRAW (YELLOW); UR GLUCOSE (Dip) NEGATIVE (NEGATIVE); UR KETONES (Dip) NEGATIVE (NEGATIVE); UR LEUKOCYTE ESTERASE (Dip) NEGATIVE Leu/ul (NEGATIVE); UR NITRITE (Dip) NEGATIVE (NEGATIVE); UR RBC 2 /HPF (0-5); UR SPECIFIC GRAVITY (Dip) 1.009 (1.003-1.030); UR TOTAL PROTEIN (Dip) NEGATIVE (NEGATIVE); UR UROBILINOGEN (Dip) NEGATIVE (NEGATIVE)
[2017-01-01 07:45] VITALS: BP 145/69; RESP 18
[2017-01-01] MEDS: Insulin NOVOLOG SS MILD Algorithm (SS with meals and bedtime) SC SCH (07:58)
[2017-01-01] MEDS: REPAGLINIDE 2 MG TAB PO SCH (08:18)
[2017-01-01] MEDS: CELECOXIB 200 MG CAP PO SCH (08:18)
[2017-01-01] MEDS: GABAPENTIN 300 MG CAP PO SCH (08:18)
[2017-01-01] MEDS: BENAZEPRIL 20 MG TAB PO SCH (08:18)
[2017-01-01] MEDS: CALCIUM CARBONATE 1.25 GM TAB PO SCH (08:18)
[2017-01-01] MEDS: BRIMONIDINE 0.2% 5 ML BTL RIGHT EYE SCH (08:19)
[2017-01-01] MEDS: DORZOLAMIDE/TIMOLOL 10 ML OPH BOTH EYES SCH (08:19)
[2017-01-01] MEDS: metFORMIN 500 MG TAB PO SCH (08:23)
[2017-01-01] MEDS ORDERED: NON-FORMULARY/PATIENT OWN MED (Ramipril 5 MG) PO SCH (09:00)
[2017-01-01] MEDS ORDERED: NON-FORMULARY/PATIENT OWN MED (Omeprazole* 20 MG) PO SCH (09:00)
[2017-01-01] MEDS ORDERED: FENOFIBRATE 145 MG TAB PO SCH (09:00)
[2017-01-01] MEDS ORDERED: LINAGLIPTIN 5 MG TABLET PO SCH (09:00)
[2017-01-01] MEDS ORDERED: MULTIVITAMINS THERAPEUTIC TAB PO SCH (09:00)
[2017-01-01] MEDS ORDERED: OXYBUTYNIN (XL) 5 MG TAB PO SCH (09:00)
[2017-01-01] MEDS ORDERED: NON-FORMULARY/PATIENT OWN MED (Sitagliptin* (Januvia*) 100 MG) PO SCH (09:00)
[2017-01-03 15:42] LABS: MICROALBUMIN 0.4 mg/dL
--- NOTE | 2017-01-03 15:52 | RADRPT ---
Vent Rate: 63 bpm RR Interval: 0 msec ID Interval: 150 msec QRS Duration: 84 msec QT Interval: 410 msec QTC Interval: 419 msec P-R-T [place]: 26 - 1 - 11 degrees Normal sinus rhythm Normal ECG Electronically Signed By: Gio Lozada [id number]
--- NOTE | 2017-02-28 23:45 | HP ---
DATE OF ADMISSION: 12/31/2016 CHIEF COMPLAINT: Severe anemia, weakness, thrombocytopenia. HISTORY OF PRESENT ILLNESS: Patient has myelodysplastic syndrome and comes in repeatedly for blood transfusions and platelet transfusions. She presents at this time with severe anemia and severe thrombocytopenia and will be given blood and platelet transfusions. PAST MEDICAL HISTORY: Please see previous chart, chart number [id number], dated May 28, 2016. REVIEW OF SYSTEMS: Please see previous chart, chart number [id number], dated May 28, 2016. FAMILY HISTORY: Noncontributory. PHYSICAL EXAMINATION: GENERAL APPEARANCE: Patient is an alert, white female, who does not appear acutely or chronically ill, but who appears to be weak and fatigued. VITAL SIGNS: Blood pressure 138/76, respirations 16, temperature 98.6. SKIN: No evidence of dermatitis. NECK: Supple. Thyroid is not palpable. HEENT: Head symmetrical, with no evidence of injury or deformity. Eyes: PERRLA. EOMs normal. Discs flat. Peripheral coordination is grossly intact. Ears, nose, and throat is clear. BREASTS: No masses. HEART: PMI, left 5th interspace, left midclavicular line. No murmurs, no thrills. No bruits. A2 is greater than P2. No distention of the jugular veins. No ankle edema. ABDOMEN: Liver, kidney, and spleen are not palpable. Bowel sounds are normal. There are no intra-abdominal masses or bruits. GENITOURINARY: Deferred. Patient had genitourinary examination approximately 6 months ago, with negative results. RECTAL: Deferred. Patient had rectal examination approximately 6 months ago, with negative results. MUSCULOSKELETAL: Fracture of the left humerus, fracture of the right patella. NEUROLOGIC: DTRs are normal and equal bilaterally. Plantars are flexor. No pathological reflexes are present. Patient is well oriented to time, place, and person. PERIPHERAL VASCULAR: No carotid or subclavian artery bruits. Femoral pulses are normal and equal bilaterally. Dorsal pedal pulses are palpable bilaterally. IMPRESSION: 1. Myelodysplastic syndrome. 2. Severe anemia. 3. Severe thrombocytopenia. 4. Fracture of the left humerus. 5. Fracture of the right patella. 6. Hypertension. 7. Type 2 diabetes. 8. Gastroesophageal reflux disease. 9. Glaucoma. 10. Hyperlipidemia. 11. Overactive bladder syndrome. Dictated By: Chepe Purvis MD /tiffany/lionel Santos#: [id number]/Document#: [id number]
--- NOTE | 2017-03-01 09:07 | DS ---
DATE OF ADMISSION: 12/31/2016 DATE OF DISCHARGE: 01/01/2017 PRINCIPLE DIAGNOSES: 1. Mild dysplastic syndrome. 2. Severe anemia. 3. Severe thrombocytopenia. SECONDARY DIAGNOSES: 1. Diabetes mellitus. 2. Fracture of left humerus fracture. 3. Fracture right patella. 4. Anemia. 5. Hypertension. 6. Gastroesophageal reflux disease. 7. Glaucoma. 8. Overactive bladder syndrome. OPERATIONS AND PROCEDURES: Patient given blood transfusions and platelet transfusions. COMPLICATIONS: None. POSTOPERATIVE INSTRUCTIONS: Come in 1 week for repeat CBC and platelet count. DISCHARGE CONDITION: Fair. Dictated By: Chepe Purvis MD /fnt/ /Document#: [id number]
== END 2017-01-01 12:05 | disposition home or self-care (01) | DRG 841 ==
LOC: E/R 07:17 → MS2 13:00
DX: C94.6 Myelodysplastic disease, not elsewhere classified (principal); M84.422A Pathological fracture, left humerus, initial encounter for fracture; D69.6 Thrombocytopenia, unspecified; E11.65 Type 2 diabetes mellitus with hyperglycemia; M84.48XA Pathological fracture, other site, initial encounter for fracture; D64.9 Anemia, unspecified; I10 Essential (primary) hypertension; E78.5 Hyperlipidemia, unspecified; N32.81 Overactive bladder; H40.9 Unspecified glaucoma; K21.9 Gastro-esophageal reflux disease without esophagitis; Z79.4 Long term (current) use of insulin; Z79.84 Long term (current) use of oral hypoglycemic drugs
CPT/HCPCS: 36415; 36430; 80053; 80061; 81001; 82043; 82962; 83036; 84443; 84484; 85025; 85610; 85651; 85730; 86850; 86900; 86901; 86920; 86945; 87081; 93005; J1815; J7040; P9016; P9035

== ENCOUNTER 2017-01-11 15:45 | Inpatient (IN) | payer MEDICARE, BC ==
[~2017-01-11] VITALS: Ht 154.9 cm; Wt 71.8 kg
[~2017-01-11 15:45] MED LIST changes: -CIPR500T4 PO
[2017-01-11 16:50] LABS: ABNORMAL IP MESSAGE 1; HEMATOCRIT 28.4 % (37.0-47.0); HEMOGLOBIN 9.1 g/dl (12.0-16.0); MEAN CORPUSCULAR HEMOGLOBIN 28.6 pg (29.0-33.0); MEAN CORPUSCULAR VOLUME 89.3 fl (82.0-101.0); NUCLEATED RED BLOOD CELLS% 2.1 /100WBC (0.0-0.0); RED BLOOD COUNT 3.18 10^6/ul (4.20-5.40); RED CELL DISTRIBUTION WIDTH 16.9 % (11.5-14.5); WHITE BLOOD COUNT 18.8 10^3/ul (4.8-10.8)
[2017-01-11 17:04] LABS: POSITIVE DIFF @See below
[2017-01-11 17:05] LABS: PLATELET COUNT 11 10^3/UL (140-415)
[2017-01-11 17:06] LABS: INR 1.05; PROTIME 13.7 Sec (12.2-14.2); PT RATIO 1.1
[2017-01-11 17:07] LABS: PARTIAL THROMBOPLASTIN TIME 28.6 Sec (25.0-35.0)
[2017-01-11 17:09] LABS: ALANINE AMINOTRANSFERASE 21 IU/L (13-69); ALBUMIN 4.3 g/dl (3.3-4.9); ALBUMIN/GLOBULIN RATIO 0.86; ALKALINE PHOSPHATASE 88 IU/L (42-121); ANION GAP 20 (8-16); ASPARTATE AMINO TRANSFERASE 30 IU/L (15-46); BILIRUBIN,INDIRECT 0.7 mg/dl (0-1.1); BILIRUBIN,TOTAL 0.7 mg/dl (0.2-1.3); BLOOD UREA NITROGEN 23 mg/dl (7-20); CALCIUM 10.6 mg/dl (8.4-10.2); CARBON DIOXIDE 25 mmol/L (21-31); CHLORIDE 104 mmol/L (97-110); CREATININE 0.91 mg/dl (0.44-1.00); GLUCOSE 143 mg/dl (70-220); POTASSIUM 4.3 mmol/L (3.5-5.1); SODIUM 145 mmol/L (135-144); TOTAL PROTEIN 9.3 g/dl (6.1-8.1)
[2017-01-11 17:21] LABS: TROPONIN-I < 0.012 ng/ml (0.00-0.12)
[2017-01-11 17:42] LABS: LYMPHOCYTES # 2.4 10^3/ul (0.8-2.9); MONOCYTE # 1.9 10^3/ul (0.3-0.9); NEUTROPHIL # 13.3 10^3/ul (1.6-7.5)
[2017-01-11] MEDS ORDERED: ONDANSETRON 4 MG INJ IV PRN (18:30)
[2017-01-11] MEDS ORDERED: ACETAMINOPHEN 325 MG TAB PO PRN (18:30)
--- NOTE | 2017-01-11 19:22 | ERA ---
ER Documentation Chief Complaint Date/Time DATE: 01/11/17 TIME: 19:20 Chief Complaint SEND DUE PLATELET 8 , FEELS WEAK,DX MYELODYSPLATIC DISEASE, TROMBOCITOPENIA HPI Patient is a 71-year-old female with diabetes and myelodysplastic syndrome who presents for low platelets. She was sent for a platelet count of [address] labs[address] Richardson her oncologist sent her to the ER for admission. The patient says that she has a blood blister on her lower lip and has been bleeding from the left side of her mouth near her upper teeth. She says that she usually receives platelets when her platelet count is this low. She denies headache. Upon review of old medical records she has multiple visits for similar. Her primary doctor is Dr. Purvis. ROS All systems reviewed and are negative except as per history of present illness. Medications Home Meds Reported Medications Simvastatin* (Zocor*) 40 Mg Tablet, 40 MG PO QHS, #30 TAB 12/17/16 Bimatoprost* (Lumigan*) 0.01%-2.5 Ml Opht Drops, 1 DROP RIGHT EYE HS, EA 04/16/16 Brimonidine Tartrate* (Alphagan*) 0.2%-10 Ml Opht Drops, 1 DROP RIGHT EYE BID, BOTTLE 04/16/16 Dorzolamide-Timolol* (Cosopt*) 2%-0.5% - 10 Ml Soln, 1 DROP BOTH EYES BID, BOTTLE 04/16/16 Ramipril (Ramipril) 5 Mg Capsule, 5 MG PO DAILY, CAP 04/16/16 Celecoxib* (Celebrex*) 200 Mg Capsule, 200 MG PO DAILY, CAP 04/16/16 Fenofibrate Nanocrystallized* (Fenofibrate*) 145 Mg Tablet, 145 MG PO DAILY, TAB 04/16/16 Omeprazole* (Omeprazole*) 20 Mg Capsule.dr, 20 MG PO DAILY, #30 CAP 04/16/16 Oxybutynin Chloride* (Ditropan* XL) 10 Mg Tab.er.24, 10 MG PO DAILY, TAB.SA 04/16/16 Repaglinide* (Repaglinide*) 2 Mg Tablet, 2 MG PO AC BREAKFAST DINNER, TAB 04/16/16 Metformin Hcl* (Metformin Hcl*) 1,000 Mg Tablet, 1000 MG PO WITH BREAKFAST DINNE , #30 TAB 04/16/16 Sitagliptin* (Januvia*) 100 Mg Tablet, 100 MG PO DAILY, #30 TAB 04/16/16 Gabapentin* (Gabapentin*) 600 Mg Tablet, 600 MG PO TID, #90 TAB 04/16/16 Discontinued Reported Medications Calcium Carbonate ([id number]) 500 Mg Tablet, 500 MG PO BID, TAB 05/28/16 Multivitamin* (Daily Value*) 1 Each Tablet, 1 TAB PO DAILY, TAB 05/28/16 Allergies Allergies: Coded Allergies: No Known Allergy (Verified , 01/11/17) PMhx/Soc History of Surgery: Yes (laminectomy 2007,left eye surgery,cataract surgery) Anesthesia Reaction: No Hx Neurological Disorder: Yes (neuropathy) Hx Respiratory Disorders: No Hx Cardiac Disorders: Yes (htn) Hx Psychiatric Problems: No Hx Miscellaneous Medical Probl: No Hx Alcohol Use: No Hx Substance Use: No Hx Tobacco Use: No Smoking Status: Never smoker FmHx Family History: diabetes Physical Exam Vitals Vital Signs Date Time Temp Pulse Resp B/P Pulse Ox O2 Delivery O2 Flow Rate FiO2 01/11/17 18:30 99.2 76 23 90/57 93 Room Air 01/11/17 17:30 77 23 110/56 93 Room Air 01/11/17 16:35 82 20 96/56 95 Room Air 01/11/17 15:49 99.2 99 20 145/62 97 Physical Exam Const: No acute distress Head: Atraumatic Eyes: Normal Conjunctiva ENT: Mild intraoral bleeding Neck: Full range of motion..~ No meningismus. Resp: Clear to auscultation bilaterally Cardio: Regular rate and rhythm, no murmurs Abd: Soft, non tender, non distended. Normal bowel sounds Skin: Blood blister to the lower lip Back: No midline or flank tenderness Ext: No cyanosis, or edema Neur: Awake and alert Psych: Normal Mood and Affect Result Diagram: 01/11/17 1635 01/11/17 1635 Results 24 hrs Laboratory Tests Test 01/11/17 16:35 White Blood Count 18.810^3/ul Red Blood Count 3.1810^6/ul Hemoglobin 9.1g/dl Hematocrit 28.4% Mean Corpuscular Volume 89.3fl Mean Corpuscular Hemoglobin 28.6pg Mean Corpuscular Hemoglobin Concent 32.0g/dl Red Cell Distribution Width 16.9% Platelet Count 1110^3/UL Mean Platelet Volume fl Neutrophils % 71.0% Lymphocytes % 13.0% Monocytes % 10.0% Eosinophils % % Myelocytes % (Manual) 2.010^3/ul Nucleated Red Blood Cells % 2.1/100WBC Neutrophils # 13.310^3/ul Band Neutrophils # 13.310^3/ul Lymphocytes # 2.410^3/ul Monocytes # 1.910^3/ul Eosinophils # 10^3/ul Myelocytes # 0.410^3/ul Prothrombin Time 13.7Sec Prothrombin Time Ratio 1.1 INR International Normalized Ratio 1.05 Activated Partial Thromboplast Time 28.6Sec Sodium Level 145mmol/L Potassium Level 4.3mmol/L Chloride Level 104mmol/L Carbon Dioxide Level 25mmol/L Anion Gap 20 Blood Urea Nitrogen 23mg/dl Creatinine 0.91mg/dl Glucose Level 143mg/dl Calcium Level 10.6mg/dl Total Bilirubin 0.7mg/dl Direct Bilirubin 0.00mg/dl Indirect Bilirubin 0.7mg/dl Aspartate Amino Transf (AST/SGOT) 30IU/L Alanine Aminotransferase (ALT/SGPT) 21IU/L Alkaline Phosphatase 88IU/L Troponin I < 0.012ng/ml Total Protein 9.3g/dl Albumin 4.3g/dl Globulin 5.00g/dl Albumin/Globulin Ratio 0.86 Current Medications Medications (Trade) Dose Ordered Sig/Gerard Route PRN Reason Start Time Stop Time Status Last Admin Dose Admin Ondansetron HCl (Zofran Inj) 4 mg BRIDGE ORDER PRN IV NAUSEA AND/OR VOMITING 01/11/17 18:30 01/12/17 18:29 Acetaminophen (Tylenol Tab) 650 mg ER BRIDGE PRN PO MILD PAIN/FEVER 01/11/17 18:30 01/12/17 18:29 Procedures/MDM Patient is a 71-year-old female who presents with anemia and thrombocytopenia. She does not require packed red blood cells at this time but she does require platelets which I have ordered. The patient will be admitted to her primary doctor to a medical surgical bed. The patient can be seen by Dr. Richardson in consultation. Departure Diagnosis: Primary Impression: Thrombocytopenia Additional Impression: Anemia Qualified Code: D64.9 - Anemia, unspecified type Condition: DARRIN Maldonado MD Jan 11, 2017 19:22
[2017-01-11] MEDS ORDERED: GABAPENTIN 300 MG CAP PO ONE (21:30)
[2017-01-11 21:40] VITALS: TEMP 98.2
[2017-01-11 21:50] VITALS: BP 154/67; PULSE 79; RESP 18
[2017-01-11 22:23] VITALS: Ht 154.9 cm; Wt 71.8 kg
[2017-01-11 22:40] VITALS: BP 154/67; RESP 18
[2017-01-11 23:47] VITALS: BP 142/66; RESP 18
[2017-01-12] MEDS ORDERED: traMADol 50 MG TAB PO PRN
[2017-01-12] MEDS ORDERED: ACETAMINOPHEN 325 MG TAB PO PRN (01:30)
[2017-01-12] MEDS ORDERED: MAGNESIUM HYDROXIDE 30ML CUP PO PRN (01:30)
[2017-01-12] MEDS ORDERED: ZOLPIDEM 5 MG TAB PO PRN (01:30)
[2017-01-12 02:00] VITALS: BP 137/59; RESP 18
[2017-01-12] MEDS ORDERED: GLUCOSE GEL 15 GRAM TUBE BUCCAL PRN (02:00)
[2017-01-12] MEDS: ACCU-CHEK XX SCH (02:00)
[2017-01-12] MEDS ORDERED: DEXTROSE 50% 50 ML SYRINGE IV PRN ×2 (02:00)
[2017-01-12] MEDS ORDERED: GLUCOSE GEL 15 GRAM TUBE PO PRN ×2 (02:00)
[2017-01-12] MEDS ORDERED: GLUCAGON 1 MG INJ IM PRN (02:00)
[2017-01-12] MEDS ORDERED: ACCU-CHEK XX SCH (02:00)
[2017-01-12] MEDS: PANTOPRAZOLE (EC) 40 MG TAB PO SCH (05:35)
[2017-01-12 06:02] LABS: ABNORMAL IP MESSAGE 1; HEMOGLOBIN 8.1 g/dl (12.0-16.0); MEAN CORPUSCULAR HEMOGLOBIN 28.4 pg (29.0-33.0); MEAN CORPUSCULAR HGB CONC 31.2 g/dl (32.0-37.0); MEAN CORPUSCULAR VOLUME 91.2 fl (82.0-101.0); MEAN PLATELET VOLUME 10.8 fl (7.4-10.4); RED BLOOD COUNT 2.85 10^6/ul (4.20-5.40); RED CELL DISTRIBUTION WIDTH 17.1 % (11.5-14.5); WHITE BLOOD COUNT 16.4 10^3/ul (4.8-10.8)
[2017-01-12 06:08] LABS: POSITIVE DIFF @See below
[2017-01-12 06:10] LABS: PLATELET COUNT 27 10^3/UL (140-415)
--- NOTE | 2017-01-12 06:35 | PN ---
DATE: 01/11/2017 Progress Note SUBJECTIVE DATA: The patient was admitted for severely low platelet count of 8,000. She was also quite anemic with a blood total approximately 9 grams percent of hemoglobin. The patient has had multiple admissions for the same condition. Patient admitted now for platelet transfusion and for packed red blood cell transfusion. OBJECTIVE DATA: The patient is awake and alert. She is quite comfortable. HEART: Normal sinus rhythm. CHEST: Clear to A and P. ABDOMEN: Liver, kidneys, and spleen not palpable. Bowel sounds are normal. EXTREMITIES: No ankle edema. There are multiple areas of ecchymoses and purpura on her skin, and she has a blister on her lip which is obviously purpuric in nature. VITAL SIGNS: This patient is afebrile. Her blood pressure is 154/67. Pulse is 79. Respiratory rate is 18. LABORATORY AND DIAGNOSTIC DATA: White count is 18,800; hemoglobin is 9.4 grams percent; hematocrit is 20.4 percent; platelet count now is 11,000, normal differential. INR is 1.05; APTT is 28.6; PT is 13.7. Sodium is 145; potassium is 4.3, chloride 104. Carbon dioxide is 25. BUN is 23; creatinine is 0.91. Calcium is 10.6. Total protein is 9.3; albumin is 4.3; globulin is 5 with reversed A/G ratio 0.86. A chest x-ray reveals atherosclerosis, elevation of right hemidiaphragm, and mild right basilar atelectasis. Otherwise unremarkable chest x-ray. No change since 05/29/2016. PLAN: This patient is being followed by her floor installation mechanic, . Dictated By: Chepe Purvis MD /tiffany/emily /Document#: [id number]
[2017-01-12 06:50] LABS: ALBUMIN 3.9 g/dl (3.3-4.9); ALBUMIN/GLOBULIN RATIO 0.9; BILIRUBIN,INDIRECT 0.5 mg/dl (0-1.1); BILIRUBIN,TOTAL 0.5 mg/dl (0.2-1.3); CALCIUM 10.4 mg/dl (8.4-10.2); CHOL/HDL RATIO 3.5 RATIO; CREATININE 0.88 mg/dl (0.44-1.00); POTASSIUM 4.4 mmol/L (3.5-5.1); TOTAL PROTEIN 8.2 g/dl (6.1-8.1)
[2017-01-12 07:18] LABS: THYROID STIMULATING HORMONE 1.65 MIU/L (0.465-4.680)
[2017-01-12 07:27] VITALS: BP 134/63; RESP 76
[2017-01-12] MEDS ORDERED: REPAGLINIDE 2 MG TAB PO SCH (08:00)
[2017-01-12] MEDS: metFORMIN 500 MG TAB PO SCH ×2 (08:35→17:30)
[2017-01-12] MEDS: REPAGLINIDE 2 MG TAB PO SCH ×2 (08:35→17:30)
[2017-01-12] MEDS: INSULIN ASPART [NOVOLOG] 3 ML PEN SC SCH ×4 (08:41→21:00)
[2017-01-12] MEDS: DORZOLAMIDE/TIMOLOL 10 ML OPH BOTH EYES SCH ×2 (09:00→21:14)
[2017-01-12] MEDS ORDERED: NON-FORMULARY/PATIENT OWN MED (Sitagliptin* (Januvia*) 100 MG) PO SCH (09:00)
[2017-01-12] MEDS: BRIMONIDINE 0.1% 5 ML OPH RIGHT EYE SCH ×2 (09:01→21:15)
[2017-01-12] MEDS: LINAGLIPTIN 5 MG TABLET PO SCH (09:02)
[2017-01-12] MEDS: GABAPENTIN 300 MG CAP PO SCH ×3 (09:02→21:15)
[2017-01-12] MEDS: FENOFIBRATE 145 MG TAB PO SCH (09:02)
[2017-01-12] MEDS: BENAZEPRIL 20 MG TAB PO SCH (09:03)
[2017-01-12] MEDS: CELECOXIB 200 MG CAP PO SCH (09:04)
[2017-01-12] MEDS: OXYBUTYNIN (XL) 5 MG TAB PO SCH (09:04)
[2017-01-12 09:31] LABS: ERYTHROBLAST% (NRBC) (M) 2 % (0-0); LYMPHOCYTES # 1.1 10^3/ul (0.8-2.9); METAMYELOCYTES %M 3 % (0-0); MONOCYTE # 1.3 10^3/ul (0.3-0.9); REACTIVE LYMPHOCYTES% (M) 1 % (0-0)
[2017-01-12 09:32] LABS: OVALOCYTES 1+ (0-0); POLYCHROMASIA 1+ (0-0)
[2017-01-12 10:45] LABS: ADD UMIC YES; UR ASCORBIC ACID NEGATIVE (NEGATIVE); UR BACTERIA FEW /HPF (NONE SEEN); UR BILIRUBIN (Dip) NEGATIVE (NEGATIVE); UR BLOOD (Dip) NEGATIVE (NEGATIVE); UR CLARITY CLEAR (CLEAR); UR COLOR YELLOW (YELLOW); UR GLUCOSE (Dip) NEGATIVE (NEGATIVE); UR KETONES (Dip) NEGATIVE (NEGATIVE); UR LEUKOCYTE ESTERASE (Dip) TRACE Leu/ul (NEGATIVE); UR NITRITE (Dip) NEGATIVE (NEGATIVE); UR RBC 1 /HPF (0-5); UR SPECIFIC GRAVITY (Dip) 1.013 (1.003-1.030); UR TOTAL PROTEIN (Dip) NEGATIVE (NEGATIVE); UR UROBILINOGEN (Dip) 1+ mg/dL (NEGATIVE)
[2017-01-12 14:02] VITALS: BP 106/52; RESP 18
[2017-01-12 19:29] VITALS: BP 153/66; RESP 18
[2017-01-12 20:50] VITALS: BP 121/57
[2017-01-12] MEDS ORDERED: ATORVASTATIN 10 MG TAB PO SCH (21:00)
[2017-01-12] MEDS: LATANOPROST 0.005% 2.5 ML OPH RIGHT EYE SCH (21:14)
[2017-01-12] MEDS: ATORVASTATIN 20 MG TAB PO SCH (21:15)
[2017-01-13] VITALS (10 sets, daily range): BP systolic 108–143; BP diastolic 53–66; PULSE 72–91; RESP 18–20
[2017-01-13] MEDS: ACCU-CHEK XX SCH (02:00)
--- NOTE | 2017-01-13 03:58 | PN ---
DATE: 01/12/2017 OBJECTIVE DATA: VITALS: Her temperature is 99.1, blood pressure 153/66, pulse 88, respiratory rate 18. GENERAL: The patient is alert and awake. She is comfortable. CHEST: Clear to A and P. HEART: Normal sinus rhythm. ABDOMEN: Liver, kidneys, and spleen are not palpable. Bowel sounds are normal. EXTREMITIES: There is no ankle edema. DIAGNOSTIC DATA: White blood cell count is 16,400, hemoglobin 8.1 gram percent, hematocrit 26 percent, platelet count 27,000. Differential is normal. Sodium 146, potassium 4.4, chloride 103, carbon dioxide 28, BUN 22, creatinine 0.88, sugar 257, calcium 10.4, total protein 8.2, albumin 3.9, globulin 4.3. Triglycerides are elevated at 320. Cholesterol is normal at 120. TSH is normal. Urine is normal. Stool occult blood is negative. ASSESSMENT AND PLAN: The patient appears comfortable. She has no complaints at the present time. She has been followed by her survey operations director, Dr. Richardson. Dictated By: Chepe Purvis MD /tiffany/heather /Document#: [id number]
[2017-01-13 05:42] LABS: WHITE BLOOD COUNT 12.9 10^3/ul (4.8-10.8)
[2017-01-13 05:43] LABS: ABNORMAL IP MESSAGE 1; HEMATOCRIT 23.4 % (37.0-47.0); HEMOGLOBIN 7.4 g/dl (12.0-16.0); MEAN CORPUSCULAR HEMOGLOBIN 28.7 pg (29.0-33.0); MEAN CORPUSCULAR HGB CONC 31.6 g/dl (32.0-37.0); MEAN CORPUSCULAR VOLUME 90.7 fl (82.0-101.0); NUCLEATED RED BLOOD CELLS% 1.9 /100WBC (0.0-0.0); RED BLOOD COUNT 2.58 10^6/ul (4.20-5.40); RED CELL DISTRIBUTION WIDTH 16.9 % (11.5-14.5)
[2017-01-13 05:54] LABS: PLATELET COUNT 16 10^3/UL (140-415); POSITIVE DIFF @See below
[2017-01-13 05:58] LABS: CALCIUM 10.2 mg/dl (8.4-10.2); CREATININE 0.93 mg/dl (0.44-1.00); POTASSIUM 4.5 mmol/L (3.5-5.1)
[2017-01-13] MEDS: PANTOPRAZOLE (EC) 40 MG TAB PO SCH (06:50)
[2017-01-13] MEDS: CELECOXIB 200 MG CAP PO SCH (08:09)
[2017-01-13] MEDS: OXYBUTYNIN (XL) 5 MG TAB PO SCH (08:09)
[2017-01-13] MEDS: FENOFIBRATE 145 MG TAB PO SCH (08:09)
[2017-01-13] MEDS: metFORMIN 500 MG TAB PO SCH ×2 (08:09→18:39)
[2017-01-13] MEDS: GABAPENTIN 300 MG CAP PO SCH ×3 (08:10→20:01)
[2017-01-13] MEDS: LINAGLIPTIN 5 MG TABLET PO SCH (08:10)
[2017-01-13] MEDS: BENAZEPRIL 20 MG TAB PO SCH (08:10)
[2017-01-13] MEDS: REPAGLINIDE 2 MG TAB PO SCH ×2 (08:10→18:39)
[2017-01-13] MEDS: BRIMONIDINE 0.1% 5 ML OPH RIGHT EYE SCH ×2 (08:11→20:02)
[2017-01-13] MEDS: DORZOLAMIDE/TIMOLOL 10 ML OPH BOTH EYES SCH ×2 (08:11→20:02)
[2017-01-13] MEDS: INSULIN ASPART [NOVOLOG] 3 ML PEN SC SCH ×4 (08:22→21:00)
[2017-01-13 09:35] LABS: ANISOCYTOSIS 1+ (0-0); EOSINOPHILS % (M) 1 % (0-7); ERYTHROBLAST% (NRBC) (M) 5 % (0-0); GIANT THROMBO% (M) 1 % (0-0); MICROCYTOSIS 1+ (0-0); MONOCYTES % (M) 6 % (0-11); PLATELET ESTIMATE SIG DECREASED; POIKILOCYTOSIS 1+ (0-0); POLYCHROMASIA 3+ (0-0)
[2017-01-13] MEDS: ATORVASTATIN 20 MG TAB PO SCH (20:01)
[2017-01-13] MEDS: LATANOPROST 0.005% 2.5 ML OPH RIGHT EYE SCH (20:02)
[2017-01-14 02:06] LABS: PROTEIN, TOTAL 6.8 g/dL (6.1-8.1)
[2017-01-14 21:26] LABS: ALBUMIN 3.2 g/dL (3.8-4.8)
== END 2017-01-13 22:10 | disposition home or self-care (01) | DRG 813 ==
LOC: E/R 15:45 → MS2 18:19
PROC: 30233R1 Transfusion of Nonautologous Platelets into Peripheral Vein, Percutaneous Approach (ICD-10-PCS; principal; 2017-01-11)
DX: D69.6 Thrombocytopenia, unspecified (principal); D64.9 Anemia, unspecified; C94.6 Myelodysplastic disease, not elsewhere classified
CPT/HCPCS: 36415; 36430; 80048; 80053; 80061; 81001; 82270; 82962; 83036; 84155; 84165; 84443; 84484; 85025; 85610; 85651; 85730; 86850; 86900; 86901; 87081; 87086; 93005; J1815; P9035

== ENCOUNTER 2017-02-09 09:24 | Inpatient (IN) | payer MEDICARE, BC ==
[~2017-02-09] VITALS: Ht 152.4 cm; Wt 72.5 kg
[~2017-02-09 09:24] MED LIST changes: -CALC500T91 PO; -MULT-542 PO
[2017-02-09] MEDS ORDERED: SOD CHLORIDE 0.9% 100 ML ONE (11:29)
[2017-02-09] MEDS ORDERED: IODIXANOL LOCM 100 ML BTL ONE (11:29)
--- NOTE | 2017-02-09 11:41 | RADRPT ---
PROCEDURE: CT head without intravenous contrast CLINICAL INDICATION: Trauma. COMPARISON: None relevant listed. TECHNIQUE: Axial CT images from skull base to vertex with coronal and sagittal reformats. DOSE: The estimated administered radiation dose was CTDI vol = 43 mGy. DLP = 630 mGy-cm. One or mor e of the following dose reduction techniques were used: automated exposure control, adjustment of th e mA and/or kV according to patient size, or use of iterative reconstruction. FINDINGS: Parenchyma: No acute hemorrhage, large territorial infarction, or mass. Mild amount of periventricul ar and subcortical white matter hypodensity, a nonspecific finding often associated with chronic carline roangiopathy. Ventricles: No ventriculomegaly or ventricular effacement. Extra-axial spaces: No herniation or midline shift. Paranasal sinuses: Clear. Mastoids and middle ears: Clear. Visualized orbits: Bilateral lens replacements. Vessels: Mild calcified atherosclerotic arterial plaque. Bones: Hyperostosis frontalis interna. Mild osteopenia within the clivus and sphenoid bone. Extracranial soft tissues: Normal. Additional comment: None. IMPRESSION: 1. No acute intracranial abnormality. 2. Mild white matter changes, a nonspecific finding often associated with chronic microangiopathy. RPTAT: EE Physician Seth Date Time Electronically viewed and signed by Physician Seth on 02/09/2017 11:41 /
--- NOTE | 2017-02-09 12:01 | RADRPT ---
PROCEDURE: CT facial bones without contrast CLINICAL INDICATION: Trauma. COMPARISON: None relevant listed. TECHNIQUE: Axial images of the facial bones with coronal and sagittal reformats. DOSE: The estimated administered radiation dose was CTDI vol = 30 mGy. DLP = 571 mGy-cm. One or mo re of the following dose reduction techniques were used: automated exposure control, adjustment of t he mA and/or kV according to patient size, or use of iterative reconstruction. FINDINGS: Soft tissues: Marked swelling about the left parasymphyseal mandible extending to the chin. Bones: No fracture. The usual cervical lordosis is reversed. Moderate anterior endplate spurring a nd uncovertebral joint arthropathy at C4-C5 and C5-C6. Hyperostosis frontalis interna. Orbits: Bilateral lens replacements. Paranasal sinuses: Mild paranasal sinus mucosal thickening. Mastoids and middle ears: Clear. Visualized brain: Normal. Additional comment: Mandible: No periapical lucency, erosion, fracture, or dental caries. Maxilla: Periapical lucencies about right maxillary teeth number 3 and 4. IMPRESSION: 1. Moderate swelling about the left parasymphyseal and midline mandible. No underlying fracture. 2. Dental disease. RPTAT: EE Physician Seth Date Time Electronically viewed and signed by Physician Seth on 02/09/2017 12:01 LG/
[2017-02-09] MEDS ORDERED: SOD CHLORIDE 0.9% 250 ML IV ONE (12:14)
[2017-02-09 12:16] LABS: POTASSIUM 4.2 mmol/L (3.5-5.1)
[2017-02-09 12:17] LABS: CALCIUM 9.9 mg/dl (8.4-10.2); CREATININE 1.24 mg/dl (0.44-1.00)
[2017-02-09 12:37] LABS: ABNORMAL IP MESSAGE 1; HEMATOCRIT 19.5 % (37.0-47.0); MEAN CORPUSCULAR HEMOGLOBIN 29.6 pg (29.0-33.0); MEAN CORPUSCULAR HGB CONC 32.3 g/dl (32.0-37.0); MEAN CORPUSCULAR VOLUME 91.5 fl (82.0-101.0); NUCLEATED RED BLOOD CELLS% 5.1 /100WBC (0.0-0.0); RED BLOOD COUNT 2.13 10^6/ul (4.20-5.40); RED CELL DISTRIBUTION WIDTH 18.2 % (11.5-14.5); WHITE BLOOD COUNT 34.9 10^3/ul (4.8-10.8)
[2017-02-09 12:38] LABS: HEMOGLOBIN 6.3 g/dl (12.0-16.0); PLATELET COUNT 14 10^3/UL (140-415)
[2017-02-09 12:39] LABS: POSITIVE DIFF @See below
[2017-02-09 12:40] LABS: INR 1.25; PARTIAL THROMBOPLASTIN TIME 32.7 Sec (25.0-35.0); PROTIME 15.8 Sec (12.2-14.2); PT RATIO 1.2
--- NOTE | 2017-02-09 13:30 | RADRPT ---
PROCEDURE: CT Abdomen and Pelvis with contrast. CLINICAL INDICATION: Abdominal pain. TECHNIQUE: Routine abdominopelvic CT was performed following administration of intravenous contras t and reformatted in the axial, coronal, sagittal planes. Intravenous contrast: 80 cc of Optiray 320. Radiation dose: CTDIvol (mGy) = 17.0; total DLP (mGy-cm) = 1043. One or more of the following radiation dose techniques were used: -Automated exposure control. -Adjust of the mA and/or kV according to patient size. -Use of iterative reconstruction technique. COMPARISON: None. FINDINGS: The liver is enlarged. No focal liver mass. There is a punctate stone in the gallbladder without g allbladder wall thickening or inflammation. Pancreas and adrenal glands are normal. Spleen is enla rged measuring approximately 12.7 cm in craniocaudal length. Kidneys demonstrate multifocal cortical scarring involving the right kidney. There is a tiny cyst i n the left kidney. No hydronephrosis or obstructive uropathy. No abnormal bowel wall thickening or dilatation. Postmenopausal uterus is atrophic. There is a small calcified lesion versus subserosal uterine myom a in the left adnexa. No free fluid or fluid collection. Trace aortic calcifications without aneurysm. Multilevel laminectomies identified in the severely degenerated lumbar spine. There is subcutaneous inflammation identified in the left greater than right hips. IMPRESSION: No abdominopelvic mass, lymphadenopathy, or focal acute inflammatory process. Hepatosplenomegaly. Cholelithiasis. Nonspecific subcutaneous inflammation identified in the left greater right hips, which may be post-t raumatic. RPTAT: EE .George Gilliam MD, Date Time Electronically viewed and signed by .George Gilliam MD, MD on 02/09/2017 13:35 .C/
[2017-02-09 13:40] LABS: ANISOCYTOSIS 2+ (0-0); ERYTHROBLAST% (NRBC) (M) 6 % (0-0); METAMYELOCYTES %M 4 % (0-0); MICROCYTOSIS 1+ (0-0); MONOCYTES % (M) 14 % (0-11); MYELOCYTES % (M) 1 % (0-0); OVALOCYTES 1+ (0-0); PLATELET ESTIMATE SIG DECREASED; POIKILOCYTOSIS 1+ (0-0); POLYCHROMASIA 2+ (0-0); REACTIVE LYMPHOCYTES% (M) 3 % (0-0)
--- NOTE | 2017-02-09 13:40 | ERA ---
ER Documentation Chief Complaint Date/Time DATE: 02/09/17 TIME: 13:34 Chief Complaint FEELING TIRED,BLEEDING FROM MOUTH, HX CANCER HPI This is a 71-year-old female who presents to the emergency room with oral bleeding. The patient has a history of myelodysplastic syndrome she has received transfusions in the past. She notes spontaneous bleeding from her gums over the past 24-48 hours. Yesterday she fell forward and hit her chin. She did not lose consciousness. She states that she her abdomen and has bruising to the flank. She denies any abdominal pain. No hematemesis or hemoptysis or melena. She denies any neck pain chest pain or shortness of breath. ROS All systems reviewed and are negative except as per history of present illness. Medications Home Meds Reported Medications Simvastatin* (Zocor*) 40 Mg Tablet, 40 MG PO QHS, #30 TAB 12/17/16 Bimatoprost* (Lumigan*) 0.01%-2.5 Ml Opht Drops, 1 DROP RIGHT EYE HS, EA 04/16/16 Brimonidine Tartrate* (Alphagan*) 0.2%-10 Ml Opht Drops, 1 DROP RIGHT EYE BID, BOTTLE 04/16/16 Dorzolamide-Timolol* (Cosopt*) 2%-0.5% - 10 Ml Soln, 1 DROP BOTH EYES BID, BOTTLE 04/16/16 Ramipril (Ramipril) 5 Mg Capsule, 5 MG PO DAILY, CAP 04/16/16 Celecoxib* (Celebrex*) 200 Mg Capsule, 200 MG PO DAILY, CAP 04/16/16 Fenofibrate Nanocrystallized* (Fenofibrate*) 145 Mg Tablet, 145 MG PO DAILY, TAB 04/16/16 Omeprazole* (Omeprazole*) 20 Mg Capsule.dr, 20 MG PO DAILY, #30 CAP 04/16/16 Oxybutynin Chloride* (Ditropan* XL) 10 Mg Tab.er.24, 10 MG PO DAILY, TAB.SA 04/16/16 Repaglinide* (Repaglinide*) 2 Mg Tablet, 2 MG PO AC BREAKFAST DINNER, TAB 04/16/16 Metformin Hcl* (Metformin Hcl*) 1,000 Mg Tablet, 1000 MG PO WITH BREAKFAST DINNE , #30 TAB 04/16/16 Sitagliptin* (Januvia*) 100 Mg Tablet, 100 MG PO DAILY, #30 TAB 04/16/16 Gabapentin* (Gabapentin*) 600 Mg Tablet, 600 MG PO TID, #90 TAB 04/16/16 Allergies Allergies: Coded Allergies: No Known Allergy (Verified , 01/11/17) PMhx/Soc History of Surgery: Yes (bilateral cateracts, laminectomy) Anesthesia Reaction: No Hx Neurological Disorder: No Hx Respiratory Disorders: No Hx Cardiac Disorders: Yes (hypertension) Hx Psychiatric Problems: No Hx Miscellaneous Medical Probl: Yes (MDS cancer) Hx Alcohol Use: No Hx Substance Use: No Hx Tobacco Use: No Smoking Status: Never smoker FmHx Family History: No diabetes Physical Exam Vitals Vital Signs Date Time Temp Pulse Resp B/P Pulse Ox O2 Delivery O2 Flow Rate FiO2 02/09/17 12:59 90 17 125/62 100 Room Air 02/09/17 09:27 99.6 98 18 130/61 95 Physical Exam Airway is intact Bilateral breath sounds Strong distal pulses No obvious deficits General: Well developed, well nourished, no acute distress Head: Normocephalic, atraumatic Eyes: Pupils equally reactive, EOM intact ENT: Moist mucous membranes, Spontaneous bleeding and clotting to the gums, significant hematoma to the chin Neck: Supple, no lymphadenopathy, No midline tenderness, deformities, step-offs to the cervical spine, full active and passive range of motion without midline pain. Respiratory: Lungs clear bilaterally, no distress, no chest wall tenderness, no crepitus Cardiovascular: RRR, no murmurs, rubs, or gallops Abdominal: Soft, non-tender, non-distended, no peritoneal signs, pelvis is stable Back: Left flank ecchymoses and contusion, paraspinal and left-sided without midline tenderness deformities or step-offs : Deferred MSK: No edema, no unilateral swelling, 5/5 strength, no midline tenderness deformities or step-offs to the thoracolumbar spine Neurologic: Alert and oriented, moving all extremities, normal speech, no focal weakness, no cerebellar signs Skin: No ecchymoses or bruising to the chest or abdomen Psych: Normal mood Result Diagram: 02/09/17 1020 02/09/17 1020 Results 24 hrs Laboratory Tests Test 02/09/17 10:20 White Blood Count 34.910^3/ul Red Blood Count 2.1310^6/ul Hemoglobin 6.3g/dl Hematocrit 19.5% Mean Corpuscular Volume 91.5fl Mean Corpuscular Hemoglobin 29.6pg Mean Corpuscular Hemoglobin Concent 32.3g/dl Red Cell Distribution Width 18.2% Platelet Count 1410^3/UL Mean Platelet Volume fl Neutrophils % % Segmented Neutrophils % (Manual) 54% Band Neutrophils % (Manual) 8% Lymphocytes % % Lymphocytes % (Manual) 15% Reactive Lymphocytes % (Manual) 3% Monocytes % % Monocytes % (Manual) 14% Eosinophils % % Basophils % % Metamyelocytes % (manual) 4% Myelocytes % (Manual) 1% Nucleated Red Blood Cells % 6% Neutrophils # (Manual) 19.810^3/ul Band Neutrophils # 2.710^3/ul Absolute Lymphocytes (Manual) 5.210^3/ul Lymphocytes # 10^3/ul Reactive Lymphocytes # 1.010^3/ul Monocytes # 10^3/ul Absolute Monocytes (Manual) 4.810^3/ul Eosinophils # 10^3/ul Basophils # 10^3/ul Metamyelocytes # 1.310^3/ul Myelocytes # 0.310^3/ul Nucleated Red Blood Cells # 10^3/ul Platelet Estimate SIG DECREASED Polychromasia 2+ Poikilocytosis 1+ Anisocytosis 2+ Microcytosis 1+ Ovalocytes 1+ Prothrombin Time 15.8Sec Prothrombin Time Ratio 1.2 INR International Normalized Ratio 1.25 Activated Partial Thromboplast Time 32.7Sec Sodium Level 146mmol/L Potassium Level 4.2mmol/L Chloride Level 107mmol/L Carbon Dioxide Level 23mmol/L Anion Gap 20 Blood Urea Nitrogen 29mg/dl Creatinine 1.24mg/dl Glucose Level 176mg/dl Calcium Level 9.9mg/dl Current Medications Medications (Trade) Dose Ordered Sig/Gerard Route PRN Reason Start Time Stop Time Status Last Admin Dose Admin IV Flush 10 ml 10 ml STK-MED ONCE .ROUTE 02/09/17 11:29 02/09/17 11:30 DC Sodium Chloride (NS) 100 ml @ ud STK-MED ONCE .ROUTE 02/09/17 11:29 02/09/17 11:30 DC Iodixanol 100 ml 100 ml STK-MED ONCE .ROUTE 02/09/17 11:29 02/09/17 11:30 DC Sodium Chloride (NS) 250 ml @ 0 mls/hr Q0M ONCE IV 02/09/17 12:14 02/09/17 12:17 DC Procedures/MDM EKG, MONITORS, & DIAGNOSTIC IMAGING: EKG: I reviewed and interpreted a 12-lead EKG. Rhythm: Normal sinus rhythm Ectopy: None Intervals: No abnormalities ST segments: No elevations or depressions T waves: No contiguous inversions Chest x-ray: I reviewed and interpreted a 1 view of the chest Mediastinum: No enlargement Cardiac silhouette: No cardiomegaly Airspace: Clear lung domingo bilaterally without evidence of pneumothorax Bones: No evidence of fracture CT brain: IMPRESSION: 1. No acute intracranial abnormality. 2. Mild white matter changes, a nonspecific finding often associated with chronic microangiopathy. RPTAT: EE Facial bone: IMPRESSION: 1. Moderate swelling about the left parasymphyseal and midline mandible. No underlying fracture. 2. Dental disease. RPTAT: EE CT abdomen and pelvis with IV contrast: IMPRESSION: No abdominopelvic mass, lymphadenopathy, or focal acute inflammatory process. Hepatosplenomegaly. Cholelithiasis. Nonspecific subcutaneous inflammation identified in the left greater right hips , which may be post-traumatic. LAB INTERPRETATION: The patient has significant elevated white count, anemia at 6 and platelets of 14 MEDICAL DECISION MAKING: The patient presents with spontaneous bleeding from the oropharynx. She also has a fall with evidence of chin injury and possible blunt abdominal injury. CT imaging of the head, facial bone and abdomen and pelvis would be appropriate. The patient does not meet high-risk criteria and based on NEXUS cervical spine criteria there is no indication for cervical spine imaging at this time. The patient will likely require transfusion of platelets versus platelets and RBCs. The patient will benefit from CT imaging given likely thrombus cytopenia with spontaneous bleeding. She is at risk for delayed intracranial hemorrhage and warrants inpatient hospitalization. This was a clear mechanical fall. ER COURSE: The patient was given gabapentin. I discussed with the patient and/or family the risks, benefits, alternatives of blood transfusion. This includes allergic reaction and infections including HIV and hepatitis. The patient and/or family were able to verbalize these risks , stated understanding. A document has been signed and placed in the chart. The patient will be given packed red blood cells as well as platelets. I spoke to the patient's oncologist, Dr. Richardson who agrees with plan of care and admission and will evaluate the patient as an inpatient. I kept the patient and/or family informed of laboratory and diagnostic imaging results throughout the emergency room course. DISPOSITION PLAN: Medical surgical admission for management of thrombocytopenia and anemia CONSULTATION: Accepting care team and consultations: I discussed the current laboratory data, diagnostic imaging and emergency care provided. Admitting team: Dr. Constantino magnetic resonance technologist for Dr. Clarke Admitting team indication: Insurance directed Consulting services: Dr. Richardson, hematology oncology Departure Diagnosis: Primary Impression: Myelodysplasia (myelodysplastic syndrome) Additional Impressions: Acute renal insufficiency Thrombocytopenia Contusion of chin Qualified Code: S00.83XA - Contusion of chin, initial encounter Condition: Stable AGUS THOMAS MD Feb 09, 2017 13:39
[2017-02-09] MEDS ORDERED: DEXTROSE 50% 50 ML SYRINGE IV PRN ×2 (15:00)
[2017-02-09] MEDS ORDERED: GLUCAGON 1 MG INJ IM PRN (15:00)
[2017-02-09] MEDS ORDERED: ONDANSETRON 4 MG INJ IV PRN (15:00)
[2017-02-09] MEDS ORDERED: GLUCOSE GEL 15 GRAM TUBE BUCCAL PRN (15:00)
[2017-02-09] MEDS ORDERED: GABAPENTIN 300 MG CAP PO ONE (15:00)
[2017-02-09] MEDS ORDERED: ACETAMINOPHEN 325 MG TAB PO PRN (15:00)
[2017-02-09] MEDS ORDERED: GLUCOSE GEL 15 GRAM TUBE PO PRN ×2 (15:00)
[2017-02-09] MEDS: GABAPENTIN 300 MG CAP PO SCH ×2 (15:24→21:33)
[2017-02-09] MEDS: REPAGLINIDE 2 MG TAB PO SCH (17:30)
[2017-02-09 18:00] VITALS: BP 162/72; RESP 20
[2017-02-09] MEDS ORDERED: metFORMIN 500 MG TAB PO SCH (18:00)
[2017-02-09 18:02] VITALS: PULSE 82
[2017-02-09 20:00] VITALS: Ht 152.4 cm; Wt 72.5 kg
[2017-02-09] MEDS ORDERED: BIMATOPROST 0.01% 2.5 ML BTL RIGHT EYE SCH (21:00)
[2017-02-09] MEDS: ATORVASTATIN 20 MG TAB PO SCH (21:33)
[2017-02-09] MEDS: NITROFURANTOIN (SR) 100 MG CAP PO SCH (21:33)
--- NOTE | 2017-02-09 21:38 | HP ---
DATE OF ADMISSION: 02/09/2017 ADMITTING DIAGNOSES: 1. Severe anemia. 2. Severe thrombocytopenia. HISTORY OF PRESENT ILLNESS: The patient is a 71-year-old, female, with diabetes, hypertension, hyperlipidemia, diabetic neuropathy and severe myelodysplastic syndrome, with refractory anemia and thrombocytopenia. Patient fell at home last night during a blackout, sustaining injury to her face, chin. Patient had no loss of consciousness and currently complains of only mild pain. Patient tripped over something in the dark and fell. REVIEW OF SYSTEMS: Patient currently with urinary tract infection, with mild dysuria. No chest pain. No shortness of breath. No fevers, chills, or night sweats. Patient is tired, with mild dyspnea on exertion, but is at her baseline. PAST MEDICAL HISTORY: Type 2 diabetes, hyperlipidemia, diabetic neuropathy, severe myelodysplastic syndrome with refractory anemia and thrombocytopenia, obesity, history of patellar fracture, left humeral fracture. FAMILY HISTORY: Mother with history of dementia, hypertension, diabetes. Sister with GERD, hyperlipidemia. SOCIAL HISTORY: No tobacco, no alcohol use. MEDICATIONS: 1. Celebrex 200 mg daily. 2. Fenofibrate 145 mg daily. 3. Gabapentin 600 mg t.i.d. 4. Metformin 500 mg b.i.d. 5. Oxybutynin XL 10 mg daily. 6. Repaglinide 2 mg q.a.c. 7. Pantoprazole 40 mg daily. 8. Benazepril 20 mg daily. 9. Tradjenta 5 mg daily. 10. Lumigan 1 drop right eye at bedtime. 11. Alphagan 0.2 percent 1 drop b.i.d., right eye. 12. Cosopt 1 drop both eyes b.i.d. 13. Atorvastatin 20 mg daily. 14. Nitrofurantoin 100 mg b.i.d. PHYSICAL EXAMINATION: VITAL SIGNS: Temperature 99.6, pulse 98, respirations 18, blood pressure 130/61, pulse oximetry 95 percent on room air in the emergency room. Currently, blood pressure is 130/77, respirations 20, pulse 82, oxygen saturation 100 percent on room air. GENERAL: Well-developed female, in no acute distress, sitting up in bed. SKIN: Ecchymoses is fresh on the chin, with mild soft tissue swelling and hematoma formation. Right iliac crest area with fading ecchymosis, with hematoma. Fading ecchymoses, bilateral lower extremities. Improved lesions, bilateral forearms, different stages of age. Moderate pallor of the skin. HEENT: EOMI. PERRLA. Oropharynx clear, without exudate. Mild blood around the gums, but no active bleeding. NECK: No jugular venous distention, 2+ carotid upstrokes, no bruits. No lymphadenopathy. No thyromegaly. CHEST: Clear to auscultation bilaterally. HEART: Regular rate and rhythm. No murmurs, gallops, rubs noted. ABDOMEN: Soft, moderate obesity. Normoactive bowel sounds. There is splenomegaly. No hepatomegaly. Nontender. Nondistended. GENITOURINARY: Normal female externally. Internal exam not performed. EXTREMITIES: No cyanosis, clubbing, or edema. NEUROLOGIC: Nonfocal. LABORATORY EXAMINATION: White blood cell count 34.9, platelets of 14,000, hematocrit of 19.5, hemoglobin of 6.3. PT of 15.8, PTT of 32.7, INR of 1.25. Sodium 146, potassium 4.2, chloride 107, bicarbonate 23, BUN 29, creatinine 1.24, glucose 176, calcium 9.9. IMAGING STUDIES: Abdominal and pelvic CT scan shows hepatosplenomegaly. No abdominal pelvic mass, lymphadenopathy or acute process. There is cholelithiasis. Nonspecific subcutaneous inflammation identified, left greater than right hip, consistent with patient's hematoma on physical exam. CT scan of the brain shows no acute intracranial abnormality, mild white matter changes. CT scan of the face shows moderate swelling about the left parasymphyseal and midline mandible. No underlying fracture noted. There is dental disease noted. Mild paranasal sinus mucosal thickening. ASSESSMENT AND PLAN: 1. Severe anemia and severe thrombocytopenia secondary to myelodysplastic syndrome. Patient to be evaluated by Dr. Richardson. Patient already receiving blood products with transfusion of blood as well as platelets. Patient with no active bleeding currently and will continue to monitor and recheck complete blood count in the morning. 2. Diabetes. Will continue the patient's medications, diet, sliding scale. 3. Urinary tract infection. Patient has a resistant organism and had been on Cipro, but was recently changed over to nitrofurantoin yesterday. Will continue nitrofurantoin 100 mg b.i.d. for 7 days. 4. Hypertension. Will continue with patient's medications. 5. Hyperlipidemia. Will continue with patient's medication and diet. Dictated By: Cristopher Constantino MD /tiffany/lionel /Document#: [id number]
--- NOTE | 2017-02-09 22:28 | CONS ---
Date/Time of Note Date/Time of Note DATE: 02/09/17 TIME: 22:07 Assessment/Plan Assessment/Plan Chief Complaint/Hosp Course 71 yo with High grade MDS and transfusion dependance who presents s/p fall with diffuse ecchymosis and pancytopenia #High Grade MDS -pt currently transfusion dependant requiring weekly transfusions of blood and platelets -pt to enrol in clinical trial at [facility] once she is stable #Anemia -agree with transfusion of leukocyte reduced and irradiated blood. Pt has a Hg< 7 #Thrombocytopenia -ok with 1 unit of platelets -pt does not appear to be actively bleeding -goal is to keep platelets > 10 #SCHUYLER -likely prerenal and secondary to severe anemia -will recheck Cr tomorrow 71 yo Abdominal and pelvic CT scan shows hepatosplenomegaly. No abdominal pelvic mass, lymphadenopathy or acute process. There is cholelithiasis. Nonspecific subcutaneous inflammation identified, left greater than right hip, consistent with patient's hematoma on physical exam. CT scan of the brain shows no acute intracranial abnormality, mild white matter changes. CT scan of the face shows moderate swelling about the left parasymphyseal and midline mandible. No underlying fracture noted. Problems: (1) Myelodysplasia (myelodysplastic syndrome) Status: Chronic (2) Contusion of chin Status: Acute Qualifiers: Qualified Code: S00.83XA - Contusion of chin, initial encounter (3) Thrombocytopenia Status: Acute Consultation Date/Type/Reason Admit Date/Time Feb 09, 2017 at 14:41 Date of Consultation: Feb 09, 2017 Type of Consultation: Hematology Reason for Consultation Myelodysplastic syndrome Referring Provider: AGUS THOMAS MD Hx of Present Illness 71 yo with intermediate risk myelodysplastic syndrome who for the last 6 months has received Vidaza, a hypomethylating agent , to control her disease. Unfortunately since November 2016, the medication seems to have had little effect and patient has remained transfusion dependant. She is scheduled to follow up at [facility] for potential enrollment in a clinical trial. She now presents s/p fall. She apparently fell at home last night during a black out when she tripped and fell over something when it was dark. She sustained injury to her face .. Constitutional: other (facial pain over area of hematoma) Eyes: no complaints ENT: no complaints Cardiovascular: no complaints Gastrointestinal: no complaints Musculoskeletal: bone/joint pain, neck pain Skin: bruising Past Medical History Myelodysplastic syndrome. Fracture of the left humerus. Fracture of the right patella. Hypertension. Type 2 diabetes. Gastroesophageal reflux disease (GERD). Glaucoma. Hyperlipidemia. Overactive bladder syndrome Family History Significant Family History: no pertinent family hx Social History Alcohol Use: none Smoking Status: Never smoker Drug Use: none Exam/Review of Systems Vital Signs Vitals Vital Signs Date Time Temp Pulse Resp B/P Pulse Ox O2 Delivery O2 Flow Rate FiO2 02/09/17 18:02 82 20 130/77 100 Room Air 02/09/17 18:00 98.6 Exam Constitutional: alert, oriented Psych: no complaints Head: hematomas Eyes: nl conjunctiva Neck: supple Respiratory: clear to auscultation Cardiovascular: regular rate and rhythm Gastrointestinal: bowel sounds Musculoskeletal: nl extremities to inspection Skin: ecchymosis Results Result Diagram: 02/09/17 1020 02/09/17 1020 Results 24 hrs Laboratory Tests Test 02/09/17 10:20 White Blood Count 34.9 #H Red Blood Count 2.13 #L Hemoglobin 6.3 #*L Hematocrit 19.5 #L Mean Corpuscular Volume 91.5 Mean Corpuscular Hemoglobin 29.6 Mean Corpuscular Hemoglobin Concent 32.3 Red Cell Distribution Width 18.2 H Platelet Count 14 #*L Mean Platelet Volume Neutrophils % Segmented Neutrophils % (Manual) 54 Band Neutrophils % (Manual) 8 H Lymphocytes % Lymphocytes % (Manual) 15 Reactive Lymphocytes % (Manual) 3 H Monocytes % Monocytes % (Manual) 14 H Eosinophils % Basophils % Metamyelocytes % (manual) 4 H Myelocytes % (Manual) 1 H Nucleated Red Blood Cells % 6 H Neutrophils # (Manual) 19.8 H Band Neutrophils # 2.7 H Absolute Lymphocytes (Manual) 5.2 H Lymphocytes # Reactive Lymphocytes # 1.0 H Monocytes # Absolute Monocytes (Manual) 4.8 H Eosinophils # Basophils # Metamyelocytes # 1.3 H Myelocytes # 0.3 H Nucleated Red Blood Cells # Platelet Estimate SIG DECREASED Polychromasia 2+ Poikilocytosis 1+ Anisocytosis 2+ Microcytosis 1+ Ovalocytes 1+ Prothrombin Time 15.8 H Prothrombin Time Ratio 1.2 INR International Normalized Ratio 1.25 Activated Partial Thromboplast Time 32.7 Sodium Level 146 H Potassium Level 4.2 Chloride Level 107 Carbon Dioxide Level 23 Anion Gap 20 H Blood Urea Nitrogen 29 H Creatinine 1.24 H Glucose Level 176 Calcium Level 9.9 Medications Medications Current Medications Brimonidine Tartrate (Alphagan 0.2%) 1 drop BID RIGHT EYE ; Start 02/09/17 at 21 :00 Dorzolamide/ Timolol (Cosopt) 1 drop BID BOTH EYES ; Start 02/09/17 at 21:00 Fenofibrate (Tricor) 145 mg DAILY PO ; Start 02/10/17 at 09:00 Gabapentin (Neurontin) 600 mg TID PO Last administered on 02/09/17 21:33; Admin Dose 600 MG; Start 02/09/17 at 14:47 Oxybutynin Chloride (Ditropan Xl) 10 mg DAILY PO ; Start 02/10/17 at 09:00 Pantoprazole (Protonix Tab) 40 mg DAILY@06 PO ; Start 02/10/17 at 06:00 Benazepril HCl (Lotensin) 20 mg DAILY PO ; Start 02/10/17 at 09:00 Atorvastatin Calcium (Lipitor) 20 mg DAILY@21 PO Last administered on 21:33; Admin Dose 20 MG; Start 02/09/17 at 21:00 Linagliptin (Tradjenta) 5 mg DAILY PO ; Start 02/10/17 at 09:00 Miscellaneous Information 1 ea NOTE XX ; Start 02/09/17 at 15:00 Glucose (Glutose) 15 gm Q15M PRN PO DECREASED GLUCOSE; Start 02/09/17 at 15:00 Glucose (Glutose) 22.5 gm Q15M PRN PO DECREASED GLUCOSE; Start 02/09/17 at 15: 00 Dextrose (D50w Syringe) 25 ml Q15M PRN IV DECREASED GLUCOSE; Start 02/09/17 at 15:00 Dextrose (D50w Syringe) 50 ml Q15M PRN IV DECREASED GLUCOSE; Start 02/09/17 at 15:00 Glucagon (Glucagen) 1 mg Q15M PRN IM DECREASED GLUCOSE; Start 02/09/17 at 15:00 Glucose (Glutose) 15 gm Q15M PRN BUCCAL DECREASED GLUCOSE; Start 02/09/17 at 15 :00 Nitrofurantoin Macrocrystals (Macrobid) 100 mg BID PO Last administered on 02/09 21:33; Admin Dose 100 MG; Start 8/30/17 at 21:00 Latanoprost (Xalatan) 1 drop QHS RIGHT EYE ; Start 02/09/17 at 21:59 ALBERTO JOSEPH M.D. Feb 09, 2017 22:18
[2017-02-10] MEDS: BRIMONIDINE 0.2% 5 ML BTL RIGHT EYE SCH ×3 (00:20→21:48)
[2017-02-10] MEDS: DORZOLAMIDE/TIMOLOL 10 ML OPH BOTH EYES SCH ×3 (00:20→21:48)
[2017-02-10] MEDS: LATANOPROST 0.005% 2.5 ML OPH RIGHT EYE SCH ×2 (00:22→21:48)
[2017-02-10] MEDS ORDERED: ACCU-CHEK XX SCH (02:00)
[2017-02-10] MEDS: ACCU-CHEK XX SCH (02:00)
[2017-02-10] MEDS: HYDROCODONE/APAP (5/325) TAB PO PRN ×4 (02:24→23:52)
[2017-02-10 02:57] VITALS: BP 146/65; RESP 21
[2017-02-10] MEDS: PANTOPRAZOLE (EC) 40 MG TAB PO SCH (06:12)
[2017-02-10 06:31] LABS: ABNORMAL IP MESSAGE 1; HEMATOCRIT 27.3 % (37.0-47.0); HEMOGLOBIN 8.9 g/dl (12.0-16.0); MEAN CORPUSCULAR HEMOGLOBIN 28.8 pg (29.0-33.0); MEAN CORPUSCULAR HGB CONC 32.6 g/dl (32.0-37.0); MEAN CORPUSCULAR VOLUME 88.3 fl (82.0-101.0); NUCLEATED RED BLOOD CELLS% 5.5 /100WBC (0.0-0.0); RED BLOOD COUNT 3.09 10^6/ul (4.20-5.40); RED CELL DISTRIBUTION WIDTH 17.2 % (11.5-14.5); WHITE BLOOD COUNT 34.4 10^3/ul (4.8-10.8)
[2017-02-10 06:54] LABS: ALBUMIN 3.4 g/dl (3.3-4.9); ALBUMIN/GLOBULIN RATIO 0.8; BILIRUBIN,INDIRECT 0.4 mg/dl (0-1.1); BILIRUBIN,TOTAL 0.4 mg/dl (0.2-1.3); CREATININE 0.95 mg/dl (0.44-1.00); POTASSIUM 3.9 mmol/L (3.5-5.1); TOTAL PROTEIN 7.6 g/dl (6.1-8.1)
[2017-02-10 07:06] LABS: POSITIVE DIFF @See below
[2017-02-10 07:08] LABS: PLATELET COUNT 20 10^3/UL (140-415)
[2017-02-10 07:25] VITALS: BP 149/66; RESP 18
[2017-02-10] MEDS: REPAGLINIDE 2 MG TAB PO SCH ×2 (08:00→17:03)
[2017-02-10] MEDS: INSULIN ASPART [NOVOLOG] 3 ML PEN SC SCH ×4 (08:05→21:00)
[2017-02-10] MEDS: NITROFURANTOIN (SR) 100 MG CAP PO SCH ×2 (09:00→21:47)
[2017-02-10] MEDS ORDERED: CELECOXIB 200 MG CAP PO SCH (09:00)
[2017-02-10 09:13] LABS: ANISOCYTOSIS 2+ (0-0); EOSINOPHILS % (M) 1 % (0-7); ERYTHROBLAST% (NRBC) (M) 7 % (0-0); METAMYELOCYTES %M 3 % (0-0); MICROCYTOSIS 1+ (0-0); MONOCYTES % (M) 14 % (0-11); MYELOCYTES % (M) 4 % (0-0); PLATELET ESTIMATE SIG DECREASED; POIKILOCYTOSIS 1+ (0-0); POLYCHROMASIA 1+ (0-0); PROMYELOCYTES #M 0 10^3/ul (0-0); PROMYELOCYTES % (M) 1 % (0-0); SPHEROCYTES 1+ (0-0)
[2017-02-10] MEDS: BENAZEPRIL 20 MG TAB PO SCH (09:15)
[2017-02-10] MEDS: LINAGLIPTIN 5 MG TABLET PO SCH (09:18)
[2017-02-10] MEDS: GABAPENTIN 300 MG CAP PO SCH ×3 (09:18→21:47)
[2017-02-10] MEDS: FENOFIBRATE 145 MG TAB PO SCH (09:18)
[2017-02-10] MEDS: OXYBUTYNIN (XL) 5 MG TAB PO SCH (09:18)
--- NOTE | 2017-02-10 09:40 | PN ---
DATE: 02/10/2017 SUBJECTIVE: Patient is feeling better, but tired. Has mild pain, otherwise no complaints. OBJECTIVE: VITAL SIGNS: Temperature 98.0, pulse 96, respirations 21, blood pressure 146/65, pulse oximetry is 91 percent on room air. GENERAL: A well-developed, well-nourished female, in no acute distress. Sitting in bed. SKIN: Ecchymosis with hematoma on the chin, left arm, right iliac crest, shins, bilateral forearms. No active bleeding. CHEST: Clear to auscultation bilaterally. HEART: Regular rate and rhythm. ABDOMEN: Soft, nontender. EXTREMITIES: No cyanosis, clubbing, or edema. NEUROLOGIC: Nonfocal. LABORATORY EXAMINATION: Shows white blood cell count 34.4, hemoglobin of 8.9, hematocrit of 27.3, platelet of 20,000. Sodium 144, potassium 3.9, chloride 107, bicarbonate 25, BUN of 22, creatinine 0.95. Blood sugar of 162. ASSESSMENT AND PLAN: 1. Severe anemia and thrombocytopenia secondary to myelodysplastic syndrome. Improved status post transfusion of packed red blood cells as well as platelets. Will continue to follow and if stable, patient will be discharged home tomorrow. 2. Diabetes, stable. Continue with medications, sliding scale and diet. 3. Hypertension, stable. Continue with medications. 4. Hyperlipidemia, stable. Continue with medications and diet. 5.UTI:stable; continue with abx for total 7days Dictated By: Cristopher Constantino MD /tiffany/barbara /Document#: [id number] MACO
--- NOTE | 2017-02-10 10:21 | RADRPT ---
PROCEDURE: XR Chest 1 View. CLINICAL INDICATION: Chest pain and trauma. TECHNIQUE: AP view of the chest was obtained. COMPARISON: December 18, 2016 FINDINGS: The cardiomediastinal silhouette is within normal limits. The lungs are hypoinflated. Elevated righ t hemidiaphragm is observed. Subsegmental atelectasis is seen in the bilateral lower lobes. No cons olidations are identified. No pneumothorax is seen. Osseous structures are intact. IMPRESSION: No visualized traumatic injury. Hypoinflated lungs with a chronically elevated right hemidiaphragm. Subsegmental atelectasis in the bilateral lower lobes. RPTAT: AA .Kurt Houser MD, MD Date Time Electronically viewed and signed by .Kurt Houser MD, on 02/10/2017 10:20 .P/
[2017-02-10 14:09] VITALS: BP 103/51; RESP 16
[2017-02-10 20:00] VITALS: BP 93/46; RESP 20
[2017-02-10] MEDS: ATORVASTATIN 20 MG TAB PO SCH (21:47)
[2017-02-11 02:00] VITALS: BP 94/47; RESP 20
[2017-02-11] MEDS: ACCU-CHEK XX SCH (02:00)
[2017-02-11] MEDS: PANTOPRAZOLE (EC) 40 MG TAB PO SCH (06:08)
[2017-02-11] MEDS: HYDROCODONE/APAP (5/325) TAB PO PRN ×3 (06:23→23:49)
[2017-02-11 07:14] LABS: ABNORMAL IP MESSAGE 1; HEMOGLOBIN 9.8 g/dl (12.0-16.0); MEAN CORPUSCULAR HEMOGLOBIN 29.2 pg (29.0-33.0); MEAN CORPUSCULAR HGB CONC 32.7 g/dl (32.0-37.0); MEAN CORPUSCULAR VOLUME 89.3 fl (82.0-101.0); NUCLEATED RED BLOOD CELLS% 3.2 /100WBC (0.0-0.0); RED BLOOD COUNT 3.36 10^6/ul (4.20-5.40); RED CELL DISTRIBUTION WIDTH 17.8 % (11.5-14.5); WHITE BLOOD COUNT 39.5 10^3/ul (4.8-10.8)
[2017-02-11 07:19] LABS: POSITIVE DIFF @See below
[2017-02-11 07:22] LABS: PLATELET COUNT 13 10^3/UL (140-415)
[2017-02-11 07:47] LABS: CALCIUM 10.3 mg/dl (8.4-10.2); CREATININE 1.29 mg/dl (0.44-1.00); POTASSIUM 4.1 mmol/L (3.5-5.1)
[2017-02-11 08:00] VITALS: BP 108/50; RESP 17
[2017-02-11] MEDS: REPAGLINIDE 2 MG TAB PO SCH ×2 (08:25→17:21)
[2017-02-11] MEDS: GABAPENTIN 300 MG CAP PO SCH ×4 (08:26→21:05)
[2017-02-11] MEDS: OXYBUTYNIN (XL) 5 MG TAB PO SCH (08:27)
[2017-02-11] MEDS: NITROFURANTOIN (SR) 100 MG CAP PO SCH ×2 (08:27→22:30)
[2017-02-11] MEDS: FENOFIBRATE 145 MG TAB PO SCH (08:27)
[2017-02-11] MEDS: LINAGLIPTIN 5 MG TABLET PO SCH (08:28)
[2017-02-11] MEDS ORDERED: SOD CHLORIDE 0.9% 500 ML IV ONE (08:30)
[2017-02-11] MEDS: BENAZEPRIL 20 MG TAB PO SCH (08:31)
[2017-02-11] MEDS: DORZOLAMIDE/TIMOLOL 10 ML OPH BOTH EYES SCH ×2 (08:32→21:05)
[2017-02-11] MEDS: BRIMONIDINE 0.2% 5 ML BTL RIGHT EYE SCH ×2 (08:32→21:05)
[2017-02-11] MEDS: INSULIN ASPART [NOVOLOG] 3 ML PEN SC SCH ×4 (08:33→21:00)
--- NOTE | 2017-02-11 09:51 | CONS ---
Date/Time of Note Date/Time of Note DATE: 02/11/17 TIME: 09:49 Assessment/Plan Assessment/Plan Chief Complaint/Hosp Course 71 yo with High grade MDS and transfusion dependance who presents s/p fall with diffuse ecchymosis and pancytopenia #High Grade MDS -pt currently transfusion dependant requiring weekly transfusions of blood and platelets -pt to enrol in clinical trial at [facility] once she is stable -patient getting weekly CBC and transfusion as out patient #Anemia -agree with transfusion of leukocyte reduced and irradiated blood. Pt has a Hg< 7 #Thrombocytopenia -ok with 1 more unit of platelets -pt does not appear to be actively bleeding -goal is to keep platelets > 10 #SCHUYLER -likely prerenal and secondary to severe anemia -will recheck Cr tomorrow ok for dc from heme standpoint after transfusion of platelets Problems: (1) Acute renal insufficiency Status: Acute (2) Myelodysplasia (myelodysplastic syndrome) Status: Chronic Consultation Date/Type/Reason Admit Date/Time Feb 09, 2017 at 14:41 Initial Consult Date 02/09/17 Type of Consultation: Hematology Reason for Consultation myelodysplastic syndrome Referring Provider: AGUS THOMAS MD 24 HR Interval Summary Free Text/Dictation tearful this morning about her disease. worried her platelets fell again Exam/Review of Systems Vital Signs Vitals Vital Signs Date Time Temp Pulse Resp B/P Pulse Ox O2 Delivery O2 Flow Rate FiO2 02/11/17 08:00 98.3 90 17 108/50 92 02/09/17 18:02 Room Air Intake and Output 02/10/17 02/10/17 02/11/17 15:00 23:00 07:00 Intake Total 840 ml 720 ml Balance 840 ml 720 ml Exam Constitutional: alert, oriented Psych: no complaints Head: normocephalic Eyes: nl conjunctiva ENMT: nl external ears & nose Neck: non-tender, supple Respiratory: clear to auscultation Cardiovascular: regular rate and rhythm Gastrointestinal: soft Musculoskeletal: nl extremities to inspection, nl gait and stance Extremities: normal pulses Neurological: GUEST SERVICES ATTENDANT II-XII intact Results Result Diagram: 02/11/17 0625 02/11/17 0625 Results 24 hrs Laboratory Tests Test 02/10/17 12:25 02/10/17 17:09 02/10/17 21:45 02/11/17 06:25 Bedside Glucose 201 102 115 White Blood Count 39.5 H Red Blood Count 3.36 L Hemoglobin 9.8 L Hematocrit 30.0 L Mean Corpuscular Volume 89.3 Mean Corpuscular Hemoglobin 29.2 Mean Corpuscular Hemoglobin Concent 32.7 Red Cell Distribution Width 17.8 H Platelet Count 13 #*L Mean Platelet Volume Neutrophils % Lymphocytes % Monocytes % Eosinophils % Basophils % Nucleated Red Blood Cells % 3.2 H Neutrophils # (Manual) 24.6 H Lymphocytes # Monocytes # Eosinophils # Basophils # Nucleated Red Blood Cells # Sodium Level 144 Potassium Level 4.1 Chloride Level 109 Carbon Dioxide Level 25 Anion Gap 14 Blood Urea Nitrogen 23 H Creatinine 1.29 H Glucose Level 149 Calcium Level 10.3 H Test 02/11/17 06:31 02/11/17 07:55 Lab Scanned Report BLOOD TRANSFUSION Bedside Glucose 170 Medications Medications Current Medications Brimonidine Tartrate (Alphagan 0.2%) 1 drop BID RIGHT EYE Last administered on 02/11/17 08:32; Admin Dose 1 DROP; Start 02/09/17 at 21:00 Dorzolamide/ Timolol (Cosopt) 1 drop BID BOTH EYES Last administered on 08:32; Admin Dose 1 DROP; Start 02/09/17 at 21:00 Fenofibrate (Tricor) 145 mg DAILY PO Last administered on 02/11/17 08:27; Admin Dose 145 MG; Start 02/10/17 at 09:00 Gabapentin (Neurontin) 600 mg TID PO Last administered on 02/11/17 08:26; Admin Dose 600 MG; Start 02/09/17 at 14:47 Oxybutynin Chloride (Ditropan Xl) 10 mg DAILY PO Last administered on 02/11/17 08:27; Admin Dose 10 MG; Start 02/10/17 at 09:00 Pantoprazole (Protonix Tab) 40 mg DAILY@06 PO Last administered on 02/11/17 06: 08; Admin Dose 40 MG; Start 02/10/17 at 06:00 Benazepril HCl (Lotensin) 20 mg DAILY PO Last administered on 02/10/17 09:15; Admin Dose 20 MG; Start 02/10/17 at 09:00 Atorvastatin Calcium (Lipitor) 20 mg DAILY@21 PO Last administered on 21:47; Admin Dose 20 MG; Start 02/09/17 at 21:00 Linagliptin (Tradjenta) 5 mg DAILY PO Last administered on 02/11/17 08:28; Admin Dose 5 MG; Start 02/10/17 at 09:00 Miscellaneous Information 1 ea NOTE XX ; Start 02/09/17 at 15:00 Glucose (Glutose) 15 gm Q15M PRN PO DECREASED GLUCOSE; Start 02/09/17 at 15:00 Glucose (Glutose) 22.5 gm Q15M PRN PO DECREASED GLUCOSE; Start 02/09/17 at 15: 00 Dextrose (D50w Syringe) 25 ml Q15M PRN IV DECREASED GLUCOSE; Start 02/09/17 at 15:00 Dextrose (D50w Syringe) 50 ml Q15M PRN IV DECREASED GLUCOSE; Start 02/09/17 at 15:00 Glucagon (Glucagen) 1 mg Q15M PRN IM DECREASED GLUCOSE; Start 02/09/17 at 15:00 Glucose (Glutose) 15 gm Q15M PRN BUCCAL DECREASED GLUCOSE; Start 02/09/17 at 15 :00 Nitrofurantoin Macrocrystals (Macrobid) 100 mg BID PO Last administered on 08:27; Admin Dose 100 MG; Start 02/09/17 at 21:00 Latanoprost (Xalatan) 1 drop QHS RIGHT EYE Last administered on 02/10/17 21:48 ; Admin Dose 1 DROP; Start 02/09/17 at 21:59 Acetaminophen/ Hydrocodone Bitart ([place] (5/325)) 1 tab Q6H PRN PO PAIN Last administered on 02/11/17 06:23; Admin Dose 1 TAB; Start 02/10/17 at 02:00 Diagnostic Test (Pha) (Accu-Chek) 1 ea 02 XX ; Start 02/10/17 at 02:00 ALBERTO JOSEPH M.D. Feb 11, 2017 09:51
[2017-02-11 13:10] LABS: ANISOCYTOSIS 1+ (0-0); BLAST% (M) 2 % (0-0); ERYTHROBLAST% (NRBC) (M) 2 % (0-0); GIANT THROMBO% (M) 2 % (0-0); METAMYELOCYTES %M 3 % (0-0); MICROCYTOSIS 1+ (0-0); MONOCYTES % (M) 10 % (0-11); MYELOCYTES % (M) 6 % (0-0); PLATELET ESTIMATE SIG DECREASED; POIKILOCYTOSIS 1+ (0-0); POLYCHROMASIA 3+ (0-0)
[2017-02-11 14:09] VITALS: BP 127/61; RESP 16
[2017-02-11 20:08] VITALS: BP 117/52; RESP 20
[2017-02-11] MEDS: ATORVASTATIN 20 MG TAB PO SCH (21:05)
[2017-02-11] MEDS: LATANOPROST 0.005% 2.5 ML OPH RIGHT EYE SCH (21:06)
[2017-02-12] MEDS: ACCU-CHEK XX SCH (02:00)
[2017-02-12 02:15] VITALS: BP 111/53; RESP 18
[2017-02-12] MEDS: PANTOPRAZOLE (EC) 40 MG TAB PO SCH (05:07)
[2017-02-12 06:54] LABS: ABNORMAL IP MESSAGE 1; HEMATOCRIT 28.6 % (37.0-47.0); HEMOGLOBIN 8.9 g/dl (12.0-16.0); MEAN CORPUSCULAR HEMOGLOBIN 28.1 pg (29.0-33.0); MEAN CORPUSCULAR HGB CONC 31.1 g/dl (32.0-37.0); MEAN CORPUSCULAR VOLUME 90.2 fl (82.0-101.0); NUCLEATED RED BLOOD CELLS% 2.8 /100WBC (0.0-0.0); RED BLOOD COUNT 3.17 10^6/ul (4.20-5.40); WHITE BLOOD COUNT 33.7 10^3/ul (4.8-10.8)
[2017-02-12] MEDS: HYDROCODONE/APAP (5/325) TAB PO PRN ×2 (06:57→18:01)
[2017-02-12 07:00] LABS: PLATELET COUNT 47 10^3/UL (140-415); POSITIVE DIFF @See below
[2017-02-12 07:17] LABS: CALCIUM 10.2 mg/dl (8.4-10.2); CREATININE 1.23 mg/dl (0.44-1.00); POTASSIUM 4.4 mmol/L (3.5-5.1)
[2017-02-12 08:08] VITALS: BP 138/63; RESP 18
[2017-02-12] MEDS: FENOFIBRATE 145 MG TAB PO SCH (08:28)
[2017-02-12] MEDS: DORZOLAMIDE/TIMOLOL 10 ML OPH BOTH EYES SCH ×2 (08:28→20:57)
[2017-02-12] MEDS: BRIMONIDINE 0.2% 5 ML BTL RIGHT EYE SCH ×2 (08:28→20:57)
[2017-02-12] MEDS: LINAGLIPTIN 5 MG TABLET PO SCH (08:29)
[2017-02-12] MEDS: OXYBUTYNIN (XL) 5 MG TAB PO SCH (08:29)
[2017-02-12] MEDS: GABAPENTIN 300 MG CAP PO SCH ×3 (08:29→20:56)
[2017-02-12] MEDS: NITROFURANTOIN (SR) 100 MG CAP PO SCH ×2 (08:29→20:56)
[2017-02-12] MEDS: REPAGLINIDE 2 MG TAB PO SCH ×2 (08:29→18:01)
[2017-02-12] MEDS: BENAZEPRIL 20 MG TAB PO SCH (08:30)
[2017-02-12] MEDS: INSULIN ASPART [NOVOLOG] 3 ML PEN SC SCH ×4 (08:31→20:52)
[2017-02-12 09:51] LABS: ANISOCYTOSIS 1+ (0-0); BLAST% (M) 1 % (0-0); ERYTHROBLAST% (NRBC) (M) 2 % (0-0); METAMYELOCYTES %M 11 % (0-0); MICROCYTOSIS 1+ (0-0); MONOCYTES % (M) 16 % (0-11); MYELOCYTES % (M) 5 % (0-0); PLATELET ESTIMATE DECREASED; POLYCHROMASIA 3+ (0-0)
[2017-02-12 14:44] VITALS: BP 126/58; RESP 18
[2017-02-12] MEDS ORDERED: morphine 2 MG INJ IV PRN (18:30)
[2017-02-12] MEDS: LATANOPROST 0.005% 2.5 ML OPH RIGHT EYE SCH (20:56)
[2017-02-12] MEDS: ATORVASTATIN 20 MG TAB PO SCH (20:56)
[2017-02-12 21:08] VITALS: BP 134/61; RESP 18
[2017-02-12] MEDS ORDERED: traMADol 50 MG TAB PO PRN (23:00)
--- NOTE | 2017-02-13 01:12 | PN ---
DATE: 02/12/2017 SUBJECTIVE DATA: Patient is complaining of xtwerngz-qh-qthcza back pain and improved since receiving morphine earlier today. OBJECTIVE DATA: VITAL SIGNS: Temperature 97.5, pulse rate 102, respirations 18, blood pressure 134/61, oxygen saturation 95 percent on room air. GENERAL: Well-developed, well-nourished female, no acute distress, lying in bed. SKIN: Multiple ecchymoses, chin, arms, bilateral iliac crests, back, bilateral forearms, extremities. NEUROLOGIC: No focal. CHEST: Clear to auscultation bilaterally. HEART: Tachycardic, regular. ABDOMEN: Soft, nontender. LABORATORY EXAMINATION: White blood cell count 33.7, hemoglobin 8.9, hematocrit 28.6, platelets 47,000. Creatinine 1.23, sodium 146, potassium 4.4, chloride 110, bicarbonate 27, BUN 22, blood sugar 157. ASSESSMENT AND PLAN: 1. Severe thrombocytopenia, anemia, secondary to refractory myelodysplastic syndrome. The patient is improved. Continue to monitor and if stable, discharge patient in the morning. 2. Ywarx-ad-bzliejk kidney disease, improved with hydration. We will continue to encourage oral intake. 3. Back pain due to the patient's fall and hematomas. We will continue with as needed pain medications. The patient received morphine with some relief. The patient reports that she gets good results with tramadol at home and we will add tramadol 50 mg q.6 hours as needed [id number]-[id number] pain. 4. Diabetes, stable. Continue with medications and diet. 5. Hypertension, stable. Continue with medications. 6. Discharge planning. If the patient will be remains stable and continues to improve, patient will be stable for discharge tomorrow to home. Dictated By: Cristopher Constantino MD /tiffany/micah /Document#: [id number]
[2017-02-13] MEDS: ACCU-CHEK XX SCH (02:00)
[2017-02-13 02:41] VITALS: BP 112/54; RESP 18
[2017-02-13 05:35] LABS: ABNORMAL IP MESSAGE 1; HEMATOCRIT 24.6 % (37.0-47.0); HEMOGLOBIN 7.9 g/dl (12.0-16.0); MEAN CORPUSCULAR HEMOGLOBIN 28.9 pg (29.0-33.0); MEAN CORPUSCULAR HGB CONC 32.1 g/dl (32.0-37.0); MEAN CORPUSCULAR VOLUME 90.1 fl (82.0-101.0); NUCLEATED RED BLOOD CELLS% 1.9 /100WBC (0.0-0.0); RED BLOOD COUNT 2.73 10^6/ul (4.20-5.40); RED CELL DISTRIBUTION WIDTH 17.4 % (11.5-14.5); WHITE BLOOD COUNT 36.6 10^3/ul (4.8-10.8)
[2017-02-13 05:58] LABS: CALCIUM 9.9 mg/dl (8.4-10.2); CREATININE 1.28 mg/dl (0.44-1.00); POTASSIUM 3.9 mmol/L (3.5-5.1)
[2017-02-13 06:01] LABS: PLATELET COUNT 28 10^3/UL (140-415); POSITIVE DIFF @See below
[2017-02-13] MEDS: PANTOPRAZOLE (EC) 40 MG TAB PO SCH (06:10)
[2017-02-13 07:40] VITALS: BP 127/57; RESP 18
[2017-02-13] MEDS: INSULIN ASPART [NOVOLOG] 3 ML PEN SC SCH (08:00)
[2017-02-13] MEDS: REPAGLINIDE 2 MG TAB PO SCH (08:14)
[2017-02-13] MEDS: GABAPENTIN 300 MG CAP PO SCH (08:26)
[2017-02-13] MEDS: DORZOLAMIDE/TIMOLOL 10 ML OPH BOTH EYES SCH (08:26)
[2017-02-13] MEDS: BRIMONIDINE 0.2% 5 ML BTL RIGHT EYE SCH (08:26)
[2017-02-13] MEDS: OXYBUTYNIN (XL) 5 MG TAB PO SCH (08:26)
[2017-02-13] MEDS: LINAGLIPTIN 5 MG TABLET PO SCH (08:26)
[2017-02-13] MEDS: BENAZEPRIL 20 MG TAB PO SCH (08:27)
[2017-02-13] MEDS: NITROFURANTOIN (SR) 100 MG CAP PO SCH (08:27)
[2017-02-13] MEDS: FENOFIBRATE 145 MG TAB PO SCH (08:27)
[2017-02-13] MEDS ORDERED: MACBID PO (09:02)
[2017-02-13] MEDS ORDERED: TRAM50TA2 PO (09:02)
[2017-02-13 09:56] LABS: ANISOCYTOSIS 1+ (0-0); BLAST% (M) 1 % (0-0); ERYTHROBLAST% (NRBC) (M) 1 % (0-0); METAMYELOCYTES %M 3 % (0-0); MONOCYTES % (M) 20 % (0-11); MYELOCYTES % (M) 11 % (0-0); PLATELET ESTIMATE SIG DECREASED; PROMYELOCYTES #M 0 10^3/ul (0-0); PROMYELOCYTES % (M) 1 % (0-0)
--- NOTE | 2017-02-13 10:30 | DS ---
DATE OF ADMISSION: 02/09/2017 DATE OF DISCHARGE: 02/13/2017 ADMITTING DIAGNOSES: 1. Severe anemia and thrombocytopenia. 2. Multiple contusions status post fall. SECONDARY DIAGNOSES: 1. Myelodysplastic syndrome with refractory anemia and thrombocytopenia. 2. Hypertension. 3. Diabetes. 4. Urinary tract infection. 5. Multiple contusions. 6. Diabetic neuropathy. HOSPITAL COURSE: Patient is a 71-year-old, female, with severe myelodysplastic syndrome with refractory anemia, thrombocytopenia, hypertension, diabetes who fell at home sustaining injury to her chin, arms and bilateral iliac crests. Patient was found to have severe anemia and thrombocytopenia when she was 1st admitted. Patient was transfused platelets as well as packed red blood cells with improvement in her hematocrit and platelets. Patient required more platelets due to persistence in the thrombocytopenia. The patient continued to improve slowly. The patient remained in the hospital for pain control due to some back pain, this related to her contusions and her fall, but is better at this time. The patient will be continued on p.r.n. tramadol for pain medication as well as nitrofurantoin for her urinary tract infection for the next 4 days. DISCHARGE PLAN: 1. Followup with Dr. Purvis and call for an appointment on Tuesday. 2. Followup with Dr. Paez regarding her myelodysplastic syndrome and possible clinical trials. DISCHARGE MEDICATIONS: 1. Nitrofurantoin 100 mg b.i.d. 2. Tramadol 50 mg q.6 hours p.r.n. 3. Lumigan eye drops to the right eye once a day. 4. Alphagan to the right eye b.i.d. 5. Cosopt to both eyes b.i.d. 6. Fenofibrate 145 mg daily. 7. Gabapentin 600 mg t.i.d. 8. Metformin 1000 mg b.i.d. 9. Omeprazole 20 mg daily. 10. Oxybutynin XL 10 mg daily. 11. Ramipril 5 mg daily. 12. Repaglinide 2 mg p.o. q.a.c. 13. Simvastatin 40 mg daily. 14. Januvia 100 mg daily. Dictated By: Cristopher Constantino MD /tiffany/barbara /Document#: [id number] MTDD
== END 2017-02-13 10:18 | disposition home or self-care (01) | DRG 812 ==
LOC: FTE 09:24 → PP2 14:41
PROVIDERS: ADMIT Internal Medicine; ATTEND Internal Medicine
PROC: 30233R1 Transfusion of Nonautologous Platelets into Peripheral Vein, Percutaneous Approach (ICD-10-PCS; principal; 2017-02-09)
PROC: 30233N1 Transfusion of Nonautologous Red Blood Cells into Peripheral Vein, Percutaneous Approach (ICD-10-PCS; 2017-02-09)
DX: D46.9 Myelodysplastic syndrome, unspecified (principal); N17.9 Acute kidney failure, unspecified; D61.818 Other pancytopenia; E11.22 Type 2 diabetes mellitus with diabetic chronic kidney disease; E11.40 Type 2 diabetes mellitus with diabetic neuropathy, unspecified; D69.6 Thrombocytopenia, unspecified; R16.2 Hepatomegaly with splenomegaly, not elsewhere classified; N39.0 Urinary tract infection, site not specified; N18.9 Chronic kidney disease, unspecified; B96.89 Other specified bacterial agents as the cause of diseases classified elsewhere; S00.83XA Contusion of other part of head, initial encounter; S49.92XA Unspecified injury of left shoulder and upper arm, initial encounter; S49.91XA Unspecified injury of right shoulder and upper arm, initial encounter; W19.XXXA Unspecified fall, initial encounter; K80.20 Calculus of gallbladder without cholecystitis without obstruction; E78.5 Hyperlipidemia, unspecified; T14.8 Other injury of unspecified body region; I12.9 Hypertensive chronic kidney disease with stage 1 through stage 4 chronic kidney disease, or unspecified chronic kidney disease; R04.1 Hemorrhage from throat; Y92.009 Unspecified place in unspecified non-institutional (private) residence as the place of occurrence of the external cause; Z16.30 Resistance to unspecified antimicrobial drugs; Z83.3 Family history of diabetes mellitus; Z83.79 Family history of other diseases of the digestive system; Z82.49 Family history of ischemic heart disease and other diseases of the circulatory system
CPT/HCPCS: 36415; 36430; 70450; 70486; 71010; 74177; 80048; 80053; 82962; 85025; 85610; 85730; 86850; 86900; 86901; 86920; 87081; J1815; J2270; J7040; P9016; P9035; Q9967

== ENCOUNTER 2017-02-18 00:59 | Inpatient (IN) | payer MEDICARE, BC ==
[2017-02-18] VITALS (23 sets, daily range): BP systolic 77–123; BP diastolic 38–51; PULSE 81–93; RESP 14; TEMP 96.9; Ht 152.4 cm; Wt 77.3 kg
[~2017-02-18] VITALS: Ht 152.4 cm; Wt 77.3 kg
[~2017-02-18 00:59] MED LIST changes: -CELE200C PO; +MACBID PO; +TRAM50TA2 PO
[2017-02-18] MEDS ORDERED: morphine 4 MG/ML VIAL IV STA (01:33)
[2017-02-18] MEDS ORDERED: ONDANSETRON 4 MG INJ IV STA ×3 (01:33→03:27)
[2017-02-18 02:11] LABS: ABNORMAL IP MESSAGE 1; HEMATOCRIT 26.5 % (37.0-47.0); HEMOGLOBIN 8.4 g/dl (12.0-16.0); MEAN CORPUSCULAR HEMOGLOBIN 28.6 pg (29.0-33.0); MEAN CORPUSCULAR HGB CONC 31.7 g/dl (32.0-37.0); MEAN CORPUSCULAR VOLUME 90.1 fl (82.0-101.0); NUCLEATED RED BLOOD CELLS% 2.2 /100WBC (0.0-0.0); RED BLOOD COUNT 2.94 10^6/ul (4.20-5.40); WHITE BLOOD COUNT 46.6 10^3/ul (4.8-10.8)
--- NOTE | 2017-02-18 02:12 | RADRPT ---
PROCEDURE: XR Chest. CLINICAL INDICATION: Altered mental status TECHNIQUE: Portable single view of the chest COMPARISON: Is 05/29/2016 FINDINGS: Shallow lung volumes again seen. Top normal heart size. Ectatic and atherosclerotic aorta. Subsegmen mohamud atelectasis of the lung bases with slight bibasilar crowding. No definite acute infiltrate, pleu ral effusion, or overt congestive heart failure. Mild degenerative change of the spine. IMPRESSION: No significant interval change. Bibasilar crowding. Aortic atherosclerosis. RPTAT: HLBE Nakia Partida Physician Date Time Electronically viewed and signed by Nakia Partida Physician on 02/18/2017 02:12 LE/
[2017-02-18 02:18] LABS: PLATELET COUNT 15 10^3/UL (140-415); POSITIVE DIFF @See below
--- NOTE | 2017-02-18 02:18 | RADRPT ---
PROCEDURE: CT Brain without contrast. CLINICAL INDICATION: Altered level of consciousness. TECHNIQUE: A CT of the brain was performed on a multislice detector CT scanner utilizing axial sec tions from the skull base through the vertex without contrast. Images were reviewed on a high-resolu tion PACS workstation. Exam CTDlvol = 44 mGy and DLP = 720 mGy-cm. One of the following 3 dose red uction techniques were used: Automated exposure control; adjustment of the mA and/or kV according to patient size; or use of iterative reconstruction technique. COMPARISON: 02/09/2017 FINDINGS: There has been interval development of a region of patchy acute hemorrhage in the posterior right te mporal, occipital and parietal lobe measuring 4.2 x 3.2 cm. There is mild surrounding hypodensity/ed reynaldo. There is mass effect and effacement of the occipital horn of the right lateral ventricle. There is otherwise age appropriate central and peripheral atrophy. There is no midline shift. There is a moderate degree of supratentorial periventricular and subcortical white matter hypodensities. The re is no abnormal extra-axial fluid collection. Visualized paranasal sinuses are clear. IMPRESSION: 1. Posterior right temporal - occipital - parietal intraparenchymal hemorrhage with mild surroundin g hypodensity/edema and effacement of the occipital horn right lateral ventricle. An underlying infa rct with hemorrhagic transformation versus spontaneous intraparenchymal hemorrhage or considerations . No lesion was identified on the prior study in this region. 2. No midline shift. 3. Nonspecific white matter changes most commonly seen with microvascular ischemic disease. RPTAT: HMVK .Donnie Jones MD, Date Time Electronically viewed and signed by .Donnie Jones MD, MD on 02/18/2017 02:18 .K/
[2017-02-18] MEDS ORDERED: SOD CHLORIDE 0.9% 250 ML IV ONE (02:20)
[2017-02-18 02:22] LABS: INR 1.32; PROTIME 16.5 Sec (12.2-14.2); PT RATIO 1.3
[2017-02-18 02:23] LABS: PARTIAL THROMBOPLASTIN TIME 31.9 Sec (25.0-35.0)
[2017-02-18 02:26] LABS: ALANINE AMINOTRANSFERASE 10 IU/L (13-69); ALBUMIN 4.1 g/dl (3.3-4.9); ALBUMIN/GLOBULIN RATIO 0.87; ALKALINE PHOSPHATASE 69 IU/L (42-121); ANION GAP 17 (8-16); ASPARTATE AMINO TRANSFERASE 49 IU/L (15-46); BILIRUBIN,INDIRECT 0.7 mg/dl (0-1.1); BILIRUBIN,TOTAL 0.7 mg/dl (0.2-1.3); BLOOD UREA NITROGEN 24 mg/dl (7-20); CALCIUM 10.8 mg/dl (8.4-10.2); CARBON DIOXIDE 22 mmol/L (21-31); CHLORIDE 108 mmol/L (97-110); CREATININE 1.12 mg/dl (0.44-1.00); GLUCOSE 227 mg/dl (70-220); POTASSIUM 3.6 mmol/L (3.5-5.1); SODIUM 143 mmol/L (135-144); TOTAL PROTEIN 8.8 g/dl (6.1-8.1)
[2017-02-18 02:42] LABS: TROPONIN-I < 0.012 ng/ml (0.00-0.12)
[2017-02-18] MEDS ORDERED: SOD CHLORIDE 0.9% 1,000 ML IV SCH ×3 (02:43→15:30)
[2017-02-18] MEDS ORDERED: ONDANSETRON 4 MG INJ IV PRN ×2 (03:00→05:30)
[2017-02-18] MEDS ORDERED: niCARdipine 25 MG in SOD CHLORIDE 0.9% 240 ML IV SCH (03:00)
[2017-02-18] MEDS ORDERED: ACETAMINOPHEN 325 MG TAB PO PRN ×2 (03:00→05:30)
[2017-02-18] MEDS ORDERED: DOCUSATE SODIUM 100 MG CAP PO SCH (03:00)
[2017-02-18] MEDS ORDERED: ACETAMINOPHEN 650MG/20.3ML CUP PO PRN (03:00)
[2017-02-18] MEDS ORDERED: GLUCOSE GEL 15 GRAM TUBE PO PRN ×4 (03:15→05:30)
[2017-02-18] MEDS ORDERED: GLUCAGON 1 MG INJ IM PRN ×2 (03:15→05:30)
[2017-02-18] MEDS ORDERED: DEXTROSE 50% 50 ML SYRINGE IV PRN ×4 (03:15→05:30)
[2017-02-18] MEDS ORDERED: GLUCOSE GEL 15 GRAM TUBE BUCCAL PRN ×2 (03:15→05:30)
[2017-02-18] MEDS ORDERED: HYDROmorphONE 1 MG/ML SYG IV STA (03:27)
[2017-02-18] MEDS ORDERED: niCARdipine-NS 0.1MG/ML DRIP 200 ML IV STA (03:27)
[2017-02-18] MEDS ORDERED: DESMOPRESSIN 20 MCG in SOD CHLORIDE 0.9% 50 ML IVPB ONE (03:30)
--- NOTE | 2017-02-18 03:49 | ERA ---
ER Documentation Chief Complaint Date/Time DATE: 02/18/17 TIME: 03:42 Chief Complaint Abnormal labs and Eye problem HPI This is a 71-year-old female history of myelodysplastic syndrome, chronic thrombocytopenia refractory to treatment who presents with significant and severe headache. Over the last several days she was having some vision problems. She cannot see out of her right eye chronically. She went to an testing and regulating technician today who evaluated her eye and showed no signs of glaucoma however the patient had persistent headache that started today that is 10 out of 10 and persistent with associated nausea and vomiting. Her boilerhouse mechanic oncologist, Dr. Richardson sent her to the emergency room with concern for intracranial hemorrhage. The patient did had a mechanical fall 8 days ago and was admitted with a negative CT brain at that time. She was transfused platelets up to 47 and discharged. ROS All systems reviewed and are negative except as per history of present illness. Medications Home Meds Active Scripts Nitrofurantoin Monohyd Macrocr (Macrobid) 100 Mg Capsr, 100 MG PO BID for 4 Days , #8 CAP Prov:SUKHI RUBIO MD- 02/13/17 Tramadol HCl (Tramadol HCl) 50 Mg Tablet, 50 MG PO Q6H Y for PAIN LEVEL 6-10 for 30 Days, #90 TAB Prov:SUKHI RUBIO MD- 02/13/17 Reported Medications Simvastatin* (Zocor*) 40 Mg Tablet, 40 MG PO QHS, #30 TAB 12/17/16 Bimatoprost* (Lumigan*) 0.01%-2.5 Ml Opht Drops, 1 DROP RIGHT EYE HS, EA 04/16/16 Brimonidine Tartrate* (Alphagan*) 0.2%-10 Ml Opht Drops, 1 DROP RIGHT EYE BID, BOTTLE 04/16/16 Dorzolamide-Timolol* (Cosopt*) 2%-0.5% - 10 Ml Soln, 1 DROP BOTH EYES BID, BOTTLE 04/16/16 Ramipril (Ramipril) 5 Mg Capsule, 5 MG PO DAILY, CAP 04/16/16 Fenofibrate Nanocrystallized* (Fenofibrate*) 145 Mg Tablet, 145 MG PO DAILY, TAB 04/16/16 Omeprazole* (Omeprazole*) 20 Mg Capsule., 20 MG PO DAILY, #30 CAP 04/16/16 Oxybutynin Chloride* (Ditropan* XL) 10 Mg Tab.er.24, 10 MG PO DAILY, TAB.SA 04/16/16 Repaglinide* (Repaglinide*) 2 Mg Tablet, 2 MG PO AC BREAKFAST DINNER, TAB 04/16/16 Metformin Hcl* (Metformin Hcl*) 1,000 Mg Tablet, 1000 MG PO WITH BREAKFAST DINNE , #30 TAB 04/16/16 Sitagliptin* (Januvia*) 100 Mg Tablet, 100 MG PO DAILY, #30 TAB 04/16/16 Gabapentin* (Gabapentin*) 600 Mg Tablet, 600 MG PO TID, #90 TAB 04/16/16 Discontinued Reported Medications Celecoxib* (Celebrex*) 200 Mg Capsule, 200 MG PO DAILY, CAP 04/16/16 Allergies Allergies: Coded Allergies: No Known Allergy (Verified , 01/11/17) PMhx/Soc History of Surgery: Yes (Bilateral cataract surgery, laminectomy 2007) Anesthesia Reaction: No Hx Neurological Disorder: No Hx Respiratory Disorders: No Hx Cardiac Disorders: Yes (HTN ) Hx Psychiatric Problems: No Hx Alcohol Use: No Hx Substance Use: No Hx Tobacco Use: No Smoking Status: Never smoker FmHx Family History: No diabetes Physical Exam Vitals Vital Signs Date Time Temp Pulse Resp B/P Pulse Ox O2 Delivery O2 Flow Rate FiO2 02/18/17 02:39 Nasal Cannula 2 02/18/17 02:14 90 22 150/65 95 Room Air 02/18/17 01:08 98.6 67 22 155/71 100 Physical Exam General: Uncomfortable, vomiting and dry heaving Head: Normocephalic, atraumatic Eyes: Limited exam but extraocular movements are intact ENT: Moist mucous membranes Neck: Supple, no lymphadenopathy Respiratory: Lungs clear bilaterally, no distress Cardiovascular: RRR, no murmurs, rubs, or gallops Abdominal: Soft, non-tender, non-distended, no peritoneal signs : Deferred MSK: No edema, no unilateral swelling, 5/5 strength Neurologic: Alert and oriented, moving all extremities, no focal deficits, limited exam given the patient is uncomfortable skin: No rash Psych: Normal mood Result Diagram: 02/18/17 0135 02/18/17 0135 Results 24 hrs Laboratory Tests Test 02/18/17 01:35 White Blood Count 46.610^3/ul Red Blood Count 2.9410^6/ul Hemoglobin 8.4g/dl Hematocrit 26.5% Mean Corpuscular Volume 90.1fl Mean Corpuscular Hemoglobin 28.6pg Mean Corpuscular Hemoglobin Concent 31.7g/dl Red Cell Distribution Width 17.0% Platelet Count 1510^3/UL Mean Platelet Volume fl Neutrophils % % Lymphocytes % % Monocytes % % Eosinophils % % Basophils % % Nucleated Red Blood Cells % 2.2/100WBC Neutrophils # (Manual) 30.110^3/ul Lymphocytes # 10^3/ul Monocytes # 10^3/ul Eosinophils # 10^3/ul Basophils # 10^3/ul Nucleated Red Blood Cells # 10^3/ul Prothrombin Time 16.5Sec Prothrombin Time Ratio 1.3 INR International Normalized Ratio 1.32 Activated Partial Thromboplast Time 31.9Sec Sodium Level 143mmol/L Potassium Level 3.6mmol/L Chloride Level 108mmol/L Carbon Dioxide Level 22mmol/L Anion Gap 17 Blood Urea Nitrogen 24mg/dl Creatinine 1.12mg/dl Glucose Level 227mg/dl Calcium Level 10.8mg/dl Total Bilirubin 0.7mg/dl Direct Bilirubin 0.00mg/dl Indirect Bilirubin 0.7mg/dl Aspartate Amino Transf (AST/SGOT) 49IU/L Alanine Aminotransferase (ALT/SGPT) 10IU/L Alkaline Phosphatase 69IU/L Troponin I < 0.012ng/ml Total Protein 8.8g/dl Albumin 4.1g/dl Globulin 4.70g/dl Albumin/Globulin Ratio 0.87 Current Medications Medications (Trade) Dose Ordered Sig/Gerard Route PRN Reason Start Time Stop Time Status Last Admin Dose Admin Morphine Sulfate (morphine) 4 mg ONCE STAT IV 02/18/17 01:33 02/18/17 03:19 DC 02/18/17 01:45 Ondansetron HCl 4 mg 4 mg ONCE STAT IV 02/18/17 01:33 02/18/17 03:19 DC 02/18/17 01:45 Sodium Chloride (NS) 250 ml @ 0 mls/hr Q0M ONCE IV 02/18/17 02:20 02/18/17 02:27 DC Ondansetron HCl 4 mg 4 mg ONCE STAT IV 02/18/17 02:35 02/18/17 03:19 DC 02/18/17 02:39 Sodium Chloride (NS) 1,000 ml @ 70 mls/hr [id number] IV 02/18/17 02:43 02/18/17 03:16 DC Ondansetron HCl (Zofran Inj) 4 mg Q6H PRN IV NAUSEA AND/OR VOMITING 02/18/17 03:00 02/18/17 03:16 DC Acetaminophen (Tylenol Liquid) 650 mg Q6H PRN PO PAIN LEVEL 1-3 OR FEVER 02/18/17 03:00 02/18/17 03:16 DC Pantoprazole 40 mg 40 mg DAILY@06 IV 02/18/17 06:00 02/18/17 06:00 DC Nicardipine HCl/ Sodium Chloride (Cardene Iv/NS) 250 ml @ 50 mls/hr PER PROTOCOL IV 02/18/17 03:00 02/18/17 03:16 DC Acetaminophen (Tylenol Tab) 650 mg Q4H PRN PO TEMP GREATER THAN 99.6F 02/18/17 03:00 02/18/17 03:16 DC Docusate Sodium (Colace) 100 mg BID PO 02/18/17 03:00 02/18/17 03:16 DC Latanoprost (Xalatan) 1 drop HS RIGHT EYE 02/18/17 21:00 Cancel Brimonidine Tartrate (Alphagan 0.2%) 1 drop BID RIGHT EYE 02/18/17 09:00 02/18/17 09:00 Cancel Dorzolamide/ Timolol (Cosopt) 1 drop BID BOTH EYES 02/18/17 09:00 02/18/17 09:00 Cancel Miscellaneous Information (* Miscellaneous Pharmacy Order) Discontinue current oral sulfonylur... ONCE ONCE XX 02/18/17 03:00 02/18/17 03:01 Cancel Diagnostic Test (Pha) (Accu-Chek) 1 ea 02 XX 02/19/17 02:00 Cancel Miscellaneous Information (* Miscellaneous Pharmacy Order) HYPOGLYCEMIA PROTOCOL w... ONCE ONCE XX 02/18/17 03:00 02/18/17 03:01 Cancel Insulin Aspart (Novolog Insulin Pen) NOVOLOG *MILD* ALGORI... Q4 SC 02/18/17 05:00 02/18/17 05:00 Cancel Miscellaneous Information Discontinue all previ... ONCE ONCE XX 02/18/17 03:00 02/18/17 03:01 Cancel Desmopressin Acetate/Sodium Chloride (Ddavp/NS) 55 ml @ 110 mls/hr ONCE ONCE IVPB 02/18/17 03:30 02/18/17 03:59 Miscellaneous Information 1 ea NOTE XX 02/18/17 03:15 Glucose (Glutose) 15 gm Q15M PRN PO DECREASED GLUCOSE 02/18/17 03:15 02/18/17 03:16 DC Glucose (Glutose) 22.5 gm Q15M PRN PO DECREASED GLUCOSE 02/18/17 03:15 02/18/17 03:16 DC Dextrose (D50w Syringe) 25 ml Q15M PRN IV DECREASED GLUCOSE 02/18/17 03:15 02/18/17 03:16 DC Dextrose (D50w Syringe) 50 ml Q15M PRN IV DECREASED GLUCOSE 02/18/17 03:15 02/18/17 03:16 DC Glucagon (Glucagen) 1 mg Q15M PRN IM DECREASED GLUCOSE 02/18/17 03:15 02/18/17 03:16 DC Glucose (Glutose) 15 gm Q15M PRN BUCCAL DECREASED GLUCOSE 02/18/17 03:15 02/18/17 03:16 DC Hydromorphone HCl (Dilaudid) 0.5 mg ONCE STAT IV 02/18/17 03:27 02/18/17 03:29 DC Ondansetron HCl 4 mg 4 mg ONCE STAT IV 02/18/17 03:27 02/18/17 03:29 DC Nicardipine HCl (Cardene Iv) 200 ml @ 50 mls/hr ONCE STAT IV 02/18/17 03:27 02/18/17 07:26 Procedures/MDM EKG, MONITORS, & DIAGNOSTIC IMAGING: EKG: I reviewed and interpreted a 12-lead EKG. Rhythm: Normal sinus rhythm Ectopy: None Intervals: No abnormalities ST segments: No elevations or depressions T waves: No contiguous inversions Chest x-ray: I reviewed and interpreted a 1 view of the chest Mediastinum: No enlargement Cardiac silhouette: No cardiomegaly Airspace: Clear lung domingo bilaterally without evidence of pneumothorax Bones: No evidence of fracture CT brain: IMPRESSION: 1. Posterior right temporal - occipital - parietal intraparenchymal hemorrhage with mild surrounding hypodensity/edema and effacement of the occipital horn right lateral ventricle. An underlying infarct with hemorrhagic transformation versus spontaneous intraparenchymal hemorrhage or considerations. No lesion was identified on the prior study in this region. 2. No midline shift. 3. Nonspecific white matter changes most commonly seen with microvascular ischemic disease. LAB INTERPRETATION: Leukocytosis of 46.6, hemoglobin 8.4 and platelets 15,000 all consistent with myelodysplastic syndrome. Chronic renal insufficiency MEDICAL DECISION MAKING: The patient presents with severe headache. This is nontraumatic but given her history of thrombocytopenia this is very concerning for intracranial hemorrhage. She had recent ophthalmology evaluation to rule out glaucoma. A stat CT brain has been ordered. ER COURSE: The patient CT brain shows evidence of significant intracranial hemorrhage as documented above. This is extremely concerning given her thrombocytopenia. Stat platelet transfusion has been ordered. I spoke with the patient's hematology oncologist, we discussed a trial of DDAVP. K Centra not indicated given the patient's myelodysplastic syndrome as the etiology of the hemorrhages secondary to thrombocytopenia alone. An emergent phone call to the neurosurgeon on-call, Dr. Ferrara, was made. We discussed the case. He recommends blood pressure control less than 160 systolic , platelet transfusion for the patient is nonoperative at this time. Continue to reassess with repeat CT in 6 hours. ICU of level of care is recommended. I discussed with the patient and/or family the risks, benefits, alternatives of blood transfusion. This includes allergic reaction and infections including HIV and hepatitis. The patient and/or family were able to verbalize these risks , stated understanding. A document has been signed and placed in the chart. The patient continues to have pain and vomiting. Gentle titration of pain control medication to preserve mentation has been performed. Nausea medication provided. Mcneal catheter inserted. Cardene drip was ordered to the bedside for blood pressure control less than 160 of systolic blood pressure. The patient continues to protect her airway at this time. No indication for intubation. I kept the patient and/or family informed of laboratory and diagnostic imaging results throughout the emergency room course. They understand the critical nature of the intracranial hemorrhage. DISPOSITION PLAN: Intensive care unit CONSULTATION: Accepting care team and consultations: I discussed the current laboratory data, diagnostic imaging and emergency care provided. Admitting team: Dr. Dougie Admitting team indication: Insurance directed Consulting services: As documented above, Dr. Richardson, Dr. Ferrara Critical Care Note: Total time: 58 minutes Indication/Organ System Threat: Intracranial hemorrhage secondary to thrombocytopenia I spent the above amount of critical care time with the patient, not including billable procedures. This included chart review, consultations, repeat bedside evaluations, and titration of appropriate medications to prevent cardiopulmonary or respiratory collapse. Departure Diagnosis: Primary Impression: Myelodysplasia (myelodysplastic syndrome) Additional Impressions: Thrombocytopenia Intracranial hemorrhage Chronic renal insufficiency Qualified Code: N18.9 - Chronic renal impairment, unspecified CKD stage Condition: Critical AGUS THOMAS MD Feb 18, 2017 03:49
[2017-02-18] MEDS ORDERED: INSULIN ASPART [NOVOLOG] 3 ML PEN SC SCH ×2 (05:00→06:00)
[2017-02-18 05:30] LABS: ANISOCYTOSIS 1+ (0-0); BLAST% (M) 1 % (0-0); ERYTHROBLAST% (NRBC) (M) 5 % (0-0); METAMYELOCYTES %M 6 % (0-0); MONOCYTES % (M) 15 % (0-11); MYELOCYTES % (M) 5 % (0-0); PLATELET ESTIMATE SIG DECREASED; POLYCHROMASIA 3+ (0-0)
[2017-02-18] MEDS ORDERED: HYDROmorphONE 1 MG/ML SYG IV PRN (05:30)
[2017-02-18] MEDS ORDERED: PANTOPRAZOLE 40 MG INJ IV ONE (05:30)
[2017-02-18] MEDS ORDERED: hydrALAzine 20 MG INJ IV PRN (05:30)
[2017-02-18] MEDS ORDERED: PANTOPRAZOLE 40 MG INJ IV SCH (06:00)
[2017-02-18] MEDS ORDERED: SUCCINYLCHOLINE CHLORIDE 100 MG/5 ML SYG IV ONE ×2 (07:00→09:30)
[2017-02-18] MEDS ORDERED: ETOMIDATE 20 MG INJ ONE (07:00)
--- NOTE | 2017-02-18 07:59 | RADRPT ---
PROCEDURE: CT Brain without contrast. CLINICAL INDICATION: Intracranial hemorrhage. Follow-up study. TECHNIQUE: Axial images from the skull base through the vertex without IV contrast. Multiplanar r eformatted images were made. Images were reviewed on a PACS workstation. The CTDIvol is 42.81 mGy and the DLP is 720.23 mGycm. One or more of the following dose reduction techniques were used: auto mated exposure control, adjustment of the mA and/or kV according to patient size, or use of iterativ e reconstruction technique. COMPARISON: 02/18/2017 FINDINGS: The right intraparenchymal hemorrhage has significantly increased in size, now measuring 4.9 x 3.6 x 6.4 cm. Surrounding vasogenic edema is again seen. There is now intraventricular extension with blo od seen in both lateral ventricles. There is now subfalcine herniation with bzomi-ir-epcl midline sh ift of nearly 1 cm. Slight dilatation of the temporal tips is seen. No blood is seen in the cisterns but the suprasellar cistern is now effaced. The visualized paranasal sinuses and mastoids are clear . Prior cataract surgery bilaterally. IMPRESSION: Significant increase in right intraparenchymal hemorrhage with intraventricular extension and new [place] bfalcine herniation/midline shift with evidence of increased intracranial pressure. Results were called to Dr. Perez at 02/18/2017 7:55:23 AM Critical results: Intracranial hemorrhage RPTAT: HLBE Physician Carol Date Time Electronically viewed and signed by Physician Carol on 02/18/2017 07:58 YI/
[2017-02-18] MEDS ORDERED: BRIMONIDINE 0.2% 5 ML BTL RIGHT EYE SCH (09:00)
[2017-02-18] MEDS ORDERED: DORZOLAMIDE/TIMOLOL 10 ML OPH BOTH EYES SCH (09:00)
[2017-02-18 09:19] LABS: ABNORMAL IP MESSAGE 1; HEMOGLOBIN 7.2 g/dl (12.0-16.0); MEAN CORPUSCULAR HEMOGLOBIN 28.3 pg (29.0-33.0); MEAN CORPUSCULAR HGB CONC 31.3 g/dl (32.0-37.0); MEAN CORPUSCULAR VOLUME 90.6 fl (82.0-101.0); NUCLEATED RED BLOOD CELLS% 1.9 /100WBC (0.0-0.0); RED BLOOD COUNT 2.54 10^6/ul (4.20-5.40); RED CELL DISTRIBUTION WIDTH 17.1 % (11.5-14.5); WHITE BLOOD COUNT 79.8 10^3/ul (4.8-10.8)
[2017-02-18 09:23] LABS: PLATELET COUNT 22 10^3/UL (140-415); POSITIVE DIFF @See below
[2017-02-18] MEDS ORDERED: ETOMIDATE 20 MG INJ IV ONE (09:30)
[2017-02-18 09:32] LABS: INR 1.46; PROTIME 17.8 Sec (12.2-14.2); PT RATIO 1.4
[2017-02-18 09:33] LABS: PARTIAL THROMBOPLASTIN TIME 39.1 Sec (25.0-35.0)
[2017-02-18 09:35] LABS: CALCIUM 10.7 mg/dl (8.4-10.2); CREATININE 1.03 mg/dl (0.44-1.00); POTASSIUM 3.5 mmol/L (3.5-5.1)
--- NOTE | 2017-02-18 09:57 | EN ---
Date/Time of Note Date/Time of Note DATE: 02/18/17 TIME: 09:54 ER Progress Note This patient was signed out to me by Dr. Gonzalez. She is a 8-year-old female with myelodysplastic syndrome who is presenting with thrombocytopenia and found to have a intracranial hemorrhage. When the patient was signed out to me, she was maintaining her airway, but her mentation started to wane. A repeat CT of the head revealed a new intraventricular hemorrhage with concerns of herniation. The neurosurgeon software applications specialist and the hospitalist spoke to the family who at this time wanted everything to be done. The decision was made at that time to intubate the patient. Endotracheal Intubation by me: Pre assessment performed. Pre-oxygenation performed with 100% oxygen RSI: Performed w/o complication or hypoxic events. Medications as ordered. Blade: Mac 3 ET Tube: 7.0 Depth: 24 cm at the lip Intubation confirmed by colorimetric CO2, equal breath sounds, quiet over the stomach. Chest X-ray 1V Interpreted by me: 3.2 cm above the allison ET tube. Normal soft tissue, No pneumothorax. The radiology read is as follows: FINDINGS: There is interval placement of an endotracheal tube with the tip 3.2 cm above the allison. Shallow lung volumes again seen with interval increased moderate central congestion and edema. Top normal heart size. Ectatic and atherosclerotic aorta. Subsegmental atelectasis of the lung bases with slight bibasilar crowding. No definite acute infiltrate or effusion is seen. Mild degenerative change of the spine. IMPRESSION: Interval placement of endotracheal tube with the tip 3.2 cm above the allison. Hypoinflation with interval increased moderate congestion and interstitial edema. Electronically viewed and signed by .Syd Carney MD, MD on 02/18/2017 10:54 The patient will be given 2 additional units of platelets after speaking with her financial director. At this time, she is still pending transfer to the ICU. HENRIQUE MURILLO MD Feb 18, 2017 09:57
[2017-02-18] MEDS ORDERED: MANNITOL 25% 50 ML INJ IV* STA (10:00)
--- NOTE | 2017-02-18 10:00 | PN ---
Date/Time of Note Date/Time of Note DATE: 02/18/17 TIME: 09:59 Assessment/Plan VTE Prophylaxis VTE Prophylaxis Intervention: other (other) VTE Confirmed-Overlap Tx Rcvd Pt Rcvd Overlap Therapy: No Reason for no Overlap Therapy: Contraindicated VTE Overlap Tx Contraindicated: hemorrhagic cerebral infarction Lines/Catheters Urinary Cath still in place: No Assessment/Plan Assessment/Plan Date of note: February 18, 2017 I was contacted about this 71-year-old female with history of myelodysplastic syndrome, refractory to treatment, being closely followed up by her music adapter , Dr. Whitney Paez, who presents for the second time over the course of about 1 week to the emergency department. The patient initially presented to the emergency department about a week ago after she apparently had a small fall and was not feeling well. She had workup done that did not show any evidence of hemorrhage but was found to have severe thrombocytopenia, given some platelets that increased her platelet counts and was discharged. The patient presented again overnight after becoming altered. Her new platelet count was found to be [address] showed a right parieto-occipital intracranial hemorrhage. I discussed the patient's case in detail with the emergency room physician, Dr. Patton, overnight. Unfortunately, given the patient's severe thrombocytopenia no neurosurgical intervention is possible since any intervention has a very high likelihood of causing further hemorrhage and further devastation. However I did recommend that the patient receive immediate platelet transfusion and for the emergency department to contact the music adapter for any other recommendations to help improve the patient's platelet count and function on an acute basis to help prevent further extension of intracranial hemorrhage. The patient was also given DDAVP that I assume was at the direction of the music adapter. Apparently the patient given her refractory state of myelodysplastic syndrome is being considered to be enrolled in a trial at [facility]. The follow-up head CT that was ordered for this morning now shows significant extension of the intracranial hemorrhage now with intraventricular hemorrhage and right to left midline shift. A repeat stat CBC is ordered. I have also asked the emergency room physician taking over the case to give the patient more platelet transfusion. The patient is awaiting for a bed in the ICU. Her systolic blood pressure is being maintained less than 160. The patient has also become further alter but is still arousable to voice and is able to protect her airway according to the emergency room physician so far. The patient has been admitted by the hospitalist. I have spoken to the patient's sister who is at bedside and explained the above situation in detail with her. The patient's sister appears to be very well aware of her sisters medical condition andthat her myelodysplastic syndrome is very advanced. In fact, the sister tells me that her music adapter believes that the myelodysplastic syndrome has possibly turned into leukemia at this point further complicating the matter. I have explanted the patient's sister that unfortunately no acute neurosurgical intervention would be feasible as any surgical intervention can cause further hemorrhage and devastation making the matter worse. I have also explained to the patient's sister that over time the patient's neurologic status will likely further decline where she will not be able to protect her airway and that she may need to be intubated and put on a ventilator. The sister tells me that the patient does not have an advanced directive and has not expressed her wishes in advance. The patient also has several other siblings but the sister whom I've spoken with says she is the person closest to the patient and most aware of her medical condition. The patient's sister is aware that there will most likely need to make the decision regarding further care including intubation and ventilatory support. The patient will also be given mannitol to help decrease intracranial pressure for the short-term. The patient sister is also aware that they can ask the patient's nurse to page me with any other further questions or concerns. GARY INFANTE MD Feb 18, 2017 10:00
--- NOTE | 2017-02-18 10:54 | RADRPT ---
PROCEDURE: XR Chest. CLINICAL INDICATION: Shortness of breath TECHNIQUE: Single frontal chest x-ray. COMPARISON: 02/18/2017 at 01:44 AM. FINDINGS: There is interval placement of an endotracheal tube with the tip 3.2 cm above the allison. Shallow yoshi ng volumes again seen with interval increased moderate central congestion and edema. Top normal hear t size. Ectatic and atherosclerotic aorta. Subsegmental atelectasis of the lung bases with slight bi basilar crowding. No definite acute infiltrate or effusion is seen. Mild degenerative change of the spine. IMPRESSION: 1. Interval placement of endotracheal tube with the tip 3.2 cm above the allison. 2. Hypoinflation with interval increased moderate congestion and interstitial edema. RPTAT: RR .Syd Carney MD, Date Time Electronically viewed and signed by .Syd Carney MD, on 02/18/2017 10:54 .A/
[2017-02-18] MEDS ORDERED: MANNITOL 20% 125 ML IV SCH (11:00)
[2017-02-18] MEDS: Insulin NOVOLOG SS MILD Algorithm (NPO/TPN/ENTERAL FEEDS) SC SCH ×3 (11:16→21:52)
[2017-02-18 12:14] LABS: Allen Test ACCEPTAB; Arterial Base Excess -5.9 mmol/L (-3.0-3); Arterial COHb 0.3 % (0.0-3.0); Arterial Fraction of Oxyhgb 94.6 % (93.0-99.0); Arterial HCO3 19.7 mmol/L (22.0-26.0); Arterial MetHb 0.8 % (0.0-1.5); MODE VENT - AC
[2017-02-18] MEDS: SOD CHLORIDE 0.9% 1,000 ML IV SCH ×2 (15:15→19:59)
[2017-02-18] MEDS ORDERED: SOD CHLORIDE 0.9% 1,000 ML IV ONE (16:00)
[2017-02-18] MEDS ORDERED: NORepinephrine 8MG/250 ML (PMX 250 ML ONE (19:38)
[2017-02-18] MEDS: NORepinephrine 8MG/250 ML (PMX 250 ML IV SCH (20:00)
[2017-02-18] MEDS ORDERED: LATANOPROST 0.005% 2.5 ML OPH RIGHT EYE SCH (21:00)
--- NOTE | 2017-02-18 22:15 | CONS ---
Date/Time of Note Date/Time of Note DATE: 02/18/17 TIME: 21:46 Assessment/Plan Assessment/Plan Chief Complaint/Hosp Course 71 yo with High grade MDS and transfusion dependance who presents with a severe intracranial hemorrhage after a fall from a week ago while being severely thrombocytopenic. As stated by neurosurgery, any neurosurgical intervention would be too risky in a patient with this low platelet count. Unfortunately, because of her severe MDS Azalia does not respond appropriately to platelet transfusion. Even after 3 units of platelets her platelets are barely greater than 20K and will likely fall after 1 day. -agree with conservative management of intracranial bleed -will try to keep platelets greater than 50 K -appreciate neurosurgical recommendations to continue mannitol -I have had an extensive discussion with the patient's sister Alex who understands the patient's poor prognosis and our limited options at this time. I have also had extensive discussions with Beto over the past month about the seriousness of her condition and how her bone marrow does not function. She understood prior to this incident that her disease was terminal but she wanted to try to enrol in a clinical trial or seek a second opinion. -At this time, pt is too critical for any oncologic intervention or trial -continue to manage the intracranial bleed and transfuse as necessary. Problems: Consultation Date/Type/Reason Admit Date/Time Feb 18, 2017 at 02:49 Date of Consultation: Feb 18, 2017 Type of Consultation: hematology Reason for Consultation high grade MDS/ intracranial bleed Referring Provider: SUKHI RUBIO MD- Hx of Present Illness 71 yo with high risk myelodysplastic syndrome who for the last 6 months has received Vidaza, a hypomethylating agent , to control her disease. Unfortunately since November 2016, the medication seems to have had little effect and patient has remained transfusion dependant. Despite transfusions about 1 time a week her week her platelets would remain between 10- 20K. She was scheduled to follow up at [facility] for potential enrollment in a clinical trial. On patient presented to [facility] s/p fall when she tripped at night during a black out. Pt was admitted and found to have sustained injury to her face although CT Brain done 02/09 showed no evidence of intracranial bleed. Pt called me last night, 6 days after being discharged stating that for 2 days she has blurry vision and nausea. She states she went to her community program assistant who noted "bleeding behind her eyes". Pt was told to come to the ER corin for evaluation. CT Brain was done which revealed a posterior right temporal - occipital - parietal intraparenchymal hemorrhage with mild surrounding hypodensity/edema and effacement of the occipital horn right lateral ventricle. An underlying infarct with hemorrhagic transformation versus spontaneous intraparenchymal hemorrhage or considerations. A repeat CT Brain was done 7 hours later that demonstrated rapid increase in size of the intracerebral hemorrhage. Pt became extremely lethargic and has since been intubated to protect her airway. When I saw MS Salinas this morning she had just had Dilaudid and was very difficult to arouse. Subjective hx not possible: pt non-verbal Past Medical History Myelodysplastic syndrome. Fracture of the left humerus. Fracture of the right patella. Hypertension. Type 2 diabetes. Gastroesophageal reflux disease (GERD). Glaucoma. Hyperlipidemia. Overactive bladder syndrome Family History Significant Family History: no pertinent family hx Social History Alcohol Use: none Smoking Status: Unknown if ever smoked Drug Use: none Exam/Review of Systems Vital Signs Vitals Vital Signs Date Time Temp Pulse Resp B/P Pulse Ox O2 Delivery O2 Flow Rate FiO2 02/18/17 20:45 82 14 95/41 100 02/18/17 20:15 98.1 Mechanical Ventilator 02/18/17 20:02 40 02/18/17 05:54 2.0 Exam Constitutional: frail, non-verbal Head: hematomas, other (ecchymosis over chin . periorbital ecchymosis) Eyes: nl conjunctiva ENMT: nl external ears & nose Neck: non-tender, supple Respiratory: clear to auscultation Cardiovascular: regular rate and rhythm Gastrointestinal: soft Skin: ecchymosis Results Result Diagram: 02/18/1782902/18/17829 Results 24 hrs Laboratory Tests Test 02/18/17 01:35 02/18/17 07:29 02/18/17 08:30 02/18/17 10:30 White Blood Count 46.6 #H 79.8 #H Red Blood Count 2.94 L 2.54 L Hemoglobin 8.4 L 7.2 L Hematocrit 26.5 L 23.0 L Mean Corpuscular Volume 90.1 90.6 Mean Corpuscular Hemoglobin 28.6 L 28.3 L Mean Corpuscular Hemoglobin Concent 31.7 L 31.3 L Red Cell Distribution Width 17.0 H 17.1 H Platelet Count 15 #*L 22 #*L Mean Platelet Volume Neutrophils % Segmented Neutrophils % (Manual) 64 Lymphocytes % Lymphocytes % (Manual) 9 L Monocytes % Monocytes % (Manual) 15 H Eosinophils % Basophils % Metamyelocytes % (manual) 6 H Myelocytes % (Manual) 5 H Blast Cells % (Manual) 1 H Nucleated Red Blood Cells % 5 H 1.9 H Neutrophils # (Manual) 51.3 H Absolute Lymphocytes (Manual) 4.1 H Lymphocytes # Monocytes # Absolute Monocytes (Manual) 6.9 H Eosinophils # Basophils # Metamyelocytes # 2.7 H Myelocytes # 2.3 H Nucleated Red Blood Cells # Platelet Estimate SIG DECREASED Polychromasia 3+ Anisocytosis 1+ Prothrombin Time 16.5 H 17.8 H Prothrombin Time Ratio 1.3 1.4 INR International Normalized Ratio 1.32 1.46 Activated Partial Thromboplast Time 31.9 39.1 H Sodium Level 143 142 Potassium Level 3.6 3.5 Chloride Level 108 107 Carbon Dioxide Level 22 22 Anion Gap 17 H 17 H Blood Urea Nitrogen 24 H 23 H Creatinine 1.12 H 1.03 H Glucose Level 227 H 305 H Calcium Level 10.8 H 10.7 H Total Bilirubin 0.7 Direct Bilirubin 0.00 Indirect Bilirubin 0.7 Aspartate Amino Transf (AST/SGOT) 49 H Alanine Aminotransferase (ALT/SGPT) 10 L Alkaline Phosphatase 69 Troponin I < 0.012 Total Protein 8.8 H Albumin 4.1 Globulin 4.70 H Albumin/Globulin Ratio 0.87 Bedside Glucose 293 H Blood Gas Specimen Source Blood arterial Arterial Blood Date Drawn 02/18/2017 12:04:26 PM Arterial Blood pH (Temp corrected) 7.320 L Arterial Blood pCO2 (Temp correct) 39.1 Arterial Blood pO2 (Temp corrected) 88.2 Arterial Blood HCO3 19.7 L Arterial Blood Base Excess -5.9 L Arterial Blood Oxygen Saturation 95.7 Zander Test ACCEPTAB Arterial Blood Gas Puncture Site Left Radial Arterial Blood Carboxyhemoglobin 0.3 Arterial Blood Methemoglobin 0.8 Blood Gas A-a O2 Differential 152.0 H Oxyhemoglobin Percent 94.6 Total Hemoglobin 8.0 L Blood Gas Temperature 37.0 Blood Gas Respiration Rate 14.0 Blood Gas Actual Respiration Rate 22 Blood Gas Modality VENT - AC FiO2 40.0 Blood Gas Tidal Volume 450.0 Blood Gas Low PEEP Setting 5.0 Blood Gas Critical Value Read Back DR. MURILLO Blood Gas Notified Whom Esperanza Blood Gas Notified Time 02/18/2017 12:14:08 PM Test 02/18/17 11:06 Bedside Glucose 274 H Medications Medications Current Medications Miscellaneous Information 1 ea NOTE XX ; Start 02/18/17 at 03:15 Hydromorphone HCl (Dilaudid) 0.5 mg Q2H PRN IV pain; Start 02/18/17 at 05:30 Ondansetron HCl (Zofran Inj) 4 mg Q2H PRN IV Nausea; Start 02/18/17 at 05:30 Acetaminophen (Tylenol Tab) 650 mg Q4H PRN PO TEMP ABOVE 100.4F; Start 02/18/17 at 05:30 Hydralazine HCl (Apresoline) 10 mg Q6H PRN IV ELEVATED BLOOD PRESSURE; Start at 05:30 Insulin Aspart (Novolog Insulin Pen) (Adult SC Insulin - Mild Algorithm)... Q6 SC Last administered on 02/18/17 11:16; Admin Dose 4 UNIT; Start 02/18/17 at 06: 00 Miscellaneous Information 1 ea NOTE XX ; Start 02/18/17 at 05:30 Glucose (Glutose) 15 gm Q15M PRN PO DECREASED GLUCOSE; Start 02/18/17 at 05:30 Glucose (Glutose) 22.5 gm Q15M PRN PO DECREASED GLUCOSE; Start 02/18/17 at 05:30 Dextrose (D50w Syringe) 25 ml Q15M PRN IV DECREASED GLUCOSE; Start 02/18/17 at 05:30 Dextrose (D50w Syringe) 50 ml Q15M PRN IV DECREASED GLUCOSE; Start 02/18/17 at 05:30 Glucagon (Glucagen) 1 mg Q15M PRN IM DECREASED GLUCOSE; Start 02/18/17 at 05:30 Glucose 15 gm 15 gm Q15M PRN BUCCAL DECREASED GLUCOSE; Start 02/18/17 at 05:30 Sodium Chloride 1,000 ml @ 100 mls/hr Q10H IV Last administered on 02/18/17 19 :59; Admin Dose 100 MLS/HR; Start 02/18/17 at 15:15 Norepinephrine (Levophed) 250 ml @ 1.875 mls/ hr TITRATE IV Last administered on 02/18/17t 20:00; Admin Dose 3.75 MLS/HR; Start 02/18/17 at 19:30 ALBERTO JOSEPH M.D. Feb 18, 2017 21:56
[2017-02-19] VITALS (105 sets, daily range): BP systolic 47–116; BP diastolic 25–55; PULSE 0–141; RESP 9–18
[2017-02-19] MEDS: Insulin NOVOLOG SS MILD Algorithm (NPO/TPN/ENTERAL FEEDS) SC SCH ×4 (00:48→17:56)
[2017-02-19] MEDS ORDERED: ACCU-CHEK XX SCH (02:00)
[2017-02-19] MEDS: NORepinephrine 8MG/250 ML (PMX 250 ML IV SCH ×3 (02:11→18:01)
[2017-02-19] MEDS: SOD CHLORIDE 0.9% 1,000 ML IV SCH ×2 (05:27→22:37)
[2017-02-19 05:28] LABS: ABNORMAL IP MESSAGE 1; HEMATOCRIT 16.3 % (37.0-47.0); MEAN CORPUSCULAR HEMOGLOBIN 28.3 pg (29.0-33.0); MEAN CORPUSCULAR HGB CONC 30.1 g/dl (32.0-37.0); MEAN CORPUSCULAR VOLUME 94.2 fl (82.0-101.0); MEAN PLATELET VOLUME 12.7 fl (7.4-10.4); NUCLEATED RED BLOOD CELLS% 3.4 /100WBC (0.0-0.0); PLATELET COUNT 55 10^3/UL (140-415); RED BLOOD COUNT 1.73 10^6/ul (4.20-5.40); RED CELL DISTRIBUTION WIDTH 17.5 % (11.5-14.5); WHITE BLOOD COUNT 61.4 10^3/ul (4.8-10.8)
[2017-02-19 05:46] LABS: CALCIUM 9.2 mg/dl (8.4-10.2); CREATININE 1.76 mg/dl (0.44-1.00); POTASSIUM 3.9 mmol/L (3.5-5.1)
[2017-02-19 06:01] LABS: AADO2 Arterial 120.7 mmHg (7.0-24.0); Allen Test ACCEPTAB; Arterial Base Excess -3.8 mmol/L (-3.0-3); Arterial COHb 0 % (0.0-3.0); Arterial Fraction of Oxyhgb 95.2 % (93.0-99.0); Arterial HCO3 23.5 mmol/L (22.0-26.0); Arterial MetHb 0.9 % (0.0-1.5); Arterial Total Hemglobin 5.5 g/dl (12.0-18.0); MODE VENT - AC
[2017-02-19 06:03] LABS: HEMOGLOBIN 4.9 g/dl (12.0-16.0); POSITIVE DIFF @See below
--- NOTE | 2017-02-19 11:27 | CONS ---
DATE OF ADMISSION: 02/18/2017 DATE OF CONSULTATION: 02/19/2017 REASON FOR CONSULTATION: Ventilator management. Thank you, Dr. Oneill, for this consultation. HISTORY OF PRESENT ILLNESS: This is an unfortunate 71-year-old lady with history of high-grade myelodysplastic syndrome, transfusion dependent. He came in following a mechanical fall 1 week ago. Found to have severe intracranial hemorrhage, and seen by Neurosurgery on this admission and found to be too high risk for neurosurgical intervention. Currently, having conservative management including replacement of blood products and mechanical ventilation. PAST MEDICAL HISTORY: Myelodysplastic syndrome. Fracture of humerus, fracture patella. Hypertension, hyperlipidemia, type 2 diabetes. Gastroesophageal reflux disease. MEDICATION: Per chart. ALLERGIES: NONE. SOCIAL HISTORY: Nonsmoker. No alcohol. No history of drug use. FAMILY HISTORY: Noncontributory. REVIEW OF SYSTEMS: A 12-point review of systems, unable to perform. PHYSICAL EXAMINATION: GENERAL: Elderly-appearing lady, intubated on mechanical ventilation. Somnolent. VITAL SIGNS: Currently afebrile. Temperature 98, pulse is 96, blood pressure 101/44. O2 saturation is 96 percent, FiO2 of 40 percent. HEENT: Orally intubated. Dry mucous membranes. Pupils sluggish. NECK: Supple. HEART: S1, S2. No added sounds or murmurs. CHEST: Diminished air entry bilaterally. ABDOMEN: Soft, nontender. No guarding or rebound. EXTREMITIES: No cyanosis, clubbing or edema. NEUROLOGIC: Unable to assess. LABORATORY: White count 61.4, hemoglobin 4.9, platelets of 55,000. BUN 25, creatinine 1.76 and 1.456. ABG: pH 7.22, pCO2 of 58, PO2 of 97. IMAGING: CT of the head shows increasing right intraparenchymal hemorrhage with intraventricular extension, and sub-falcine herniation. IMPRESSION AND PLAN: 1. Significant intracerebral bleed. 2. Myelodysplastic syndrome with anemia, and thrombocytopenia. 3. Now significant neurological injury. 4. Hypoxemic respiratory failure. 5. Hypercapnic respiratory failure, on current ventilator settings. PLAN: 1. Adjust mechanical ventilator. 2. Continue replacement of blood products. 3. Deep venous thrombosis and gastrointestinal prophylaxis. 4. Overall prognosis is guarded. 5. We will have palliative care consult. Dictated By: Oneal Easton MD /tiffany/david /Document#: [id number]
[2017-02-19 13:41] LABS: AADO2 Arterial 166.5 mmHg (7.0-24.0); Allen Test ACCEPTAB; Arterial COHb 0.3 % (0.0-3.0); Arterial Fraction of Oxyhgb 94.9 % (93.0-99.0); Arterial HCO3 18.7 mmol/L (22.0-26.0); Arterial MetHb 0.6 % (0.0-1.5); Arterial Total Hemglobin 9.1 g/dl (12.0-18.0); MODE VENT - AC
[2017-02-19 14:41] LABS: HEMATOCRIT 24.4 % (37.0-47.0); HEMOGLOBIN 7.6 g/dl (12.0-16.0)
[2017-02-19] MEDS ORDERED: VASOPRESSIN 60 UNIT in DEXTROSE 5% 57 ML IV SCH (18:30)
--- NOTE | 2017-02-19 19:17 | CONS ---
Date/Time of Note Date/Time of Note DATE: 02/19/17 TIME: 14:00 Assessment/Plan Assessment/Plan Additional Assessment/Plan This is a 71-year-old female with advanced myelodysplastic syndrome with known thrombocytopenia, being followed outpatient and inpatient by hematology, refractory to treatments who developed a spontaneous right parieto-occipital intracranial hemorrhage yesterday that has significantly increased in size on the follow-up head CT with intraventricular hemorrhage extension. The patient' s platelet count at the time of presentation was 15 and despite multiple platelet transfusions her platelet count 12 a high of 55. As was discussed in the note from yesterday, it is not possible for the patient to undergo neurosurgical intervention such as craniotomy/craniectomy and evacuation of the hematoma as any such intervention would most likely need to further hemorrhage and devastation. In the meantime, the patient's overall systemic condition has further deteriorated where the patient has become hypotensive dependent on vasopressor medication. Her H&H has further markedly dropped since the time of admission to a hemoglobin of 4.9 today and the patient is currently receiving packed red cell transfusion. The patient's creatinine has also risen indicating that the patient is most probably going into renal failure. Her INR and PTT have also risen since the time of admission with a INR being 1.4 and PTT being 39.1 now. Since the time of admission, the patient has also been intubated as the patient over time as would be expected became more lethargic. Allergies: No known drug allergies Medications: The patient's medications have been noted and reviewed in the chart. Past medical history: Myelodysplastic syndrome. Fracture of the left humerus. Fracture of the right patella. Hypertension. Type 2 diabetes. Gastroesophageal reflux disease (GERD). Glaucoma. Hyperlipidemia. Overactive bladder syndrome Family history: Non-contributory Social history: According to family and the records, she does not smoke tobacco. She does not use alcoholic beverages. She does not use illicit or recreational drugs. Review of systems: Cannot be done since the patient is intubated and unresponsive. Physical exam: Currently in the intensive care unit, the patient is intubated on a ventilator. She is on no sedation. She does not open her eyes spontaneously or to voice or pain. The patient does not move her upper or lower extremities to deep pain. Both of the patient's pupils appear to be irregular. The left pupil is 3 mm and nonreactive and the right pupil is 4 mm and nonreactive. The patient has gross evidence of ecchymoses by her chin and petechiae over her chest most likely related to her severe thrombocytopenia. Imaging: Please see above as well as the note from yesterday for a full discussion of the CT imaging of the head. Assessment/plan: I have again spoken to the patient's sister in great detail about the patient's further severe deterioration since the time of admission. In addition to the patient being in a comatose state as a result of the intraparenchymal and intraventricular hemorrhage, the patient's overall systemic condition has deteriorated significantly as discussed above. Unfortunately, the patient's prognosis is extremely poor and the patient's sister fully understands this. There is unfortunately no neurosurgical intervention that could be done to improve the patient's condition. I have also spoken to Dr. Easton, the pulmonary/critical care physician following the patient he is also in full agreement and will also be further discussing the patient's very poor condition with the patient's family. GARY INFANTE MD Feb 19, 2017 19:17
--- NOTE | 2017-02-19 23:35 | PN ---
DATE: 02/19/2017 SUBJECTIVE DATA: The patient is comatose and intubated. She came into the hospital yesterday and she could walk to the car from her home but by the time she got to the ER she could not walk and now she is unconscious and intubated. She does not respond to painful or verbal stimuli. About 1 week ago she had a fall and then now her CAT scan reveals am intracranial hemorrhage. Two CAT scans were done and second which showed progression of the intracranial hemorrhage. The patient has myelodysplastic syndrome with severe anemia and thrombocytopenia. She has had repeated platelet transfusions, but they do not persist. The patient was given a course of Vidaza, a hypomethylating agent to control her disease. However, since November 2016 the medication seems to have no affect on her hematological disorder. OBJECTIVE DATA: GENERAL: The patient is intubated and unresponsive. She has bilateral subconjunctival hemorrhage. CHEST: Sinus tachycardia. Chest clear to A and P. ABDOMEN: Liver, kidney, spleen not palpable. Bowel sounds are normal. EXTREMITIES: No ankle edema. LABORATORY AND DIAGNOSTIC DATA: Hemoglobin on admission was 4.9 with hematocrit of 16.3 following 2 units of red blood cell transfusion. Her hemoglobin is now 7.6 with hematocrit 24.4. White blood cell count is 61,400. Platelet count is 55,000 after several units of platelet transfusion. Her original platelet count on admission was 15,000. The patient had a temperature of a 101.1. Blood pressure on vasopressors is 70/36, pulse is 132 per minute, respiratory rate is 18 but the patient is on a ventilator. Arterial blood gas reveals the pH is 7.358, pCO2 34.1, PO2 79.5. Base excess -6.0. The patient is intubated. FiO2 40. INR is 1.46 and PTT is 39.1. X-RAY: Admitting chest x-ray reveals no significant interval change, bibasilar crowding, aortic atherosclerosis. Brain CT revealed significant increase in right intraparenchymal hemorrhage with intraventricular extension and new subfalcine herniation with midline shift with evidence of increased intracranial pressure. This was a marked deterioration since the first CAT scan on admission one day ago. The patient's prognosis is extremely guarded. To get Neurological consultation also to get an EEG to see if the patient still has any electrical activity in her brain. Dictated By: Chepe Purvis MD /tiffany/marilin /Document#: [id number]
--- NOTE | 2017-02-19 23:37 | EN ---
Date/Time of Note Date/Time of Note DATE: 02/19/17 TIME: 23:31 Event Note Medicine Medicine Event Note pronouncement note Patient seen and examined at the bedside. Patient non responsive to verbal stimuli. Patient non responsive to vigorous sternal rub. No heart sounds appreciated on auscultation. Pupils fixed and non reactive to light. Asystole on telemetry monitoring. Pronounced at 11:25 pm. Family at the bedside. Primary doctor made aware by TERESITA. AAR NESBITT Feb 19, 2017 23:37
--- NOTE | 2017-02-20 16:55 | PRO ---
DATE OF PROCEDURE: 02/19/2017 HISTORY: This is a patient with myelodysplastic syndrome with thrombocytopenia requiring multiple platelet transfusions. She was admitted and was found to have intracerebral hemorrhage. The patient was in ICU in comatose state. The EEG is to rule out brain activity. CURRENT MEDICATIONS: None. DESCRIPTION OF PROCEDURE: Utilizing a 16-channel EEG machine, cap scalp electrodes were applied in accordance with the International 10-20 system. [id number] and epwrf-hj-[id number] montages were displayed. Electrical impedances were measured and reported. Description: During a resting state there was no clear posterior dominant rhythm seen. Photic stimulation had no responses. EKG artifact was noted on decreasing the sensitivity. IMPRESSION: This EEG is consistent with brain . Please correlate clinically. Dictated By: Neli Kimble MD /tiffany/holly /Document#: [id number]
--- NOTE | 2017-02-22 11:01 | HP ---
DATE OF ADMISSION: ADMITTING DIAGNOSIS: Intracerebral hemorrhage secondary to severe thrombocytopenia. HISTORY OF PRESENT ILLNESS: The patient is a 71-year-old female with severe myelodysplastic syndrome with refractory anemia and thrombocytopenia, who presented to the hospital with severe headache, inability to see well, and nausea and vomiting. The patient was recently in the hospital secondary to a fall with thrombocytopenia, receiving transfusion as well as a blood and platelets. The patient was doing well, but over the last several days developed decreased vision, and then yesterday, severe headache and nausea and vomiting. The patient was found to have a significant intracerebral hemorrhage by CT scan and severe thrombocytopenia. The patient was transfused 1 unit of platelets. Repeat CT scan showed further bleeding and possible early herniation. The patient had no complaints, but was sedated in the ER and was unable to give further history. In speaking with the patient's sister Yamila, the patient had been having the headache and decreased vision for the last day or so, but had no falls that she was aware of. PAST MEDICAL HISTORY: 1. Severe myelodysplastic syndrome with refractory anemia and thrombocytopenia. 2. Diabetes. 3. Hypertension. 4. Urinary tract infection. 5. Multiple contusions with hematomas. PAST SURGICAL HISTORY: Unable to obtain. FAMILY HISTORY: Family history with mother with history of dementia, hypertension, diabetes. Sister with GERD and hyperlipidemia. SOCIAL HISTORY: No tobacco and no alcohol use. MEDICATIONS: Fenofibrate 145 mg daily, gabapentin 600 mg t.i.d., metformin 500 mg b.i.d., oxybutynin XL 10 mg daily, repaglinide 2 mg t.i.d., pantoprazole 40 mg daily, benazepril 20 mg daily, Tradjenta 5 mg daily, Lumigan 1 drop to the right eye at bedtime, Alphagan 1 drop b.i.d., Cosopt 1 drop b.i.d., atorvastatin 20 mg daily, nitrofurantoin 100 mg b.i.d. PHYSICAL EXAMINATION: VITAL SIGNS: Temperature 97.7, pulse rate 103, respirations 27, blood pressure 143/63, oxygen saturation 98 percent on room air. GENERAL: Well-developed, well-nourished female, obtunded, lying in bed, diaphoretic. SKIN: Multiple hematomas with ecchymoses on shoulders, bilateral arms, bilateral legs, bilateral iliac crest. HEENT: Unable to assess extraocular muscles. Patient has subconjunctival hemorrhage around the right eye, with mild edema. The left cornea is clouded. Oropharynx clear. There is a hematoma with ecchymoses on the chin, tracking down the neck. NECK: No jugular venous distention, 2+ carotid upstrokes. No lymphadenopathy. CHEST: Clear to auscultation bilaterally. HEART: Tachycardic, regular rhythm. No murmurs, gallops noted. ABDOMEN: Soft, moderate obesity. Normoactive bowel sounds. Nontender, nondistended. GENITOURINARY: External exam within normal limits. Internal exam not performed. EXTREMITIES: No cyanosis, clubbing. Trace bilateral lower extremity edema. NEUROLOGIC: The patient is obtunded, responds to noxious stimuli. No evidence of posturing. Otherwise nonfocal neurologic examination. DATA: White blood cell count 46.6, platelets of 15, hemoglobin of 8.4, hematocrit of 26.5. Sodium 143, potassium 3.6, chloride 108, bicarbonate 22, BUN 24, creatinine 1.12, glucose 227, calcium 10.8. AST of 49, ALT of 10. Troponin less than 0.012. Albumin 4.1. CT scan of the brain: 1. Shows posterior right temporal occipital parietal and intraparenchymal hemorrhage with mild surrounding hypodensity edema and effacement of the occipital horn of right lateral ventricle. There is no midline shift. 2. The CT scan shows significant increase in the right intraparenchymal hemorrhage with intraventricular extension, with new sub falcine herniation, midline shift, with evidence of increased intracranial pressure. ASSESSMENT AND PLAN: 1. The patient is a 71-year-old female with refractory thrombocytopenia and anemia secondary to severe myelodysplastic syndrome with significant intracranial hemorrhage. The patient with a serious condition that is life threatening at this point. I spoke at length with the patient's sister, who is currently the decision maker regarding patient's overall care. Will proceed with admission to the intensive care unit. Patient is too unstable for any surgical option at this point due to her thrombocytopenia and potential worsening for her process if surgery were to be done. The patient will get intubated due to future airway protection and further decline due to possible herniation with intracranial pressure rising and the bleed extending. Will continue with the transfusions of platelets and appreciate Dr. Paez's and Dr. Holman's input into this difficult case. The patient will need ICU monitoring. We will give pain medication for pain control and Zofran for any nausea and vomiting and p.r.n. blood pressure medication. 2. Diabetes. Patient will be NPO and will use sliding scale insulin. 3. Hypertension. Continue medications and p.r.n. hydralazine. Code status: We will do full code at this point. The patient's family wants to discuss future options. 4. Will do the ventilator at this point for airway protection. If it is deemed that the patient's condition becomes terminal, then it will be determined to make the patient comfortable and remove her from the ventilator if need be. Dictated By: Cristopher Constantino MD /tiffany/holly /Document#: [id number] MACO
== END 2017-02-19 23:25 | disposition expired | DRG 64 ==
LOC: E/R 00:59 → ICU 02:49
PROVIDERS: ADMIT Family Medicine; ATTEND Family Medicine
PROC: 0BH17EZ Insertion of Endotracheal Airway into Trachea, Via Natural or Artificial Opening (ICD-10-PCS; principal; 2017-02-18)
PROC: 5A1935Z Respiratory Ventilation, Less than 24 Consecutive Hours (ICD-10-PCS; 2017-02-18)
DX: I61.5 Nontraumatic intracerebral hemorrhage, intraventricular (principal); J96.01 Acute respiratory failure with hypoxia; J96.02 Acute respiratory failure with hypercapnia; D69.59 Other secondary thrombocytopenia; D46.9 Myelodysplastic syndrome, unspecified; I10 Essential (primary) hypertension; K21.9 Gastro-esophageal reflux disease without esophagitis; E11.9 Type 2 diabetes mellitus without complications; R11.2 Nausea with vomiting, unspecified; E78.5 Hyperlipidemia, unspecified; N32.81 Overactive bladder; H11.33 Conjunctival hemorrhage, bilateral; Z79.4 Long term (current) use of insulin
CPT/HCPCS: 31500; 36415; 36430; 36600; 70450; 71010; 80048; 80053; 82803; 82962; 84484; 85014; 85018; 85025; 85610; 85730; 86644; 86850; 86900; 86901; 86920; 86945; 87081; 93005; 94002; 94003; 96372; 96374; 96375; 96376; C9113; J1170; J1815; J2150; J2270; J2405; J2597; J7030; J7040; J7050; J7060; J7999; P9016; P9035